=== PATIENT | male | born 1970 | race African-American/Black ===

== ENCOUNTER 2017-04-06 17:50 | Inpatient (IN) | payer OTHER ==
[~2017-04-06] VITALS: Ht 185.4 cm; Wt 106.5 kg
[2017-04-06 18:00] VITALS: PULSE 119; O2SAT 95
[2017-04-06] MEDS ORDERED: METHYLPREDNISOLONE 125 MG VIAL IV STA (18:17)
[2017-04-06] MEDS ORDERED: ALBUT/IPRATROP 3MG/0.5MG NEB 3 ML VIAL INH ONE (18:30)
[2017-04-06 18:40] VITALS: PULSE 113; O2SAT 97
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
[2017-04-06 19:09] LABS: BASO % 0.1 %; BASO ABS # 0.01 K/uL (0-0.2); COMPLETE YES; EOS % 0.8 %; IG% 0.6 %; LYMPH % 12.8 %; LYMPH ABS # 1.46 K/uL (1.2-3.4); MEAN CELL VOLUME 88.1 fL (80-100); MEAN CORPUSCULAR HEMOGLOBIN 29.1 pg (25-34); MEAN PLATELET VOLUME 10.8 fL (7.4-10.4); MONO % 7.3 %; NEUT % 78.4 %; PLATELET COUNT 216 K/uL (130-400); RED BLOOD COUNT 4.54 M/uL (4.7-6.1); WHITE BLOOD COUNT 11.44 K/uL (4.8-10.8)
[2017-04-06 19:23] LABS: PARTIAL THROMBOPLASTIN RATIO 0.9; PROTHROMBIN TIME (PATIENT) 10.9 SECONDS (9.0-12.0)
[2017-04-06] MEDS ORDERED: FUROSEMIDE 40 MG/4 ML VIAL IV STA (19:32)
[2017-04-06] MEDS ORDERED: ASPI81TA28 PO (19:33)
[2017-04-06] MEDS ORDERED: INSHRI SQ (19:33)
[2017-04-06] MEDS ORDERED: SERT-234 PO (19:33)
[2017-04-06] MEDS ORDERED: DIVA500T59 PO (19:33)
[2017-04-06] MEDS ORDERED: [UNRECOGNIZED DRUG - OTHER] TOP (19:33)
[2017-04-06] MEDS ORDERED: INSDGI SQ (19:33)
[2017-04-06] MEDS ORDERED: METF-384 PO (19:33)
[2017-04-06] MEDS ORDERED: OLAN10TA11 PO (19:33)
[2017-04-06] MEDS ORDERED: ATOR10TA82 PO (19:33)
[2017-04-06] MEDS ORDERED: DIPH25CA5 PO ×2 (19:33)
[2017-04-06] MEDS ORDERED: LISI10TA PO (19:33)
[2017-04-06 19:35] LABS: BUN/CREATININE RATIO 12.2 (10-20); CALCIUM 8.2 mg/dl (8.5-10.1); CREATININE 0.97 mg/dl (0.60-1.40); POTASSIUM 4.5 mmol/L (3.5-5.1)
[2017-04-06 19:44] LABS: ALB/GLOB RATIO 0.9 (0.9-2); CKMB/CK RATIO 0.9 (0-3.0)
[2017-04-06] MEDS ORDERED: DiphenhydrAMINE HCL 50 MG/ML VIAL IV STA (19:56)
[2017-04-06] MEDS ORDERED: OPTIRAY 320 IV PRN (20:00)
--- NOTE | 2017-04-06 21:03 | DIAGNOSTIC IMAGING REPORT ---
CT ANGIOGRAM OF THE CHEST CLINICAL HISTORY: Dyspnea. COMPARISON STUDY: Chest x-ray dated 04/06/2017. TECHNIQUE: Following the IV administration of 94 cc of Optiray 320, CT angiogram of the chest was performed from the upper abdomen to the thoracic inlet utilizing the pulmonary embolus protocol. Images are reviewed in the axial, sagittal, and coronal planes. 3-D MIPS images are created and assessed. IV contrast was administered without complication. A dose lowering technique was utilized adhering to the principles of ALARA. The examination is degraded by motion artifact. CT DOSE: 583.46 mGy.cm FINDINGS: Thyroid: Imaged portions of the thyroid gland are normal in size and attenuation. Thoracic aorta: The thoracic aorta is normal in caliber and demonstrates standard 3-vessel arch anatomy. No dissection is seen. Pulmonary vasculature: The pulmonary trunk is normal in caliber. There are no filling defects identified in main, lobar, or proximal segmental pulmonary branches to suggest pulmonary embolus. Evaluation of the peripheral branches is degraded by motion artifact. Heart: The heart is enlarged and without pericardial effusion. There are scattered coronary artery calcifications. Lungs and pleural spaces: Evaluation of the lung parenchyma is degraded by motion artifact. The trachea and central airways are clear. Trace pleural effusions are identified. Patchy airspace consolidation is identified in the lower lobes bilaterally. Linear atelectasis is noted in the lingula. Diffuse peribronchial thickening is observed. Plaque-like pleural thickening is noted along the right minor fissure on image #189. Intralobular septal thickening is seen in the lower lobes. Mediastinum: There are mildly enlarged mediastinal lymph nodes. A right paratracheal node on image #253 measures 1.2 cm in short axis. A subcarinal node measures 1.8 cm in short axis. Amira: Enlarged hilar lymph nodes measure up to 1.8 cm in short axis. Axillae: There is no axillary lymphadenopathy. Upper abdomen: A 2.3 cm right adrenal nodule meets CT criteria for a fat-containing adenoma. A tiny hiatal hernia is identified. Skeletal structures: No lytic or blastic bony lesions are seen. IMPRESSION: 1. There is no evidence of pulmonary embolus in the main, lobar, or proximal segmental pulmonary arteries. 2. Cardiomegaly. 3. Patchy airspace consolidation is seen within the lower lobes bilaterally. There is also intralobular septal thickening. The appearance is most typical for pneumonia. Correlate clinically for evidence of superimposed pulmonary edema. Radiographic follow-up To resolution is recommended. 4. Mediastinal and hilar lymphadenopathy is noted and likely on a reactive basis. 5. There are trace pleural effusions. 6. Pleural thickening is noted along the right minor fissure. 7. Additional findings as above. Electronically signed by: Carlos Davidson M.D. 04/06/2017 9:02 PM Dictated Date/Time: 04/06/2017 8:54 PM
[2017-04-06] MEDS ORDERED: ASPIRIN 324 MG CHEW PO STA (21:13)
[2017-04-06] MEDS ORDERED: CEFEPIME IV 2,000 MG in DEXTROSE 5% 100ML 100 ML IV ONE (21:15)
[2017-04-06] MEDS ORDERED: AZITHROMYCIN IV 500 MG in DEXTROSE 5% 250ML 250 ML IV ONE (21:15)
[2017-04-06] MEDS ORDERED: CEFEPIME IV 2,000 MG in SYRINGE 7.5 ML IV ONE (21:30)
[2017-04-06] MEDS ORDERED: CEFEPIME IV 1,000 MG in DEXTROSE 5% 100ML 100 ML IV STA (21:55)
[2017-04-06] MEDS ORDERED: ACETAMINOPHEN 325 MG TAB PO PRN (22:00)
[2017-04-06] MEDS ORDERED: ONDANSETRON INJ 2 MG/ML 2 ML VIAL IV PRN (22:00)
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
[2017-04-06] MEDS ORDERED: GLUCAGON FOR INJ 1 MG VIAL SQ PRN (22:15)
[2017-04-06] MEDS ORDERED: GLUCOSE 10 TABS/TUBE PO PRN (22:15)
[2017-04-06] MEDS ORDERED: GLUCOSE 40% GEL 15 GM TUBE PO PRN (22:15)
[2017-04-06] MEDS ORDERED: DEXTROSE 50% 50 ML SYR IV PRN (22:15)
[2017-04-06 22:51] VITALS: BP 117/96; PULSE 118; TEMP 37.2; BMI 31.0
[2017-04-06] MEDS ORDERED: ALBUT/IPRATROP 3MG/0.5MG NEB 3 ML VIAL INH SCH (23:00)
--- NOTE | 2017-04-06 23:23 | History and Physical ---
History & Physical Date & Time of Service: Apr 06, 2017 at 22:39 Chief Complaint: Resp Distress Primary Care Physician: Delfina CAREY History of Present Illness Source: patient, hospital records Pt is 46 y/o M with PMH HTN, dyslipidemia, insulin dependent DM II, SATISH, bipolar , emphysema presented to ER from [facility] with c/o SOB. Pt reports hx SOB, worse with exertion x couple of weeks. Worsening SOB past couple of days and worse today. Pt also c/o cough clear/white sputum x 1-2 weeks and intermittent sore throat. Reports some mid chest sharp pain intermittently lasts a couple of seconds and then resolves. C/O diaphoresis past week and night sweats past week. Pt thinks gained weight over the past month. Yesterday noticed some edema bilateral ankles. Reported when EMS arrived pt O2 sats in 80's% on RA. Pt reports hx emphysema. Used inhalers in past. States hasn't used for approx 7 years. Continues to smoke. Hx SATISH, does not use CPAP as pt states doesn't like the mask and he is not given distilled water in half-way. Denies known fever, N/V/ D/C, KINNEY, dizziness, syncope, vision changes, neck pain, orthopnea, palpitations , hemoptysis, choking, otalgia, rhinorrhea, abdominal pain, paresthesias, weakness, extremity weakness, new rashes, urinary symptoms. Denies ill contacts. Reports did have influenza vaccine this season. In ER pt placed on bipap sats in 90's. Afebrile. WBC: 11.4. D-dimer: 4020, BNP: 1107, Troponin 0.109. EKG: sinus tachy, PAC's. CXR: Mild interstitial thickening and mild bilateral airspace opacities. CT chest: consolidation bilateral lower lobes, intralobular septal thickening. Pt given ASA, solumedrol 125mgIV, lasix 40mg, duoneb, cefepime, zithromax. Pt reports feeling like his breathing better and much less SOB. He was tried on NC at 4L and pt sats 94%. Past Medical/Surgical History Medical Problems: (1) Bipolar disorder Status: Chronic (2) COPD (chronic obstructive pulmonary disease) Status: Chronic (3) Diabetes Status: Chronic (4) HTN (hypertension) Status: Chronic (5) Hyperlipidemia Status: Chronic (6) Sleep apnea Status: Chronic Surgical Problems: (1) Hx of tonsillectomy Status: Resolved Family History FH: cancer MOTHER (stomach CA) Hypertension GRANDMOTHER Social History Smoking Status: Current Every Day Smoker (15-20 cigarettes daily x 30 years) Smokeless Tobacco Use: No Alcohol Use: none Drug Use: none Marital Status: other (unknown) Housing status: other ([employer] [employer]) 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) Allergies Coded Allergies: Iodine (Verified Allergy, Unknown, UNKNOWN, 04/06/17) Shellfish (Verified Allergy, Unknown, UNKNOWN, 04/06/17) Home Medications Scheduled Aspirin (Aspirin Ec), 81 MG PO DAILY Atorvastatin (Lipitor), 10 MG PO DAILY Diphenhydramine Hcl (Benadryl), 2 CAP PO HS Diphenhydramine Hcl (Benadryl), 50 MG PO DAILY Divalproex Sodium (Depakote), 2 TAB PO HS Insulin Glargine (Lantus), 60 UNITS SQ HS Lisinopril (Prinivil), 10 MG PO DAILY Metformin Hcl (Glucophage), 1,000 MG PO BID Olanzapine (Zyprexa), 10 MG PO BID Sertraline (Zoloft), 2 TABS PO DAILY [Humulin R], UNITS SQ BIDM [Podophyllin 20%], 1 APPLN TOP UD Review of Systems Constitutional: + problem reported (see HPI) Eyes: No worsening of vision, No eye pain, No redness, No discharge, No diplopia ENT: + sore throat, + problem reported (see HPI), No unusual epistaxis, No nasal symptoms, No trouble swallowing Respiratory: + problem reported (see HPI) Cardiovascular: + problem reported (see HPI) Abdomen: No pain, No nausea, No vomiting, No diarrhea, No constipation, No GI bleeding Musculoskeletal: No joint pain, No muscle pain, No calf pain Genitourinary - Male: No hematuria, No dysuria, No urinary frequency, No urinary urgency, No urinary hesitancy, No urinary retention Neurologic: No memory loss, No weakness, No numbness/tingling, No vertigo, No balance problems Endocrine: No excessive thirst Integumentary: No color change Physical Exam Vital Signs Date Time Temp Pulse Resp B/P (MAP) Pulse Ox O2 Delivery O2 Flow Rate FiO2 11/22/17 22:35 10 22 126/94 94 04/06/17 22:02 117 04/06/17 21:30 125 20 97/75 92 Nasal Cannula 4.0 04/06/17 19:30 108 20 106/70 99 BiPAP 04/06/17 18:40 113 18 97 BiPAP/CPAP 60 04/06/17 18:01 117 04/06/17 18:00 119 95 60 04/06/17 17:58 37.1 92 20 132/96 93 BiPAP 60 04/06/17 17:58 95 BiPAP 60 General Appearance: WD/WN, no apparent distress (at this time. pt has on bipap , resting comfortably in bed, speaking in sentences ) Head: normocephalic, atraumatic Eyes: normal inspection, PERRL, EOMI, sclerae normal ENT: hearing grossly normal, pharynx normal, + pertinent finding (mucous membranes moist) Neck: supple, no adenopathy, no JVD, trachea midline Respiratory/Chest: chest non-tender, no accessory muscle use, + pertinent finding (+rhonchi throughout, rales bases bilaterally, scattered wheezing throughout) Cardiovascular: no murmur, normal peripheral pulses, + tachycardia Abdomen/GI: normal bowel sounds, non tender, soft Extremities/Musculoskelatal: no calf tenderness, normal capillary refill, non- tender, + pertinent finding (no pitting edema) Neurologic/Psych: alert, normal mood/affect, oriented x 3 Skin: normal color, warm/dry Diagnostics Laboratory Results Last 24 Hours Test 04/06/17 18:57 04/06/17 22:05 04/06/17 22:10 04/06/17 22:13 White Blood Count 11.44 K/uL Red Blood Count 4.54 M/uL Hemoglobin 13.2 g/dL Hematocrit 40.0 % Mean Corpuscular Volume 88.1 fL Mean Corpuscular Hemoglobin 29.1 pg Mean Corpuscular Hemoglobin Concent 33.0 g/dl Platelet Count 216 K/uL Mean Platelet Volume 10.8 fL Neutrophils (%) (Auto) 78.4 % Lymphocytes (%) (Auto) 12.8 % Monocytes (%) (Auto) 7.3 % Eosinophils (%) (Auto) 0.8 % Basophils (%) (Auto) 0.1 % Neutrophils # (Auto) 8.98 K/uL Lymphocytes # (Auto) 1.46 K/uL Monocytes # (Auto) 0.83 K/uL Eosinophils # (Auto) 0.09 K/uL Basophils # (Auto) 0.01 K/uL RDW Standard Deviation 43.2 fL RDW Coefficient of Variation 13.6 % Immature Granulocyte % (Auto) 0.6 % Immature Granulocyte # (Auto) 0.07 K/uL Prothrombin Time 10.9 SECONDS Prothromb Time International Ratio 1.0 Activated Partial Thromboplast Time 24.0 SECONDS Partial Thromboplastin Ratio 0.9 D-Dimer 4020 ug/L FEU Sodium Level 140 mmol/L Potassium Level 4.5 mmol/L Chloride Level 108 mmol/L Carbon Dioxide Level 24 mmol/L Anion Gap 8.0 mmol/L Blood Urea Nitrogen 12 mg/dl Creatinine 0.97 mg/dl Est Creatinine Clear Calc Drug Dose 124.2 ml/min Estimated GFR () 108.1 Estimated GFR (Non- 93.2 BUN/Creatinine Ratio 12.2 Random Glucose 174 mg/dl Calcium Level 8.2 mg/dl Total Bilirubin 0.1 mg/dl Aspartate Amino Transf (AST/SGOT) 24 U/L Alanine Aminotransferase (ALT/SGPT) 32 U/L Alkaline Phosphatase 59 U/L Total Creatine Kinase 264 U/L Creatine Kinase MB 2.3 ng/ml Creatine Kinase MB Ratio 0.9 Troponin I 0.109 ng/ml Pro-B-Type Natriuretic Peptide 1107 pg/ml Total Protein 6.7 gm/dl Albumin 3.1 gm/dl Globulin 3.6 gm/dl Albumin/Globulin Ratio 0.9 Diagnostic Radiology CXR: IMPRESSION: 1. Mild interstitial thickening and mild bilateral airspace opacities. The findings may reflect an infectious etiology or pulmonary edema. Radiographic follow-up to ensure resolution is recommended. 2. Mild enlargement of the cardiac silhouette. CT CHEST: IMPRESSION: 1. There is no evidence of pulmonary embolus in the main, lobar, or proximal segmental pulmonary arteries. 2. Cardiomegaly. 3. Patchy airspace consolidation is seen within the lower lobes bilaterally. There is also intralobular septal thickening. The appearance is most typical for pneumonia. Correlate clinically for evidence of superimposed pulmonary edema. Radiographic follow-up To resolution is recommended. 4. Mediastinal and hilar lymphadenopathy is noted and likely on a reactive basis. 5. There are trace pleural effusions. 6. Pleural thickening is noted along the right minor fissure. 7. Additional findings as above. EKG EKG: sinus tachy, rate 118, PAC, no ST elevation noted Impression Assessment and Plan HYPOXIA Pt reports hx emphysema not treated for 7 years. Pt initially with O2 sats in 80 's, increased to high 90's on bipap in ER. Pt 94% on 4L NC. sinus Tachy 116. afebrile. Received neb tx, solumedrol 125mg, lasix 40, zithromax, cefepime, asa in ER. Pt reports less SOB. WBC: 11.4. pending lactic acid. d-dimer: 4020. BNP: 1107. CT negative for PE, consolidation bilateral lower lobes, intralobar septal thickening Pneumonia, may also be secondary to COPD exacerbation vs fluid overload. At this time higher suspicion pneumonia -continue to monitor -pt maintaining sats in low 90's on O2 NC -pending blood cultures -pending flu swab -pending lactic acid -MRSA swab -duonebs -echo -solumedrol 40mg Q 8h -continue cefepime, Zithromax -hold on further Lasix at this time until echo -cbc, prp in am -CXR in am ELEVATED TROPONIN Troponin 0.109. may be secondary to infection. no current CP -will trend serial cardiac enzymes -repeat EKG -continue ASA INSULIN DEPENDENT DM II -HgbA1c pending -NovoLog sliding scale -Lantus -hold metformin HTN: -continue lisinopril HYPERLIPIDEMIA -lipid panel -continue Lipitor TOBACCO ABUSE -smoking cessation counseling -nicotine patch BIPOLAR: -pending Depakote level -continue Depakote -continue Zyprexa -continue Zoloft SATISH -pt doesn't use his cpap. Will continue O2 NC at this time DVT PROPHYLAXIS -Lovenox SQ DISPOSITION -admit tele -Full Code -[facility] physician for routine care Pt was seen with Dr Babcock. See addendum ADDENDUM: This is a 46 year old male with a PMH of DM2, HTN, HLD, tobacco use disorder, bipolar disorder presents with a two week history of shortness of breath. States that he could not get a deep breath in for the two weeks but hoped that this would pass. Unfortunately, breathing became more difficult and he had to be brought in to the ED. Upon presentation, noted to be hypoxic. CT showed possible pneumonia. Patient was given Lasix, IV steroids, antibiotics and placed on bipap. He was then weaned off of Bipap and back on nasal cannula. During my exam, he was feeling better. GEN: no acute distress CVS: +tachycardia, irregular rhythm LUNGS: decreased air movement, +end expiratory wheezing diffusely EXT: no edema Acute Hypoxic Respiratory Failure secondary to Pneumonia and Acute COPD Exacerbation continue Cefepime and Azithro for now; check MRSA swab IV solu-medrol 40mg q8 duonebs recheck CXR in AM Sinus Tachycardia and multiple PACs EKG shows a sinus tachycardia and PACs monitor in tele continue bipolar medications, monitor heart rate with steroid use Elevated Troponin monitor in tele check an echo trend enzymes Level of Care Telemetry Resuscitation Status FULL RESUSCITATION VTE Prophylaxis VTE Risk Assessment Done? Y/N: Yes Risk Level: Moderate Given or contraindicated: Enoxaparin (Lovenox)SQ
[2017-04-07] VITALS (9 sets, daily range): BP systolic 111–136; BP diastolic 76–104; PULSE 100–120; TEMP 36.7–37.6; O2SAT 91–97
[2017-04-07] MEDS: INSULIN GLARGINE SOLOSTAR 100 UNITS/ML 3 ML PEN SC SCH ×2 (00:45→07:56)
[2017-04-07 00:51] LABS: INFLUENZA A PCR Neg for Influ A (NEG); INFLUENZA B PCR Neg for Influ B (NEG)
[2017-04-07 01:25] LABS: CKMB/CK RATIO 1.1 (0-3.0)
[2017-04-07] MEDS: METHYLPREDNISOLONE IV 40 MG in SYRINGE 0 ML IV SCH ×3 (05:57→20:58)
[2017-04-07] MEDS: CEFEPIME IV 2,000 MG in SYRINGE 7.5 ML IV SCH ×3 (05:57→21:01)
[2017-04-07 06:15] LABS: COMPLETE YES; HEMATOCRIT 39.2 % (42-52); IG% 0.3 %; LYMPH % 9.1 %; LYMPH ABS # 1.21 K/uL (1.2-3.4); MEAN CELL VOLUME 87.9 fL (80-100); MEAN CORPUSCULAR HEMOGLOBIN 28.9 pg (25-34); MEAN CORPUSCULAR HGB CONC 32.9 g/dl (32-36); MEAN PLATELET VOLUME 10.8 fL (7.4-10.4); MONO % 1.7 %; NEUT % 88.9 %; PLATELET COUNT 219 K/uL (130-400); RED BLOOD COUNT 4.46 M/uL (4.7-6.1); WHITE BLOOD COUNT 13.33 K/uL (4.8-10.8)
[2017-04-07 06:35] LABS: BUN/CREATININE RATIO 15.1 (10-20); CALCIUM 8.2 mg/dl (8.5-10.1); CREATININE 1.08 mg/dl (0.60-1.40); POTASSIUM 4.4 mmol/L (3.5-5.1)
[2017-04-07 06:42] LABS: ESTIMATED AVERAGE GLUCOSE 200 mg/dl; HA1C FLAG Normal (Normal)
[2017-04-07 06:48] LABS: CHOLESTEROL/HDL RATIO 3.1; CKMB/CK RATIO 1.1 (0-3.0)
[2017-04-07] MEDS: ASPIRIN 81 MG ECTAB PO SCH (07:54)
[2017-04-07] MEDS: ATORVASTATIN 10 MG TAB PO SCH (07:54)
[2017-04-07] MEDS: INSULIN ASPART 100 UNITS/ML 3 ML PEN SC SCH ×4 (07:56→21:03)
[2017-04-07] MEDS: OLANZAPINE 10 MG TAB PO SCH ×2 (07:56→20:54)
[2017-04-07] MEDS: NICOTINE 21 MG/24 HR TDSY TD SCH (07:57)
[2017-04-07] MEDS: LISINOPRIL 10 MG TAB PO SCH (07:57)
[2017-04-07] MEDS: ENOXAPARIN 40 MG/0.4 ML SYR SC SCH (07:57)
[2017-04-07] MEDS: SERTRALINE HCL 100 MG TAB PO SCH (07:58)
--- NOTE | 2017-04-07 09:07 | DIAGNOSTIC IMAGING REPORT ---
CHEST 2 VIEWS ROUTINE CLINICAL HISTORY: SOB, hypoxia COMPARISON STUDY: 04/06/2017 FINDINGS: The heart is the upper limits of normal in size. There is slight improvement in the mixed bilateral interstitial and alveolar opacities. There are no significant pleural effusions.[ IMPRESSION: Improving mixed bilateral interstitial and alveolar opacities. Electronically signed by: Stuart Nicolas M.D. 04/07/2017 9:05 AM Dictated Date/Time: 04/07/2017 9:04 AM
[2017-04-07] MEDS ORDERED: LEVALBUTEROL/IPRATROPIUM NEB INH PRN (09:30)
[2017-04-07] MEDS ORDERED: LEVALBUTEROL 1.25MG/0.5ML NEB INH PRN ×2 (10:00)
[2017-04-07] MEDS ORDERED: IPRATROPIUM BROMIDE NEB SOLN 0.02% 2.5 ML VIAL INH PRN (10:00)
[2017-04-07] MEDS ORDERED: LANTUS PER UNIT CHARGE SC STA (12:45)
--- NOTE | 2017-04-07 14:08 | DIAGNOSTIC IMAGING REPORT ---
CT LUMBAR SPINE WITHOUT CT DOSE: 999.81 mGy.cm CLINICAL HISTORY: Back pain. Evaluate for fracture. TECHNIQUE: Helical images were acquired in transverse plane. Reformatted sagittal and coronal images were reviewed. A dose lowering technique was utilized adhering to the principles of ALARA. CONTRAST: No contrast was administered COMPARISON STUDY: None. FINDINGS: L1-2 level: There is no evidence of significant disc bulge or focal herniation. There is no evidence of spinal or foraminal stenosis. L2-3 level: There is no evidence of significant disc bulge or focal herniation. There is no evidence of spinal or foraminal stenosis. L3-4 level: There is no evidence of significant disc bulge or focal herniation. There is no evidence of spinal or foraminal stenosis. L4-5 level: There is no evidence of significant disc bulge or focal herniation. There is no evidence of spinal or foraminal stenosis. L5-S1 level: There is no evidence of significant disc bulge or focal herniation. There is no evidence of spinal or foraminal stenosis. No fractures or subluxations are visualized. IMPRESSION: 1. No fractures or subluxations identified 2. No lytic or blastic lesions identified 3. No CT evidence of focal disc herniation, or spinal stenosis. Electronically signed by: Stuart Nicolas M.D. 04/07/2017 2:07 PM Dictated Date/Time: 04/07/2017 2:04 PM
[2017-04-07] MEDS: IPRATROPIUM BROMIDE NEB SOLN 0.02% 2.5 ML VIAL INH SCH ×2 (14:21→19:15)
[2017-04-07] MEDS: LEVALBUTEROL 0.63MG/3 ML NEB INH SCH ×2 (14:21→19:15)
[2017-04-07] MEDS ORDERED: LEVALBUTEROL/IPRATROPIUM NEB INH SCH (15:00)
--- NOTE | 2017-04-07 16:57 | Progress Note ---
Internal Med Progress Note Date of Service: Apr 07, 2017. Provider Documentation: SUBJECTIVE: having sob and cough for about few weeks smokes 20 cigarettes daily afebrile complains of some back pain and numbness in left thigh region feeling better today sob improving OBJECTIVE: Vital Signs-as noted below Exam: General-alert and oriented. Not in distress ENT-Normal hearing Neck-no neck masses Lungs-CTA b/l mild exp wheezing present no crackles Heart-S1 and S2 heard. Regular rate and rhythm, no murmurs Abdomen-Soft Bowel sounds present no tenderness present no distension Extremities-mild pedal edema no erythema Neuro-alert and awake moves extremities Lab data as noted below. ASSESSMENT & PLAN: HYPOXIA copd ex Pneumonia CTA chest - bibasilar infiltrates on iv steroids and iv abx cefepime and azithromycin and nebs improving continue same for now ELEVATED TROPONIN mostly from above NSTEMI from demand ischemia? will f/u echo INSULIN DEPENDENT DM II Lantus and iss metformin on hold close monitor while on steroids HTN: on lisinopril HYPERLIPIDEMIA lipid profile at goal continue Lipitor TOBACCO ABUSE smoking cessation counseling nicotine patch BIPOLAR: to continue Zyprexa to continue Zoloft SATISH pt doesn't use his cpap. Will continue O2 NC at this time DVT PROPHYLAXIS Lovenox SQ Full code DISPOSITION monitor in tele Follows with [facility] physician for routine care Vital Signs: Date Time Temp Pulse Resp B/P (MAP) Pulse Ox O2 Delivery O2 Flow Rate FiO2 04/07/17 15:57 36.7 120 18 132/85 (101) 93 Room Air 04/07/17 14:22 105 18 94 Nasal Cannula 2.0 04/07/17 12:06 36.9 107 18 136/91 (106) 91 Room Air 04/07/17 11:47 Nasal Cannula 04/07/17 08:10 36.9 109 15 118/91 (100) 96 Nasal Cannula 4.0 04/07/17 08:00 Nasal Cannula 04/07/17 07:13 100 18 97 Nasal Cannula 2.0 04/07/17 04:23 37.6 108 22 132/85 (101) 93 04/07/17 04:00 Nasal Cannula 4.0 04/07/17 00:00 Nasal Cannula 4.0 04/06/17 22:51 37.2 118 117/96 Nasal Cannula 4.0 04/06/17 22:35 10 22 126/94 94 04/06/17 22:02 117 04/06/17 21:30 125 20 97/75 92 Nasal Cannula 4.0 04/06/17 19:30 108 20 106/70 99 BiPAP 04/06/17 18:40 113 18 97 BiPAP/CPAP 60 04/06/17 18:01 117 04/06/17 18:00 119 95 60 04/06/17 17:58 37.1 92 20 132/96 93 BiPAP 60 04/06/17 17:58 95 BiPAP 60 Lab Results: Results Past 24 Hours Test 04/06/17 18:57 04/06/17 23:20 04/06/17 23:22 04/07/17 00:53 Range/Units White Blood Count 11.44 4.8-10.8 K/uL Red Blood Count 4.54 4.7-6.1 M/uL Hemoglobin 13.2 14.0-18.0 g/dL Hematocrit 40.0 42-52 % Mean Corpuscular Volume 88.1 80-100 fL Mean Corpuscular Hemoglobin 29.1 25-34 pg Mean Corpuscular Hemoglobin Concent 33.0 32-36 g/dl Platelet Count 216 130-400 K/uL Mean Platelet Volume 10.8 7.4-10.4 fL Neutrophils (%) (Auto) 78.4 % Lymphocytes (%) (Auto) 12.8 % Monocytes (%) (Auto) 7.3 % Eosinophils (%) (Auto) 0.8 % Basophils (%) (Auto) 0.1 % Neutrophils # (Auto) 8.98 1.4-6.5 K/uL Lymphocytes # (Auto) 1.46 1.2-3.4 K/uL Monocytes # (Auto) 0.83 0.11-0.59 K/uL Eosinophils # (Auto) 0.09 0-0.5 K/uL Basophils # (Auto) 0.01 0-0.2 K/uL RDW Standard Deviation 43.2 36.4-46.3 fL RDW Coefficient of Variation 13.6 11.5-14.5 % Immature Granulocyte % (Auto) 0.6 % Immature Granulocyte # (Auto) 0.07 0.00-0.02 K/uL Prothrombin Time 10.9 9.0-12.0 SECONDS Prothromb Time International Ratio 1.0 0.9-1.1 Activated Partial Thromboplast Time 24.0 21.0-31.0 SECONDS Partial Thromboplastin Ratio 0.9 D-Dimer 4020 0-500 ug/L FEU Sodium Level 140 136-145 mmol/L Potassium Level 4.5 3.5-5.1 mmol/L Chloride Level 108 98-107 mmol/L Carbon Dioxide Level 24 21-32 mmol/L Anion Gap 8.0 3-11 mmol/L Blood Urea Nitrogen 12 7-18 mg/dl Creatinine 0.97 0.60-1.40 mg/dl Est Creatinine Clear Calc Drug Dose 124.2 ml/min Estimated GFR () 108.1 Estimated GFR (Non- 93.2 BUN/Creatinine Ratio 12.2 10-20 Random Glucose 174 70-99 mg/dl Estimated Average Glucose 200 mg/dl Hemoglobin A1c 8.6 4.5-5.6 % Calcium Level 8.2 8.5-10.1 mg/dl Total Bilirubin 0.1 0.2-1 mg/dl Aspartate Amino Transf (AST/SGOT) 24 15-37 U/L Alanine Aminotransferase (ALT/SGPT) 32 12-78 U/L Alkaline Phosphatase 59 45-117 U/L Total Creatine Kinase 264 251 39-308 U/L Creatine Kinase MB 2.3 2.7 0.5-3.6 ng/ml Creatine Kinase MB Ratio 0.9 1.1 0-3.0 Troponin I 0.109 0.157 0-0.045 ng/ml Pro-B-Type Natriuretic Peptide 1107 0-450 pg/ml Total Protein 6.7 6.4-8.2 gm/dl Albumin 3.1 3.4-5.0 gm/dl Globulin 3.6 2.5-4.0 gm/dl Albumin/Globulin Ratio 0.9 0.9-2 Influenza Type A (RT-PCR) Neg for Influ A NEG Influenza Type A Antigen Neg for Influ A NEG Influenza Type B Antigen Neg for Influ B NEG Influenza Type B (RT-PCR) Neg for Influ B NEG Lactic Acid Level 4.0 4.5 0.4-2.0 mmol/L Valproic Acid (Depakene) Level 24 50-100 mcg/ml Test 04/07/17 06:01 04/07/17 06:06 04/07/17 06:13 04/07/17 11:29 Range/Units Procalcitonin < 0.05 0-0.5 ng/ml White Blood Count 13.33 4.8-10.8 K/uL Red Blood Count 4.46 4.7-6.1 M/uL Hemoglobin 12.9 14.0-18.0 g/dL Hematocrit 39.2 42-52 % Mean Corpuscular Volume 87.9 80-100 fL Mean Corpuscular Hemoglobin 28.9 25-34 pg Mean Corpuscular Hemoglobin Concent 32.9 32-36 g/dl Platelet Count 219 130-400 K/uL Mean Platelet Volume 10.8 7.4-10.4 fL Neutrophils (%) (Auto) 88.9 % Lymphocytes (%) (Auto) 9.1 % Monocytes (%) (Auto) 1.7 % Eosinophils (%) (Auto) 0.0 % Basophils (%) (Auto) 0.0 % Neutrophils # (Auto) 11.86 1.4-6.5 K/uL Lymphocytes # (Auto) 1.21 1.2-3.4 K/uL Monocytes # (Auto) 0.22 0.11-0.59 K/uL Eosinophils # (Auto) 0.00 0-0.5 K/uL Basophils # (Auto) 0.00 0-0.2 K/uL RDW Standard Deviation 43.9 36.4-46.3 fL RDW Coefficient of Variation 13.7 11.5-14.5 % Immature Granulocyte % (Auto) 0.3 % Immature Granulocyte # (Auto) 0.04 0.00-0.02 K/uL Sodium Level 138 136-145 mmol/L Potassium Level 4.4 3.5-5.1 mmol/L Chloride Level 104 98-107 mmol/L Carbon Dioxide Level 26 21-32 mmol/L Anion Gap 8.0 3-11 mmol/L Blood Urea Nitrogen 16 7-18 mg/dl Creatinine 1.08 0.60-1.40 mg/dl Est Creatinine Clear Calc Drug Dose 109.4 ml/min Estimated GFR () 94.9 Estimated GFR (Non- 81.9 BUN/Creatinine Ratio 15.1 10-20 Random Glucose 269 70-99 mg/dl Lactic Acid Level 2.5 0.4-2.0 mmol/L Calcium Level 8.2 8.5-10.1 mg/dl Total Creatine Kinase 262 39-308 U/L Creatine Kinase MB 2.8 0.5-3.6 ng/ml Creatine Kinase MB Ratio 1.1 0-3.0 Troponin I 0.202 0-0.045 ng/ml Triglycerides Level 54 0-150 mg/dl Cholesterol Level 123 0-200 mg/dl HDL Cholesterol 40 mg/dl LDL Cholesterol, Calculated 72 mg/dl VLDL Cholesterol, Calculated 11 mg/dl Cholesterol/HDL Ratio 3.1 Bedside Glucose 259 322 70-99 mg/dl Test 04/07/17 16:24 04/07/17 16:26 Range/Units Bedside Glucose 275 70-99 mg/dl Microbiology Results 04/06/17 Blood Culture, Received Pending 04/06/17 Blood Culture, Received Pending 04/06/17 MRSA DNA Surveillance Screen - Final, Complete Specimen Negative for MRSA by DNA Probe
[2017-04-07] MEDS: DIVALPROEX SODIUM 500 MG DELAY RELEASE TAB PO SCH (20:53)
[2017-04-07] MEDS ORDERED: INSULIN GLARGINE SOLOSTAR 100 UNITS/ML 3 ML PEN SC SCH (21:00)
[2017-04-07] MEDS: AZITHROMYCIN IV 500 MG in DEXTROSE 5% 250ML 250 ML IV SCH (21:01)
[2017-04-07] MEDS ORDERED: INSULIN HUMAN REGULAR SC ONE (23:45)
[2017-04-07] MEDS ORDERED: PHARMACY GLYCEMIC MGMT CONSULT PRN (23:45)
[2017-04-08] VITALS (10 sets, daily range): BP systolic 138–164; BP diastolic 81–113; PULSE 100–113; TEMP 36.4–37.1; O2SAT 91–96
[2017-04-08] MEDS ORDERED: INSULIN ASPART 100 UNITS/ML 3 ML PEN SC ONE
[2017-04-08] MEDS: LEVALBUTEROL 0.63MG/3 ML NEB INH SCH ×4 (01:45→19:10)
[2017-04-08] MEDS: IPRATROPIUM BROMIDE NEB SOLN 0.02% 2.5 ML VIAL INH SCH ×4 (01:45→19:10)
[2017-04-08] MEDS ORDERED: INSULIN ASPART 100 UNITS/ML 3 ML PEN SC SCH (04:00)
[2017-04-08] MEDS ORDERED: INSULIN HUMAN REGULAR PER UNIT 10 UNITS in SYRINGE 9.9 ML IV SCH ×2 (04:45)
[2017-04-08] MEDS: CEFEPIME IV 2,000 MG in SYRINGE 7.5 ML IV SCH ×3 (05:00→21:46)
[2017-04-08] MEDS: METHYLPREDNISOLONE IV 40 MG in SYRINGE 0 ML IV SCH (05:01)
[2017-04-08] MEDS: INSULIN ASPART 100 UNITS/ML 3 ML PEN SC SCH ×4 (08:34→21:57)
[2017-04-08] MEDS: INSULIN GLARGINE SOLOSTAR 100 UNITS/ML 3 ML PEN SC SCH ×2 (08:35→21:57)
[2017-04-08] MEDS: ASPIRIN 81 MG ECTAB PO SCH (08:37)
[2017-04-08] MEDS: ENOXAPARIN 40 MG/0.4 ML SYR SC SCH (08:37)
[2017-04-08] MEDS: ATORVASTATIN 10 MG TAB PO SCH (08:37)
[2017-04-08] MEDS: SERTRALINE HCL 100 MG TAB PO SCH (08:37)
[2017-04-08] MEDS: OLANZAPINE 10 MG TAB PO SCH ×2 (08:37→21:44)
[2017-04-08] MEDS: LISINOPRIL 10 MG TAB PO SCH (08:37)
[2017-04-08] MEDS: NICOTINE 21 MG/24 HR TDSY TD SCH (08:38)
--- NOTE | 2017-04-08 11:31 | ECHOCARDIOGRAM REPORT ---
*NOTICE TO RECEIVING [employer] This information is strictly Confidential and protected under [place] law. [place] law prohibits you from making any further disclosure of this information unless further disclosure is expressly permitted by the written consent of the person to whom it pertains or is authorized by law. A general authorization for the release of medical or other information is not sufficient for this purpose. Hospital accepts no responsibility if the information is made available to any other person, INCLUDING THE PATIENT. Interpretation Summary * Name: DIANA FORD [id number] Study Date: 04/07/2017 02:47 PM BP: 132/85 mmHg * Patient Location: C.2E\S\E202\S\1 HR: 108 * : 1970 (M/d/yyyy) Gender: Male Height: 73 in * Age: 46 yrs Ethnicity: AA Weight: 244 lb * Ordering Physician: Erica Torres * Referring Physician: Self, Referred * Performed By: Julissa Rascon RDCS * * Reason For Study: Chest pain * BSA: 2.3 m2 * -- Conclusions -- * The left ventricle is normal in size. * The left ventricular wall motion is normal. * Ejection Fraction = 50-55%. * The right ventricular systolic function is normal. * The left atrial size is normal. * Right atrial size is normal. * There is mild to moderate mitral regurgitation. Procedure Details * A complete two-dimensional transthoracic echocardiogram was performed (2D, M-mode, Doppler and color flow Doppler). Left Ventricle * The left ventricle is normal in size. * There is normal left ventricular wall thickness. * Ejection Fraction = 50-55%. * Left ventricular systolic function is normal. * The left ventricular wall motion is normal. Right Ventricle * The right ventricle is normal size. * The right ventricular systolic function is normal. Atria * The left atrial size is normal. * Right atrial size is normal. * The interatrial septum is intact with no evidence for an atrial septal defect. Mitral Valve * The mitral valve anatomy is normal. * There is mild to moderate mitral regurgitation. Tricuspid Valve * The tricuspid valve is normal in structure and function. * Significant tricuspid regurgitation is absent. Aortic Valve * The aortic valve is normal in structure and function. Pulmonic Valve * The pulmonic valve is not well visualized. * There is no significant pulmonary regurgitation. Great Vessels * The aortic root and proximal ascending aorta are normal sized. Pericardium/Pleural * There is no pericardial effusion. MMode 2D Measurements and Calculations IVSd 1.0 cm LVIDd 5.6 cm LVIDs 4.1 cm LVPWd 1.2 cm IVS/LVPW 0.88 FS 26.7 % EDV(Teich) 151.5 ml ESV(Teich) 73.4 ml EF(Teich) 51.5 % EDV(cubed) 172.4 ml ESV(cubed) 68.0 ml EF(cubed) 60.6 % LV mass(C)d 244.3 grams LV mass(C)dI 104.3 grams/m\S\2 SV(Teich) 78.1 ml SI(Teich) 33.3 ml/m\S\2 SV(cubed) 104.4 ml SI(cubed) 44.6 ml/m\S\2 Ao root diam 2.9 cm Ao root area 6.7 cm\S\2 ACS 1.9 cm LA dimension 3.5 cm asc Aorta Diam 3.2 cm LA/Ao 1.2 LVOT diam 2.0 cm LVOT area 3.2 cm\S\2 LVAd ap4 33.5 cm\S\2 LVLd ap4 7.9 cm EDV(MOD-sp4) 115.2 ml EDV(sp4-el) 119.9 ml LVAs ap4 21.7 cm\S\2 LVLs ap4 6.9 cm ESV(MOD-sp4) 57.5 ml ESV(sp4-el) 57.7 ml EF(MOD-sp4) 50.1 % EF(sp4-el) 51.9 % LVAd ap2 39.7 cm\S\2 LVLd ap2 8.5 cm EDV(MOD-sp2) 154.7 ml EDV(sp2-el) 158.0 ml LVAs ap2 26.3 cm\S\2 LVLs ap2 7.5 cm ESV(MOD-sp2) 76.1 ml ESV(sp2-el) 78.4 ml EF(MOD-sp2) 50.8 % EF(sp2-el) 50.4 % LVLd %diff 6.4 % EDV(MOD-bp) 136.0 ml LVLs %diff 7.8 % ESV(MOD-bp) 68.0 ml EF(MOD-bp) 50.0 % SV(MOD-sp4) 57.7 ml SI(MOD-sp4) 24.6 ml/m\S\2 SV(MOD-sp2) 78.6 ml SI(MOD-sp2) 33.6 ml/m\S\2 SV(MOD-bp) 68.0 ml SI(MOD-bp) 29.1 ml/m\S\2 SV(sp4-el) 62.3 ml SI(sp4-el) 26.6 ml/m\S\2 SV(sp2-el) 79.6 ml SI(sp2-el) 34.0 ml/m\S\2 Doppler Measurements and Calculations MV E max celestine 156.1 cm/sec MV dec time 0.20 sec Ao V2 max 169.6 cm/sec Ao max PG 11.5 mmHg Ao max PG (full) 5.5 mmHg CAYLA(V,A) 2.3 cm\S\2 CAYLA(V,D) 2.3 cm\S\2 LV V1 max PG 6.0 mmHg LV V1 max 122.4 cm/sec MR max celestine 461.2 cm/sec MR max PG 85.2 mmHg MR mean celestine 351.9 cm/sec MR mean PG 56.4 mmHg MR VTI 106.8 cm PA V2 max 116.7 cm/sec PA max PG 5.5 mmHg PA acc slope 515.7 cm/sec\S\2 PA acc time 0.14 sec PA pr(Accel) 17.2 mmHg
[2017-04-08] MEDS ORDERED: INSULIN REGULAR 250 UNITS in SODIUM CHLORIDE 0.9% 250ML 250 ML IV SCH (13:00)
--- NOTE | 2017-04-08 13:50 | Pharmacy Progress Note ---
Pharmacy Glycemic Short Note 2 Date of Service Apr 08, 2017. OUTPATIENT ANTIDIABETIC REGIMEN: * Lantus 60 units SQ qHS * Humulin-R BID with meals, SSI * Metformin 1000mg PO BID * HbA1c: 8.6% (04/06/17) ASSESSMENT: * Mr Carter is a 46yo diabetic male admitted on 04/06/17 with hypoxia/PNA. * Patient received several doses of high-dose IV steroids. Steroids will decrease to once-daily prednisone starting tomorrow. * Last night, pharmacy was consulted for glycemic control. BSGs >300mg/dL. Despite aggressive insulin doses, patient's BSGs have not resolved (BSG pre- lunch still 352mg/dL). * Patient initiated on insulin gtt in order to stabilize BSGs and resolve significant hyperglycemia. PLAN FOR INPATIENT GLYCEMIC CONTROL: * Hold outpatient oral diabetes medications * Consider resuming prior to discharge * Basal insulin * Lantus 40 units SQ BID * continue while insulin infusion is in use in an attempt to shorten the duration that gtt is required * Bolus insulin * NovoLog per scale ACHS or Q6hrs while NPO * Goal Range: Low 110 mg/dL - High 140 mg/dL * Correction Factor: 15 mg/dL/unit * Nutritional / Prandial insulin per carb ratio of 1 unit per 7 grams CHO consumed * CORRECTIONAL INSULIN/PRANDIAL COVERAGE PER INSULIN INFUSION ADJUSTMENT CALCULATOR, WHILE GTT INFUSING PLAN FOR DISCHARGE: * Current A1c indicates sub-optimal glycemic control. * Consider adjusting regimen on discharge to provide additional insulin. Close f/u.
--- NOTE | 2017-04-08 16:01 | Progress Note ---
Internal Med Progress Note Date of Service: Apr 08, 2017. Provider Documentation: SUBJECTIVE: sob is improving has cough with whitish sputum afebrile no pain resting comfortably OBJECTIVE: Vital Signs-as noted below Exam: General-alert and oriented. Not in distress ENT-Normal hearing Neck-no neck masses Lungs-CTA b/l no wheezing present no crackles Heart-S1 and S2 heard. Regular rate and rhythm, no murmurs Abdomen-Soft Bowel sounds present no tenderness present no distension Extremities-mild pedal edema no erythema Neuro-alert and awake moves extremities Lab data as noted below. ASSESSMENT & PLAN: HYPOXIA copd ex Pneumonia CTA chest - bibasilar infiltrates on iv steroids and iv abx cefepime and azithromycin and nebs improving will taper steroids ELEVATED TROPONIN mostly from above NSTEMI from demand ischemia? echo unremarkable except moderate MR INSULIN DEPENDENT DM II Lantus and iss metformin on hold running high. on steroids pharmacy stating on insulin gtt will monitor HTN: on lisinopril HYPERLIPIDEMIA lipid profile at goal continue Lipitor TOBACCO ABUSE smoking cessation counseling nicotine patch BIPOLAR: to continue Zyprexa to continue Zoloft SATISH pt doesn't use his cpap. Will continue O2 NC at this time DVT PROPHYLAXIS Lovenox SQ Full code DISPOSITION monitor in tele Follows with [facility] How[facility] physician for routine care possible d/c in am Vital Signs: Date Time Temp Pulse Resp B/P (MAP) Pulse Ox O2 Delivery O2 Flow Rate FiO2 04/08/17 15:29 36.9 103 20 154/108 (123) 93 Room Air 04/08/17 14:34 100 18 94 Room Air 04/08/17 12:00 Room Air 04/08/17 11:52 36.6 108 16 149/99 (116) 93 Room Air 04/08/17 08:18 36.7 113 19 164/108 (126) 93 Room Air 04/08/17 08:00 Room Air 04/08/17 07:05 103 18 91 Room Air 04/08/17 04:08 Room Air 04/08/17 03:28 36.4 102 18 138/81 (100) 94 Room Air 04/08/17 01:45 109 18 93 Room Air 04/08/17 00:01 Room Air 04/07/17 23:18 36.8 113 20 134/104 (114) 93 Room Air 04/07/17 20:00 Nasal Cannula 4.0 04/07/17 19:52 37.2 113 18 111/76 (88) 95 Room Air 04/07/17 19:15 111 18 94 Room Air 04/07/17 16:00 Nasal Cannula 4.0 04/07/17 16:00 Nasal Cannula Lab Results: Results Past 24 Hours Test 04/07/17 16:24 04/07/17 16:26 04/07/17 20:26 04/07/17 23:19 Range/Units Lactic Acid Level 2.6 0.4-2.0 mmol/L Troponin I 0.152 0-0.045 ng/ml Bedside Glucose 275 309 303 70-99 mg/dl Test 04/08/17 04:02 04/08/17 07:14 04/08/17 11:28 04/08/17 14:02 Range/Units Bedside Glucose 358 235 352 330 70-99 mg/dl
[2017-04-08] MEDS: DIVALPROEX SODIUM 500 MG DELAY RELEASE TAB PO SCH (21:44)
[2017-04-08] MEDS: AZITHROMYCIN IV 500 MG in DEXTROSE 5% 250ML 250 ML IV SCH (21:46)
[2017-04-09] VITALS (11 sets, daily range): BP systolic 132–169; BP diastolic 80–136; PULSE 74–113; TEMP 36.5–37.2; O2SAT 88–98; Ht 185.4 cm; Wt 106.5 kg
[2017-04-09] MEDS: LEVALBUTEROL 0.63MG/3 ML NEB INH SCH ×4 (01:59→19:09)
[2017-04-09] MEDS: IPRATROPIUM BROMIDE NEB SOLN 0.02% 2.5 ML VIAL INH SCH ×4 (01:59→18:50)
[2017-04-09 05:53] LABS: BASO % 0.1 %; BASO ABS # 0.01 K/uL (0-0.2); COMPLETE YES; EOS % 0.2 %; HEMATOCRIT 38.8 % (42-52); IG% 0.7 %; LYMPH % 18.5 %; LYMPH ABS # 3.07 K/uL (1.2-3.4); MEAN CELL VOLUME 89.2 fL (80-100); MEAN CORPUSCULAR HGB CONC 32.5 g/dl (32-36); MONO % 10.3 %; NEUT % 70.2 %; PLATELET COUNT 195 K/uL (130-400); RED BLOOD COUNT 4.35 M/uL (4.7-6.1)
[2017-04-09] MEDS: CEFEPIME IV 2,000 MG in SYRINGE 7.5 ML IV SCH ×3 (06:18→20:43)
[2017-04-09 06:28] LABS: BUN/CREATININE RATIO 25.6 (10-20); CALCIUM 7.7 mg/dl (8.5-10.1); CREATININE 0.99 mg/dl (0.60-1.40); MAGNESIUM 2.2 mg/dl (1.8-2.4); POTASSIUM 3.8 mmol/L (3.5-5.1)
[2017-04-09] MEDS: ATORVASTATIN 10 MG TAB PO SCH (08:19)
[2017-04-09] MEDS: SERTRALINE HCL 100 MG TAB PO SCH (08:19)
[2017-04-09] MEDS: ASPIRIN 81 MG ECTAB PO SCH (08:19)
[2017-04-09] MEDS: OLANZAPINE 10 MG TAB PO SCH ×2 (08:20→20:43)
[2017-04-09] MEDS: ENOXAPARIN 40 MG/0.4 ML SYR SC SCH (08:20)
[2017-04-09] MEDS: LISINOPRIL 10 MG TAB PO SCH (08:20)
[2017-04-09] MEDS: NICOTINE 21 MG/24 HR TDSY TD SCH (08:21)
[2017-04-09] MEDS: INSULIN ASPART 100 UNITS/ML 3 ML PEN SC SCH ×4 (08:36→20:40)
[2017-04-09] MEDS ORDERED: INSULIN GLARGINE SOLOSTAR 100 UNITS/ML 3 ML PEN SC SCH ×2 (09:00→21:00)
[2017-04-09] MEDS ORDERED: PRED10TA PO (09:54)
[2017-04-09] MEDS ORDERED: IPRA1AER2 INH (09:54)
[2017-04-09] MEDS ORDERED: DOXY100C41 PO (09:54)
[2017-04-09] MEDS ORDERED: INSDGI SC (09:54)
[2017-04-09] MEDS ORDERED: CEFU1TAB36 PO (09:54)
[2017-04-09] MEDS ORDERED: LCTX PO (09:54)
[2017-04-09] MEDS ORDERED: VNTHFA/IN INH (09:54)
--- NOTE | 2017-04-09 09:57 | Discharge Instructions ---
Discharge Instructions Date of Service Apr 11, 2017. Admission Reason for Admission: Hypoxia,Pneumonia Discharge Discharge Diagnosis / Problem: HYPOXIA, PNEUMONIA, COPD EX Discharge Goals Goal(s): Decrease discomfort, Improve function Activity Recommendations Activity Limitations: resume your previous activity . Instructions / Follow-Up Instructions / Follow-Up FOLLOWUP WITH FAMILY DOCTOR IN 3- 4 DAYS TO CHECK BLOOD SUGARS FOUR TIMES DAILY AC AND HS AND ADJUST INSULIN REGIMEN. ( HBA1C 8.6). ALSO GETTING DISCHARGED ON PREDNISONE TAPER. Current Hospital Diet Patient's current hospital diet: Diabetes Type 2 Diet, AHA Diet (Heart Healthy) Discharge Diet Recommended Diet: AHA Diet (Heart Healthy), Diabetes Type 2 Diet Pending Studies Studies pending at discharge: no Laboratory Results Hemoglobin A1c Test 04/06/17 18:57 Range/Units Estimated Average Glucose 200 mg/dl Hemoglobin A1c 8.6 H 4.5-5.6 % Lipid Panel Test 04/07/17 06:06 Range/Units Triglycerides Level 54 0-150 mg/dl Cholesterol Level 123 0-200 mg/dl HDL Cholesterol 40 mg/dl Cholesterol/HDL Ratio 3.1 LDL Cholesterol, Calculated 72 mg/dl Medical Emergencies . Who to Call and When: Medical Emergencies: If at any time you feel your situation is an emergency, please call 911 immediately. . Non-Emergent Contact Non-Emergency issues call your: Primary Care Provider . . "Provider Documentation" section prepared by Christiano Nixon. . VTE Core Measure Inpt VTE Proph given/why not?: Enoxaparin (Lovenox)SQ
--- NOTE | 2017-04-09 10:02 | Progress Note ---
Internal Med Progress Note Date of Service: Apr 09, 2017. Provider Documentation: SUBJECTIVE: sob is improving has cough with sputum afebrile Has chronic back pain ok for discharge OBJECTIVE: Vital Signs-as noted below Exam: General-alert and oriented. Not in distress ENT-Normal hearing Neck-no neck masses Lungs-CTA b/l no wheezing present no crackles Heart-S1 and S2 heard. Regular rate and rhythm, no murmurs Abdomen-Soft Bowel sounds present no tenderness present no distension Extremities-trace pedal edema no erythema Neuro-alert and awake moves extremities Lab data as noted below. ASSESSMENT & PLAN: HYPOXIA copd ex Pneumonia CTA chest - bibasilar infiltrates on iv steroids and iv abx cefepime and azithromycin and nebs improving discharging on po abx cefuroxime and doxycycline and prednisone taper and Combivent atc and albuterol prn needs close followup. ELEVATED TROPONIN mostly from above NSTEMI from demand ischemia? echo unremarkable except moderate MR Mild lower extremity edema mostly from mild to moderate mitral regurgitation f/u with pcp/cardiology INSULIN DEPENDENT DM II Lantus and iss metformin on hold running high. on steroids pharmacy consulted received insulin gtt improved hba1c 8.6 discharging on Lantus 80units bid home Humulin R and metformin needs close f/u for further adjustment of insulin regimen will monitor HTN: on lisinopril HYPERLIPIDEMIA lipid profile at goal continue Lipitor TOBACCO ABUSE smoking cessation counseling nicotine patch BIPOLAR: to continue Zyprexa to continue Zoloft SATISH pt doesn't use his cpap. Will continue O2 NC at this time DVT PROPHYLAXIS Lovenox SQ Full code DISPOSITION Discharge back to correction facility today Follows with [facility] How[facility] physician for routine care Vital Signs: Date Time Temp Pulse Resp B/P (MAP) Pulse Ox O2 Delivery O2 Flow Rate FiO2 04/09/17 08:09 36.6 98 16 147/100 (116) 95 Room Air 04/09/17 08:00 Room Air 04/09/17 04:48 36.5 96 20 142/97 (112) 94 Room Air 04/09/17 04:00 94 Room Air 04/09/17 01:59 106 18 95 Room Air 04/09/17 00:00 94 Room Air 4.0 60 04/08/17 23:19 37.1 105 20 146/102 (117) 93 Room Air 146/113 (124) 04/08/17 20:00 Room Air 04/08/17 20:00 94 Room Air 4.0 60 04/08/17 20:00 37.1 108 16 155/96 (115) 94 Room Air 04/08/17 19:10 109 18 96 Room Air 04/08/17 16:04 Room Air 04/08/17 15:29 36.9 103 20 154/108 (123) 93 Room Air 04/08/17 14:34 100 18 94 Room Air 04/08/17 12:00 Room Air 04/08/17 11:52 36.6 108 16 149/99 (116) 93 Room Air Lab Results: Results Past 24 Hours Test 04/08/17 11:28 04/08/17 14:02 04/08/17 15:03 04/08/17 15:58 Range/Units Bedside Glucose 352 330 326 312 70-99 mg/dl Test 04/08/17 16:59 04/08/17 18:04 04/08/17 19:07 04/08/17 19:58 Range/Units Bedside Glucose 242 236 207 190 70-99 mg/dl Test 04/08/17 21:00 04/08/17 22:06 04/08/17 23:18 04/09/17 00:28 Range/Units Bedside Glucose 199 187 152 249 70-99 mg/dl Test 04/09/17 01:17 04/09/17 02:34 04/09/17 03:39 04/09/17 05:01 Range/Units Bedside Glucose 286 317 304 194 70-99 mg/dl Test 04/09/17 05:22 04/09/17 06:14 04/09/17 07:09 04/09/17 07:38 Range/Units White Blood Count 16.60 4.8-10.8 K/uL Red Blood Count 4.35 4.7-6.1 M/uL Hemoglobin 12.6 14.0-18.0 g/dL Hematocrit 38.8 42-52 % Mean Corpuscular Volume 89.2 80-100 fL Mean Corpuscular Hemoglobin 29.0 25-34 pg Mean Corpuscular Hemoglobin Concent 32.5 32-36 g/dl Platelet Count 195 130-400 K/uL Mean Platelet Volume 11.0 7.4-10.4 fL Neutrophils (%) (Auto) 70.2 % Lymphocytes (%) (Auto) 18.5 % Monocytes (%) (Auto) 10.3 % Eosinophils (%) (Auto) 0.2 % Basophils (%) (Auto) 0.1 % Neutrophils # (Auto) 11.67 1.4-6.5 K/uL Lymphocytes # (Auto) 3.07 1.2-3.4 K/uL Monocytes # (Auto) 1.71 0.11-0.59 K/uL Eosinophils # (Auto) 0.03 0-0.5 K/uL Basophils # (Auto) 0.01 0-0.2 K/uL RDW Standard Deviation 45.7 36.4-46.3 fL RDW Coefficient of Variation 14.0 11.5-14.5 % Immature Granulocyte % (Auto) 0.7 % Immature Granulocyte # (Auto) 0.11 0.00-0.02 K/uL Sodium Level 139 136-145 mmol/L Potassium Level 3.8 3.5-5.1 mmol/L Chloride Level 106 98-107 mmol/L Carbon Dioxide Level 26 21-32 mmol/L Anion Gap 7.0 3-11 mmol/L Creatinine 0.99 0.60-1.40 mg/dl Est Creatinine Clear Calc Drug Dose 120.7 ml/min Estimated GFR () 105.4 Estimated GFR (Non- 91.0 BUN/Creatinine Ratio 25.6 10-20 Random Glucose 179 70-99 mg/dl Calcium Level 7.7 8.5-10.1 mg/dl Magnesium Level 2.2 1.8-2.4 mg/dl Bedside Glucose 162 94 86 70-99 mg/dl
--- NOTE | 2017-04-09 10:05 | Discharge Summary ---
Discharge Summary Date of Service Apr 09, 2017. Discharge Summary Admission Date: Apr 06, 2017 at 22:04 Discharge Date: Apr 11, 2017 Discharge Disposition: Home (correctional facility) Principal Diagnosis: HYPOXIA PNEUMONIA COPD EX Secondary Diagnoses/Problems: 1) Bipolar disorder Status: Chronic (2) COPD (chronic obstructive pulmonary disease) Status: Chronic (3) Diabetes Status: Chronic (4) HTN (hypertension) Status: Chronic (5) Hyperlipidemia Status: Chronic (6) Sleep apnea Procedures: CTA CHEST: 1. There is no evidence of pulmonary embolus in the main, lobar, or proximal segmental pulmonary arteries. 2. Cardiomegaly. 3. Patchy airspace consolidation is seen within the lower lobes bilaterally. There is also intralobular septal thickening. The appearance is most typical for pneumonia. Correlate clinically for evidence of superimposed pulmonary edema. Radiographic follow-up To resolution is recommended. 4. Mediastinal and hilar lymphadenopathy is noted and likely on a reactive basis. 5. There are trace pleural effusions. 6. Pleural thickening is noted along the right minor fissure. LUMBAR SPINE CT: 1. No fractures or subluxations identified 2. No lytic or blastic lesions identified 3. No CT evidence of focal disc herniation, or spinal stenosis. ECHO: The left ventricle is normal in size. * The left ventricular wall motion is normal. * Ejection Fraction = 50-55%. * The right ventricular systolic function is normal. * The left atrial size is normal. * Right atrial size is normal. * There is mild to moderate mitral regurgitation. Medication Reconciliation New Medications: Albuterol Hfa (Ventolin Hfa) 200 Puffs/49395 Mcg Aers 2 PUFFS INH Q6H PRN for SOB/Wheezing, #1 INHALER 3 Refills Cefuroxime Axetil (Cefuroxime Axetil) 500 Mg Tab 1 TAB PO BID for 5 Days, #10 TAB Doxycycline (Monohydrate) (Monodox) 100 Mg Cap 100 MG PO BID for 5 Days, #10 CAP Insulin Glargine (Lantus) 100 Unit/Ml Inj 40 UNITS SC BID, #1 VIAL 2 Refills Ipratropium-Albuterol (Combivent Respimat) 1 Aer Aer 1 PUFFS INH QID, #1 INH 2 Refills Lactobacillus Acidophilus (Lactinex) Tab 2 TAB PO BID for 10 Days, TAB Prednisone Tab (Prednisone) 10 Mg Tab 30 MG PO UD, #12 TAB PREDNISONE 30MG DAILY X 2 DAYS THEN PREDNISONE 20MG DAILY X 2 DAYS THEN PREDNISONE 10MG DAILY X 2 DAYS THEN STOP. Continued Medications: Aspirin (Aspirin Ec) 81 Mg Tab 81 MG PO DAILY Atorvastatin (Lipitor) 10 Mg Tab 10 MG PO DAILY, TAB Diphenhydramine Hcl (Benadryl) 25 Mg Cap 2 CAP PO HS, CAP Diphenhydramine Hcl (Benadryl) 25 Mg Cap 50 MG PO DAILY, CAP Divalproex Sodium (Depakote) 500 Mg Tab 2 TAB PO HS for 30 Days, TAB 2 Refills Lisinopril (Prinivil) 10 Mg Tab 10 MG PO DAILY, TAB Metformin Hcl (Glucophage) 1,000 Mg Tab 1000 MG PO BID, TAB Olanzapine (Zyprexa) 10 Mg Tab 10 MG PO BID, TAB Sertraline (Zoloft) 100 Mg Tab 2 TABS PO DAILY, TAB [Humulin R] () UNITS SQ BIDM PER SLIDING SCALE; 0-200=0, 201-250=5, 251-300=10, 301-350=15, 350-400=20, >400=25 [Podophyllin 20%] () 1 APPLN TOP UD WITH BENZOIN, TO BE APPLIED BY PROVIDER Discontinued Medications: Insulin Glargine (Lantus) 100 Unit/Ml Inj 60 UNITS SQ HS, VIAL Admission Information HPI (per Admitting provider): Pt is 46 y/o M with PMH HTN, dyslipidemia, insulin dependent DM II, SATISH, bipolar , emphysema presented to ER from [facility] with c/o SOB. Pt reports hx SOB, worse with exertion x couple of weeks. Worsening SOB past couple of days and worse today. Pt also c/o cough clear/white sputum x 1-2 weeks and intermittent sore throat. Reports some mid chest sharp pain intermittently lasts a couple of seconds and then resolves. C/O diaphoresis past week and night sweats past week. Pt thinks gained weight over the past month. Yesterday noticed some edema bilateral ankles. Reported when EMS arrived pt O2 sats in 80's% on RA. Pt reports hx emphysema. Used inhalers in past. States hasn't used for approx 7 years. Continues to smoke. Hx SATISH, does not use CPAP as pt states doesn't like the mask and he is not given distilled water in retirement. Denies known fever, N/V/ D/C, KINNEY, dizziness, syncope, vision changes, neck pain, orthopnea, palpitations , hemoptysis, choking, otalgia, rhinorrhea, abdominal pain, paresthesias, weakness, extremity weakness, new rashes, urinary symptoms. Denies ill contacts. Reports did have influenza vaccine this season. In ER pt placed on bipap sats in 90's. Afebrile. WBC: 11.4. D-dimer: 4020, BNP: 1107, Troponin 0.109. EKG: sinus tachy, PAC's. CXR: Mild interstitial thickening and mild bilateral airspace opacities. CT chest: consolidation bilateral lower lobes, intralobular septal thickening. Pt given ASA, solumedrol 125mgIV, lasix 40mg, duoneb, cefepime, zithromax. Pt reports feeling like his breathing better and much less SOB. He was tried on NC at 4L and pt sats 94%. Physical Exam (per Admitting): General Appearance: WD/WN, no apparent distress (at this time. pt has on bipap, resting comfortably in bed, speaking in sentences ) Head: normocephalic, atraumatic Eyes: normal inspection, PERRL, EOMI, sclerae normal ENT: hearing grossly normal, pharynx normal, + pertinent finding (mucous membranes moist) Neck: supple, no adenopathy, no JVD, trachea midline Respiratory/Chest: chest non-tender, no accessory muscle use, + pertinent finding (+rhonchi throughout, rales bases bilaterally, scattered wheezing throughout) Cardiovascular: no murmur, normal peripheral pulses, + tachycardia Abdomen/GI: normal bowel sounds, non tender, soft Extremities/Musculoskelatal: no calf tenderness, normal capillary refill, non-tender, + pertinent finding (no pitting edema) Neurologic/Psych: alert, normal mood/affect, oriented x 3 Skin: normal color, warm/dry Hospital Course HYPOXIA copd ex Pneumonia CTA chest - bibasilar infiltrates on iv steroids and iv abx cefepime and azithromycin and nebs improving passed two step home oxygen test discharging on po abx cefuroxime and doxycycline and prednisone taper and Combivent atc and albuterol prn needs close followup. ELEVATED TROPONIN mostly from above NSTEMI from demand ischemia? echo unremarkable except moderate MR Mild lower extremity edema mostly from mild to moderate mitral regurgitation f/u with pcp/cardiology INSULIN DEPENDENT DM II Lantus and iss metformin on hold running high. on steroids pharmacy consulted received insulin gtt improved hba1c 8.6 discharging on Lantus 40units bid home Humulin R and metformin needs close f/u for further adjustment of insulin regimen will monitor HTN: on lisinopril HYPERLIPIDEMIA lipid profile at goal continue Lipitor TOBACCO ABUSE smoking cessation counseling nicotine patch BIPOLAR: to continue Zyprexa to continue Zoloft SATISH pt doesn't use his cpap. Will continue O2 NC at this time DVT PROPHYLAXIS Lovenox SQ Full code DISPOSITION Discharge back to correction facility today Follows with [facility] physician for routine care Total time spent on discharge = 40MINUTES This includes examination of the patient, discharge planning, medication reconciliation, and communication with other providers. Discharge Instructions Discharge Instructions Date of Service Apr 09, 2017. Admission Reason for Admission: Hypoxia,Pneumonia Discharge Discharge Diagnosis / Problem: HYPOXIA, PNEUMONIA, COPD EX Discharge Goals Goal(s): Decrease discomfort, Improve function Activity Recommendations Activity Limitations: resume your previous activity . Instructions / Follow-Up Instructions / Follow-Up FOLLOWUP WITH FAMILY DOCTOR IN 3- 4 DAYS TO CHECK BLOOD SUGARS FOUR TIMES DAILY AC AND HS AND ADJUST INSULIN REGIMEN. ( HBA1C 8.6). ALSO GETTING DISCHARGED ON PREDNISONE TAPER. Current Hospital Diet Patient's current hospital diet: Diabetes Type 2 Diet, AHA Diet (Heart Healthy) Discharge Diet Recommended Diet: AHA Diet (Heart Healthy), Diabetes Type 2 Diet Pending Studies Studies pending at discharge: no Laboratory Results Hemoglobin A1c Test 04/06/17 18:57 Range/Units Estimated Average Glucose 200 mg/dl Hemoglobin A1c 8.6 H 4.5-5.6 % Lipid Panel Test 04/07/17 06:06 Range/Units Triglycerides Level 54 0-150 mg/dl Cholesterol Level 123 0-200 mg/dl HDL Cholesterol 40 mg/dl Cholesterol/HDL Ratio 3.1 LDL Cholesterol, Calculated 72 mg/dl Medical Emergencies . Who to Call and When: Medical Emergencies: If at any time you feel your situation is an emergency, please call 911 immediately. . Non-Emergent Contact Non-Emergency issues call your: Primary Care Provider . . "Provider Documentation" section prepared by Christiano Nixon. . VTE Core Measure Inpt VTE Proph given/why not?: Enoxaparin (Lovenox)SQ
[2017-04-09] MEDS ORDERED: INSULIN HUMAN NPH SC ONE (12:00)
--- NOTE | 2017-04-09 12:26 | Pharmacy Progress Note ---
Glycemic Control Progress Note Date of Service Apr 09, 2017. Scope Glycemic Pharmacist consulted for glycemic control to write orders per [facility] inpatient glycemic control protocol. Objective Accuchecks BSG (last 24hrs): Test 04/08/17 14:02 04/08/17 15:03 04/08/17 15:58 04/08/17 16:59 Bedside Glucose 330 mg/dl (70-99) 326 mg/dl (70-99) 312 mg/dl (70-99) 242 mg/dl (70-99) Test 04/08/17 18:04 04/08/17 19:07 04/08/17 19:58 04/08/17 21:00 Bedside Glucose 236 mg/dl (70-99) 207 mg/dl (70-99) 190 mg/dl (70-99) 199 mg/dl (70-99) Test 04/08/17 22:06 04/08/17 23:18 04/09/17 00:28 04/09/17 01:17 Bedside Glucose 187 mg/dl (70-99) 152 mg/dl (70-99) 249 mg/dl (70-99) 286 mg/dl (70-99) Test 04/09/17 02:34 04/09/17 03:39 04/09/17 05:01 04/09/17 05:22 Bedside Glucose 317 mg/dl (70-99) 304 mg/dl (70-99) 194 mg/dl (70-99) Random Glucose 179 mg/dl (70-99) Test 04/09/17 06:14 04/09/17 07:09 04/09/17 07:38 04/09/17 11:11 Bedside Glucose 162 mg/dl (70-99) 94 mg/dl (70-99) 86 mg/dl (70-99) 271 mg/dl (70-99) HbA1c: Test 04/06/17 18:57 Hemoglobin A1c 8.6 % (4.5-5.6) H Recent Pertinent Medications The patient is currently receiving: * Basal insulin: Lantus 40 units every 12 hours * Correctional Insulin: Novolog Correction per scale ACHS Goal Range: Low 110 mg/dL - High 190 mg/dL Correction Factor: Per infusion mg/dL/unit * Prandial insulin: Per carb ratio of 1 unit per 5 grams CHO consumed Outpatient Anti-Diabetic Meds Lantus 60 units SQ HS Humulin R SSI metformin 1 gm PO BID Assessment & Plan ASSESSMENT: * See progress note from 04/08/17 for more background info, in short: * Pt receiving SQ basal bolus insulin regimen for hyperglycemia secondary to baseline DM (outpatient regimen on hold),stress/infection (PNA on cefepime and zithromax), and now on prednisone 40 mg PO daily (Previous on Solu-Medrol 40 mg IV q8) * Patient is currently receiving an average of ? units of insulin per day * 80 units of basal insulin * 60 units of prandial/correctional insulin * BSGs ranging 94 - 271 mg/dl over the past 24hrs * Changes needed to insulin regimen: * AM Fasting BSG = 87 mg/dl. This is in slightly below goal range for patient based on inpatient targets and co-morbidities. This lower blood sugar this morning may represent a culmination of aggressive insulin dosing 04/07/17 and and also the insulin infusion (maximum rate of 14.2 units/hr overnight at [id number] then turned off at 0800).... A lower Lantus dose was given this morning due to the rapidly decrease blood sugars. At lunch this was seen to be ineffective... as the patient is now on once daily prednisone, a dose of NPH was given to account for the higher blood sugars. Lantus 40 units will be given this evening and then the full home dose tomorrow morning. A full dose of 0.4 units/kg of NPH will be given tomorrow morning to account for hyperglycemia with prednisone. * Post-prandial BSGs are elevated. Continue slightly tighter than weight-baed stress of 3. * Total daily dose = currently unknown units. Made adjustments as deemed appropriate. PLAN FOR INPATIENT GLYCEMIC CONTROL: * Changing Lantus to 30 units SQ x 1 then 40 units SQ tonight; Start Lantus 60 units SQ tomorrow evening * Starting NPH 20 units SQ x 1 today then 40 units SQ starting tomorrow morning * STARTING correction factor of 10 mg/dl/unit * Starting carb ratio of 1 unit per 4 grams CHO consumed * Continuing goal range to Low 110 mg/dL - High 140 mg/dL RECOMMENDATIONS FOR DISCHARGE: * see note from 04/08/17 * Please note that the plan above was derived based on current level of insulin resistance and hospital stress. These recommendations are appropriate for inpatient admission only. Plan of care upon discharge will need to be reassessed to avoid potential outpatient hypo/hyperglycemia. Thank you.
[2017-04-09] MEDS ORDERED: CLONIDINE HCL 0.1 MG TAB PO PRN (15:00)
[2017-04-09 15:45] LABS: ALLEN TEST POS (POS); ARTERIAL BLD GAS O2 SATURATION 90.5 % (90-95); ARTERIAL BLOOD GAS BASE EXCESS 2.9 mEq/L (-9-1.8); ARTERIAL BLOOD GAS HCO3 28 mmol/L (19-24); ARTERIAL BLOOD GAS PO2 63 mm/Hg (80-95); ARTERIAL BLOOD GAS pH 7.42 (7.35-7.45); O2 ADMINISTRATION ROOM AIR
--- NOTE | 2017-04-09 17:04 | DIAGNOSTIC IMAGING REPORT ---
CHEST ONE VIEW PORTABLE CLINICAL HISTORY: Hypoxia. COMPARISON STUDY: Chest CT April 06, 2017 and chest radiograph April 07, 2017. FINDINGS: There is no pneumothorax or pleural effusion. No lobar consolidation is present. Mixed interstitial and alveolar opacities persist. Cardiomediastinal silhouette is stable. Metallic densities adjacent to the right scapula are again noted. IMPRESSION: Persistent mixed interstitial and alveolar opacities which could reflect pulmonary edema or an infectious process. Electronically signed by: Cheikh López M.D. 04/09/2017 5:03 PM Dictated Date/Time: 04/09/2017 5:01 PM
[2017-04-09] MEDS ORDERED: FUROSEMIDE INJ 20 MG in SYRINGE 0 ML IV ONE (17:30)
[2017-04-09] MEDS ORDERED: INSULIN HUMAN REGULAR PER UNIT 10 UNITS in SYRINGE 9.9 ML IV SCH (17:30)
[2017-04-09] MEDS: AZITHROMYCIN IV 500 MG in DEXTROSE 5% 250ML 250 ML IV SCH (20:43)
[2017-04-09] MEDS: DIVALPROEX SODIUM 500 MG DELAY RELEASE TAB PO SCH (20:43)
[2017-04-10] VITALS (8 sets, daily range): BP systolic 122–148; BP diastolic 79–111; PULSE 77–103; TEMP 36.6–37.2; O2SAT 92–97
[2017-04-10] MEDS: IPRATROPIUM BROMIDE NEB SOLN 0.02% 2.5 ML VIAL INH SCH ×2 (02:06→07:11)
[2017-04-10] MEDS: LEVALBUTEROL 0.63MG/3 ML NEB INH SCH ×2 (02:06→07:11)
[2017-04-10] MEDS: CEFEPIME IV 2,000 MG in SYRINGE 7.5 ML IV SCH ×2 (05:41→13:46)
[2017-04-10 05:47] LABS: BASO % 0.1 %; BASO ABS # 0.02 K/uL (0-0.2); COMPLETE YES; HEMATOCRIT 37.7 % (42-52); IG% 0.4 %; LYMPH ABS # 3.38 K/uL (1.2-3.4); MEAN CELL VOLUME 87.9 fL (80-100); MEAN CORPUSCULAR HEMOGLOBIN 30.5 pg (25-34); MEAN CORPUSCULAR HGB CONC 34.7 g/dl (32-36); MEAN PLATELET VOLUME 11.1 fL (7.4-10.4); MONO % 9.6 %; NEUT % 63.9 %; PLATELET COUNT 199 K/uL (130-400); RED BLOOD COUNT 4.29 M/uL (4.7-6.1)
[2017-04-10 06:16] LABS: BUN/CREATININE RATIO 23.8 (10-20); CALCIUM 7.7 mg/dl (8.5-10.1); CREATININE 0.77 mg/dl (0.60-1.40); MAGNESIUM 2.3 mg/dl (1.8-2.4); POTASSIUM 3.6 mmol/L (3.5-5.1)
[2017-04-10] MEDS: ASPIRIN 81 MG ECTAB PO SCH (08:17)
[2017-04-10] MEDS: LISINOPRIL 10 MG TAB PO SCH (08:17)
[2017-04-10] MEDS: SERTRALINE HCL 100 MG TAB PO SCH (08:17)
[2017-04-10] MEDS: ATORVASTATIN 10 MG TAB PO SCH (08:17)
[2017-04-10] MEDS: OLANZAPINE 10 MG TAB PO SCH ×2 (08:18→21:32)
[2017-04-10] MEDS: ENOXAPARIN 40 MG/0.4 ML SYR SC SCH (08:18)
[2017-04-10] MEDS: INSULIN ASPART 100 UNITS/ML 3 ML PEN SC SCH ×4 (08:23→21:31)
[2017-04-10] MEDS: NICOTINE 21 MG/24 HR TDSY TD SCH (08:25)
[2017-04-10] MEDS ORDERED: INSULIN HUMAN NPH SC ONE (09:00)
--- NOTE | 2017-04-10 11:21 | Pharmacy Progress Note ---
Glycemic Control Progress Note Date of Service Apr 10, 2017. Scope Glycemic Pharmacist consulted for glycemic control to write orders per [facility] inpatient glycemic control protocol. Objective Accuchecks BSG (last 24hrs): Test 04/09/17 16:29 04/09/17 20:15 04/10/17 05:11 04/10/17 06:49 Bedside Glucose 342 mg/dl (70-99) 112 mg/dl (70-99) 74 mg/dl (70-99) Random Glucose 77 mg/dl (70-99) HbA1c: Test 04/06/17 18:57 Hemoglobin A1c 8.6 % (4.5-5.6) H Recent Pertinent Medications The patient is currently receiving: * Basal insulin: Lantus 40 units every 12 hours * Correctional Insulin: Novolog Correction per scale ACHS Goal Range: Low 110 mg/dL - High 190 mg/dL Correction Factor: Per infusion mg/dL/unit * Prandial insulin: Per carb ratio of 1 unit per 5 grams CHO consumed Outpatient Anti-Diabetic Meds [Oral Agents] [Basal Insulin] [Bolus Insulin] or [GLP-1 RA] Assessment & Plan ASSESSMENT: * See progress note from 04/08/17 for more background info, in short: * Pt receiving SQ basal bolus insulin regimen for hyperglycemia secondary to baseline DM (outpatient regimen on hold),stress/infection (PNA on cefepime and zithromax), and now on prednisone 40 mg PO daily (Previous on Solu-Medrol 40 mg IV q8) * Patient is currently receiving an average of 170 units of insulin per day + 10 units of IV insulin * 70 units of basal insulin + NPH 20 units * 80 units of prandial/correctional insulin * BSGs ranging 112 - 342 mg/dl over the past 24hrs * Changes needed to insulin regimen: * AM Fasting BSG = 74 mg/dl. This is in slightly below goal range for patient based on inpatient targets and co-morbidities. This reflects the patient's ability to correct blood sugar overnight. Will still reduce Lantus to 50 units tonight (home dose of 60 units originally scheduled) as he did received 70 units of Lantus yesterday. A full dose of 0.4 units/kg of NPH given to account for hyperglycemia with prednisone. * Post-prandial BSGs are elevated. Continue slightly tighter than weight-baed stress of 3. * Total daily dose = ~150 units. Made adjustments as deemed appropriate. PLAN FOR INPATIENT GLYCEMIC CONTROL: * Lantus 50 units SQ in the evening evening * NPH 40 units SQ in the morning * Continuing correction factor of 10 mg/dl/unit * Continuing carb ratio of 1 unit per 4 grams CHO consumed * Continuing goal range to Low 110 mg/dL - High 140 mg/dL RECOMMENDATIONS FOR DISCHARGE: * see note from 04/08/17 Thank you.
[2017-04-10] MEDS ORDERED: IPRATROPIUM BROMIDE/ALBUTEROL respimat INH INH SCH (13:00)
--- NOTE | 2017-04-10 17:29 | Progress Note ---
Internal Med Progress Note Date of Service: Apr 10, 2017. Provider Documentation: SUBJECTIVE: sob is improving still has cough and bringing out lot of whitis and yellow sputum afebrile Has chronic back pain no chest pain otherwise resting comfortably OBJECTIVE: Vital Signs-as noted below Exam: General-alert and oriented. Not in distress ENT-Normal hearing Neck-no neck masses Lungs-CTA b/l no wheezing present no crackles Heart-S1 and S2 heard. Regular rate and rhythm, no murmurs Abdomen-Soft Bowel sounds present no tenderness present no distension Extremities-trace pedal edema no erythema Neuro-alert and awake moves extremities Lab data as noted below. ASSESSMENT & PLAN: HYPOXIA copd ex Pneumonia CTA chest - bibasilar infiltrates on iv steroids and iv abx cefepime and azithromycin and nebs improving changed stroids to po if stable plan for d/c in am two step prior to discharge ELEVATED TROPONIN mostly from above NSTEMI from demand ischemia? echo unremarkable except moderate MR Mild lower extremity edema mostly from mild to moderate mitral regurgitation received a dose of Lasix f/u with pcp/cardiology INSULIN DEPENDENT DM II Lantus and iss metformin on hold running high. on steroids pharmacy consulted received insulin gtt improved hba1c 8.6 close monitor. HTN: on lisinopril HYPERLIPIDEMIA lipid profile at goal continue Lipitor TOBACCO ABUSE smoking cessation counseling nicotine patch BIPOLAR: to continue Zyprexa to continue Zoloft SATISH pt doesn't use his cpap. Will continue O2 NC at this time DVT PROPHYLAXIS Lovenox SQ Full code DISPOSITION [facility]charge back to [facility] possible in am [facility]s with [facility] for routine care Vital Signs: Date Time Temp Pulse Resp B/P (MAP) Pulse Ox O2 Delivery O2 Flow Rate FiO2 04/10/17 16:00 Room Air 04/10/17 15:59 37.0 101 18 127/98 (108) 96 Room Air 04/10/17 12:00 Room Air 04/10/17 11:51 36.6 102 16 126/79 (95) 94 Room Air 04/10/17 08:00 Room Air 04/10/17 07:43 36.9 96 16 122/91 (101) 96 Room Air 04/10/17 07:11 99 16 96 Room Air 04/10/17 04:00 36.7 94 16 131/89 (103) 92 Room Air 4.0 Nasal Cannula 04/10/17 04:00 Room Air 04/10/17 02:08 77 16 96 Room Air 04/10/17 00:00 Room Air 04/09/17 23:12 36.8 95 17 132/80 (97) 93 Room Air 04/09/17 20:06 37.2 100 18 138/89 (105) 95 Room Air 04/09/17 20:00 Room Air 04/09/17 19:09 74 18 95 Room Air Lab Results: Results Past 24 Hours Test 04/09/17 20:15 04/10/17 05:11 04/10/17 06:49 04/10/17 11:26 Range/Units Bedside Glucose 112 74 189 70-99 mg/dl White Blood Count 13.50 4.8-10.8 K/uL Red Blood Count 4.29 4.7-6.1 M/uL Hemoglobin 13.1 14.0-18.0 g/dL Hematocrit 37.7 42-52 % Mean Corpuscular Volume 87.9 80-100 fL Mean Corpuscular Hemoglobin 30.5 25-34 pg Mean Corpuscular Hemoglobin Concent 34.7 32-36 g/dl Platelet Count 199 130-400 K/uL Mean Platelet Volume 11.1 7.4-10.4 fL Neutrophils (%) (Auto) 63.9 % Lymphocytes (%) (Auto) 25.0 % Monocytes (%) (Auto) 9.6 % Eosinophils (%) (Auto) 1.0 % Basophils (%) (Auto) 0.1 % Neutrophils # (Auto) 8.61 1.4-6.5 K/uL Lymphocytes # (Auto) 3.38 1.2-3.4 K/uL Monocytes # (Auto) 1.29 0.11-0.59 K/uL Eosinophils # (Auto) 0.14 0-0.5 K/uL Basophils # (Auto) 0.02 0-0.2 K/uL RDW Standard Deviation 43.1 36.4-46.3 fL RDW Coefficient of Variation 13.5 11.5-14.5 % Immature Granulocyte % (Auto) 0.4 % Immature Granulocyte # (Auto) 0.06 0.00-0.02 K/uL Sodium Level 140 136-145 mmol/L Potassium Level 3.6 3.5-5.1 mmol/L Chloride Level 104 98-107 mmol/L Carbon Dioxide Level 30 21-32 mmol/L Anion Gap 6.0 3-11 mmol/L Blood Urea Nitrogen 18 7-18 mg/dl Creatinine 0.77 0.60-1.40 mg/dl Est Creatinine Clear Calc Drug Dose 155.2 ml/min Estimated GFR () 126.1 Estimated GFR (Non- 108.8 BUN/Creatinine Ratio 23.8 10-20 Random Glucose 77 70-99 mg/dl Calcium Level 7.7 8.5-10.1 mg/dl Magnesium Level 2.3 1.8-2.4 mg/dl Test 04/10/17 16:11 Range/Units Bedside Glucose 157 70-99 mg/dl Microbiology Results 04/10/17 Gram Stain, Received Pending 04/10/17 Sputum Culture, Received Pending
[2017-04-10] MEDS ORDERED: INSULIN GLARGINE SOLOSTAR 100 UNITS/ML 3 ML PEN SC SCH ×2 (21:00)
[2017-04-10] MEDS: DIVALPROEX SODIUM 500 MG DELAY RELEASE TAB PO SCH (21:32)
[2017-04-11] MEDS: CEFEPIME IV 2,000 MG in SYRINGE 7.5 ML IV SCH ×2 (02:46→05:58)
[2017-04-11] MEDS: AZITHROMYCIN IV 500 MG in DEXTROSE 5% 250ML 250 ML IV SCH (02:47)
[2017-04-11 02:56] VITALS: BP 133/80; PULSE 103; TEMP 36.6; O2SAT 95
[2017-04-11 06:19] LABS: BASO % 0.1 %; BASO ABS # 0.01 K/uL (0-0.2); COMPLETE YES; EOS % 1.8 %; IG% 1.2 %; LYMPH % 25.9 %; LYMPH ABS # 3.54 K/uL (1.2-3.4); MEAN CELL VOLUME 87.5 fL (80-100); MEAN CORPUSCULAR HEMOGLOBIN 29.1 pg (25-34); MEAN CORPUSCULAR HGB CONC 33.3 g/dl (32-36); MEAN PLATELET VOLUME 11.1 fL (7.4-10.4); MONO % 9.4 %; NEUT % 61.6 %; PLATELET COUNT 213 K/uL (130-400); RED BLOOD COUNT 4.57 M/uL (4.7-6.1); WHITE BLOOD COUNT 13.69 K/uL (4.8-10.8)
[2017-04-11 07:03] LABS: BUN/CREATININE RATIO 26.6 (10-20); CALCIUM 8.1 mg/dl (8.5-10.1); CREATININE 0.74 mg/dl (0.60-1.40); MAGNESIUM 2.3 mg/dl (1.8-2.4); POTASSIUM 3.7 mmol/L (3.5-5.1)
[2017-04-11 07:54] VITALS: BP 122/91; PULSE 99; TEMP 36.9; O2SAT 92
[2017-04-11] MEDS: ASPIRIN 81 MG ECTAB PO SCH (08:08)
[2017-04-11] MEDS: ATORVASTATIN 10 MG TAB PO SCH (08:08)
[2017-04-11] MEDS: LISINOPRIL 10 MG TAB PO SCH (08:08)
[2017-04-11] MEDS: SERTRALINE HCL 100 MG TAB PO SCH (08:08)
[2017-04-11] MEDS: ENOXAPARIN 40 MG/0.4 ML SYR SC SCH (08:09)
[2017-04-11] MEDS: OLANZAPINE 10 MG TAB PO SCH (08:09)
[2017-04-11] MEDS: NICOTINE 21 MG/24 HR TDSY TD SCH (08:10)
[2017-04-11] MEDS: INSULIN ASPART 100 UNITS/ML 3 ML PEN SC SCH ×2 (08:12→11:47)
[2017-04-11] MEDS ORDERED: INSULIN HUMAN NPH SC SCH (09:00)
[2017-04-11] MEDS ORDERED: LCTX PO (10:28)
[2017-04-11] MEDS ORDERED: DOXY100C41 PO (10:28)
[2017-04-11] MEDS ORDERED: VNTHFA/IN INH (10:28)
[2017-04-11] MEDS ORDERED: PRED10TA PO ×2 (10:28→10:31)
[2017-04-11] MEDS ORDERED: INSDGI SC (10:28)
[2017-04-11] MEDS ORDERED: CEFU1TAB36 PO (10:28)
[2017-04-11] MEDS ORDERED: IPRA1AER2 INH (10:28)
[2017-04-11 10:38] VITALS: BP 122/91; PULSE 99; TEMP 36.9; O2SAT 92
--- NOTE | 2017-04-11 16:39 | Progress Note ---
Internal Med Progress Note Date of Service: Apr 11, 2017. Provider Documentation: SUBJECTIVE: sob resolved still has cough and bringing out lot of whitish and yellow sputum afebrile no chest pain ok for discharge OBJECTIVE: Vital Signs-as noted below Exam: General-alert and oriented. Not in distress ENT-Normal hearing Neck-no neck masses Lungs-CTA b/l no wheezing present no crackles Heart-S1 and S2 heard. Regular rate and rhythm, no murmurs Abdomen-Soft Bowel sounds present no tenderness present no distension Extremities-trace pedal edema no erythema Neuro-alert and awake moves extremities Lab data as noted below. ASSESSMENT & PLAN: HYPOXIA copd ex Pneumonia CTA chest - bibasilar infiltrates on iv steroids and iv abx cefepime and azithromycin and nebs improving changed stroids to po passed two step prior to discharge d/c on po steroid taper, doxy and cefuroxime ELEVATED TROPONIN mostly from above NSTEMI from demand ischemia? echo unremarkable except moderate MR Mild lower extremity edema mostly from mild to moderate mitral regurgitation received a dose of Lasix f/u with pcp/cardiology INSULIN DEPENDENT DM II Lantus and iss metformin on hold running high. on steroids pharmacy consulted received insulin gtt improved hba1c 8.6 discharged on Lantus 40unts bid and home Humulin r and metformin needs close f/u HTN: on lisinopril HYPERLIPIDEMIA lipid profile at goal continue Lipitor TOBACCO ABUSE smoking cessation counseling nicotine patch BIPOLAR: to continue Zyprexa to continue Zoloft SATISH pt doesn't use his cpap. Will continue O2 NC at this time [facility] back to [facility] Vital Signs: Date Time Temp Pulse Resp B/P (MAP) Pulse Ox O2 Delivery O2 Flow Rate FiO2 04/11/17 10:38 36.9 99 20 92 Room Air 04/11/17 08:00 Room Air 04/11/17 07:54 36.9 99 20 122/91 (101) 92 04/11/17 04:00 Room Air 04/11/17 02:56 36.6 103 19 133/80 (97) 95 Room Air 04/11/17 00:00 Room Air 04/10/17 23:02 36.9 95 19 142/111 (121) 97 Room Air 04/10/17 20:00 Room Air 04/10/17 18:59 37.2 103 18 148/97 (114) 96 Room Air Lab Results: Results Past 24 Hours Test 04/10/17 20:05 04/11/17 02:53 04/11/17 05:24 04/11/17 06:32 Range/Units Bedside Glucose 98 130 95 70-99 mg/dl White Blood Count 13.69 4.8-10.8 K/uL Red Blood Count 4.57 4.7-6.1 M/uL Hemoglobin 13.3 14.0-18.0 g/dL Hematocrit 40.0 42-52 % Mean Corpuscular Volume 87.5 80-100 fL Mean Corpuscular Hemoglobin 29.1 25-34 pg Mean Corpuscular Hemoglobin Concent 33.3 32-36 g/dl Platelet Count 213 130-400 K/uL Mean Platelet Volume 11.1 7.4-10.4 fL Neutrophils (%) (Auto) 61.6 % Lymphocytes (%) (Auto) 25.9 % Monocytes (%) (Auto) 9.4 % Eosinophils (%) (Auto) 1.8 % Basophils (%) (Auto) 0.1 % Neutrophils # (Auto) 8.44 1.4-6.5 K/uL Lymphocytes # (Auto) 3.54 1.2-3.4 K/uL Monocytes # (Auto) 1.29 0.11-0.59 K/uL Eosinophils # (Auto) 0.25 0-0.5 K/uL Basophils # (Auto) 0.01 0-0.2 K/uL RDW Standard Deviation 43.2 36.4-46.3 fL RDW Coefficient of Variation 13.6 11.5-14.5 % Immature Granulocyte % (Auto) 1.2 % Immature Granulocyte # (Auto) 0.16 0.00-0.02 K/uL Sodium Level 141 136-145 mmol/L Potassium Level 3.7 3.5-5.1 mmol/L Chloride Level 104 98-107 mmol/L Carbon Dioxide Level 30 21-32 mmol/L Anion Gap 7.0 3-11 mmol/L Blood Urea Nitrogen 20 7-18 mg/dl Creatinine 0.74 0.60-1.40 mg/dl Est Creatinine Clear Calc Drug Dose 159.7 ml/min Estimated GFR () 128.2 Estimated GFR (Non- 110.6 BUN/Creatinine Ratio 26.6 10-20 Random Glucose 93 70-99 mg/dl Calcium Level 8.1 8.5-10.1 mg/dl Magnesium Level 2.3 1.8-2.4 mg/dl Test 04/11/17 11:00 Range/Units Bedside Glucose 127 70-99 mg/dl
== END 2017-04-11 12:10 | disposition home or self-care (01) | DRG 193 ==
LOC: EDBD 17:50 → C.EDB 17:52 → C.2E 22:04 → ENRESERV 22:12
PROVIDERS: ADMIT Family Medicine; ATTEND Internal Medicine
DX: J18.9 Pneumonia, unspecified organism (principal); J96.01 Acute respiratory failure with hypoxia; J44.1 Chronic obstructive pulmonary disease with (acute) exacerbation; G47.33 Obstructive sleep apnea (adult) (pediatric); E11.9 Type 2 diabetes mellitus without complications; I10 Essential (primary) hypertension; E78.5 Hyperlipidemia, unspecified; F31.9 Bipolar disorder, unspecified; R79.89 Other specified abnormal findings of blood chemistry; Z79.4 Long term (current) use of insulin; Z79.82 Long term (current) use of aspirin; Z79.84 Long term (current) use of oral hypoglycemic drugs; Z79.899 Other long term (current) drug therapy; F17.210 Nicotine dependence, cigarettes, uncomplicated

== ENCOUNTER 2017-05-09 17:16 | Inpatient (IN) | payer OTHER ==
[~2017-05-09] VITALS: Ht 182.9 cm; Wt 116.2 kg
[~2017-05-09 17:16] MED LIST: ASPI81TA28 PO; ATOR10TA82 PO; CEFU1TAB36 PO; DIPH25CA5 PO; DIVA500T59 PO; DOXY100C41 PO; INSDGI SC; INSHRI SQ; IPRA1AER2 INH; LCTX PO; LISI10TA PO; METF-384 PO; OLAN10TA11 PO; PRED10TA PO; SERT-234 PO; VNTHFA/IN INH; [UNRECOGNIZED DRUG - OTHER] TOP
[2017-05-09] MEDS ORDERED: FURO80TA63 PO (17:45)
[2017-05-09] MEDS ORDERED: COMPOUND (17:45)
[2017-05-09] MEDS ORDERED: INSHRIE SQ (17:45)
[2017-05-09] MEDS ORDERED: DIPH25CA5 PO ×2 (17:45)
[2017-05-09] MEDS ORDERED: INSDGI SC (17:45)
[2017-05-09] MEDS ORDERED: IBUP600T44 PO (17:45)
[2017-05-09] MEDS ORDERED: VNTHFA/IN INH (17:45)
[2017-05-09] MEDS ORDERED: ALBUT/IPRATROP 3MG/0.5MG NEB 3 ML VIAL INH STA (18:02)
[2017-05-09 18:12] LABS: BASO % 0.1 %; BASO ABS # 0.01 K/uL (0-0.2); EOS % 4.2 %; EOS ABS # 0.29 K/uL (0-0.5); HEMATOCRIT 39.6 % (42-52); HEMOGLOBIN 13.3 g/dL (14.0-18.0); IG# 0.04 K/uL (0.00-0.02); LYMPH % 28.1 %; LYMPH ABS # 1.93 K/uL (1.2-3.4); MEAN CELL VOLUME 87.2 fL (80-100); MEAN CORPUSCULAR HEMOGLOBIN 29.3 pg (25-34); MEAN CORPUSCULAR HGB CONC 33.6 g/dl (32-36); MEAN PLATELET VOLUME 10.7 fL (7.4-10.4); MONO % 14.4 %; MONO ABS # 0.99 K/uL (0.11-0.59); NEUT % 52.6 %; PLATELET COUNT 200 K/uL (130-400); RED CELL DISTRIBUTION WIDTH CV 13.9 % (11.5-14.5); RED CELL DISTRIBUTION WIDTH SD 43.9 fL (36.4-46.3); WHITE BLOOD COUNT 6.86 K/uL (4.8-10.8)
[2017-05-09 18:20] LABS: ALBUMIN 3.1 gm/dl (3.4-5.0); CALCIUM 8.1 mg/dl (8.5-10.1); CREATININE 0.87 mg/dl (0.60-1.40); POTASSIUM 3.7 mmol/L (3.5-5.1)
[2017-05-09 18:22] LABS: PTT PATIENT 24.6 SECONDS (21.0-31.0)
--- NOTE | 2017-05-09 18:28 | DIAGNOSTIC IMAGING REPORT ---
CHEST ONE VIEW PORTABLE CLINICAL HISTORY: 46 years-old Male presenting with EVALUATE RESPIRATORY DISTRESS.DYSPNEA. TECHNIQUE: Portable upright AP view of the chest was obtained. COMPARISON: 04/09/2017. FINDINGS: Cardiac silhouette remains prominent. Prominence of the bilateral mike unchanged. Patchy central predominant hazy opacities stable to slightly increased from prior. No large effusion or pneumothorax. Osseous structures normal. Upper abdomen normal. IMPRESSION: 1. Stable to slight interval increase in central predominant opacities in the setting of mild cardiac megaly. This could represent pulmonary edema, multifocal pneumonia, or diffuse alveolar damage. Electronically signed by: Negrito Ferrara M.D. 05/09/2017 6:26 PM Dictated Date/Time: 05/09/2017 6:25 PM
[2017-05-09 18:43] LABS: CKMB 2.2 ng/ml (0.5-3.6); TOTAL PROTEIN 6.8 gm/dl (6.4-8.2)
[2017-05-09] MEDS ORDERED: FUROSEMIDE 40 MG/4 ML VIAL IV STA (18:51)
[2017-05-09] MEDS ORDERED: ASPIRIN 81 MG CHEW PO STA (18:51)
[2017-05-09] MEDS ORDERED: NITROGLYCERIN OINT 2% 1GM PACKET EXT ONE (19:00)
--- NOTE | 2017-05-09 19:26 | History and Physical ---
History & Physical Date & Time of Service: May 09, 2017 at 19:26 . Chief Complaint: cough, shortness of breath, swelling of legs and feet . Primary Care Physician: [facility] . History of Present Illness Source: patient, hospital records 46-year-old male incarcerated at [facility]. History of hypertension, dyslipidemia, COPD, sleep apnea, diabetes, and other problems noted below. Hospitalized at [facility] 04/06/17 with pneumonia. Troponin during hospital stay as high as 0.202. EKG suggested possible age-indeterminate septal infarct. Echo showed normal LV wall motion and function, LVEF 50-55%, normal RV size and systolic function, no pulmonary hypertension, mild to moderate mitral regurgitation. Treated with antibiotics and steroids with improvement. Discharged to [facility] 04/11 on oral antibiotics and prednisone taper. Over the past 2 weeks he has noted increasing shortness of breath and dependent edema. Experiencing both dyspnea on exertion as well as orthopnea. At times he awakens from sleep, short of breath and diaphoretic. No chest pain. No fever. Nonproductive cough. History of sleep apnea; not using CPAP (patient indicates that it is too uncomfortable without humidified air). Started on furosemide a few days ago without improvement of dyspnea or edema. Tried albuterol inhaler without any significant benefit. . Past Medical/Surgical History Chronic and Resolved Medical Problems: (1) Bipolar disorder Status: Chronic (2) COPD (chronic obstructive pulmonary disease) Status: Chronic (3) Diabetes Status: Chronic (4) Diabetes mellitus, type 2 Status: Chronic (5) Hyperlipidemia Status: Chronic (6) Hypertension Status: Chronic (7) Sleep apnea Status: Chronic Surgical Problems: (1) Status post tonsillectomy Status: Chronic . Family History MOTHER FH: cancer Hypertension GRANDMOTHER Hypertension Tuberculosis Social History Smoking Status: Former Smoker Alcohol Use: none Drug Use: none Marital Status: other Housing status: other Occupational Status: other Allergies Coded Allergies: Iodine (Verified Allergy, Unknown, UNKNOWN, 05/09/17) Shellfish (Verified Allergy, Unknown, UNKNOWN, 05/09/17) Home Medications Scheduled Aspirin (Aspirin Ec), 81 MG PO DAILY Atorvastatin (Lipitor), 10 MG PO DAILY Diphenhydramine Hcl (Benadryl), 50 MG PO QAM Diphenhydramine Hcl (Benadryl), 100 MG PO HS Divalproex Sodium (Depakote), 2 TAB PO HS Furosemide (Lasix), 80 MG PO BID Ibuprofen (Motrin), 600 MG PO TID Insulin Glargine (Lantus), 60 UNITS SC HS Insulin Human Regular (Humulin R), SQ BID Lisinopril (Prinivil), 10 MG PO DAILY Metformin Hcl (Glucophage), 1,000 MG PO BID Olanzapine (Zyprexa), 10 MG PO BID Sertraline (Zoloft), 200 MG PO DAILY [Podophyllin 20%], 1 APPLN TOP UD Scheduled PRN Albuterol Hfa (Ventolin Hfa), 2 PUFFS INH QID PRN for SOB/Wheezing Review of Systems Constitutional: + sweats, No fever, No weight loss Eyes: No worsening of vision, No diplopia ENT: + sore throat (intermittent), No nasal symptoms Respiratory: + problem reported (as noted in HPI) Cardiovascular: + problem reported (as noted in HPI) Abdomen: No nausea, No diarrhea, No GI bleeding Musculoskeletal: + joint pain (hands), No muscle pain Genitourinary - Male: No hematuria, No dysuria Neurologic: + problem reported (no diabetic neuropathy; no headhaces) Hematologic / Lymphatic: No abnormal bleeding/bruising Integumentary: No rash Physical Exam Vital Signs Date Time Temp Pulse Resp B/P (MAP) Pulse Ox O2 Delivery O2 Flow Rate FiO2 05/09/17 19:10 105 16 161/114 91 Nasal Cannula 4.0 05/09/17 18:36 94 Nasal Cannula 4.0 05/09/17 18:36 108 16 150/103 94 Nasal Cannula 4.0 05/09/17 18:16 101 14 137/104 99 Nebulizer 05/09/17 17:31 103 05/09/17 17:16 90 Room Air 05/09/17 17:16 92 Nasal Cannula 2.0 05/09/17 17:16 37.0 114 22 153/99 90 Room Air 05/09/17 17:16 90 Room Air General Appearance: WD/WN, no apparent distress Head: normocephalic, atraumatic Eyes: normal inspection, PERRL, EOMI, sclerae normal ENT: normal ENT inspection, hearing grossly normal, pharynx normal Neck: supple, no adenopathy, thyroid normal, trachea midline Respiratory/Chest: no respiratory distress, no accessory muscle use, + pertinent finding (bibasilar rales) Cardiovascular: regular rate, rhythm, + pertinent finding (I/ systolic murmur at apex; S4, no S3 appreciated; + JVD; 2-3+ pretibial and pedal edema) Abdomen/GI: normal bowel sounds, non tender, soft, no organomegaly Extremities/Musculoskelatal: normal inspection, no calf tenderness Neurologic/Psych: insurance advisor II-XII nml as tested (PERRL, EOMI, no facial palsy, no dysarthria), no motor/sensory deficits (grossly intact), alert, normal mood/ affect, oriented x 3 Skin: normal color, warm/dry, no rash Lymphatic: no adenopathy (cervical) Diagnostics Laboratory Results Results Past 24 Hours Test 05/09/17 17:35 Range/Units White Blood Count 6.86 4.8-10.8 K/uL Red Blood Count 4.54 4.7-6.1 M/uL Hemoglobin 13.3 14.0-18.0 g/dL Hematocrit 39.6 42-52 % Mean Corpuscular Volume 87.2 80-100 fL Mean Corpuscular Hemoglobin 29.3 25-34 pg Mean Corpuscular Hemoglobin Concent 33.6 32-36 g/dl Platelet Count 200 130-400 K/uL Mean Platelet Volume 10.7 7.4-10.4 fL Neutrophils (%) (Auto) 52.6 % Lymphocytes (%) (Auto) 28.1 % Monocytes (%) (Auto) 14.4 % Eosinophils (%) (Auto) 4.2 % Basophils (%) (Auto) 0.1 % Neutrophils # (Auto) 3.60 1.4-6.5 K/uL Lymphocytes # (Auto) 1.93 1.2-3.4 K/uL Monocytes # (Auto) 0.99 0.11-0.59 K/uL Eosinophils # (Auto) 0.29 0-0.5 K/uL Basophils # (Auto) 0.01 0-0.2 K/uL RDW Standard Deviation 43.9 36.4-46.3 fL RDW Coefficient of Variation 13.9 11.5-14.5 % Immature Granulocyte % (Auto) 0.6 % Immature Granulocyte # (Auto) 0.04 0.00-0.02 K/uL Prothrombin Time 10.6 9.0-12.0 SECONDS Prothromb Time International Ratio 1.0 0.9-1.1 Activated Partial Thromboplast Time 24.6 21.0-31.0 SECONDS Partial Thromboplastin Ratio 0.9 Sodium Level 142 136-145 mmol/L Potassium Level 3.7 3.5-5.1 mmol/L Chloride Level 107 98-107 mmol/L Carbon Dioxide Level 28 21-32 mmol/L Anion Gap 7.0 3-11 mmol/L Blood Urea Nitrogen 9 7-18 mg/dl Creatinine 0.87 0.60-1.40 mg/dl Est Creatinine Clear Calc Drug Dose 141.8 ml/min Estimated GFR () 120.0 Estimated GFR (Non- 103.5 BUN/Creatinine Ratio 9.9 10-20 Random Glucose 117 70-99 mg/dl Calcium Level 8.1 8.5-10.1 mg/dl Total Bilirubin 0.3 0.2-1 mg/dl Aspartate Amino Transf (AST/SGOT) 15 15-37 U/L Alanine Aminotransferase (ALT/SGPT) 38 12-78 U/L Alkaline Phosphatase 57 45-117 U/L Total Creatine Kinase 175 39-308 U/L Creatine Kinase MB 2.2 0.5-3.6 ng/ml Creatine Kinase MB Ratio 1.3 0-3.0 Troponin I 0.089 0-0.045 ng/ml Pro-B-Type Natriuretic Peptide 1880 0-450 pg/ml Total Protein 6.8 6.4-8.2 gm/dl Albumin 3.1 3.4-5.0 gm/dl Globulin 3.7 2.5-4.0 gm/dl Albumin/Globulin Ratio 0.8 0.9-2 Microbiology Results 05/09/17 Blood Culture, Received Pending 05/09/17 Blood Culture, Received Pending Diagnostic Radiology PORTABLE CHEST X-RAY (reviewed by undersigned and formally interpreted by Radiology): FINDINGS: Cardiac silhouette remains prominent. Prominence of the bilateral mike unchanged. Patchy central predominant hazy opacities stable to slightly increased from prior. No large effusion or pneumothorax. Osseous structures normal. Upper abdomen normal. IMPRESSION: 1. Stable to slight interval increase in central predominant opacities in the setting of mild cardiac megaly. This could represent pulmonary edema, multifocal pneumonia, or diffuse alveolar damage. Electronically signed by: Negrito Ferrara M.D. 05/09/2017 6:26 PM Dictated Date/Time: 05/09/2017 6:25 PM EKG EKG performed at 17:[address] with PAC's at 104 / minute, baseline artifact, no acute ST changes. . Impression Assessment and Plan CHF History, exam, chest x-ray, elevated BNP consistent with acute congestive heart failure. Pathophysiology to be determined. Echo 04/08/17 showed normal LV wall motion and function, LVEF 50-55%, normal RV size and systolic function, no pulmonary hypertension, mild to moderate mitral regurgitation. Initial management will consist of IV furosemide. Check repeat echocardiogram. Consult Cardiology. ELEVATED TROPONIN Serum troponin I = 0.089. No anginal symptoms. No acute EKG changes. Recent echocardiogram did not show any wall motion abnormalities, but will repeat in light of new onset CHF. Check serial cardiac markers and EKGs. Treat for possible ischemic heart disease with aspirin, metoprolol, nitrates, statin. Further evaluation per Cardiology. HYPERTENSION Continue lisinopril. Add metoprolol and nitrates as noted above. COPD Continue albuterol when necessary. SLEEP APNEA Try CPAP with humidified air. DM TYPE 2 Fairly well controlled on metformin and insulin. Hold metformin during hospital stay. Check hemoglobin A1c. Lantus/NovoLog per protocol. DYSLIPIDEMIA Check lipid profile. Continue atorvastatin. BIPOLAR DISORDER Continue usual medications. VTE PROPHYLAXIS Low-moderate risk. SQ enoxaparin. DISPOSITION Admit to Tele[facility]. [facility] . VTE Prophylaxis Given or contraindicated: Unfractionated heparin SQ
[2017-05-09] MEDS ORDERED: ONDANSETRON INJ 2 MG/ML 2 ML VIAL IV PRN (19:30)
[2017-05-09] MEDS ORDERED: NITROGLYCERIN 0.4 MG SL PER TAB CHARGE SL PRN (19:30)
[2017-05-09] MEDS ORDERED: ALBUTEROL HFA 8 GM INHALER INH PRN (20:15)
[2017-05-09 20:50] VITALS: BP 140/75; PULSE 102; TEMP 36.7; O2SAT 95; Ht 182.9 cm; Wt 116.2 kg
--- NOTE | 2017-05-09 20:50 | NUR ---
PATIENT ARRIVES TO ROOM 5219 AT THIS TIME ON MONITOR WITH 4L NASAL CANNULA ACCOMPANIED BY CAR GREASER AND TWO GUARDS. AMBULATES TO BED WITH SOME SOB. MONITOR APPLIED AND ADMISSION INFORMATION OBTAINED, SEE EMR FOR ADMISSION DETAILS. PATIENT DENIES ANY PAIN AT THIS TIME, DENIES ANY ACUTE ISSUES AT THIS TIME WITH EXCEPTION OF ULCERATIONS TO THE TONGUE. PRIMARY RN LORI PRESENT IN ROOM FOR ENTIRE ADT. READS SR WITH PACS AND PVCS ON TELEMETRY.
[2017-05-09] MEDS ORDERED: POTASSIUM CHLORIDE 20 MEQ TABCR PO ONE (21:00)
[2017-05-09] MEDS: INSULIN ASPART 100 UNITS/ML 3 ML PEN SC SCH (21:00)
[2017-05-09] MEDS ORDERED: MAGIC MOUTHWASH PO SCH (21:00)
[2017-05-09] MEDS ORDERED: GLUCOSE 10 TABS/TUBE PO PRN (21:15)
[2017-05-09] MEDS ORDERED: GLUCAGON FOR INJ 1 MG VIAL SQ PRN (21:15)
[2017-05-09] MEDS ORDERED: DEXTROSE 50% 50 ML SYR IV PRN (21:15)
[2017-05-09] MEDS ORDERED: GLUCOSE 40% GEL 15 GM TUBE PO PRN (21:15)
[2017-05-09] MEDS: METOPROLOL TARTRATE 25 MG TAB PO SCH (22:04)
[2017-05-09] MEDS: OLANZAPINE 10 MG TAB PO SCH (22:05)
[2017-05-09] MEDS: DIVALPROEX SODIUM 500 MG DELAY RELEASE TAB PO SCH (22:06)
[2017-05-09] MEDS: ENOXAPARIN 40 MG/0.4 ML SYR SC SCH (22:08)
[2017-05-09] MEDS: INSULIN GLARGINE SOLOSTAR 100 UNITS/ML 3 ML PEN SC SCH (22:10)
[2017-05-09] MEDS: NITROGLYCERIN OINT 2% 1GM PACKET EXT SCH (23:51)
--- NOTE | 2017-05-09 23:58 | EMERGENCY ROOM VISIT NOTE ---
History Report prepared by Annita: Rachana Zayas Under the Supervision of: Dr. César Gann M.D. First contact with patient: 17:27 Stated Complaint: SOB, EDEMA, COUGH History of Present Illness The patient is a 46 year old male who presents to the Emergency Room with complaints of worsening shortness of breath starting two weeks ago. The patient states that he was here a few weeks ago for pneumonia. He states that he was fine for a few weeks and then is started again. He reports that [facility]. He notes that it happens even when he is just walking to the cafeteria and up the stairs. The patient notes that the inhaler he was given has not been helping. The patient states that after walking a few feet he becomes tired. The patient complains of his ankles starting to swell two weeks ago and worsening. He reports that he feels like his whole legs are swollen. The patient complains of a cough, nausea, and lightheadedness. The patient notes that he quit smoking a month ago. Pt denies LOC, headache, fevers, chills, production of a substance with his cough, diaphoresis, visual changes, neck pain, chest pain, vomiting, abdominal pain, back pain, melena, hematochezia, urinary symptoms, numbness, weakness, lymphadenopathy, rash, or other complaints. Source of History: patient Onset: two weeks ago Position: other (global) Quality: other (global) Timing: worsening Associated Symptoms: + cough, + nausea Note: The patient complains of his ankles swelling and lightheadedness. Review of Systems See HPI for pertinent positives and negatives. A total of ten systems were reviewed and were otherwise negative. Past Medical & Surgical Medical Problems: (1) Bipolar disorder (2) CHF (congestive heart failure) (3) COPD (chronic obstructive pulmonary disease) (4) Diabetes (5) Diabetes mellitus, type 2 (6) Elevated troponin (7) Hyperlipidemia (8) Hypertension (9) Hypoxia (10) Sleep apnea Surgical Problems: (1) Status post tonsillectomy Family History FH: cancer MOTHER (stomach CA) Hypertension GRANDMOTHER Social History Smoking Status: Current Every Day Smoker Drug Use: none Marital Status: other Housing Status: other Occupation Status: other Current/Historical Medications Scheduled Aspirin (Aspirin Ec), 81 MG PO DAILY Atorvastatin (Lipitor), 10 MG PO DAILY Diphenhydramine Hcl (Benadryl), 50 MG PO QAM Diphenhydramine Hcl (Benadryl), 100 MG PO HS Divalproex Sodium (Depakote), 2 TAB PO HS Furosemide (Lasix), 80 MG PO BID Ibuprofen (Motrin), 600 MG PO TID Insulin Glargine (Lantus), 60 UNITS SC HS Insulin Human Regular (Humulin R), SQ BID Lisinopril (Prinivil), 10 MG PO DAILY Metformin Hcl (Glucophage), 1,000 MG PO BID Olanzapine (Zyprexa), 10 MG PO BID Sertraline (Zoloft), 200 MG PO DAILY [Podophyllin 20%], 1 APPLN TOP UD Scheduled PRN Albuterol Hfa (Ventolin Hfa), 2 PUFFS INH QID PRN for SOB/Wheezing Allergies Coded Allergies: Iodine (Verified Allergy, Unknown, UNKNOWN, 05/09/17) Shellfish (Verified Allergy, Unknown, UNKNOWN, 05/09/17) Physical Exam Vital Signs Date Time Temp Pulse Resp B/P (MAP) Pulse Ox O2 Delivery O2 Flow Rate FiO2 05/09/17 19:10 105 16 161/114 91 Nasal Cannula 4.0 05/09/17 18:36 94 Nasal Cannula 4.0 05/09/17 18:36 108 16 150/103 94 Nasal Cannula 4.0 05/09/17 18:16 101 14 137/104 99 Nebulizer 05/09/17 17:31 103 05/09/17 17:16 90 Room Air 05/09/17 17:16 92 Nasal Cannula 2.0 05/09/17 17:16 37.0 114 22 153/99 90 Room Air 05/09/17 17:16 90 Room Air Physical Exam GENERAL: Awake, alert, well-appearing, in no distress HENT: Normocephalic, atraumatic. Oropharynx unremarkable. EYES: Normal conjunctiva. Sclera non-icteric. NECK: Supple. No nuchal rigidity. FROM. No JVD. RESPIRATORY: Mildly dyspneic. Coarse breath sounds bilaterally. Few scattered rales. CARDIAC: Tachycardic rate, normal rhythm. Extremities warm and well perfused. Pulses equal. ABDOMEN: Soft, non-distended. No tenderness to palpation. No rebound or guarding. No masses. RECTAL: Deferred. MUSCULOSKELETAL: Chest examination reveals no tenderness. The back is symmetrical on inspection without obvious abnormality. There is no CVA tenderness to palpation. No joint edema. LOWER EXTREMITIES: Calves are equal size bilaterally and non-tender. 2-3+ lower extremity edema extending to above the knee. No discoloration. NEURO: Normal sensorium. No sensory or motor deficits noted. SKIN: No rash or jaundice noted. Medical Decision & Procedures ER Provider Diagnostic Interpretation: Radiology results as stated below per my review and radiologist interpretation: CHEST ONE VIEW PORTABLE CLINICAL HISTORY: 46 years-old Male presenting with EVALUATE RESPIRATORY DISTRESS.DYSPNEA. TECHNIQUE: Portable upright AP view of the chest was obtained. COMPARISON: 04/09/2017. FINDINGS: Cardiac silhouette remains prominent. Prominence of the bilateral mike unchanged. Patchy central predominant hazy opacities stable to slightly increased from prior. No large effusion or pneumothorax. Osseous structures normal. Upper abdomen normal. IMPRESSION: 1. Stable to slight interval increase in central predominant opacities in the setting of mild cardiac megaly. This could represent pulmonary edema, multifocal pneumonia, or diffuse alveolar damage. Electronically signed by: Negrito Ferrara M.D. 05/09/2017 6:26 PM Dictated Date/Time: 05/09/2017 6:25 PM Laboratory Results 05/09/17 17:35 Red Blood Count 4.54, Mean Corpuscular Volume 87.2, Mean Corpuscular Hemoglobin 29.3, Mean Corpuscular Hemoglobin Concent 33.6, Mean Platelet Volume 10.7, Neutrophils (%) (Auto) 52.6, Lymphocytes (%) (Auto) 28.1, Monocytes (%) (Auto) 14.4, Eosinophils (%) (Auto) 4.2, Basophils (%) (Auto) 0.1, Neutrophils # (Auto ) 3.60, Lymphocytes # (Auto) 1.93, Monocytes # (Auto) 0.99, Eosinophils # (Auto ) 0.29, Basophils # (Auto) 0.01 05/09/17 17:35 Test 05/09/17 17:35 White Blood Count 6.86 K/uL (4.8-10.8) Red Blood Count 4.54 M/uL (4.7-6.1) Hemoglobin 13.3 g/dL (14.0-18.0) Hematocrit 39.6 % (42-52) Mean Corpuscular Volume 87.2 fL (80-100) Mean Corpuscular Hemoglobin 29.3 pg (25-34) Mean Corpuscular Hemoglobin Concent 33.6 g/dl (32-36) Platelet Count 200 K/uL (130-400) Mean Platelet Volume 10.7 fL (7.4-10.4) Neutrophils (%) (Auto) 52.6 % Lymphocytes (%) (Auto) 28.1 % Monocytes (%) (Auto) 14.4 % Eosinophils (%) (Auto) 4.2 % Basophils (%) (Auto) 0.1 % Neutrophils # (Auto) 3.60 K/uL (1.4-6.5) Lymphocytes # (Auto) 1.93 K/uL (1.2-3.4) Monocytes # (Auto) 0.99 K/uL (0.11-0.59) Eosinophils # (Auto) 0.29 K/uL (0-0.5) Basophils # (Auto) 0.01 K/uL (0-0.2) RDW Standard Deviation 43.9 fL (36.4-46.3) RDW Coefficient of Variation 13.9 % (11.5-14.5) Immature Granulocyte % (Auto) 0.6 % Immature Granulocyte # (Auto) 0.04 K/uL (0.00-0.02) Prothrombin Time 10.6 SECONDS (9.0-12.0) Prothromb Time International Ratio 1.0 (0.9-1.1) Activated Partial Thromboplast Time 24.6 SECONDS (21.0-31.0) Partial Thromboplastin Ratio 0.9 Anion Gap 7.0 mmol/L (3-11) Est Creatinine Clear Calc Drug Dose 141.8 ml/min Estimated GFR () 120.0 Estimated GFR (Non- 103.5 BUN/Creatinine Ratio 9.9 (10-20) Calcium Level 8.1 mg/dl (8.5-10.1) Total Bilirubin 0.3 mg/dl (0.2-1) Aspartate Amino Transf (AST/SGOT) 15 U/L (15-37) Alanine Aminotransferase (ALT/SGPT) 38 U/L (12-78) Alkaline Phosphatase 57 U/L (45-117) Total Creatine Kinase 175 U/L (39-308) Creatine Kinase MB 2.2 ng/ml (0.5-3.6) Creatine Kinase MB Ratio 1.3 (0-3.0) Troponin I 0.089 ng/ml (0-0.045) Pro-B-Type Natriuretic Peptide 1880 pg/ml (0-450) Total Protein 6.8 gm/dl (6.4-8.2) Albumin 3.1 gm/dl (3.4-5.0) Globulin 3.7 gm/dl (2.5-4.0) Albumin/Globulin Ratio 0.8 (0.9-2) Laboratory results reviewed by me Medications Administered Medications (Trade) Dose Ordered Sig/Yaquelin Route Start Time Stop Time Status Last Admin Dose Admin Albuterol/ Ipratropium (Duoneb) 3 ml NOW STAT INH 05/09/17 18:02 05/09/17 18:03 DC 05/09/17 18:14 3 ML Furosemide (Lasix Inj) 40 mg NOW STAT IV 05/09/17 18:51 05/09/17 18:53 DC 05/09/17 19:07 40 MG Nitroglycerin (Nitroglycerin 2% Oint) 0.5 inch NOW ONCE EXT 05/09/17 19:00 05/09/17 19:02 DC 05/09/17 19:06 0.5 INCH Aspirin (Aspirin Chew) 324 mg NOW STAT PO 05/09/17 18:51 05/09/17 18:53 DC 05/09/17 19:07 324 MG ECG Indication: SOB/dyspnea Rate (beats per minute): 104 Rhythm: sinus tachycardia Findings: PAC, left axis deviation, other (Left atrial enlargement) ED Course 1737: The patient was evaluated in room B10. A complete history and physical exam was performed. Per past medical records, the patient was discharged April 11 after being diagnosed with Pneumonia. 1801: Ordered Duoneb 3 ml INH. 1850: Ordered Aspirin 324 mg PO, Lasix Inj 40 mg IV. 1854: I reevaluated the patient and he is doing okay. 1899: Ordered Nitroglycerin 0.5 inch EXT. 1912: Discussed the patient's case with Dr. Danuta Walter Hops[facility]ist. The patient will be evaluated for further treatment and disposition. Medical Decision Triage Nursing notes reviewed. The patient's presentation and history were concerning for SOB. Etiologies such as pneumonia, COPD, reactive airway disease, CHF, cardiac ischemia, pulmonary embolism, pneumothorax, musculoskeletal, infections, gastrointestinal, as well as others were entertained. The patient was evaluated. Physical examination raised concerns for CHF. He also had shortness of breath and recently was diagnosed with pneumonia. He states he's been using an inhaler. He was given a DuoNeb. Chest x-ray revealed findings consistent with pulmonary edema. His BNP was elevated. The patient had a mildly elevated troponin as well. He had no leukocytosis or fever. He was moderately hypertensive. He was given aspirin, Nitropaste, and IV Lasix. Given the findings and situation he will need further evaluation and management in the hospital. Consultation was made with internal medicine. The patient was evaluated for further treatment. Medication Reconcilliation Current Medication List: was personally reviewed by me Blood Pressure Screening Patient's blood pressure: Elevated blood pressure Will be further monitored by the hospitalist. Consults Time Called: 1856 Consulting Physician: Dr. Danuta Preston Returned Call: 1912 Discussed the [facility] The patient will be evaluated for further treatment and disposition. Impression Primary Impression: SOB (shortness of breath) Additional Impressions: Elevated troponin CHF (congestive heart failure) Scribe Attestation The scribe's documentation has been prepared under my direction and personally reviewed by me in its entirety. I confirm that the note above accurately reflects all work, treatment, procedures, and medical decision making performed by me. Departure Information Dispostion Being Evaluated By Hospitalist Referrals Howie CAREY (PCP) Problem Qualifiers
[2017-05-10] VITALS (8 sets, daily range): BP systolic 112–150; BP diastolic 75–97; PULSE 76–93; TEMP 36.5–37.3; O2SAT 90–96
--- NOTE | 2017-05-10 00:08 | NUR ---
assessment completed refer to emr. vss. sr on tele rate 90's. denies needs. 2 guards at bedside. call ponce in reach
[2017-05-10 01:03] LABS: CKMB 1.6 ng/ml (0.5-3.6)
--- NOTE | 2017-05-10 04:05 | NUR ---
assessment unchanged denies needs. 2 guards at bedside. sr 80's.
[2017-05-10] MEDS: ACETAMINOPHEN 325 MG TAB PO PRN ×2 (04:10→14:59)
[2017-05-10] MEDS: NITROGLYCERIN OINT 2% 1GM PACKET EXT SCH (05:11)
[2017-05-10 07:07] LABS: CREATININE 0.97 mg/dl (0.60-1.40); POTASSIUM 4.2 mmol/L (3.5-5.1)
[2017-05-10 07:15] LABS: HEMOGLOBIN A1C 8.6 % (4.5-5.6)
--- NOTE | 2017-05-10 08:00 | NUR ---
A/ID: [id number]. Denies SOB or pain at this time. SR on the monitor. +2 lower extremity edema. Lungs diminished on room air. Abdomen soft, non-tender. Voiding in the urinal. Skin intact. IV site intact, saline locked. Call ponce within reach, encouraged to ring for assistance. Two guards at bedside. Will continue to monitor.
[2017-05-10] MEDS: INSULIN ASPART 100 UNITS/ML 3 ML PEN SC SCH ×4 (08:33→21:00)
[2017-05-10] MEDS: FUROSEMIDE INJ 80 MG in SYRINGE 0 ML IV SCH ×2 (08:34→16:27)
[2017-05-10] MEDS: OLANZAPINE 10 MG TAB PO SCH ×2 (08:34→21:55)
[2017-05-10] MEDS: DEXAMETHASONE CONC SOLN 3.75 MG, NYSTATIN SUSP 30 ML, DiphenhydrAMINE HCL SYRUP 300 MG,... PO SCH ×20 (08:34→22:23)
[2017-05-10] MEDS: LISINOPRIL 10 MG TAB PO SCH (08:35)
[2017-05-10] MEDS: METOPROLOL TARTRATE 25 MG TAB PO SCH ×2 (08:35→21:52)
[2017-05-10] MEDS: SERTRALINE HCL 100 MG TAB PO SCH (08:35)
[2017-05-10] MEDS: ATORVASTATIN 10 MG TAB PO SCH (08:35)
[2017-05-10] MEDS: ASPIRIN 81 MG ECTAB PO SCH (08:35)
--- NOTE | 2017-05-10 09:31 | DIAGNOSTIC IMAGING REPORT ---
CHEST ONE VIEW PORTABLE CLINICAL HISTORY: CHF dyspnea COMPARISON STUDY: 05/09/2017 FINDINGS: Mild increase in cardiac size. Slight decrease in prominence of pulmonary vasculature. Slight thickening right minor fissure. IMPRESSION: Somewhat mixed findings. Persisting components of congestive failure. Slight increase in cardiac size with a slight decrease in prominence of pulmonary vasculature. The above report was generated using voice recognition software. It may contain grammatical, syntax or spelling errors. Electronically signed by: Miki Solano M.D. 05/10/2017 9:29 AM Dictated Date/Time: 05/10/2017 9:28 AM
--- NOTE | 2017-05-10 10:38 | Cardiology Consultation ---
Cardiology Consultation Date of Consultation: May 10, 2017 Requesting Physician: Danuta Attending Glass Melt Operator: Dannielle (Miki Enamorado PA-C) History of Present Illness Mr. Isidro Carter is a 46-year-old male who is incarcerated at [facility]. He is being seen at the request of Dr. Tipton. Reasons for consultation include CHF, elevated troponin. Mr. Carter was hospitalized here at [facility] April 06, 2017 to April 11, 2017 with a principal diagnosis of pneumonia. He was treated with IV steroids, IV cefepime and azithromycin, and nebulizers prior to being discharged to complete a course of oral cefuroxime, doxycycline, and a prednisone taper. Troponin was elevated to 0.202 ng/ml with EKG's revealing a possible septal infarct as well as lateral T wave changes suggestive of ischemia. Resting echocardiography on 04/08/2017 revealed a normal size left ventricle with normal wall motion and systolic function, EF 50-55%. RV systolic function was noted to be normal. Mild to moderate mitral regurgitation observed. Cardiology was not involved in his March 2017 hospital course. The patient was noted to have mild lower extremity edema which was felt, per documentation, to be secondary to the mild to moderate mitral regurgitation. Mr. Carter notes that his fluid retention did improve during his hospital course however upon returning to [facility] the peripheral edema returned. He also notes a mild nonproductive cough, increased exertional dyspnea and orthopnea without PND. No abdominal bloating. No scrotal edema. No chest pain or discomfort. No tachypalpitations. No lightheadedness, dizziness, or syncope. ROS positive for sores on the sides of his tongue, intermittent sore throat, and intermittent soaking night sweats. No fevers. No rigors. (Miki Enamorado PA-C) Past Medical/Surgical History Problem List: Medical Problems: (1) Bipolar disorder (2) CHF (congestive heart failure) (3) COPD (chronic obstructive pulmonary disease) (4) Diabetes (5) Diabetes mellitus, type 2 (6) Elevated troponin (7) Hyperlipidemia (8) Hypertension (9) Hypoxia (10) Sleep apnea Surgical Problems: (1) Status post tonsillectomy (Miki Enamorado PA-C) Family History FH: cancer MOTHER Hypertension MOTHER GRANDMOTHER Tuberculosis GRANDMOTHER He never knew his father. He does not believe his mother had cardiac issues. He states that he is an only child. (Miki Enamorado PA-C) FH: cancer MOTHER Hypertension MOTHER GRANDMOTHER Tuberculosis GRANDMOTHER (Guillaume Spicer, ) Social History Smoker, quit ~1 month ago. No recent alcohol. Prior (~4 years ago) drug use including marijuana and cocaine. Inmate, [employer]. (Miki Enamorado PA-C) Review Of Systems General: + Night sweats. No current fevers or chills. No unexplained/unplanned weight loss. HEENT: + Headaches. Sores on the sides of his tongue. Intermittent sore throat. Cardiovascular: +PRITCHETT. + Orthopnea. No chest pain. No palpitations. No PND. No near syncope or syncope. Pulmonary: + Cough. + Untreated SATISH. No hemoptysis. Gastrointestinal: No nausea, vomiting, or diarrhea. No melena or hematochezia. Skin: + diaphoresis at night. No rash. Musculoskeletal: No myalgias or arthralgias. Neurological: Denies history of TIA, CVA, or seizures Complete review of systems is as stated above, negative, or noncontributory. (Miki Enamorado PA-C) Allergies Coded Allergies: Iodine (Verified Allergy, Unknown, UNKNOWN, 05/09/17) Shellfish (Verified Allergy, Unknown, UNKNOWN, 05/09/17) Medications Reported Home Medications Medications Dose Route/Sig Max Daily Dose Days Date Category Dose Instructions Ventolin Hfa (Albuterol) 200 Puffs/61924 Mcg Aers 2 Puffs INH QID PRN 05/09/17 Reported Lantus (Insulin Glargine) 100 Unit/Ml Inj 60 Units SC HS 05/09/17 Reported Humulin R (Insulin Human Regular) 100 Units/Ml Susp SQ BID 05/09/17 Reported sliding scale; 0-200= 0 u nits 201-250= 5 units 251-300= 10 units 301-350= 15 units 350-400= 20 units > 400= 25 units Motrin (Ibuprofen) 600 Mg Tab 600 Mg PO TID 05/09/17 Reported PRN Lasix (Furosemide) 80 Mg Tab 80 Mg PO BID 05/09/17 Reported Benadryl (Diphenhydramine Hcl) 25 Mg Cap 100 Mg PO HS 05/09/17 Reported Benadryl (Diphenhydramine Hcl) 25 Mg Cap 50 Mg PO QAM 05/09/17 Reported Zoloft (Sertraline HCl) 100 Mg Tab 200 Mg PO DAILY 04/06/17 Reported [Podophyllin 20%] 1 Appln TOP UD 04/06/17 Reported WITH BENZOIN, TO BE APPLIED BY PROVIDER Zyprexa (Olanzapine) 10 Mg Tab 10 Mg PO BID 04/06/17 Reported Glucophage (Metformin Hcl) 1,000 Mg Tab 1,000 Mg PO BID 04/06/17 Reported Prinivil (Lisinopril) 10 Mg Tab 10 Mg PO DAILY 04/06/17 Reported Depakote (Divalproex Sodium) 500 Mg Tab 2 Tab PO HS 30 04/06/17 Reported Lipitor (Atorvastatin Calcium) 10 Mg Tab 10 Mg PO DAILY 04/06/17 Reported Aspirin Ec (Aspirin) 81 Mg Tab 81 Mg PO DAILY 04/06/17 Reported (Miki Enamorado PA-C) Physical Exam Vital Signs (Last 8hrs): Last 8 Hrs Date Time Temp Pulse Resp B/P (MAP) Pulse Ox O2 Delivery O2 Flow Rate FiO2 05/10/17 08:00 Room Air 05/10/17 07:50 36.7 86 20 128/81 (97) 93 Room Air 05/10/17 04:00 94 Nasal Cannula 4.0 05/10/17 03:45 36.5 83 17 117/80 (92) 95 Nasal Cannula 4.0 General: A&Ox3. NAD. HEENT: Normocephalic Atraumatic. PERRL. EOMI. Conjunctiva and sclera clear Neck: Supple. No carotid bruits. Normal JVD. Respiratory: Bibasilar rales. Faint left lower expiratory wheeze. No rhonchi. No dullness to percussion. Cardiovascular: Regular with an occasional ectopic beat. Grade II/ apical systolic murmur. PMI appears mildly displaced. No rub. Abdomen: +BS. No abdominal bruits. Somewhat firm. No organomegaly. Extremities: 1+ edema. No clubbing. No cyanosis. Distal pulses 2/4 bilaterally. Neuro: No focal deficits. Psychiatric: Normal affect. (Miki Enaomrado PA-C) Data Last 24 Hours Test 05/09/17 17:35 05/09/17 19:33 05/09/17 22:01 05/10/17 00:02 White Blood Count 6.86 K/uL Red Blood Count 4.54 M/uL Hemoglobin 13.3 g/dL Hematocrit 39.6 % Mean Corpuscular Volume 87.2 fL Mean Corpuscular Hemoglobin 29.3 pg Mean Corpuscular Hemoglobin Concent 33.6 g/dl Platelet Count 200 K/uL Mean Platelet Volume 10.7 fL Neutrophils (%) (Auto) 52.6 % Lymphocytes (%) (Auto) 28.1 % Monocytes (%) (Auto) 14.4 % Eosinophils (%) (Auto) 4.2 % Basophils (%) (Auto) 0.1 % Neutrophils # (Auto) 3.60 K/uL Lymphocytes # (Auto) 1.93 K/uL Monocytes # (Auto) 0.99 K/uL Eosinophils # (Auto) 0.29 K/uL Basophils # (Auto) 0.01 K/uL RDW Standard Deviation 43.9 fL RDW Coefficient of Variation 13.9 % Immature Granulocyte % (Auto) 0.6 % Immature Granulocyte # (Auto) 0.04 K/uL Prothrombin Time 10.6 SECONDS Prothromb Time International Ratio 1.0 Activated Partial Thromboplast Time 24.6 SECONDS Partial Thromboplastin Ratio 0.9 Sodium Level 142 mmol/L Potassium Level 3.7 mmol/L Chloride Level 107 mmol/L Carbon Dioxide Level 28 mmol/L Anion Gap 7.0 mmol/L Blood Urea Nitrogen 9 mg/dl Creatinine 0.87 mg/dl Est Creatinine Clear Calc Drug Dose 141.8 ml/min Estimated GFR () 120.0 Estimated GFR (Non- 103.5 BUN/Creatinine Ratio 9.9 Random Glucose 117 mg/dl Calcium Level 8.1 mg/dl Total Bilirubin 0.3 mg/dl Aspartate Amino Transf (AST/SGOT) 15 U/L Alanine Aminotransferase (ALT/SGPT) 38 U/L Alkaline Phosphatase 57 U/L Total Creatine Kinase 175 U/L 148 U/L Creatine Kinase MB 2.2 ng/ml 1.6 ng/ml Creatine Kinase MB Ratio 1.3 1.1 Troponin I 0.089 ng/ml 0.085 ng/ml Pro-B-Type Natriuretic Peptide 1880 pg/ml Total Protein 6.8 gm/dl Albumin 3.1 gm/dl Globulin 3.7 gm/dl Albumin/Globulin Ratio 0.8 Urine Color YELLOW Urine Appearance CLEAR Urine pH 7.0 Urine Specific [place] 1.012 Urine Protein NEG Urine Glucose (UA) NEG Urine Ketones NEG Urine Occult Blood NEG Urine Nitrite NEG Urine Bilirubin NEG Urine Urobilinogen NEG Urine Leukocyte Esterase NEG Bedside Glucose 153 mg/dl Test 05/10/17 06:27 05/10/17 06:49 Sodium Level 143 mmol/L Potassium Level 4.2 mmol/L Chloride Level 109 mmol/L Carbon Dioxide Level 30 mmol/L Anion Gap 4.0 mmol/L Blood Urea Nitrogen 13 mg/dl Creatinine 0.97 mg/dl Est Creatinine Clear Calc Drug Dose 123.6 ml/min Estimated GFR () 108.1 Estimated GFR (Non- 93.2 BUN/Creatinine Ratio 13.4 Random Glucose 110 mg/dl Estimated Average Glucose 200 mg/dl Hemoglobin A1c 8.6 % Calcium Level 8.0 mg/dl Total Creatine Kinase 165 U/L Creatine Kinase MB 2.0 ng/ml Creatine Kinase MB Ratio 1.2 Troponin I 0.076 ng/ml Triglycerides Level 83 mg/dl Cholesterol Level 124 mg/dl HDL Cholesterol 32 mg/dl LDL Cholesterol, Calculated 75 mg/dl VLDL Cholesterol, Calculated 17 mg/dl Cholesterol/HDL Ratio 3.9 Bedside Glucose 102 mg/dl EKG dated and timed 09-MAY-2017 @ 17:30:06: Poor data quality, interpretation may be adversely affected. Sinus tachycardia at 104 bpm with premature atrial complexes, possible left atrial enlargement, left axis deviation EKG dated and timed 10-MAY-2017 @ 09:10:11: Normal sinus rhythm at 88 bpm with possible Left atrial enlargement, left axis deviation. There are T wave changes suggestive of ischemia. QTc is prolonged at 525 ms. Telemetry: Sinus at 90 bpm. Atrial and ventricular ectopy. No significant bradycardia or pauses. TTE: Pending (Miki Enamorado PA-C) Assessment & Plan 46 year old male presenting to [facility] with signs and symptoms suggestive of acute decompensated congestive heart failure. Congestive heart failure ? New onset systolic dysfunction. Suspect diastolic heart failure (untreated sleep apnea, hypertension, moderate mitral regurgitation, and multiple medications known to result in fluid retention) Await TTE interpretation. Continue IV furosemide. Increase metoprolol for additional heart rate and blood pressure control. Elevated Troponin. Abnormal EKG. Await resting echocardiography and evaluation by Dr. Spicer. ? DSE (submaximal JESSICA in April 2016) versus diagnostic cardiac catheterization (Iodine, Shellfish allergy) Prolonged QT Attempt to avoid QT prolonging agents if possible. (Miki Enamorado PA-C) CARDIOLOGY ATTENDING ADDENDUM: The patient was seen and personally examined. Agree with Miki Enamorado PA-C's findings and plans as documented above. I reviewed the patient's echo. He has a cardiomyopathy with an estimated LVEF of around 40%. Clinically he is in heart failure. He will need additional treatment for CHF. He will also need prior to D/C a right and left heart cath. (Guillaume Spicer, DO)
--- NOTE | 2017-05-10 11:10 | ECHOCARDIOGRAM REPORT ---
*NOTICE TO RECEIVING LIBERTARIAN AGENCY This information is strictly Confidential and protected under [place] law. [place] law prohibits you from making any further disclosure of this information unless further disclosure is expressly permitted by the written consent of the person to whom it pertains or is authorized by law. A general authorization for the release of medical or other information is not sufficient for this purpose. Hospital accepts no responsibility if the information is made available to any other person, INCLUDING THE PATIENT. Interpretation Summary * Name: DIANA FORD [id number] Study Date: 05/10/2017 06:58 AM BP: 117/80 mmHg * Patient Location: C.2T\S\E219\S\1 HR: 83 * : 1970 (M/d/yyyy) Gender: Male Height: 73 in * Age: 46 yrs Ethnicity: AA Weight: 256 lb * Ordering Physician: César Tipton * Referring Physician: Howie CAREY * Performed By: Micah Dorado RCS * * Reason For Study: CHF * BSA: 2.4 m2 * -- Conclusions -- * The left ventricle is mildly dilated. * There is global thinning of the left ventricular joshi. * Left ventricular systolic function is mild to moderately reduced. * Ejection Fraction = 40-45%. * There is mild to moderate global hypokinesis of the left ventricle. * The left atrium is moderately dilated. * Right atrial size is normal. * There is moderate to severe mitral regurgitation. * There is mild tricuspid regurgitation. Procedure Details * A complete two-dimensional transthoracic echocardiogram was performed (2D, M-mode, Doppler and color flow Doppler). Left Ventricle * The left ventricle is mildly dilated. * There is global thinning of the left ventricular joshi. * Ejection Fraction = 40-45%. * Left ventricular systolic function is mild to moderately reduced. * There is mild to moderate global hypokinesis of the left ventricle. Right Ventricle * The right ventricle is grossly normal size. * The right ventricular systolic function is normal. Atria * The left atrium is moderately dilated. * Right atrial size is normal. * The interatrial septum is intact with no evidence for an atrial septal defect. Mitral Valve * The mitral valve is grossly normal. * There is moderate to severe mitral regurgitation. Tricuspid Valve * The tricuspid valve anatomy is normal. * There is mild tricuspid regurgitation. Aortic Valve * The aortic valve is normal in structure and function. * No hemodynamically significant valvular aortic stenosis. * There is no significant aortic regurgitation. Pulmonic Valve * The pulmonic valve is not well seen, but is grossly normal. * Mild pulmonic valvular regurgitation. Great Vessels * The aortic root and proximal ascending aorta are normal sized. Pericardium/Pleural * There is no pericardial effusion. MMode 2D Measurements and Calculations IVSd 1.2 cm IVSs 1.5 cm LVIDd 5.6 cm LVIDs 4.3 cm LVPWd 1.3 cm LVPWs 1.6 cm IVS/LVPW 0.92 FS 23.2 % EDV(Teich) 153.9 ml ESV(Teich) 83.2 ml EF(Teich) 45.9 % EDV(cubed) 176.0 ml ESV(cubed) 79.7 ml EF(cubed) 54.7 % % IVS thick 28.0 % % LVPW thick 24.1 % LV mass(C)d 288.6 grams LV mass(C)dI 120.8 grams/m\S\2 LV mass(C)s 269.8 grams LV mass(C)sI 112.9 grams/m\S\2 SV(Teich) 70.7 ml SI(Teich) 29.6 ml/m\S\2 SV(cubed) 96.3 ml SI(cubed) 40.3 ml/m\S\2 Ao root diam 3.7 cm Ao root area 10.7 cm\S\2 ACS 2.0 cm LA dimension 5.0 cm asc Aorta Diam 3.2 cm LA/Ao 1.4 EDV(MOD-sp4) 120.0 ml ESV(MOD-sp4) 70.0 ml EF(MOD-sp4) 41.7 % EDV(MOD-sp2) 157.0 ml ESV(MOD-sp2) 103.0 ml EF(MOD-sp2) 34.4 % SV(MOD-sp4) 50.0 ml SI(MOD-sp4) 20.9 ml/m\S\2 SV(MOD-sp2) 54.0 ml SI(MOD-sp2) 22.6 ml/m\S\2 Doppler Measurements and Calculations MV E max celestine 119.8 cm/sec MV A max celestine 44.7 cm/sec MV E/A 2.7 MV P1/2t max celestine 137.8 cm/sec MV P1/2t 94.9 msec MVA(P1/2t) 2.3 cm\S\2 MV dec slope 425.4 cm/sec\S\2 MV dec time 0.30 sec Ao V2 max 98.4 cm/sec Ao max PG 3.9 mmHg Ao max PG (full) 1.7 mmHg LV V1 max PG 2.1 mmHg LV V1 max 73.2 cm/sec PA V2 max 62.0 cm/sec PA max PG 1.6 mmHg PI max celestine 226.6 cm/sec PI max PG 20.5 mmHg PI dec slope 219.6 cm/sec\S\2 PI P1/2t 302.2 msec TR max celestine 204.5 cm/sec
[2017-05-10] MEDS: NITROGLYCERIN 2% OINTMENT 30GM TUBE EXT SCH ×2 (11:37→17:23)
--- NOTE | 2017-05-10 12:00 | NUR ---
Patient reassessed, see EMR for full details. VSS. Denies any needs at this time. Call ponce within reach. Will continue to monitor.
--- NOTE | 2017-05-10 13:19 | NUR ---
DIABETES: Pt seen for elevated A1c 8.6%. See DM teaching record. Addendum: 05/10/17 at 1320 by Diana Cooper RN Amended: Links added.
--- NOTE | 2017-05-10 13:40 | DIAGNOSTIC IMAGING REPORT ---
ULTRASOUND RIGHT UPPER QUADRANT ABDOMEN; ULTRASOUND ASCITES CHECK CLINICAL HISTORY: Ascites. COMPARISON STUDY: No priors. TECHNIQUE: Real-time, grayscale, and color flow sonography of the right upper quadrant of the abdomen was performed. Images are reviewed in the transverse and longitudinal planes. Ultrasound of all 4 quadrants was performed to assess for abdominal ascites. FINDINGS: Liver: The liver is mildly enlarged and heterogeneous in echotexture. There is no intrahepatic biliary ductal dilatation. The main portal vein is patent. Gallbladder: The gallbladder is normal in appearance. No gallstones are identified. There is no gallbladder wall thickening or pericholecystic fluid. A sonographic James's sign is reportedly absent. The common bile duct measures up to 0.3 cm in diameter. Pancreas: Not well visualized due to overlying bowel gas. Right kidney: Survey images of the right kidney demonstrate normal size and echotexture. There is no hydronephrosis. Ascites: None. IMPRESSION: 1. Mild hepatomegaly. 2. No acute sonographic abnormality is identified in the right upper quadrant and no ascites is seen. Electronically signed by: Carlos Davidson M.D. 05/10/2017 1:38 PM Dictated Date/Time: 05/10/2017 1:37 PM
--- NOTE | 2017-05-10 16:00 | NUR ---
Patient reassessed, see EMR for full details. Patient complaining of ear pain, previously medicated with Tylenol. Dr. Turcios made aware. Will continue to monitor.
--- NOTE | 2017-05-10 16:29 | NUR ---
Case Management: On screening d/t < 30 day re-admission. Pt lives at [facility] and has been in the care of the [facility]. Plan for pt to return to [facility] on discharge. [employer] to arrange transportation on discharge. Case Management to follow.
--- NOTE | 2017-05-10 18:00 | NUR ---
Patient up to bathroom at 1744, heart rate in 140's. Heart rate sustained until back into bed around 1800. EKG obtained, ST with PACs on the monitor. Will continue to monitor.
--- NOTE | 2017-05-10 18:58 | Progress Note ---
Internal Med Progress Note Date of Service: May 10, 2017. Provider Documentation: SUBJECTIVE: offers no complain , no complain of SOB , PRITCHETT or orthopnea feels fine OBJECTIVE: Vital Signs-as noted below Exam: General-young male , no sign of distress Eyes-sclera non icteric , PERRLA/EOM ENT-NAD Neck-+ JVD Lungs-diminished, no rales or wheeze noted Heart-regular S1/S2 Abdomen-soft, non tender Extremities-+ 3 bilateral lower ext edema Neuro-AAO x3 ,no focal neurological deficit Lab data as noted below. ASSESSMENT & PLAN: ACUTE CHF WITH SYSTOLIC DYSFUNCTION : presented with SOB , PRITCHETT , lower ext edema elevated BNP consistent with acute congestive heart failure. new onset of Systolic heart failure Echo 04/08/17 showed normal LV wall motion and function, LVEF 50-55%, normal RV size and systolic function, no pulmonary hypertension, mild to moderate mitral regurgitation. pt admitted to [facility] continued with IV Diuresis with Lasix 40 mg BID cont on ACEI repeat ECHO 05/10/17 : The left ventricle is mildly dilated. There is global thinning of the left ventricular joshi. Left ventricular systolic function is mild to moderately reduced. Ejection Fraction = 40-45%. There is mild to moderate global hypokinesis of the left ventricle. The left atrium is moderately dilated. pt denies of having any episode of PR in past no family hx of premature CAD appreciate input form Cardiology pt will be continued with Diuresis will need Cardiac cath prior to discharge to assess for possible ischemic cardiomyopathy ELEVATED TROPONIN Serum troponin I = 0.089./0.08 /0.07 No anginal symptoms. No acute EKG changes. ECHO as above no evidence of ischemia , pt does not complain of chest heaviness possible demand ischemia cardiology following plan of cardiac cath during this admission HYPERTENSION Continue lisinopril. Add metoprolol and nitrates COPD stable no wheeze Continue albuterol PRN SLEEP APNEA CPAP at night with humidified air. DM TYPE 2 Hold metformin during hospital stay. Check hemoglobin A1c. Lantus/NovoLog per protocol. DYSLIPIDEMIA lipid profile-shows well controlled -LDL 75 , T cholesterol 200 Continue atorvastatin. BIPOLAR DISORDER Continue usual medications. VTE PROPHYLAXIS Low-moderate risk. SQ enoxaparin. DISPOSITION Expected return to [facility] under care of the medical team there. Vital Signs: Date Time Temp Pulse Resp B/P (MAP) Pulse Ox O2 Delivery O2 Flow Rate FiO2 05/11/17 16:00 Nasal Cannula 4.0 05/11/17 15:25 36.8 77 20 109/70 (83) 93 Nasal Cannula 4.0 05/11/17 12:00 Nasal Cannula 05/11/17 11:31 36.9 72 18 104/72 (83) 95 Nasal Cannula 4.0 05/11/17 08:00 Room Air 05/11/17 07:49 36.4 81 22 116/82 (93) 95 Nasal Cannula 4.0 05/11/17 04:00 Room Air 05/11/17 03:25 37.0 82 18 114/80 (91) 92 Nasal Cannula 3.0 05/11/17 00:13 37.2 94 18 129/88 (102) 90 Room Air 05/11/17 00:00 Room Air 05/10/17 20:00 Room Air 05/10/17 19:27 37.3 93 22 122/93 (103) 90 Room Air Lab Results: Results Past 24 Hours Test 05/10/17 20:18 05/11/17 05:16 05/11/17 07:02 05/11/17 11:02 Range/Units Bedside Glucose 104 84 161 70-99 mg/dl Sodium Level 140 136-145 mmol/L Potassium Level 3.7 3.5-5.1 mmol/L Chloride Level 106 98-107 mmol/L Carbon Dioxide Level 30 21-32 mmol/L Anion Gap 4.0 3-11 mmol/L Blood Urea Nitrogen 21 7-18 mg/dl Creatinine 1.14 0.60-1.40 mg/dl Est Creatinine Clear Calc Drug Dose 105.2 ml/min Estimated GFR () 88.9 Estimated GFR (Non- 76.7 BUN/Creatinine Ratio 18.8 10-20 Random Glucose 95 70-99 mg/dl Calcium Level 8.2 8.5-10.1 mg/dl Magnesium Level 2.4 1.8-2.4 mg/dl Test 05/11/17 15:57 Range/Units Bedside Glucose 156 70-99 mg/dl
--- NOTE | 2017-05-10 20:00 | NUR ---
A/ID: Patient alert and oriented x4. VSS. Denies SOB or chest pain at this time. Saline lock intact. Lungs are diminished, room air. Sinus rhythm on monitor. +2 pitting bilateral lower extremity edema. Please see EMR for further assessment documentation. 2 guards at bedside. Call ponce within reach. All needs met before leaving room.
[2017-05-10] MEDS: ENOXAPARIN 40 MG/0.4 ML SYR SC SCH (21:52)
[2017-05-10] MEDS: DIVALPROEX SODIUM 500 MG DELAY RELEASE TAB PO SCH (21:54)
[2017-05-10] MEDS: INSULIN GLARGINE SOLOSTAR 100 UNITS/ML 3 ML PEN SC SCH (21:57)
--- NOTE | 2017-05-11 | NUR ---
A: Assessment remains unchanged. Please see EMR for further assessment documentation. All needs met, call ponce within reach. 2 guards at bedside.
[2017-05-11 00:13] VITALS: BP 129/88; PULSE 94; TEMP 37.2; O2SAT 90
[2017-05-11] MEDS: NITROGLYCERIN 2% OINTMENT 30GM TUBE EXT SCH ×5 (00:19→23:57)
[2017-05-11 03:25] VITALS: BP 114/80; PULSE 82; TEMP 37; O2SAT 92
[2017-05-11] MEDS: ACETAMINOPHEN 325 MG TAB PO PRN (03:43)
--- NOTE | 2017-05-11 04:00 | NUR ---
A: Tylenol given for headache per patient request. Otherwise, assessment remains unchanged. Please see EMR for further assessment documentation. All needs met, call ponce within reach, 2 guards at bedside.
[2017-05-11 06:17] LABS: CALCIUM 8.2 mg/dl (8.5-10.1); CREATININE 1.14 mg/dl (0.60-1.40); POTASSIUM 3.7 mmol/L (3.5-5.1)
[2017-05-11] MEDS: DEXAMETHASONE CONC SOLN 3.75 MG, NYSTATIN SUSP 30 ML, DiphenhydrAMINE HCL SYRUP 300 MG,... PO SCH ×20 (07:38→21:50)
[2017-05-11] MEDS: FUROSEMIDE INJ 80 MG in SYRINGE 0 ML IV SCH ×2 (07:39→16:15)
[2017-05-11] MEDS: SERTRALINE HCL 100 MG TAB PO SCH (07:39)
[2017-05-11] MEDS: METOPROLOL TARTRATE 25 MG TAB PO SCH (07:39)
[2017-05-11] MEDS: ASPIRIN 81 MG ECTAB PO SCH (07:39)
[2017-05-11] MEDS: LISINOPRIL 10 MG TAB PO SCH (07:40)
[2017-05-11] MEDS: OLANZAPINE 10 MG TAB PO SCH ×2 (07:40→20:59)
[2017-05-11] MEDS: ATORVASTATIN 10 MG TAB PO SCH (07:40)
[2017-05-11] MEDS: INSULIN ASPART 100 UNITS/ML 3 ML PEN SC SCH ×4 (07:42→21:03)
[2017-05-11 07:49] VITALS: BP 116/82; PULSE 81; TEMP 36.4; O2SAT 95
--- NOTE | 2017-05-11 08:00 | NUR ---
A/ID: AxOx4. Drowsy. SR on the monitor. +2 lower extremity edema. Lungs diminished on 2LNC. Abdomen soft, non-tender. Has not voided yet to assess. Skin intact. IV site intact, saline locked. Call ponce within reach, encouraged to ring for assistance. Will continue to monitor.
--- NOTE | 2017-05-11 11:19 | Cardiology Follow-Up ---
Subjective General Date of Service: May 11, 2017. Chief Complaint: HF Pt evaluation today including: conversation w/ patient, physical exam, chart review, lab review, review of studies, review of inpatient medication list History of Present Illness Patient seen and examined. Guards at bedside. Intermittent shortness of breath. Improved but ongoing peripheral edema No chest pain. No palpitations. EKG today demonstrates normal sinus rhythm at 77 bpm with possible left atrial enlargement, left axis deviation, T wave changes laterally suggestive of ischemia. QTc: 482 Telemetry: Sinus at 86 bpm. Intermittent sinus tachycardia with complex atrial ectopy. No overt atrial fibrillation. No significant bradycardia or pauses. May 10, 2017 TTE Interpretation Summary ([facility], Dr. Spicer): The left ventricle is mildly dilated. There is global thinning of the left ventricular joshi. Left ventricular systolic function is mild to moderately reduced. Ejection Fraction = 40-45%. There is mild to moderate global hypokinesis of the left ventricle. The left atrium is moderately dilated. Right atrial size is normal. There is moderate to severe mitral regurgitation. There is mild tricuspid regurgitation. Allergies Coded Allergies: Iodine (Verified Allergy, Unknown, UNKNOWN, 05/09/17) Shellfish (Verified Allergy, Unknown, UNKNOWN, 05/09/17) Social History Hx Tobacco Use In Past Year?: Yes Hx Alcohol Use - Type And Amou: No Hx Substance Use - Type And Am: No Problem List Medical Problems: (1) Elevated troponin Status: Acute (2) NSTEMI (non-ST elevated myocardial infarction) Status: Acute (3) SOB (shortness of breath) Status: Acute Physical Exam Vital Signs Last Vital Signs Documentation Date Time Temp Pulse Resp B/P (MAP) Pulse Ox O2 Delivery O2 Flow Rate FiO2 05/11/17 08:00 Room Air 05/11/17 07:49 36.4 81 22 116/82 93 95 4.0 Physical Exam Constitutional: Level of Distress: NAD Psychiatric: Mental Status: active & alert Orientation: to time, to place, to person Memory: recent memory normal, remote memory normal Head: normocephalic, atraumatic Neck: pertinent finding (Elevated JVP) Lungs: Respiratory effort: no dyspnea Auscultation: no wheezing, no rhonchi, deminished air movement, decreased breath sounds, rales/crackles on the right Cardiovascular: Heart Auscultation: RRR, no murmurs, no rubs, no gallops Peripheral Pulses: Radial Pulse: normal on the left, normal on the right Dorsalis Pedis Pulse: decreased on the left, decreased on the right Abdomen: Bowel Sounds: normal Inspection & Palpation: soft, non-distended, no masses Extremities: no cyanosis, no clubbing, edema (1+ edema to the mid monique) Neurologic: Cranial Nerves: grossly intact Assessment and Plan Assessment and Plan New onset moderate systolic dysfunction (EF 40%) Moderate to severe mitral regurgitation RECOMMENDATIONS/PLAN: Continue IV furosemide today, holding in the AM Supplement potassium orally today. Increase metoprolol to 50 mg twice a day for additional heart rate control. Continue lisinopril. NPO after midnight except for medications Right and left heart catheterization in AM CARDIOLOGY ATTENDING ADDENDUM: The patient was seen and personally examined. Agree with Miki Enamorado PA-C's findings and plans as documented above. Pt. will have RT and LT heart cath tomorrow. Explained risk benefit and intent of cath. He is willing to proceed. Laboratory Results Last 24 Hours Test 05/10/17 11:30 05/10/17 16:14 05/10/17 20:18 05/11/17 05:16 Bedside Glucose 90 mg/dl 145 mg/dl 104 mg/dl Sodium Level 140 mmol/L Potassium Level 3.7 mmol/L Chloride Level 106 mmol/L Carbon Dioxide Level 30 mmol/L Anion Gap 4.0 mmol/L Blood Urea Nitrogen 21 mg/dl Creatinine 1.14 mg/dl Est Creatinine Clear Calc Drug Dose 105.2 ml/min Estimated GFR () 88.9 Estimated GFR (Non- 76.7 BUN/Creatinine Ratio 18.8 Random Glucose 95 mg/dl Calcium Level 8.2 mg/dl Magnesium Level 2.4 mg/dl Test 05/11/17 07:02 Bedside Glucose 84 mg/dl
[2017-05-11] MEDS ORDERED: POTASSIUM CHLORIDE 20 MEQ TABCR PO ONE (11:30)
[2017-05-11 11:31] VITALS: BP 104/72; PULSE 72; TEMP 36.9; O2SAT 95
--- NOTE | 2017-05-11 12:00 | NUR ---
Patient reassessed, see EMR for full details. VSS. Call ponce within reach. Will continue to monitor.
[2017-05-11] MEDS ORDERED: DC ALL PREVIOUSLY ORDERED DIABETES MEDS ONE (12:45)
[2017-05-11] MEDS ORDERED: DC ALL ANTICOAGULANTS ONE (12:45)
[2017-05-11 15:25] VITALS: BP 109/70; PULSE 77; TEMP 36.8; O2SAT 93
--- NOTE | 2017-05-11 16:00 | NUR ---
Patient reassessed, see EMR for full details. VSS. Call ponce within reach. Will continue to monitor.
--- NOTE | 2017-05-11 18:46 | Progress Note ---
Internal Med Progress Note Date of Service: May 11, 2017. Provider Documentation: SUBJECTIVE: persisted lower extremity edema requiring supplemental 02 pt denies of any discomfort scheduled for cardiac cath tomorrow OBJECTIVE: Vital Signs-as noted below Exam: General-young male , no sign of distress Eyes-sclera non icteric , PERRLA/EOM ENT-NAD Neck-+ JVD Lungs-diminished, no rales or wheeze noted Heart-regular S1/S2 Abdomen-soft, non tender Extremities-+ 3 bilateral lower ext edema Neuro-AAO x3 ,no focal neurological deficit Lab data as noted below. ASSESSMENT & PLAN: ACUTE CHF WITH SYSTOLIC DYSFUNCTION : presented with SOB , PRITCHETT , lower ext edema New onset moderate systolic dysfunction (EF 40%) Moderate to severe mitral regurgitation continued with IV Diuresis with Lasix 40 mg BID cont on ACEI repeat ECHO 05/10/17 : The left ventricle is mildly dilated. There is global thinning of the left ventricular joshi. Left ventricular systolic function is mild to moderately reduced. Ejection Fraction = 40-45%. There is mild to moderate global hypokinesis of the left ventricle. The left atrium is moderately dilated. pt denies of having any episode of CA in past no family hx of premature CAD appreciate input form Cardiology pt will be continued with Diuresis scheduled for Cardiac cath tomorrow to assess for possible ischemic cardiomyopathy pt is ordered empiric Prednisone prep for contrast allergy for tomorrow's procedure ELEVATED TROPONIN Serum troponin I = 0.089./0.08 /0.07 No anginal symptoms. No acute EKG changes. ECHO as above no evidence of ischemia , pt does not complain of chest heaviness possible demand ischemia cardiology following plan of cardiac cath tomorrow HYPERTENSION Continue lisinopril. metoprolol dose adjusted 50 mg BID COPD stable no wheeze Continue albuterol PRN SLEEP APNEA CPAP at night with humidified air. DM TYPE 2 Hold metformin during hospital stay -will need to hold 48-72hr post contrast exposure in Cardiac cath tomorrow hemoglobin A1c-8.6 Lantus/NovoLog per protocol. DYSLIPIDEMIA lipid profile-shows well controlled -LDL 75 , T cholesterol 200 Continue atorvastatin. BIPOLAR DISORDER Continue usual medications. VTE PROPHYLAXIS Low-moderate risk. SQ enoxaparin. DISPOSITION Expected return to [facility] under care of the medical team there. Vital Signs: Date Time Temp Pulse Resp B/P (MAP) Pulse Ox O2 Delivery O2 Flow Rate FiO2 12/27/17 16:00 Nasal Cannula 4.0 05/11/17 15:25 36.8 77 20 109/70 (83) 93 Nasal Cannula 4.0 05/11/17 12:00 Nasal Cannula 05/11/17 11:31 36.9 72 18 104/72 (83) 95 Nasal Cannula 4.0 05/11/17 08:00 Room Air 05/11/17 07:49 36.4 81 22 116/82 (93) 95 Nasal Cannula 4.0 05/11/17 04:00 Room Air 05/11/17 03:25 37.0 82 18 114/80 (91) 92 Nasal Cannula 3.0 05/11/17 00:13 37.2 94 18 129/88 (102) 90 Room Air 05/11/17 00:00 Room Air 05/10/17 20:00 Room Air 05/10/17 19:27 37.3 93 22 122/93 (103) 90 Room Air Lab Results: Results Past 24 Hours Test 05/10/17 20:18 05/11/17 05:16 05/11/17 07:02 05/11/17 11:02 Range/Units Bedside Glucose 104 84 161 70-99 mg/dl Sodium Level 140 136-145 mmol/L Potassium Level 3.7 3.5-5.1 mmol/L Chloride Level 106 98-107 mmol/L Carbon Dioxide Level 30 21-32 mmol/L Anion Gap 4.0 3-11 mmol/L Blood Urea Nitrogen 21 7-18 mg/dl Creatinine 1.14 0.60-1.40 mg/dl Est Creatinine Clear Calc Drug Dose 105.2 ml/min Estimated GFR () 88.9 Estimated GFR (Non- 76.7 BUN/Creatinine Ratio 18.8 10-20 Random Glucose 95 70-99 mg/dl Calcium Level 8.2 8.5-10.1 mg/dl Magnesium Level 2.4 1.8-2.4 mg/dl Test 05/11/17 15:57 Range/Units Bedside Glucose 156 70-99 mg/dl
[2017-05-11 19:28] VITALS: BP 132/93; PULSE 88; TEMP 36.8; O2SAT 94
--- NOTE | 2017-05-11 20:00 | NUR ---
Assessment completed; see emr. SR per telemetry. HR 80's at rest. Lungs decreased; remains on 2/l O2 via NC. Resp even and unlabored at rest. +1 pitting edema to BLE. Two guards present; one at bedside; one outside the door. Teaching given r/t to 1500cc fluid restriction and cardiac cath in the am; pt asking appropriate questions regarding teaching; returns verbal understanding. Call ponce within touch. Continue to monitor pt.
[2017-05-11] MEDS: DIVALPROEX SODIUM 500 MG DELAY RELEASE TAB PO SCH (20:57)
[2017-05-11] MEDS: METOPROLOL TARTRATE 50 MG TAB PO SCH (20:58)
--- NOTE | 2017-05-11 21:10 | NUR ---
Dr Tariq called regarding Lovenox and Lantus scheduled this evening; pt will be NPO at midnight for cardiac cath in the am. New orders received.
[2017-05-11] MEDS ORDERED: INSULIN GLARGINE SOLOSTAR 100 UNITS/ML 3 ML PEN SC SCH (21:30)
[2017-05-12] VITALS (16 sets, daily range): BP systolic 107–163; BP diastolic 73–96; PULSE 74–85; TEMP 36.4–37; O2SAT 87–96
--- NOTE | 2017-05-12 | NUR ---
Pt awake. Assessment completed; see emr. SR per telemetry; HR 80s. Pt denies chest pain or sob at rest. Remains on 4/l O2 via NC. Lungs remain decreased. Resp even and unlabored at rest; no distress present. +1 pitting edema present to BLE. Pt NPO for cardiac cath in the am, pt verbalizes understanding. One guard remains at bedside; one guard at doorway. Pt denies needs at this time. Call ponce within touch. Continue to monitor.
--- NOTE | 2017-05-12 04:00 | NUR ---
Awake; assessment completed, see emr. Pt NPO for cardiac cath today. Pt denies chest pain, sob at rest. O2 on 4/l. Guards remain with pt. Call ponce within touch. Continue to monitor.
[2017-05-12] MEDS: NITROGLYCERIN 2% OINTMENT 30GM TUBE EXT SCH ×3 (06:07→17:17)
[2017-05-12 07:00] LABS: CALCIUM 8.3 mg/dl (8.5-10.1); CREATININE 1.13 mg/dl (0.60-1.40); POTASSIUM 4.1 mmol/L (3.5-5.1)
--- NOTE | 2017-05-12 08:00 | NUR ---
Pt in bed, alert and oriented. No complaints at this time. Guards at bedside. Assessment complete, for details see EMR. NSR on cardiac strip. Call ponce within reach, encouraged to ring for assistance. Will continue to monitor.
[2017-05-12] MEDS: LISINOPRIL 10 MG TAB PO SCH (08:08)
[2017-05-12] MEDS: ASPIRIN 81 MG ECTAB PO SCH (08:09)
[2017-05-12] MEDS: METOPROLOL TARTRATE 50 MG TAB PO SCH ×2 (08:09→20:27)
[2017-05-12] MEDS: ATORVASTATIN 10 MG TAB PO SCH (08:09)
[2017-05-12] MEDS: SERTRALINE HCL 100 MG TAB PO SCH (08:09)
[2017-05-12] MEDS: OLANZAPINE 10 MG TAB PO SCH ×2 (08:09→20:27)
[2017-05-12] MEDS: DEXAMETHASONE CONC SOLN 3.75 MG, NYSTATIN SUSP 30 ML, DiphenhydrAMINE HCL SYRUP 300 MG,... PO SCH ×20 (08:12→20:26)
--- NOTE | 2017-05-12 09:55 | Cardiology Follow-Up ---
Subjective General Date of Service: May 12, 2017. Chief Complaint: HF Pt evaluation today including: conversation w/ patient, physical exam, chart review, lab review, review of studies, review of inpatient medication list History of Present Illness Patient seen and examined. Guards at bedside. Dry, hacky cough. Stable shortness of breath. Improved peripheral edema No chest pain. No tachypalpitations. Telemetry: Sinus at 82 bpm. Less atrial ectopy. No overt atrial fibrillation. No significant bradycardia or pauses. May 10, 2017 TTE Interpretation Summary ([facility], Dr. Spicer): The left ventricle is mildly dilated. There is global thinning of the left ventricular joshi. Left ventricular systolic function is mild to moderately reduced. Ejection Fraction = 40-45%. There is mild to moderate global hypokinesis of the left ventricle. The left atrium is moderately dilated. Right atrial size is normal. There is moderate to severe mitral regurgitation. There is mild tricuspid regurgitation. Allergies Coded Allergies: Iodine (Verified Allergy, Unknown, UNKNOWN, 05/09/17) Shellfish (Verified Allergy, Unknown, UNKNOWN, 05/09/17) Lisinopril (Verified Adverse Reaction, Mild, COUGH, 05/12/17) Social History Hx Tobacco Use In Past Year?: Yes Hx Alcohol Use - Type And Amou: No Hx Substance Use - Type And Am: No Problem List Medical Problems: (1) Elevated troponin Status: Acute (2) NSTEMI (non-ST elevated myocardial infarction) Status: Acute (3) SOB (shortness of breath) Status: Acute Physical Exam Vital Signs Last Vital Signs Documentation Date Time Temp Pulse Resp B/P (MAP) Pulse Ox O2 Delivery O2 Flow Rate FiO2 05/12/17 08:00 Nasal Cannula 4.0 05/12/17 08:00 36.8 77 20 163/78 (106 95 Physical Exam Constitutional: Level of Distress: NAD Psychiatric: Mental Status: active & alert Orientation: to time, to place, to person Memory: recent memory normal, remote memory normal Head: normocephalic, atraumatic Neck: pertinent finding (Normal JVP) Lungs: Respiratory effort: no dyspnea Auscultation: no wheezing, no rales/crackles, no rhonchi, deminished air movement, decreased breath sounds Cardiovascular: Heart Auscultation: RRR, no murmurs, no rubs, no gallops Peripheral Pulses: Radial Pulse: normal on the left, normal on the right Dorsalis Pedis Pulse: decreased on the left, decreased on the right Abdomen: Bowel Sounds: normal Inspection & Palpation: soft, non-distended, no masses Extremities: no cyanosis, no clubbing, edema (minimal distal edema) Neurologic: Cranial Nerves: grossly intact Assessment and Plan Assessment and Plan Admission with acute decompensated systolic congestive heart failure signs and symptoms. New onset moderate systolic dysfunction (EF 40%) Moderate to severe mitral regurgitation RECOMMENDATIONS/PLAN: Diagnostic right and left heart catheterization today. Change Lisinopril to Losartan, RE Cough. Continue beta-mini, ASA, and statin Likely start oral furosemide in AM of 05/13 or 05/14. Further recommendations post catheterization. CARDIOLOGY ATTENDING ADDENDUM: The patient was seen and personally examined. Agree with Miki Enamorado PA-C's findings and plans as documented above. Completed heart cath on patient with some difficulty. Pt. was anxious and moving on the table. No significant CAD that would require intervention. PT. does have a severe cardiomyopathy which should be medically managed. Laboratory Results Last 24 Hours Test 05/11/17 11:02 05/11/17 15:57 05/11/17 19:50 05/12/17 06:02 Bedside Glucose 161 mg/dl 156 mg/dl 246 mg/dl Sodium Level 140 mmol/L Potassium Level 4.1 mmol/L Chloride Level 108 mmol/L Carbon Dioxide Level 25 mmol/L Anion Gap 7.0 mmol/L Blood Urea Nitrogen 27 mg/dl Creatinine 1.13 mg/dl Est Creatinine Clear Calc Drug Dose 105.7 ml/min Estimated GFR () 89.8 Estimated GFR (Non- 77.5 BUN/Creatinine Ratio 23.9 Random Glucose 326 mg/dl Calcium Level 8.3 mg/dl Magnesium Level 2.4 mg/dl Beta-Hydroxybutyric Acid 0.93 mg/dL Test 05/12/17 07:03 Bedside Glucose 262 mg/dl
[2017-05-12] MEDS: SODIUM CHLORIDE 0.9% 1000ML 1,000 ML IV SCH ×3 (10:06→19:58)
--- NOTE | 2017-05-12 10:57 | NUR ---
Pt wanted it noted, that the magic mouthwash is not working.
--- NOTE | 2017-05-12 12:00 | NUR ---
Pt in bed, guards at bedside. Call ponce within reach, encouraged to ring. Will continue to monitor.
[2017-05-12] MEDS ORDERED: MIDAZOLAM HCL 1 MG/ML 2ML VIAL ONE (12:11)
[2017-05-12] MEDS ORDERED: NiCARDipine HCL INJ 2.5 MG/ML 10 ML AMP ONE (12:11)
[2017-05-12] MEDS ORDERED: HEPARIN SOD (PORCINE) 1000 UNIT/ML 10 ML VIAL ONE (12:11)
[2017-05-12] MEDS ORDERED: NITROGLYCERIN/D5W 100MCG/ML 20ML SYR ONE (12:12)
[2017-05-12] MEDS ORDERED: RANITIDINE HCL 25 MG/ML INJ ONE (12:45)
--- NOTE | 2017-05-12 12:52 | NUR ---
Case management note. Pt remains in pcu. Continuous cardiac monitoring. Plan to return to detention. Case management to follow with pt.
--- NOTE | 2017-05-12 13:37 | Pre Sedation Assessment ---
Pre Sedation Assessment General Date of Sedation: May 12, 2017. 11:13 AM Vital Signs Past 12 Hours Date Time Temp Pulse Resp B/P (MAP) Pulse Ox O2 Delivery O2 Flow Rate FiO2 05/12/17 13:30 74 16 116/78 (91) 95 Room Air 05/12/17 12:00 Nasal Cannula 4.0 05/12/17 11:50 36.7 82 16 126/87 (100) 93 Nasal Cannula 4.0 05/12/17 08:00 Nasal Cannula 4.0 05/12/17 08:00 36.8 77 20 163/78 (106) 95 Nasal Cannula 4.0 05/12/17 04:00 Nasal Cannula 4.0 05/12/17 03:53 37.0 79 18 118/73 (88) 95 Nasal Cannula 4.0 Review Cardiovascular: regular rate, rhythm Lungs: lungs clear Pre-Sedation Airway Assessment Smoking Status: Former Smoker Hx of Sleep Apnea: Yes Hx of difficult intubation: No Short Thick Neck: No Thyro-mental Distance: > 3 Finger Breadths Oral Cavity: WNL Mallampati Classification: Class I (Sft palate,uvula,fauces,pillar) ASA Classification: Class II NPO Status Date of Last Intake of Fluids: May 12, 2017 Time of Last Intake of Fluids: 0600 Date of Last Intake of Solids: May 11, 2017 Time of Last Intake of Solids: 2100 Procedure Planning Contraindications for Sedation: None Current Medications Reviewed: Yes Notes The planned sedation has been discussed with the patient. Informed Consent was obtained. I have identified the patient, determined the appropriateness of sedation and have assessed the patient immediately prior to the procedure. All medicine(s) and interventions are by my order.
--- NOTE | 2017-05-12 13:38 | Post Sedation Assessment ---
Post Sedation Assessment General Date of Sedation May 12, 2017. 13:30PM Vital Signs: Vital Signs Past 12 Hours Date Time Temp Pulse Resp B/P (MAP) Pulse Ox O2 Delivery O2 Flow Rate FiO2 05/12/17 13:30 74 16 116/78 (91) 95 Room Air 05/12/17 12:00 Nasal Cannula 4.0 05/12/17 11:50 36.7 82 16 126/87 (100) 93 Nasal Cannula 4.0 05/12/17 08:00 Nasal Cannula 4.0 05/12/17 08:00 36.8 77 20 163/78 (106) 95 Nasal Cannula 4.0 05/12/17 04:00 Nasal Cannula 4.0 05/12/17 03:53 37.0 79 18 118/73 (88) 95 Nasal Cannula 4.0 Post Procedure Recovery Score Activity: (2) Moves 4 extremities * Respiration: (2) Deep breath/cough Circulation: (2) +/-20% PreAnes Value Consciousness: (2) Fully Awake Oxygen Saturation: (2) > 92% On Room Air Post Anesthesia Score: 10 Discharge Sedation Level of Care: Fast Track Phase II Post Sedation Plan On clinical assessment, the patient appears to have tolerated the sedation without complications. Patient is recovering as anticipated. Patient will continue to be monitored by nursing and may be discharged when sedation discharge criteria are met per below protocol. Upon Completions of procedure and additional 15 minutes continue every 5 minute vital signs and the P.A.R. score; then discharge to a Phase I or Fast Track to Phase II per the following guidelines: * Discharge Patient to appropriate Phase II area if PAR is 8 or greater or return to pre- procedure baseline. The post - procedure orders will be as directed. * If PAR score is less than 8 or not return to pre-procedure baseline then patient will follow Phase I monitoring till PAR is reached for Phase II. The Phase I may be done in procedure room or may call to secure a Phase I area. * If naloxone or flumazenil are used for reversal, hold in Phase I for an additional 60 -120 minutes before discharge to Phase II. Please call the Sedation Physician to re-evaluate and complete post-note for discharge to Phase II area. Do NOT discharge from procedure sedation or Phase 1 until post- sedation evaluation note is complete by procedure /sedation MD Sedation Discharge Instructions to be given to the patient at discharge to home.
[2017-05-12] MEDS ORDERED: SODIUM CHLORIDE 0.9% 1000ML 1,000 ML IV SCH (13:39)
[2017-05-12] MEDS ORDERED: SODIUM CHLORIDE 0.9% 1000ML 250 ML IV PRN (13:39)
[2017-05-12] MEDS ORDERED: ONDANSETRON INJ 2 MG/ML 2 ML VIAL IV PRN (13:45)
[2017-05-12] MEDS ORDERED: ACETAMINOPHEN 325 MG TAB PO PRN (13:45)
[2017-05-12] MEDS ORDERED: ATROPINE SULFATE 0.1 MG/ML 5ML SYR IV PRN (13:45)
--- NOTE | 2017-05-12 14:06 | Cardiac Catheterization ---
Procedure Note Procedure Date May 12, 2017. Pre-Procedure Diagnosis Cardiomyopathy AUC Score 9 Post-Procedure Diagnosis Moderate CAD Procedure(s) Performed Coronary Angiography, Left Heart Cath, Right Heart Cath, LV Angiography Sweeper Brush Maker Machine Dr. Spicer Hoop Flaring Machine Operator(s) None Estimated Blood Loss None Medication(s) Versed, Lidocaine 1% Summary of Findings See dictated report Hemodynamics Rest Ao: 116/75 Final Ao: 101/81 LV: 105/52 Recommendations Medical therapy and/or Counseling Specimens None Radiation Exposure (mGy) 2498 Contrast (mls) 126 Procedural Complication(s) None Disposition PCU ACC Data Cardiac Status Clinical evaluation leading to the procedure CAD Presntation: Stable angina Anginal Classification: CCS II Heart Failure: NYHA Class: CCS III Cardiogenic Shock w/in 24Hrs: No Cardiac Arrest w/in 24Hrs: No Imaging studies past 6 months: Yes Stress studies past 6 months: No Coronary Anatomy Dominant: Left Left Main (% Stenosis): Normal LAD (% Stenosis): Normal Circumflex (% Stenosis): Normal RCA (% Stenosis): Mid (50) Left Ventricular Angiography EF (%): 20-30 Mitral Regurgitation: 4+ Diagnostic Status: Urgent Closure Device Percutaneous Entry Location: Femoral Closure Device: Mynx Recommendations: Medical therapy and/or Counseling
--- NOTE | 2017-05-12 14:35 | CARDIAC CATH REPORT ---
PROCEDURES: 1. Right heart catheterization. 2. Left heart catheterization. 3. Coronary angiography. 4. Left ventriculography. HISTORY: The patient is a 46-year-old male, who is currently a resident of [facility]. He has a history of bipolar disorder, diabetes, sleep apnea and COPD. He presented with increasing shortness of breath and was found to have a significant cardiomyopathy. PROCEDURE SUMMARY: After informed consent was obtained, the patient was brought to the cardiac catheterization lab, where access was obtained using retrograde Seldinger technique from the right femoral artery and vein. Preformed 5-[place] diagnostic catheters were utilized for the coronary angiograms. A 5-[place] pigtail catheter was utilized for the left ventriculogram. A 7-[place] Jenkinjones-Windy catheter was utilized for right heart pressures. It should be noted that during the procedure, the patient had difficulty holding still on the table. He became anxious and there was a lot of movement. We decided to forego thermal dilution cardiac outputs. We did obtain a PA sat and left ventricular is an oxygen saturation for Tanisha equation. We then completed the left heart catheterization and coronary angiography. A Mynx device was utilized to close the arterial site. The patient then was returned to his room in stable condition. HEMODYNAMIC DATA: Right atrial pressure is a mean of 24. Right ventricular pressure is 62/15. Mean pulmonary artery pressure is 33 mmHg. Left ventricular pressure is 100/32 mmHg. Central aortic pressure is 100/81 mmHg. The oxygen saturation in the left ventricle was 95%. In the pulmonary artery, it was 43%. LEFT VENTRICULOGRAM: The left ventricle is dilated with severe global hypokinesis. The estimated left ventricular ejection fraction is between 20% and 30%. There is also severe mitral regurgitation. CORONARY ANGIOGRAPHY: Selective injections of the left coronary artery revealed it to be hyperdominant. The left circumflex system has minor luminal irregularities, but is widely patent with multiple marginal branches including the marginal branch supplies the posterior septum. The LAD is also patent; however, distally it has the appearance of pruning that may indicate a previous infarct. Selective injections of the right coronary artery revealed it to be nondominant. In the mid portion of the right coronary artery, there is a 50%-70% stenosis. SUMMARY: The patient has a severe dilated cardiomyopathy. His coronary anatomy is hyper left dominant. The left circumflex artery is widely patent. The LAD is patent; however, distally it appears to have pruning that may be consistent with a previous infarct. The right coronary artery is nondominant and has a nonobstructive lesion in its mid segment. The patient does have elevated right heart pressures, which are most likely a combination of underlying lung disease as well as his cardiomyopathy. RECOMMENDATIONS: Medical management is recommended for this patient.
--- NOTE | 2017-05-12 16:00 | NUR ---
A: A&Ox4. Irritable but cooperative. Denies pain/discomfort at this time. NSR on the monitor. +1 BLE edema. Right groin dressing is dry/intact with scant shadowing noted that is unchanged from previous shift. Neurovascular checks are WNL. Lung sounds are diminished throughout on 5L NC. PRITCHETT. Continuous pulse ox. +BS. Voiding without difficulty. Remains on bedrest at this time s/p cardiac cath. 2 guards are bedside. See EMR for complete assessment details. Call ponce is within reach. Will continue to monitor.
--- NOTE | 2017-05-12 19:23 | Progress Note ---
Internal Med Progress Note Date of Service: May 12, 2017. Provider Documentation: SUBJECTIVE: improved lower ext swelling no complain of SOB s/p cardiac cath today OBJECTIVE: Vital Signs-as noted below Exam: General-young male , no sign of distress Eyes-sclera non icteric , PERRLA/EOM ENT-NAD Neck-+ JVD Lungs-diminished, no rales or wheeze noted Heart-regular S1/S2 Abdomen-soft, non tender Extremities-+ 3 bilateral lower ext edema Neuro-AAO x3 ,no focal neurological deficit Lab data as noted below. ASSESSMENT & PLAN: ACUTE CHF WITH SYSTOLIC DYSFUNCTION : presented with SOB , PRITCHETT , lower ext edema New onset moderate systolic dysfunction (EF 40%) Moderate to severe mitral regurgitation continued with IV Diuresis with Lasix 40 mg BID cont on ACEI ECHO 05/10/17 : The left ventricle is mildly dilated. There is global thinning of the left ventricular joshi. Left ventricular systolic function is mild to moderately reduced. Ejection Fraction = 40-45%. There is mild to moderate global hypokinesis of the left ventricle. The left atrium is moderately dilated. pt denies of having any episode of OR in past no family hx of premature CAD appreciate input form Cardiology pt will be continued with Diuresis s/p Cardiac cath today -shows non occlusive CAD pt is continued with medical management Aspirin , Beta mini , changed to ARB for ongoing dry cough , statin Lasix dose will be adjusted by Cardiology once vol status is stable ELEVATED TROPONIN Serum troponin I = 0.089./0.08 /0.07 No anginal symptoms. No acute EKG changes. ECHO as above no evidence of ischemia , pt does not complain of chest heaviness possible demand ischemia pt is continued with Aspirin , beta mini , Statin cardiology following s/p cardiac cath today : Cardiac cath summary : RA pressure is a mean of 24 , Right ventricular pressure is 62/15 , Mean pulmonary arterial pressure :33 mmHg LV pressure 100/32 mm Hg .Central aortic pressure 100/81 mm hg .The oxygen saturation in the LV was 95 % in the pulmonary artery 43 % EF 20-30% severe mitral regurgitation Minor luminal irregularities of LCX pruning of the distal LAD observed possibly indicating a previous infarct non dominant RCA with 50-70% mid vessel Stenosis HYPERTENSION changed Lisinopril to Losartan Re: cough metoprolol dose adjusted 50 mg BID COPD stable no wheeze Continue albuterol PRN SLEEP APNEA CPAP at night with humidified air. DM TYPE 2 Hold metformin during hospital stay -will need to hold 48-72hr post contrast exposure for Cardiac cath hemoglobin A1c-8.6 Lantus/NovoLog per protocol. DYSLIPIDEMIA lipid profile-shows well controlled -LDL 75 , T cholesterol 200 Continue atorvastatin. BIPOLAR DISORDER Continue usual medications. VTE PROPHYLAXIS Low-moderate risk. SQ enoxaparin. DISPOSITION Expected return to [facility] under care of the medical team there. Vital Signs: Date Time Temp Pulse Resp B/P (MAP) Pulse Ox O2 Delivery O2 Flow Rate FiO2 05/13/17 12:04 36.5 71 22 105/74 (84) 93 Nasal Cannula 5.0 Humidified Oxygen 05/13/17 12:00 Nasal Cannula 5.0 05/13/17 08:00 Nasal Cannula 5.0 05/13/17 07:23 36.5 65 20 106/73 (84) 93 Nasal Cannula 5.0 Humidified Oxygen 05/13/17 04:01 36.6 65 17 118/84 (95) 93 Nasal Cannula 4.0 05/13/17 03:45 Nasal Cannula 5.0 05/13/17 00:00 Nasal Cannula 5.0 05/12/17 23:55 36.7 74 18 128/84 (99) 95 Nasal Cannula 4.0 05/12/17 20:00 Nasal Cannula 5.0 05/12/17 19:07 36.7 81 19 123/92 (102) 94 Nasal Cannula 5.0 05/12/17 18:20 36.4 82 19 114/88 (97) 93 Nasal Cannula 5.0 05/12/17 17:58 84 132/87 (102) 05/12/17 16:58 76 115/84 (94) 05/12/17 16:58 80 20 115/84 (94) 92 5.0 05/12/17 16:28 76 20 119/76 (90) 91 5.0 05/12/17 16:28 80 119/76 (90) 05/12/17 16:00 Nasal Cannula 5.0 05/12/17 16:00 81 18 121/88 (99) 92 Nasal Cannula 5.0 Lab Results: Results Past 24 Hours Test 05/12/17 16:05 05/12/17 19:52 05/13/17 06:54 05/13/17 06:56 Range/Units Bedside Glucose 210 265 154 70-99 mg/dl Sodium Level 142 136-145 mmol/L Potassium Level 3.8 3.5-5.1 mmol/L Chloride Level 107 98-107 mmol/L Carbon Dioxide Level 27 21-32 mmol/L Anion Gap 8.0 3-11 mmol/L Blood Urea Nitrogen 37 7-18 mg/dl Creatinine 1.03 0.60-1.40 mg/dl Est Creatinine Clear Calc Drug Dose 116.4 ml/min Estimated GFR () 100.5 Estimated GFR (Non- 86.7 BUN/Creatinine Ratio 35.6 10-20 Random Glucose 149 70-99 mg/dl Calcium Level 8.2 8.5-10.1 mg/dl Magnesium Level 2.7 1.8-2.4 mg/dl Test 05/13/17 10:21 05/13/17 11:36 Range/Units White Blood Count 11.68 4.8-10.8 K/uL Red Blood Count 4.23 4.7-6.1 M/uL Hemoglobin 12.3 14.0-18.0 g/dL Hematocrit 37.8 42-52 % Mean Corpuscular Volume 89.4 80-100 fL Mean Corpuscular Hemoglobin 29.1 25-34 pg Mean Corpuscular Hemoglobin Concent 32.5 32-36 g/dl RDW Standard Deviation 46.6 36.4-46.3 fL RDW Coefficient of Variation 14.2 11.5-14.5 % Platelet Count 217 130-400 K/uL Mean Platelet Volume 11.0 7.4-10.4 fL Bedside Glucose 214 70-99 mg/dl
--- NOTE | 2017-05-12 20:00 | NUR ---
A: Resting comfortably. Denies pain. Right groin dressing remains dry & intact. Neurovascular checks are WNL. No acute changes to report from previous assessment. See EMR for details. Call ponce is within reach. Guards are at the bedside. Will continue to monitor.
[2017-05-12] MEDS: DIVALPROEX SODIUM 500 MG DELAY RELEASE TAB PO SCH (20:26)
[2017-05-12] MEDS: INSULIN GLARGINE SOLOSTAR 100 UNITS/ML 3 ML PEN SC SCH (20:28)
--- NOTE | 2017-05-13 | NUR ---
Pt sleeping. Snoring. Awakened for assessment; see emr. SR per telemetry; VSS. Right groin site intact with 4x4 and opsite;old shadowing present. Site soft, no hematoma present. + bilat pedals present. Pt reports voiding in toilet. Remains on O2 5/l via NC. Pt denies chest pain or sob. Falls back to sleep quickly. Guards remains at bedside. Call ponce within touch. Continue to monitor.
[2017-05-13] MEDS: NITROGLYCERIN 2% OINTMENT 30GM TUBE EXT SCH ×3 (01:11→12:16)
--- NOTE | 2017-05-13 03:45 | NUR ---
Pt HR 120-130, Aflutter 2:1 conduction. In to assess pt. O2 off. O2 on will monitor pt closely.
[2017-05-13 04:01] VITALS: BP 118/84; PULSE 65; TEMP 36.6; O2SAT 93
--- NOTE | 2017-05-13 04:24 | NUR ---
Telemetry demonstrates SR/ST 90-100s. O2 on. Pt sleeping.
[2017-05-13 07:23] VITALS: BP 106/73; PULSE 65; TEMP 36.5; O2SAT 93
[2017-05-13 07:52] LABS: CALCIUM 8.2 mg/dl (8.5-10.1); CREATININE 1.03 mg/dl (0.60-1.40); POTASSIUM 3.8 mmol/L (3.5-5.1)
--- NOTE | 2017-05-13 08:00 | NUR ---
Pt in bed, guards present at bedside. No complaints at this time. Assessment complete, for details see EMR. NSR on clinical research monitor. Call ponce within reach, encouraged to ring for assistance. Will continue to monitor.
[2017-05-13] MEDS: ATORVASTATIN 10 MG TAB PO SCH (08:22)
[2017-05-13] MEDS: ASPIRIN 81 MG ECTAB PO SCH (08:22)
[2017-05-13] MEDS: SERTRALINE HCL 100 MG TAB PO SCH (08:22)
[2017-05-13] MEDS: DEXAMETHASONE CONC SOLN 3.75 MG, NYSTATIN SUSP 30 ML, DiphenhydrAMINE HCL SYRUP 300 MG,... PO SCH ×20 (08:22→21:45)
[2017-05-13] MEDS: LOSARTAN POTASSIUM 50 MG TAB PO SCH (08:23)
[2017-05-13] MEDS: METOPROLOL TARTRATE 50 MG TAB PO SCH ×2 (08:23→21:33)
[2017-05-13] MEDS: OLANZAPINE 10 MG TAB PO SCH ×2 (08:24→21:31)
--- NOTE | 2017-05-13 10:14 | Cardiology Follow-Up ---
Subjective General Date of Service: May 13, 2017. Chief Complaint: HF Pt evaluation today including: conversation w/ patient, physical exam, chart review, lab review, review of studies, review of inpatient medication list History of Present Illness Patient seen and examined. Guards at bedside. Patient sleeping; snoring and apneic episodes observed upon entering the room. Stable shortness of breath. No chest pain. No palpitations. No orthopnea, PND, or edema. Telemetry: Currently since in the . Frequent atrial ectopy. Paroxysmal atrial flutter and possible atrial fibrillation with RVR observed. No significant bradycardia or pauses. May 10, 2017 TTE Interpretation Summary ([facility], Dr. Spicer): The left ventricle is mildly dilated. There is global thinning of the left ventricular joshi. Left ventricular systolic function is mild to moderately reduced. Ejection Fraction = 40-45%. There is mild to moderate global hypokinesis of the left ventricle. The left atrium is moderately dilated. Right atrial size is normal. There is moderate to severe mitral regurgitation. There is mild tricuspid regurgitation. May 12, 2017 Cardiac Catheterization Summary: RA pressure is a mean of 24. Right ventricular pressure is 62/15. Mean pulmonary artery pressure: 33 mmHg. LV pressure: 100/32 mmHg. Central aortic pressure is 100/81 mm Hg. The oxygen saturation in the LV was 95%. In the pulmonary artery, it was 43%. EF 20-30%. Severe mitral regurgitation. Minor luminal irregularities of the LCX. Pruning of the distal LAD observed possibly indicating a a previous infarct. Nondominant RCA with a 50-70% mid vessel stenosis. Allergies Coded Allergies: Iodine (Verified Allergy, Unknown, UNKNOWN, 05/09/17) Shellfish (Verified Allergy, Unknown, UNKNOWN, 05/09/17) Lisinopril (Verified Adverse Reaction, Mild, COUGH, 05/12/17) Social History Smoking Status: Former Smoker Hx Tobacco Use In Past Year?: Yes Hx Alcohol Use - Type And Amou: No Hx Substance Use - Type And Am: No Problem List Medical Problems: (1) Elevated troponin Status: Acute (2) NSTEMI (non-ST elevated myocardial infarction) Status: Acute (3) SOB (shortness of breath) Status: Acute Physical Exam Vital Signs Last Vital Signs Documentation Date Time Temp Pulse Resp B/P (MAP) Pulse Ox O2 Delivery O2 Flow Rate FiO2 05/13/17 07:23 36.5 65 20 106/73 (84) 93 Nasal Cannula 5.0 Humidified Oxygen Physical Exam Constitutional: Level of Distress: NAD Psychiatric: Mental Status: active & alert Orientation: to time, to place, to person Memory: recent memory normal, remote memory normal Head: normocephalic, atraumatic Neck: pertinent finding (Normal JVP) Lungs: Respiratory effort: no dyspnea Auscultation: no wheezing, no rales/crackles, no rhonchi, deminished air movement, decreased breath sounds Cardiovascular: Heart Auscultation: RRR, no murmurs, no rubs, no gallops Peripheral Pulses: Radial Pulse: normal on the left, normal on the right Dorsalis Pedis Pulse: decreased on the left, decreased on the right Abdomen: Bowel Sounds: normal Inspection & Palpation: soft, non-distended, no masses Extremities: no cyanosis, no edema, no clubbing Neurologic: Cranial Nerves: grossly intact Assessment and Plan Assessment and Plan Admission with acute decompensated systolic congestive heart failure signs and symptoms, new onset severe LV systolic dysfunction with severe mitral regurgitation. NYHA Functional Class III. EF 40-45% via TTE, 20-30% on LV gram. New onset paroxysmal atrial fibrillation/flutter CHADS2 Score 3/6 Untreated sleep apnea Hypertension Dyslipidemia COPD Type II diabetes mellitus Bipolar disorder RECOMMENDATIONS/PLAN: Recommend initiation of Coumadin anticoagulation Discontinue nitro paste Start Imdur 60 mg every morning Continue metoprolol (new medication this admission) Note: Lisinopril changed to Losartan (secondary to a cough) this admission Restart oral furosemide in AM of 05/14/2017 Continue ASA and statin Recommend treatment of the sleep apnea CARDIOLOGY ATTENDING ADDENDUM: The patient was seen and personally examined. Agree with Miki Enamorado PA-C's findings and plans as documented above. Probably ischemic cardiomyopathy. Medical management indicated. Laboratory Results Last 24 Hours Test 05/12/17 11:31 05/12/17 13:15 05/12/17 13:20 05/12/17 16:05 Bedside Glucose 208 mg/dl 210 mg/dl Bedside Blood Gas pH (LAB) 7.35 7.47 Bedside Blood Gas pCO2 (LAB) 50 mmHg 33 mmHg Bedside Blood Gas pO2 (LAB) < 32 mmHg 70 mmHg Bedside Blood Gas HCO3 (LAB) 28 meq/L 24 meq/L Bedside Blood Gas Total CO2 29 mEq/l 25 mEq/l Bedside Blood Gas Base Excess (LAB) 2.0 meq/L 0.0 meq/L Bedside Blood Gas O2 Saturation 43.0 % 95.0 % Test 05/12/17 19:52 05/13/17 06:54 05/13/17 06:56 Bedside Glucose 265 mg/dl 154 mg/dl Sodium Level 142 mmol/L Potassium Level 3.8 mmol/L Chloride Level 107 mmol/L Carbon Dioxide Level 27 mmol/L Anion Gap 8.0 mmol/L Blood Urea Nitrogen 37 mg/dl Creatinine 1.03 mg/dl Est Creatinine Clear Calc Drug Dose 116.4 ml/min Estimated GFR () 100.5 Estimated GFR (Non- 86.7 BUN/Creatinine Ratio 35.6 Random Glucose 149 mg/dl Calcium Level 8.2 mg/dl Magnesium Level 2.7 mg/dl
[2017-05-13] MEDS ORDERED: ISOSORBIDE MONONITRATE 60 MG TABCR PO ONE (10:45)
[2017-05-13 10:54] LABS: HEMATOCRIT 37.8 % (42-52); HEMOGLOBIN 12.3 g/dL (14.0-18.0); MEAN CELL VOLUME 89.4 fL (80-100); MEAN CORPUSCULAR HEMOGLOBIN 29.1 pg (25-34); MEAN CORPUSCULAR HGB CONC 32.5 g/dl (32-36); PLATELET COUNT 217 K/uL (130-400); RED CELL DISTRIBUTION WIDTH CV 14.2 % (11.5-14.5); RED CELL DISTRIBUTION WIDTH SD 46.6 fL (36.4-46.3); WHITE BLOOD COUNT 11.68 K/uL (4.8-10.8)
--- NOTE | 2017-05-13 11:41 | NUR ---
Case management note. Pt remains in [facility]. Continuous cardiac monitoring. Plan to [facility] to [facility]. Case management to follow with pt.
--- NOTE | 2017-05-13 12:00 | NUR ---
Pt in bed, guards at bedside. Responds to verbal stimuli. No complaints, call ponce in hand. Will continue to monitor.
[2017-05-13 12:04] VITALS: BP 105/74; PULSE 71; TEMP 36.5; O2SAT 93
[2017-05-13 15:12] VITALS: BP 111/71; PULSE 68; TEMP 36.4; O2SAT 83
[2017-05-13 15:14] VITALS: PULSE 70; O2SAT 92
[2017-05-13] MEDS: WARFARIN SOD 5 MG TAB PO SCH (15:18)
--- NOTE | 2017-05-13 15:44 | Progress Note ---
Internal Med Progress Note Date of Service: May 13, 2017. Provider Documentation: SUBJECTIVE: no complain of Orthopnea improved lower ext edema no chest pain , no palpitation or dizzy spell tele noted Brief episode of Paroxysmal A flutter and possible atrial fibrillation with RVR at present in normal sinus with rate controlled in 70's Cardiology following OBJECTIVE: Vital Signs-as noted below Exam: General-young male , no sign of distress Eyes-sclera non icteric , PERRLA/EOM ENT-NAD Neck-+ JVD Lungs-diminished, no rales or wheeze noted Heart-regular S1/S2 Abdomen-soft, non tender Extremities-improved bilateral lower ext edema Neuro-AAO x3 ,no focal neurological deficit Lab data as noted below. ASSESSMENT & PLAN: ACUTE CHF WITH SYSTOLIC DYSFUNCTION : presented with SOB , PRITCHETT , lower ext edema New onset moderate systolic dysfunction (EF 40%) Moderate to severe mitral regurgitation cardiology consulted, appreciate input treated with IV Diuresis with Lasix 40 mg BID ECHO 05/10/17 : The left ventricle is mildly dilated. There is global thinning of the left ventricular joshi. Left ventricular systolic function is mild to moderately reduced. Ejection Fraction = 40-45%. There is mild to moderate global hypokinesis of the left ventricle. The left atrium is moderately dilated. pt denies of having any episode of [place] in past no family hx of premature CAD appreciate input form Cardiology s/p Cardiac cath 05/12/17 -shows non occlusive CAD pt is continued with medical management Aspirin , Beta mini , changed to ARB for ongoing dry cough , statin started on Imdur 60 mg daily Cont Metoprolol ( new medication this Admission ) Lisinopril change to Losartan Re : cough -new medication this admission Lasix will be changed to PO on 05/14/17 cont CPAP at night of SATISH PAROXYSMAL AFIB /AFLUTTER -NEW DX : Converted to sinus with rate controlled CHAD2 score 3/6 high risk for stroke started on Coumadin goal INR 2-3 no bridge therapy needed will need [facility]R [facility] ELEVATED TROPONIN Serum troponin I = 0.089./0.08 /0.07 No anginal symptoms. No acute EKG changes. ECHO as above no evidence of ischemia , pt does not complain of chest heaviness possible demand ischemia pt is continued with Aspirin , beta mini , Statin cardiology following s/p cardiac cath Cardiac cath summary : RA pressure is a mean of 24 , Right ventricular pressure is 62/15 , Mean pulmonary arterial pressure :33 mmHg LV pressure 100/32 mm Hg .Central aortic pressure 100/81 mm hg .The oxygen saturation in the LV was 95 % in the pulmonary artery 43 % EF 20-30% severe mitral regurgitation Minor luminal irregularities of LCX pruning of the distal LAD observed possibly indicating a previous infarct non dominant RCA with 50-70% mid vessel Stenosis HYPERTENSION changed Lisinopril to Losartan Re: cough metoprolol dose adjusted 50 mg BID COPD stable no wheeze Continue albuterol PRN SLEEP APNEA CPAP at night with humidified air. DM TYPE 2 Hold metformin during hospital stay -will need to hold 48-72hr post contrast exposure for Cardiac cath hemoglobin A1c-8.6 Lantus/NovoLog per protocol. DYSLIPIDEMIA lipid profile-shows well controlled -LDL 75 , T cholesterol 200 Continue atorvastatin. BIPOLAR DISORDER Continue usual medications. VTE PROPHYLAXIS Low-moderate risk. Coumadin DISPOSITION Expected return to [facility] in next 1-2 days Vital Signs: Date Time Temp Pulse Resp B/P (MAP) Pulse Ox O2 Delivery O2 Flow Rate FiO2 05/13/17 15:51 Nasal Cannula 5.0 05/13/17 15:14 70 92 Nasal Cannula 5.0 05/13/17 15:12 36.4 68 22 111/71 (84) 83 Room Air 05/13/17 12:04 36.5 71 22 105/74 (84) 93 Nasal Cannula 5.0 Humidified Oxygen 05/13/17 12:00 Nasal Cannula 5.0 05/13/17 08:00 Nasal Cannula 5.0 05/13/17 07:23 36.5 65 20 106/73 (84) 93 Nasal Cannula 5.0 Humidified Oxygen 05/13/17 04:01 36.6 65 17 118/84 (95) 93 Nasal Cannula 4.0 05/13/17 03:45 Nasal Cannula 5.0 05/13/17 00:00 Nasal Cannula 5.0 05/12/17 23:55 36.7 74 18 128/84 (99) 95 Nasal Cannula 4.0 05/12/17 20:00 Nasal Cannula 5.0 05/12/17 19:07 36.7 81 19 123/92 (102) 94 Nasal Cannula 5.0 05/12/17 18:20 36.4 82 19 114/88 (97) 93 Nasal Cannula 5.0 05/12/17 17:58 84 132/87 (102) 05/12/17 16:58 76 115/84 (94) 05/12/17 16:58 80 20 115/84 (94) 92 5.0 05/12/17 16:28 76 20 119/76 (90) 91 5.0 05/12/17 16:28 80 119/76 (90) 05/12/17 16:00 Nasal Cannula 5.0 05/12/17 16:00 81 18 121/88 (99) 92 Nasal Cannula 5.0 Lab Results: Results Past 24 Hours Test 05/12/17 16:05 05/12/17 19:52 05/13/17 06:54 05/13/17 06:56 Range/Units Bedside Glucose 210 265 154 70-99 mg/dl Sodium Level 142 136-145 mmol/L Potassium Level 3.8 3.5-5.1 mmol/L Chloride Level 107 98-107 mmol/L Carbon Dioxide Level 27 21-32 mmol/L Anion Gap 8.0 3-11 mmol/L Blood Urea Nitrogen 37 7-18 mg/dl Creatinine 1.03 0.60-1.40 mg/dl Est Creatinine Clear Calc Drug Dose 116.4 ml/min Estimated GFR () 100.5 Estimated GFR (Non- 86.7 BUN/Creatinine Ratio 35.6 10-20 Random Glucose 149 70-99 mg/dl Calcium Level 8.2 8.5-10.1 mg/dl Magnesium Level 2.7 1.8-2.4 mg/dl Test 05/13/17 10:21 05/13/17 11:36 Range/Units White Blood Count 11.68 4.8-10.8 K/uL Red Blood Count 4.23 4.7-6.1 M/uL Hemoglobin 12.3 14.0-18.0 g/dL Hematocrit 37.8 42-52 % Mean Corpuscular Volume 89.4 80-100 fL Mean Corpuscular Hemoglobin 29.1 25-34 pg Mean Corpuscular Hemoglobin Concent 32.5 32-36 g/dl RDW Standard Deviation 46.6 36.4-46.3 fL RDW Coefficient of Variation 14.2 11.5-14.5 % Platelet Count 217 130-400 K/uL Mean Platelet Volume 11.0 7.4-10.4 fL Bedside Glucose 214 70-99 mg/dl
[2017-05-13] MEDS ORDERED: CMD5 PO (15:46)
[2017-05-13] MEDS ORDERED: NTRSLP4 SL (15:46)
[2017-05-13] MEDS ORDERED: CZR50 PO (15:46)
[2017-05-13] MEDS ORDERED: METO50TA16 PO (15:46)
[2017-05-13] MEDS ORDERED: IMDSR60 PO (15:46)
--- NOTE | 2017-05-13 15:57 | NUR ---
a- PATIENT OOB INTO CHAIR......BREATHSOUNDS COARSE....02 2L.....02 SAT 100%......LOOSE NON-PRODUCTIVE COUGH.. Addendum: 05/13/17 at 1614 by Vale Chan RN WRONG PATIENT....NEW NOTE....PATIENT REFUSING 02......02 SAT 83%
[2017-05-13 19:20] VITALS: BP 126/77; PULSE 75; TEMP 36.8; O2SAT 95
--- NOTE | 2017-05-13 20:00 | NUR ---
Assessment completed; see emr. SR per telemetry. No ectopy present at this time. Pt has humidified O2 on at 4/l. Lungs clear and decreased. Trace edema to BLE. Pt denies chest pain or sob. [employer] guards remain one in room and one outside of room. Cooperative with all care. Call ponce within touch. Continue to monitor. Addendum: 05/14/17 at 0035 by Juanis Arriola RN Above note: should be 5/l O2 via 2/l.
[2017-05-13] MEDS: DIVALPROEX SODIUM 500 MG DELAY RELEASE TAB PO SCH (21:32)
[2017-05-13] MEDS: INSULIN GLARGINE SOLOSTAR 100 UNITS/ML 3 ML PEN SC SCH (21:38)
[2017-05-13] MEDS: INSULIN ASPART 100 UNITS/ML 3 ML PEN SC SCH (21:40)
[2017-05-14] VITALS (8 sets, daily range): BP systolic 104–127; BP diastolic 69–87; PULSE 67–74; TEMP 36.6–37; O2SAT 93–96
--- NOTE | 2017-05-14 | NUR ---
Pt awake. Assessment complete; see emr. SR per telemetry; HR 70s with PVC's, no further runs of V-tach. Resp even and unlabored at rest. O2 on 5/l. No distress present. Denies chest pain or sob. Call ponce within reach. [employer] guards, one at bedside and one at door. Continue to monitor.
--- NOTE | 2017-05-14 04:00 | NUR ---
Assessment completed; see emr. SR per telemetry. HR 60s; BP 104/69. No ectopy present. Pt denies chest pain or sob at rest. Humidified O2 on 5/l. Cooperative with all care. Guards remain with pt. Call ponce within. Continue to monitor.
[2017-05-14 07:08] LABS: CALCIUM 8.3 mg/dl (8.5-10.1); CREATININE 1.02 mg/dl (0.60-1.40); POTASSIUM 4.1 mmol/L (3.5-5.1)
--- NOTE | 2017-05-14 08:00 | NUR ---
A/ID: a/ox4. SR on monitor in 70's. No ecopy noted. Lungs diminished . pulse ox 94% on 5L. Denies cough, chest pain, palpitations and SOB. c/o sore throat. +2 edema bilateral lower ext. 1500cc fluid instructions needs reinforced over and over. Had double tray. Guards at bedside. Saline lock flushed without difficulty.
[2017-05-14] MEDS: DEXAMETHASONE CONC SOLN 3.75 MG, NYSTATIN SUSP 30 ML, DiphenhydrAMINE HCL SYRUP 300 MG,... PO SCH ×10 (08:03→13:18)
[2017-05-14] MEDS: ATORVASTATIN 10 MG TAB PO SCH (08:04)
[2017-05-14] MEDS: ASPIRIN 81 MG ECTAB PO SCH (08:05)
[2017-05-14] MEDS: SERTRALINE HCL 100 MG TAB PO SCH (08:05)
[2017-05-14] MEDS: LOSARTAN POTASSIUM 50 MG TAB PO SCH (08:05)
[2017-05-14] MEDS: METOPROLOL TARTRATE 50 MG TAB PO SCH (08:06)
[2017-05-14] MEDS: OLANZAPINE 10 MG TAB PO SCH (08:06)
[2017-05-14] MEDS: INSULIN ASPART 100 UNITS/ML 3 ML PEN SC SCH ×2 (08:10→13:18)
[2017-05-14] MEDS ORDERED: ISOSORBIDE MONONITRATE 60 MG TABCR PO SCH (09:00)
[2017-05-14] MEDS ORDERED: FUROSEMIDE 80 MG TAB PO SCH (09:00)
--- NOTE | 2017-05-14 13:37 | NUR ---
patient ambulated in hallway for two step. O2 sat dropped to 85% on room air with exertion. Lungs diminished throughout. SR on tele monitor. Guards at bedside. Call ponce within reach.
[2017-05-14] MEDS: WARFARIN SOD 5 MG TAB PO SCH (16:00)
[2017-05-14] MEDS ORDERED: CMD5 PO (16:06)
[2017-05-14] MEDS ORDERED: IMDSR60 PO (16:06)
[2017-05-14] MEDS ORDERED: CZR50 PO (16:06)
[2017-05-14] MEDS ORDERED: METO50TA16 PO (16:06)
[2017-05-14] MEDS ORDERED: NTRSLP4 SL (16:06)
--- NOTE | 2017-05-14 16:08 | Discharge Instructions ---
Discharge Instructions Date of Service May 14, 2017. Admission Reason for Admission: Chf,Elevated Troponin Discharge Discharge Diagnosis / Problem: CHF, NON OBSTRUCTIVE CAD Discharge Goals Goal(s): Decrease discomfort, Improve function Activity Recommendations Activity Limitations: resume your previous activity . Instructions / Follow-Up Instructions / Follow-Up FOLLOWUP WITH FAMILY DOCTOR IN 4-5 DAYS. TO USE OXYGEN 2LTS VIA NASAL CANULA CONTINUOS WHILE AMBULATING. NEEDS TO USE CPAP WHILE SLEEPING REGULARLY. FOLLOWUP WITH CARDIOLOGY IN 2-3 WEEKS LAB: PT/INR IN 2-3 DAYS AND ADJUST COUMADIN DOSING. Call your Primary Care doctor if any of the following symptoms or problems start or get worse: * Shortness of breath or difficulty breathing * Wake up at night short of breath * Chest pain * Cough * Swelling of your hands, feet, or legs * More fatigued or tired with your normal activity * Palpitations - sudden fast heart beats WEIGHT * Weigh yourself every morning after using the bathroom. * Use the same scale. * Wear the same amount of clothing. * Write your weight down on a chart. * Call your Primary Care doctor if you gain more than 2-3 pounds in 1-2 days. MEDICATIONS * Use this discharge instruction sheet for medication instructions. * Take your medications at the time your doctor ordered. * Do not skip a dose of your medicines. * If you miss a dose of medicine, take it as soon as possible, but DO NOT DOUBLE A DOSE. * Read your medicine information when you get home. * Know all of the side effects of your medicine. If in doubt, ask your pharmacist * Call your Primary Care doctor's office if you have any side effects. * Be sure all of your doctors know what medicine and herbs you take (including cold, flu, and herbal medicine). Take the following with you to your follow-up doctor appointments: * Weight Chart * Medication List * List of questions Do not drink excessive alcohol, beer or wine. Current Hospital Diet Patient's current hospital diet: AHA Diet (Heart Healthy), Low Sodium Diet (2gm Na), Diabetes Type 2 Diet Discharge Diet Recommended Diet: AHA Diet (Heart Healthy), Diabetes Type 2 Diet Pending Studies Studies pending at discharge: no Laboratory Results Hemoglobin A1c Test 05/10/17 06:27 Range/Units Estimated Average Glucose 200 mg/dl Hemoglobin A1c 8.6 H 4.5-5.6 % Lipid Panel Test 05/10/17 06:27 Range/Units Triglycerides Level 83 0-150 mg/dl Cholesterol Level 124 0-200 mg/dl HDL Cholesterol 32 mg/dl Cholesterol/HDL Ratio 3.9 LDL Cholesterol, Calculated 75 mg/dl Medical Emergencies . Who to Call and When: Call 911 or go to the Emergency Room if: * If at any time you feel your situation is an emergency * You have tightness or pain in your chest that does not go away with rest or Nitroglycerin * You are very short of breath even with rest . Non-Emergent Contact Non-Emergency issues call your: Primary Care Provider . . "Provider Documentation" section prepared by Christiano Nixon. . VTE Core Measure Inpt VTE Proph given/why not?: Unfractionated heparin SQ
--- NOTE | 2017-05-14 16:29 | NUR ---
Patient is being discharged back to [facility]. Discharge instructions given. saline lock dc'd. cath tip intact. pressure dressing applied. [facility]
--- NOTE | 2017-05-14 18:55 | Progress Note ---
Internal Med Progress Note Date of Service: May 14, 2017. Provider Documentation: SUBJECTIVE: denies sob or chest pain afebrile no nausea requiring 2lts while ambulating on two step wants to be discharged OBJECTIVE: Vital Signs-as noted below Exam: General-alert and oriented. Not in distress ENT-Normal hearing Neck-no neck masses supple Lungs-cta b/l no wheezing no crackles Heart-S1 and S2 heard regular rate and rthym, no murmurs Abdomen-Soft bowel sounds present non tender no distension Extremities-lower ext edema present no erythema Neuro-alert and awake moves extremities Lab data as noted below. ASSESSMENT & PLAN: ACUTE CHF WITH SYSTOLIC DYSFUNCTION : presented with SOB , PRITCHETT , lower ext edema New onset systolic CHF (EF 40%) Moderate to severe mitral regurgitation cardiology consulted, appreciate input treated with IV Diuresis with Lasix 40 mg BID : EKG changes mild elevation of trponin s/p Cardiac cath 05/12/17 -shows non occlusive CAD medical management with Aspirin , Beta mini , changed to ARB for ongoing dry cough , statin started on Imdur 60 mg daily Cont Metoprolol ( new medication this Admission ) Lisinopril change to Losartan Re : cough -new medication this admission Lasix will be changed to PO home dose on 05/14/17 cont CPAP at night of SATISH PAROXYSMAL AFIB /AFLUTTER -NEW DX : Converted to sinus with rate controlled CHAD2 score 3/6 high risk for stroke started on Coumadin goal INR 2-3 no bridge therapy needed discharged on Coumadin 5mg daily needs close monitoring and adjusting Coumadin dosing HYPERTENSION changed Lisinopril to Losartan Re: cough metoprolol dose adjusted 50 mg BID started on Imdur f/u with pcp and cardiology COPD stable no wheeze Continue albuterol PRN SLEEP APNEA Regular use CPAP at night with humidified air. DM TYPE 2 Hold metformin during hospital stay -will need to hold 48-72hr post contrast exposure for Cardiac cath hemoglobin A1c-8.6 Lantus/NovoLog per protocol. d/c on home meds DYSLIPIDEMIA lipid profile-shows well controlled -LDL 75 , T cholesterol 200 Continue atorvastatin. BIPOLAR DISORDER Continue usual medications. discharged Vital Signs: Date Time Temp Pulse Resp B/P (MAP) Pulse Ox O2 Delivery O2 Flow Rate FiO2 05/14/17 16:25 36.9 73 18 95 Room Air 05/14/17 16:04 36.9 73 18 117/81 (93) 95 Room Air 05/14/17 16:00 Room Air 05/14/17 12:00 94 Room Air 05/14/17 11:37 36.7 72 19 109/72 (84) 94 Nasal Cannula 5.0 05/14/17 08:00 94 Nasal Cannula 5.0 05/14/17 07:48 36.7 70 18 125/87 (100) 94 Nasal Cannula 5.0 05/14/17 04:00 Nasal Cannula 4.0 05/14/17 03:26 36.6 67 18 104/69 (81) 93 Nasal Cannula 5.0 05/14/17 00:12 37.0 74 18 127/85 (99) 96 Nasal Cannula 5.0 05/14/17 00:00 Nasal Cannula 5.0 05/13/17 20:00 Nasal Cannula 5.0 05/13/17 19:20 36.8 75 20 126/77 (93) 95 Nasal Cannula 5.0 Lab Results: Results Past 24 Hours Test 05/13/17 20:06 05/14/17 06:18 05/14/17 06:41 05/14/17 11:06 Range/Units Bedside Glucose 207 114 208 70-99 mg/dl Prothrombin Time 10.9 9.0-12.0 SECONDS Prothromb Time International Ratio 1.0 0.9-1.1 Sodium Level 141 136-145 mmol/L Potassium Level 4.1 3.5-5.1 mmol/L Chloride Level 108 98-107 mmol/L Carbon Dioxide Level 28 21-32 mmol/L Anion Gap 5.0 3-11 mmol/L Blood Urea Nitrogen 29 7-18 mg/dl Creatinine 1.02 0.60-1.40 mg/dl Est Creatinine Clear Calc Drug Dose 119.1 ml/min Estimated GFR () 101.7 Estimated GFR (Non- 87.7 BUN/Creatinine Ratio 28.1 10-20 Random Glucose 134 70-99 mg/dl Calcium Level 8.3 8.5-10.1 mg/dl Magnesium Level 2.4 1.8-2.4 mg/dl Test 05/14/17 15:54 Range/Units Bedside Glucose 138 70-99 mg/dl
--- NOTE | 2017-05-14 19:33 | Discharge Summary ---
Discharge Summary Date of Service May 14, 2017. Discharge Summary Admission Date: May 09, 2017 at 19:30 Discharge Date: May 14, 2017 Discharge Disposition: Home Principal Diagnosis: ACUTE SYSTOLIC CHF A FIB NON OBSTRUCTIVE CAD Secondary Diagnoses/Problems: (1) Bipolar disorder Status: Chronic (2) COPD (chronic obstructive pulmonary disease) Status: Chronic (3) Diabetes Status: Chronic (4) Diabetes mellitus, type 2 Status: Chronic (5) Hyperlipidemia Status: Chronic (6) Hypertension Status: Chronic (7) Sleep apnea Status: Chronic Procedures: CXR: 1. Stable to slight interval increase in central predominant opacities in the setting of mild cardiac megaly. This could represent pulmonary edema, multifocal pneumonia, or diffuse alveolar damage. LIVER US: 1. Mild hepatomegaly. 2. No acute sonographic abnormality is identified in the right upper quadrant and no ascites is seen. ECHO: * The left ventricle is mildly dilated. * There is global thinning of the left ventricular joshi. * Left ventricular systolic function is mild to moderately reduced. * Ejection Fraction = 40-45%. * There is mild to moderate global hypokinesis of the left ventricle. * The left atrium is moderately dilated. * Right atrial size is normal. * There is moderate to severe mitral regurgitation. * There is mild tricuspid regurgitation. * * S/P CARDIAC CATH: * SUMMARY: The patient has a severe dilated cardiomyopathy. His coronary anatomy is hyper left dominant. The left circumflex artery is widely patent. The LAD is patent; however, distally it appears to have pruning that may be consistent with a previous infarct. The right coronary artery is nondominant and has a nonobstructive lesion in its mid segment. The patient does have elevated right heart pressures, which are most likely a combination of underlying lung disease as well as his cardiomyopathy. RECOMMENDATIONS: Medical management is recommended for this patient. Consultations: CARDIOLOGY Medication Reconciliation New Medications: Isosorbide Mononitrate (Isosorbide Mononitrate ER) 60 Mg Tab 60 MG PO QAM for 30 Days, #30 TAB 1 Refill Losartan Potassium (Losartan Potassium) 50 Mg Tab 50 MG PO QAM for 30 Days, #30 TAB 1 Refill Metoprolol Tartrate (Lopressor) (Lopressor) 50 Mg Tab 50 MG PO BID for 30 Days, #60 TAB 1 Refill Nitroglycerin (Nitrostat) 0.4 Mg/1 Tab Subl 0.4 MG SL UD PRN for Chest Pain, #30 TAB 1 Refill Warfarin Sod (Coumadin) 5 Mg Tab 5 MG PO DAILY for 30 Days, #30 TAB 1 Refill Continued Medications: Albuterol Hfa (Ventolin Hfa) 200 Puffs/19957 Mcg Aers 2 PUFFS INH QID PRN for SOB/Wheezing, #1 INHALER Aspirin (Aspirin Ec) 81 Mg Tab 81 MG PO DAILY Atorvastatin (Lipitor) 10 Mg Tab 10 MG PO DAILY, TAB Diphenhydramine Hcl (Benadryl) 25 Mg Cap 50 MG PO QAM, CAP Diphenhydramine Hcl (Benadryl) 25 Mg Cap 100 MG PO HS, CAP Divalproex Sodium (Depakote) 500 Mg Tab 2 TAB PO HS for 30 Days, TAB 2 Refills Furosemide (Lasix) 80 Mg Tab 80 MG PO BID, TAB Insulin Glargine (Lantus) 100 Unit/Ml Inj 60 UNITS SC HS, VIAL Insulin Human Regular (Humulin R) 100 Units/Ml Susp SQ BID sliding scale; 0-200= 0 u nits 201-250= 5 units 251-300= 10 units 301-350= 15 units 350-400= 20 units > 400= 25 units Metformin Hcl (Glucophage) 1,000 Mg Tab 1000 MG PO BID, TAB Olanzapine (Zyprexa) 10 Mg Tab 10 MG PO BID, TAB Sertraline (Zoloft) 100 Mg Tab 200 MG PO DAILY, TAB [Podophyllin 20%] () 1 APPLN TOP UD WITH BENZOIN, TO BE APPLIED BY PROVIDER Discontinued Medications: Ibuprofen (Motrin) 600 Mg Tab 600 MG PO TID, #15 TAB PRN Lisinopril (Prinivil) 10 Mg Tab 10 MG PO DAILY, TAB Admission Information HPI (per Admitting provider): 46-year-old male incarcerated at [facility]. History of hypertension, dyslipidemia, COPD, sleep apnea, diabetes, and other problems noted below. Hospitalized at [facility] 04/06/17 with pneumonia. Troponin during hospital stay as high as 0.202. EKG suggested possible age-indeterminate septal infarct. Echo showed normal LV wall motion and function, LVEF 50-55%, normal RV size and systolic function, no pulmonary hypertension, mild to moderate mitral regurgitation. Treated with antibiotics and steroids with improvement. Discharged to [facility] 04/11 on oral antibiotics and prednisone taper. Over the past 2 weeks he has noted increasing shortness of breath and dependent edema. Experiencing both dyspnea on exertion as well as orthopnea. At times he awakens from sleep, short of breath and diaphoretic. No chest pain. No fever. Nonproductive cough. History of sleep apnea; not using CPAP (patient indicates that it is too uncomfortable without humidified air). Started on furosemide a few days ago without improvement of dyspnea or edema. Tried albuterol inhaler without any significant benefit. . Physical Exam (per Admitting): General Appearance: WD/WN, no apparent distress Head: normocephalic, atraumatic Eyes: normal inspection, PERRL, EOMI, sclerae normal ENT: normal ENT inspection, hearing grossly normal, pharynx normal Neck: supple, no adenopathy, thyroid normal, trachea midline Respiratory/Chest: no respiratory distress, no accessory muscle use, + pertinent finding (bibasilar rales) Cardiovascular: regular rate, rhythm, + pertinent finding (I/ systolic murmur at apex; S4, no S3 appreciated; + JVD; 2-3+ pretibial and pedal edema) Abdomen/GI: normal bowel sounds, non tender, soft, no organomegaly Extremities/Musculoskelatal: normal inspection, no calf tenderness 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 (PERRL, EOMI, no facial palsy, no dysarthria), no motor/sensory deficits (grossly intact), alert, normal mood/ affect, oriented x 3 Skin: normal color, warm/dry, no rash Lymphatic: no adenopathy (cervical) Hospital Course ACUTE CHF WITH SYSTOLIC DYSFUNCTION : presented with SOB , PRITCHETT , lower ext edema New onset systolic CHF (EF 40%) Moderate to severe mitral regurgitation cardiology consulted, appreciate input treated with IV Diuresis with Lasix 40 mg BID : EKG changes mild elevation of trponin s/p Cardiac cath 05/12/17 -shows non occlusive CAD medical management with Aspirin , Beta mini , changed to ARB for ongoing dry cough , statin started on Imdur 60 mg daily Cont Metoprolol ( new medication this Admission ) Lisinopril change to Losartan Re : cough -new medication this admission Lasix will be changed to PO home dose on 05/14/17 cont CPAP at night of SATISH PAROXYSMAL AFIB /AFLUTTER -NEW DX : Converted to sinus with rate controlled CHAD2 score 3/6 high risk for stroke started on Coumadin goal INR 2-3 no bridge therapy needed discharged on Coumadin 5mg daily needs close monitoring and adjusting Coumadin dosing HYPERTENSION changed Lisinopril to Losartan Re: cough metoprolol dose adjusted 50 mg BID started on Imdur f/u with pcp and cardiology COPD stable no wheeze Continue albuterol PRN SLEEP APNEA Regular use CPAP at night with humidified air. DM TYPE 2 Hold metformin during hospital stay -will need to hold 48-72hr post contrast exposure for Cardiac cath hemoglobin A1c-8.6 Lantus/NovoLog per protocol. d/c on home meds DYSLIPIDEMIA lipid profile-shows well controlled -LDL 75 , T cholesterol 200 Continue atorvastatin. BIPOLAR DISORDER Continue usual medications. discharged Total time spent on discharge = 40MINUTES This includes examination of the patient, discharge planning, medication reconciliation, and communication with other providers. Discharge Instructions Discharge Instructions Date of Service May 14, 2017. Admission Reason for Admission: Chf,Elevated Troponin Discharge Discharge Diagnosis / Problem: CHF, NON OBSTRUCTIVE CAD Discharge Goals Goal(s): Decrease discomfort, Improve function Activity Recommendations Activity Limitations: resume your previous activity . Instructions / Follow-Up Instructions / Follow-Up FOLLOWUP WITH FAMILY DOCTOR IN 4-5 DAYS. TO USE OXYGEN 2LTS VIA NASAL CANULA CONTINUOS WHILE AMBULATING. NEEDS TO USE CPAP WHILE SLEEPING REGULARLY. FOLLOWUP WITH CARDIOLOGY IN 2-3 WEEKS LAB: PT/INR IN 2-3 DAYS AND ADJUST COUMADIN DOSING. Call your Primary Care doctor if any of the following symptoms or problems start or get worse: * Shortness of breath or difficulty breathing * Wake up at night short of breath * Chest pain * Cough * Swelling of your hands, feet, or legs * More fatigued or tired with your normal activity * Palpitations - sudden fast heart beats WEIGHT * Weigh yourself every morning after using the bathroom. * Use the same scale. * Wear the same amount of clothing. * Write your weight down on a chart. * Call your Primary Care doctor if you gain more than 2-3 pounds in 1-2 days. MEDICATIONS * Use this discharge instruction sheet for medication instructions. * Take your medications at the time your doctor ordered. * Do not skip a dose of your medicines. * If you miss a dose of medicine, take it as soon as possible, but DO NOT DOUBLE A DOSE. * Read your medicine information when you get home. * Know all of the side effects of your medicine. If in doubt, ask your pharmacist * Call your Primary Care doctor's office if you have any side effects. * Be sure all of your doctors know what medicine and herbs you take (including cold, flu, and herbal medicine). Take the following with you to your follow-up doctor appointments: * Weight Chart * Medication List * List of questions Do not drink excessive alcohol, beer or wine. Current Hospital Diet Patient's current hospital diet: AHA Diet (Heart Healthy), Low Sodium Diet (2gm Na), Diabetes Type 2 Diet Discharge Diet Recommended Diet: AHA Diet (Heart Healthy), Diabetes Type 2 Diet Pending Studies Studies pending at discharge: no Laboratory Results Hemoglobin A1c Test 05/10/17 06:27 Range/Units Estimated Average Glucose 200 mg/dl Hemoglobin A1c 8.6 H 4.5-5.6 % Lipid Panel Test 05/10/17 06:27 Range/Units Triglycerides Level 83 0-150 mg/dl Cholesterol Level 124 0-200 mg/dl HDL Cholesterol 32 mg/dl Cholesterol/HDL Ratio 3.9 LDL Cholesterol, Calculated 75 mg/dl Medical Emergencies . Who to Call and When: Call 911 or go to the Emergency Room if: * If at any time you feel your situation is an emergency * You have tightness or pain in your chest that does not go away with rest or Nitroglycerin * You are very short of breath even with rest . Non-Emergent Contact Non-Emergency issues call your: Primary Care Provider . . "Provider Documentation" section prepared by Christiano Nixon. . VTE Core Measure Inpt VTE Proph given/why not?: Unfractionated heparin SQ
== END 2017-05-14 17:21 | disposition home or self-care (01) | DRG 287 ==
LOC: EDBD 17:16 → C.EDB 17:17 → C.2T 19:30 → ENRESERV 19:46
PROVIDERS: ADMIT Hospitalist; ATTEND Internal Medicine
PROC: 4A023N8 Measurement of Cardiac Sampling and Pressure, Bilateral, Percutaneous Approach (ICD-10-PCS; principal; 2017-05-12 12:25)
PROC: B210YZZ Fluoroscopy of Single Coronary Artery using Other Contrast (ICD-10-PCS; principal; 2017-05-12 12:25)
PROC: B215YZZ Fluoroscopy of Left Heart using Other Contrast (ICD-10-PCS; principal; 2017-05-12 12:25)
DX: I50.21 Acute systolic (congestive) heart failure (principal); I48.92 Unspecified atrial flutter; I11.0 Hypertensive heart disease with heart failure; E78.5 Hyperlipidemia, unspecified; J44.9 Chronic obstructive pulmonary disease, unspecified; G47.30 Sleep apnea, unspecified; E11.9 Type 2 diabetes mellitus without complications; Z82.49 Family history of ischemic heart disease and other diseases of the circulatory system; Z87.891 Personal history of nicotine dependence; Z79.82 Long term (current) use of aspirin; Z79.4 Long term (current) use of insulin; F31.9 Bipolar disorder, unspecified; R79.89 Other specified abnormal findings of blood chemistry; I45.81 Long QT syndrome; I48.0 Paroxysmal atrial fibrillation; I25.10 Atherosclerotic heart disease of native coronary artery without angina pectoris

== ENCOUNTER 2020-10-02 01:41 | Inpatient (IN) ==
[2020-10-02 02:16] LABS: Basophils # (auto) 0.01 K/uL (0-0.2); Basophils % (auto) 0.1 %; Eosinophils # (auto) 0.11 K/uL (0-0.5); Eosinophils % (auto) 1.6 %; Hematocrit (blood only) 41.8 % (42-52); Hemoglobin 13.6 g/dL (14.0-18.0); Immature Granulocytes # (auto) 0.08 K/uL (0.00-0.02); Immature Granulocytes % (auto) 1.1 %; Lymphocytes # (auto) 1.61 K/uL (1.2-3.4); Lymphocytes % (auto) 23.1 %; Mean Corpuscular Hemoglobin 29.7 pg (25-34); Mean Corpuscular Hgb Conc 32.5 g/dL (32-36); Mean Corpuscular Volume 91.3 fL (80-100); Mean Platelet Volume 10.6 fL (7.4-10.4); Monocytes # (auto) 0.64 K/uL (0.11-0.59); Monocytes % (auto) 9.2 %; Neutrophils # (auto) 4.51 K/uL (1.4-6.5); Neutrophils % (auto) 64.9 %; Platelet Count 172 K/uL (130-400); RDW Coefficient of Variation 14.2 % (11.5-14.5); RDW Standard Deviation 47.4 fL (36.4-46.3); Red Blood Count 4.58 M/uL (4.7-6.1); White Blood Count 6.96 K/uL (4.8-10.8)
[2020-10-02 02:27] LABS: BUN Creatinine Ratio 9.8 (10-20); Calcium 7.9 mg/dl (8.5-10.1); Creatinine Clr Calc Pharmacy 104.1 ml/min; Est GFR (African American) 88.3 ml/min; Est GFR (Non-African American) 76.2 ml/min; Potassium 3.9 mmol/L (3.5-5.1)
[2020-10-02 02:32] LABS: Albumin Globulin Ratio 0.9 (0.9-2); Bilirubin,Total 0.3 mg/dl (0.2-1); Globulin 3.5 gm/dl (2.5-4.0); Total Protein 6.5 gm/dl (6.4-8.2); Troponin I 0.032 ng/ml (0-0.045)
[2020-10-02 02:32] LABS: Base Excess VBG -0.9 mEq/L; Oxygen Saturation VBG 94.7 %; pH VBG 7.38 (7.36-7.41)
[2020-10-02] MEDS ORDERED: FUROSEMIDE 40 MG/4 ML VIAL IV STA (02:32)
--- NOTE | 2020-10-02 02:38 | Emergency Department Note ---
History of Present Illness General Chief complaint: Shortness of Breath/Dyspnea Stated complaint: SHORT OF BREATH Time Seen by Provider: 10/02/20 01:59 Source: patient Mode of arrival: EMS Limitations: no limitations History of Present Illness This patient is a 50-year-old male who presents via EMS from [facility] for evaluation of shortness of breath. Patient reports he has had intermittent shortness of breath for the past 1 to 2 weeks which acutely worsened tonight. He states that he was in his cell when he became very short of breath. He was seen at the medical unit at the present and given an albuterol treatment without any improvement. Oxygen saturations at the present were 50-55 percent. When EMS arrived, patient was 80% on room air. He was placed on BiPAP and saturations have improved on arrival to the ED. Patient feeling better at this time. He denies any recent fevers, cough or flulike symptoms. No COVID-19 ex posures and patient is fully vaccinated. He denies any chest pain. Patient placed on BiPAP and given 1 dose of nitro en route. He reports he has been taking his Lasix as prescribed, but has been dealing with worsening leg swelling over the past month. Home Medications Medication Instructions Recorded Confirmed Type apixaban [Eliquis] 5 mg PO Q12H #60 tab 09/21/20 10/02/20 Rx aspirin [Aspir-81] 81 mg PO DAILY 09/21/20 10/02/20 History atorvastatin 40 mg PO HS 09/21/20 10/02/20 History benztropine 1 mg PO DAILY 09/21/20 10/02/20 History diphenhydramine HCl 100 mg PO HS PRN 09/21/20 10/02/20 History divalproex 1,000 mg PO BID 09/21/20 10/02/20 History duloxetine 60 mg PO HS 09/21/20 10/02/20 History insulin glargine [Lantus U-100 60 unit SUBCUT PM 09/21/20 10/02/20 History Insulin] insulin regular human [Novolin R 1 sliding scale dose SUBCUT 09/21/20 10/02/20 History Regular U-100 Insuln] USEASDIRECTD isosorbide mononitrate 60 mg PO DAILY 09/21/20 10/02/20 History losartan 50 mg PO DAILY 09/21/20 10/02/20 History metoprolol tartrate 50 mg PO BID 09/21/20 10/02/20 History acetaminophen 1,000 mg PO TID PRN 10/02/20 10/02/20 History furosemide 40 mg PO DAILY 10/02/20 10/02/20 History loxapine succinate 10 mg PO BID 10/02/20 10/02/20 History mineral oil-hydrophil petrolat 1 applic TOPICAL UD 10/02/20 10/02/20 History [DermaPhor] nitroglycerin [Nitrostat] 0.4 mg SUBLINGUAL UD PRN MDD 3 tabs 10/02/20 10/02/20 History Allergies Allergy/AdvReac Type Severity Reaction Status Date / Time iodine Allergy Unknown UNKNOWN Verified 10/02/20 02:18 shellfish derived Allergy Unknown UNKNOWN Verified 10/02/20 02:18 lisinopril AdvReac Mild COUGH Verified 09/21/20 12:07 Past Med/Surg History Medical History (Updated 10/03/20 @ 05:36 by Lia Duran PA-C) Atrial fibrillation Bipolar disorder CHF (congestive heart failure) COPD (chronic obstructive pulmonary disease) Diabetes mellitus, type 2 Hyperlipidemia Hypertension Sleep apnea Surgical History Status post tonsillectomy Family History Other Cancer Hypertension Social History Smoking Status: Former smoker Hx Alcohol Use: No Hx Substance Use: No Preferred Language: Greek Communication Ability: Effective Shoe Dyer Required: No Beliefs That Will Affect Care: None Current Living Situation: Other Feels Safe at Home: Yes Assistive Devices: Oxygen - Continuous Review of Systems A total of 10 systems reviewed and were otherwise negative Physical Exam Vital Signs Vital Signs - 24 hr 10/02/20 01:49 10/02/20 02:09 10/02/20 02:22 Temperature 37.6 C H Temperature Source Oral Pulse Rate 120 H 117 H 118 H Pulse Rate [Apical] Pulse Rhythm Irregular Irregular Pulse Rhythm [Apical] Pulse Strength Normal Pulse Strength [Apical] Respiratory Rate 26 H 22 20 Respiratory Effort / Characteristics Spontaneous Labored Short of Breath Respiratory Depth Deep Normal Respiratory Pattern Regular Regular Blood Pressure 105/85 Blood Pressure [Right Arm] Blood Pressure Mean 91 Blood Pressure Mean [Right Arm] Blood Pressure Position Sitting Blood Pressure Position [Right Arm] Pulse Oximetry 96 82 L 95 Oxygen Delivery Method Room Air CPAP Fraction of Inspired Oxygen 60 Sepsis Recent Fever Within 48 Hours No Sepsis New/Unexplained Change in Mental Status No Sepsis Action Taken by Nursing Physician Notified 10/02/20 02:24 10/02/20 02:50 Temperature Temperature Source Pulse Rate Pulse Rate [Apical] 118 H 116 H Pulse Rhythm Pulse Rhythm [Apical] Irregular Irregular Pulse Strength Pulse Strength [Apical] Normal Normal Respiratory Rate 20 18 Respiratory Effort / Characteristics Short of Breath Non-Labored Respiratory Depth Normal Normal Respiratory Pattern Regular Blood Pressure Blood Pressure [Right Arm] 123/82 112/87 Blood Pressure Mean Blood Pressure Mean [Right Arm] 95 95 Blood Pressure Position Blood Pressure Position [Right Arm] Sitting Pulse Oximetry 95 94 Oxygen Delivery Method CPAP CPAP Fraction of Inspired Oxygen Sepsis Recent Fever Within 48 Hours Sepsis New/Unexplained Change in Mental Status Sepsis Action Taken by Nursing VITALS: Vitals are noted on the nurse's note and reviewed by myself. GENERAL: This is a 50-year-old male, chronically unwell appearing, on BiPAP. SKIN: The skin was without rashes. EARS: External auditory canals clear, tympanic membranes pearly duncan without erythema or effusion bilaterally. EYES: Pupils equal round and reactive to light and accommodation. MOUTH: Mucous membranes moist. NECK: Supple without nuchal rigidity. No lymphadenopathy. HEART: Tachycardic, irregular rhythm without murmurs gallops or rubs. LUNGS: Coarse crackles bilateral bases. EXTREMITIES: 2+ pitting edema bilateral lower extremities. NEURO: Patient was alert and oriented to person place and time. Course Consultations Consultation #1: Dr. Ruggiero - [facility] [place] Administered Medications Acetaminophen (Acetaminophen 500 Mg Tab) 1,000 mg PO Q8H PRN PRN Reason: pain Stop: 11/01/20 08:59 Last Admin: 10/02/20 20:11 Dose: 1,000 mg Documented by: [id number] Apixaban (Apixaban 5 Mg Tablet) 5 mg PO BID OSCAR Stop: 11/01/20 08:59 Last Admin: 10/02/20 20:13 Dose: 5 mg Documented by: [id number] Admin: 10/02/20 08:41 Dose: 5 mg Documented by: [id number] Aspirin (Aspirin 81 Mg Ectab) 81 mg PO DAILY OSCAR Stop: 11/01/20 08:59 Last Admin: 10/02/20 08:41 Dose: 81 mg Documented by: [id number] Atorvastatin Calcium (Atorvastatin 40 Mg Tab) 40 mg PO HS OSCAR Stop: 11/01/20 20:59 Last Admin: 10/02/20 20:12 Dose: 40 mg Documented by: [id number] Benztropine Mesylate (Benztropine Mesylate 1 Mg Tab) 1 mg PO DAILY OSCAR Stop: 11/01/20 08:59 Last Admin: 10/02/20 08:42 Dose: 1 mg Documented by: [id number] Divalproex Sodium (Divalproex Delay Release 500 Mg Tab) 1,000 mg PO BID OSCRA Stop: 11/01/20 08:59 Last Admin: 10/02/20 20:12 Dose: 1,000 mg Documented by: [id number] Admin: 10/02/20 08:42 Dose: 1,000 mg Documented by: [id number] Duloxetine HCl (Duloxetine Hcl 60 Mg Cap) 60 mg PO HS OSCAR Stop: 11/01/20 20:59 Last Admin: 10/02/20 20:12 Dose: 60 mg Documented by: [id number] Furosemide 40 mg/ Syringe 4 mls @ 4 mls/min IV [id number] [facility] Stop: 11/01/20 08:59 Last Admin: 10/02/20 16:58 Dose: 4 mls/min Documented by: [id number] Admin: 10/02/20 08:43 Dose: 4 mls/min Documented by: [id number] Insulin Aspart (Insulin Aspart 100 Units/Ml 3 Ml Pen) 0 units SC ACHS OSCAR Stop: 11/01/20 07:29 Last Admin: 10/02/20 20:16 Dose: 4 units Documented by: [id number] Cosigned by: [id number] Admin: 10/02/20 16:57 Dose: 4 units Documented by: [id number] Cosigned by: [id number] Admin: 10/02/20 12:01 Dose: 7 units Documented by: [id number] Cosigned by: [id number] Admin: 10/02/20 08:48 Dose: 6 units Documented by: [id number] Cosigned by: [id number] Insulin Glargine (Insulin Glargine Solostar 100 Units/Ml 3 Ml Pen) 30 units SC BID OSCAR Stop: 11/01/20 08:59 Last Admin: 10/02/20 20:16 Dose: 30 units Documented by: [id number] Cosigned by: [id number] Admin: 10/02/20 08:43 Dose: 30 units Documented by: [id number] Cosigned by: [id number] Isosorbide Mononitrate (Isosorbide [place] Extended Rel 60 Mg Tabcr) 60 mg PO DAILY OSCAR Stop: 11/01/20 08:59 Last Admin: 10/02/20 08:43 Dose: 60 mg Documented by: [id number] Losartan Potassium (Losartan Potassium 50 Mg Tab) 50 mg PO DAILY OSCAR Stop: 11/01/20 08:59 Last Admin: 10/02/20 08:44 Dose: 50 mg Documented by: [id number] Metoprolol Tartrate (Metoprolol Tartrate 50 Mg Tab) 50 mg PO BID OSCAR Stop: 11/01/20 08:59 Last Admin: 10/02/20 20:14 Dose: 50 mg Documented by: [id number] Admin: 10/02/20 08:44 Dose: 50 mg Documented by: [id number] Miscellaneous (Loxapine~Order Awaiting Action) 1 ea N/A QS OSCAR Stop: 11/01/20 07:59 Last Admin: 10/03/20 01:21 Dose: Not Given Documented by: [id number] Admin: 10/02/20 16:57 Dose: Not Given Documented by: [id number] Admin: 10/02/20 08:41 Dose: Not Given Documented by: [id number] Discontinued Medications Furosemide (Furosemide 40 Mg/4 Ml Vial) 40 mg IV NOW [facility] Stop: 10/02/20 02:33 Last Admin: 10/02/20 02:37 Dose: 40 mg Documented by: [id number] Medical Decision Making Differential Diagnosis Reactive airway disease, pneumonia, pneumothorax, COPD, CHF, infections, cardiac ischemia, pulmonary embolism, musculoskeletal, gastrointestinal, as well as other pathologies. Home Medications Current Medication List: was personally reviewed by me Laboratory Data Attestation: I reviewed the patient's lab results. Result diagrams: 10/03/20 04:20 10/03/20 04:20 Lab Results 10/02/20 10/02/20 10/02/20 Range/Units 02:02 02:02 02:02 WBC 6.96 (4.8-10.8) K/uL RBC 4.58 L (4.7-6.1) M/uL Hgb 13.6 L (14.0-18.0) g/dL Hct 41.8 L (42-52) % MCV 91.3 (80-100) fL MCH 29.7 (25-34) pg MCHC 32.5 (32-36) g/dL RDW Std Deviation 47.4 H (36.4-46.3) fL RDW Coeff of Richard 14.2 (11.5-14.5) % Plt Count 172 (130-400) K/uL MPV 10.6 H (7.4-10.4) fL Immature Gran % (Auto) 1.1 % Neut % (Auto) 64.9 % Lymph % (Auto) 23.1 % [place] % (Auto) 9.2 % Eos % (Auto) 1.6 % Baso % (Auto) 0.1 % Neut # (Auto) 4.51 (1.4-6.5) K/uL Lymph # (Auto) 1.61 (1.2-3.4) K/uL [place] # (Auto) 0.64 H (0.11-0.59) K/uL Eos # (Auto) 0.11 (0-0.5) K/uL Baso # (Auto) 0.01 (0-0.2) K/uL Immature Gran # (Auto) 0.08 H (0.00-0.02) K/uL PT (9.0-12.0) Seconds INR (0.9-1.1) APTT (21.0-31.0) Seconds PTT Ratio VBG pH (7.36-7.41) VBG pCO2 (38-50) mmHg VBG pO2 mmHg VBG HCO3 mmol/L VBG O2 Saturation % VBG Base Excess mEq/L Barometric Pressure mm/Hg Sodium 141 (136-145) mmol/L Potassium 3.9 (3.5-5.1) mmol/L Chloride 109 H (98-107) mmol/L Carbon Dioxide 25 (21-32) mmol/L Anion Gap 7.0 (3-11) BUN 11 (7-18) mg/dl Creatinine 1.12 (0.6-1.4) mg/dl Est Cr Clr Drug Dosing 104.1 ml/min Est GFR ( Amer) 88.3 ml/min Est GFR (Non-Af Amer) 76.2 ml/min BUN/Creatinine Ratio 9.8 L (10-20) Glucose 156 H (70-99) mg/dl Calcium 7.9 L (8.5-10.1) mg/dl Phosphorus 5.3 H (2.5-4.9) mg/dl Magnesium 2.4 (1.8-2.4) mg/dl Total Bilirubin 0.3 (0.2-1) mg/dl AST 10 L (15-37) U/L ALT 18 (12-78) U/L Alkaline Phosphatase 38 L (45-117) U/L Troponin I 0.032 (0-0.045) ng/ml NT-Pro-B Natriuret Pep 2129 H (0-900) pg/ml Total Protein 6.5 (6.4-8.2) gm/dl Albumin 3.0 L (3.4-5.0) gm/dl Globulin 3.5 (2.5-4.0) gm/dl Albumin/Globulin Ratio 0.9 (0.9-2) COVID-19 Eval Order SARS-CoV-2 (PCR) (Negative) 10/02/20 10/02/20 10/02/20 Range/Units 02:24 02:24 02:28 WBC (4.8-10.8) K/uL RBC (4.7-6.1) M/uL Hgb (14.0-18.0) g/dL Hct (42-52) % MCV (80-100) fL MCH (25-34) pg MCHC (32-36) g/dL RDW Std Deviation (36.4-46.3) fL RDW Coeff of Ricahrd (11.5-14.5) % Plt Count (130-400) K/uL MPV (7.4-10.4) fL Immature Gran % (Auto) % Neut % (Auto) % Lymph % (Auto) % [place] % (Auto) % Eos % (Auto) % Baso % (Auto) % Neut # (Auto) (1.4-6.5) K/uL Lymph # (Auto) (1.2-3.4) K/uL [place] # (Auto) (0.11-0.59) K/uL Eos # (Auto) (0-0.5) K/uL Baso # (Auto) (0-0.2) K/uL Immature Gran # (Auto) (0.00-0.02) K/uL PT 11.9 (9.0-12.0) Seconds INR 1.2 H (0.9-1.1) APTT 24.5 (21.0-31.0) Seconds PTT Ratio 0.9 VBG pH 7.38 (7.36-7.41) VBG pCO2 42 (38-50) mmHg VBG pO2 71 mmHg VBG HCO3 24 mmol/L VBG O2 Saturation 94.7 % VBG Base Excess -0.9 mEq/L Barometric Pressure 741.4 mm/Hg Sodium (136-145) mmol/L Potassium (3.5-5.1) mmol/L Chloride (98-107) mmol/L Carbon Dioxide (21-32) mmol/L Anion Gap (3-11) BUN (7-18) mg/dl Creatinine (0.6-1.4) mg/dl Est Cr Clr Drug Dosing ml/min Est GFR ( Amer) ml/min Est GFR (Non-Af Amer) ml/min BUN/Creatinine Ratio (10-20) Glucose (70-99) mg/dl Calcium (8.5-10.1) mg/dl Phosphorus (2.5-4.9) mg/dl Magnesium (1.8-2.4) mg/dl Total Bilirubin (0.2-1) mg/dl AST (15-37) U/L ALT (12-78) U/L Alkaline Phosphatase (45-117) U/L Troponin I (0-0.045) ng/ml NT-Pro-B Natriuret Pep (0-900) pg/ml Total Protein (6.4-8.2) gm/dl Albumin (3.4-5.0) gm/dl Globulin (2.5-4.0) gm/dl Albumin/Globulin Ratio (0.9-2) COVID-19 Eval Order Covid19 at [facility] SARS-CoV-2 (PCR) (Negative) 10/02/20 Range/Units 02:28 WBC (4.8-10.8) K/uL RBC (4.7-6.1) M/uL Hgb (14.0-18.0) g/dL Hct (42-52) % MCV (80-100) fL MCH (25-34) pg MCHC (32-36) g/dL RDW Std Deviation (36.4-46.3) fL RDW Coeff of Richard (11.5-14.5) % Plt Count (130-400) K/uL MPV (7.4-10.4) fL Immature Gran % (Auto) % Neut % (Auto) % Lymph % (Auto) % [place] % (Auto) % Eos % (Auto) % Baso % (Auto) % Neut # (Auto) (1.4-6.5) K/uL Lymph # (Auto) (1.2-3.4) K/uL [place] # (Auto) (0.11-0.59) K/uL Eos # (Auto) (0-0.5) K/uL Baso # (Auto) (0-0.2) K/uL Immature Gran # (Auto) (0.00-0.02) K/uL PT (9.0-12.0) Seconds INR (0.9-1.1) APTT (21.0-31.0) Seconds PTT Ratio VBG pH (7.36-7.41) VBG pCO2 (38-50) mmHg VBG pO2 mmHg VBG HCO3 mmol/L VBG O2 Saturation % VBG Base Excess mEq/L Barometric Pressure mm/Hg Sodium (136-145) mmol/L Potassium (3.5-5.1) mmol/L Chloride (98-107) mmol/L Carbon Dioxide (21-32) mmol/L Anion Gap (3-11) BUN (7-18) mg/dl Creatinine (0.6-1.4) mg/dl Est Cr Clr Drug Dosing ml/min Est GFR ( Amer) ml/min Est GFR (Non-Af Amer) ml/min BUN/Creatinine Ratio (10-20) Glucose (70-99) mg/dl Calcium (8.5-10.1) mg/dl Phosphorus (2.5-4.9) mg/dl Magnesium (1.8-2.4) mg/dl Total Bilirubin (0.2-1) mg/dl AST (15-37) U/L ALT (12-78) U/L Alkaline Phosphatase (45-117) U/L Troponin I (0-0.045) ng/ml NT-Pro-B Natriuret Pep (0-900) pg/ml Total Protein (6.4-8.2) gm/dl Albumin (3.4-5.0) gm/dl Globulin (2.5-4.0) gm/dl Albumin/Globulin Ratio (0.9-2) COVID-19 Eval Order SARS-CoV-2 (PCR) NEGATIVE (Negative) Imaging Data Attestation: I personally reviewed and interpreted this imaging study as follows: My Impression: CHEST 1 VIEW: Worsening pulmonary edema. ECG Data Attestation: I personally reviewed and interpreted this ECG as follows: Indication: + SOB/dyspnea Rate (beats per minute): 103 Rhythm: + atrial fibrillation (rapid ventricular response) Change: no significant change MDM Narrative Continuous registered nurse cardiac: Order was placed for continuous registered nurse cardiac. Patient was placed on the registered nurse cardiac. Patient was noted to be in atrial fibrillation at an initial rate of 115 bpm. The patient is a 50-year-old male who presents today for evaluation of shortness of breath and hypoxia. Patient's O2 saturations at the [facility] were reportedly 50 to 55% on room air. He has been having intermittent shortness of breath for the past few weeks. On initial assessment, he is doing much better on BiPAP and maintaining O2 sats in the high 90s. His chest x-ray and exam are suggestive of worsening heart failure. Patient given IV Lasix. Case was discussed with the [facility] hospitalist service, who agreed to evaluate the patient for further care. Impression & Plan CHF (congestive heart failure), Hypoxia Discharge Plan Visit Data Chief Complaint: Shortness of Breath/Dyspnea Stated Complaint: SHORT OF BREATH ED Provider: Daysi Sharma ED Midlevel Provider: Lia Duran Discharge Problem: CHF (congestive heart failure), Hypoxia Patient Disposition: Admitted As Inpatient Discharge Instructions Interventions: ED Discharge Assessment Last Done: 10/02/20 06:15
[2020-10-02 02:41] LABS: INR 1.2 (0.9-1.1); Partial Thromboplastin Ratio 0.9; Partial Thromboplastin Time 24.5 Seconds (21.0-31.0); Prothrombin Time 11.9 Seconds (9.0-12.0)
--- NOTE | 2020-10-02 04:42 | History & Physical Report ---
Date of Service October 02, 2020 Assessment & Plan (1) Acute respiratory failure with hypoxia: 50yo AA male with history of CHF presenting with acute hypoxic respiratory failure. SpO2 reported to be 55% at [facility], in the 80's by EMS and 82% upon arrival to [facility]. Patient was administered Lasix and placed on CPAP. Presently improved. Ddx to include acute exacerbation of CHF, COPD exacerbation. Doubt infectious source as patient is afebrile, no leukocytosis. Doubt PE as patient is anticoagulated on Eliquis. -Admit to PCU -Continue CPAP as needed, goal saturation 92% in patient with underlying COPD -Lasix 40mg IV BID -Monitor BUN, Cr, electrolytes, I/Os and daily standing weights Present on Admission?: Yes (2) CHF (congestive heart failure): Patient with systolic CHF - last echo on record is from 2016 which revealed mildly dilated LV with global thinning of the LV joshi, EF of 40-45% and mild to moderate global hypokinesis of the LV as well as moderately dilated LA, moderate to severe MR and mild TR. Patient had a right and left heart catheterization performed in 2017 which revealed a severe dilated cardiomyopathy with EF of 20-30% by LV gram, severe MR. He had pruning of distal LAD possibly consistent with previous infarct. 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 Elevated right heart pressures -Lasix 40mg IV BID -Monitor BID chemistry while diuresing- electrolytes and renal function -Monitor I/Os, daily weights -Continue Isosorbide mononitrate, Losartan, Metoprolol. Patient is and may benefit from addition of Hydralazine as well as aldosterone antagonist -Check 2D echo -Consider Cardiology vs CHF consultation pending results above Present on Admission?: Yes (3) Hyperlipidemia: Chronic -Continue Atorvastatin 40mg po qHS Present on Admission?: Yes (4) Hypertension: Blood pressure well controlled -Continue Metoprolol, Losartan, Isosorbide -Continue to monitor -Consider addition of Hydralazine as above for management of CHF Present on Admission?: Yes (5) Diabetes mellitus, type 2: Blood sugar mildly elevated -Lantus 30 u BID -ISS -Goal blood sugar 110 - 140 -Check Hgb AIC -CC diet as tolerated Present on Admission?: Yes (6) COPD (chronic obstructive pulmonary disease): Patient with diminished breath sounds, no appreciable wheezing on my exam. Do not strongly suspect COPD exacerbation at this time -Albuterol PRN Present on Admission?: Yes (7) Bipolar disorder: Patient states that his moods are stable. He recently had some medication adjustments, is uncertain of details. States he is doing well on current regimen. -Continue Loxapine 10mg po BID -Continue Duloxetine 60mg po qHS -Continue Divalproex 1000 mg po BID -Continue Benztropine 1mg po daily -Benadryl qHS PRN insomnia Present on Admission?: Yes (8) Atrial fibrillation: Patient in atrial fibrillation, rate of 113 at present -Continue Apixaban 5mg po BID -Continue Metoprolol 50mg po BID -Metoprolol 5mg IV q 4h as needed for HR > 120bpm Present on Admission?: Yes (9) Sleep apnea: CPAP HS and PRN F/E/N - Diuresis with Lasix 40mg IV BID, monitor electrolytes, CC/AHA diet as tolerated Ppx - On Apixaban for AF, continue Code - Full per discussion with patient Dispo - Admit to PCU Present on Admission?: Yes History of Present Illness Chief Complaint: acute hypoxic respiratory failure Primary Care Provider: [facility] Isid[facility] Carter is a 50yo male presenting from [facility] with acute hypoxic respiratory failure. Patient reports 2+ weeks of progressive bilateral LE edema as well as SOB and orthopnea. Patient's breathing acutely worsened this evening. By report his saturations were 55% at the custodial - EMS reported saturations in the 80%. When he arrived to [facility] he was afebrile, in atrial fibrillation at 117bpm, saturating 82% on room air. He was placed on CPAP and administered Lasix with improvement in clincal status. He denies chest pain, palpitations, abdominal pain, nausea, diarrhea. He had an episode of vomiting prior to arrival. Also reports a moist cough. Patient has received both Covid-19 vaccinations. Patient was seen in the ER on 09/21/20 with similar complaints - bilateral LE edema. At that time there was concern that patient had not been receiving his Coumadin for AFib. BNP was 1300, bilateral duplex of lower extremities was negative for DVT. He was given Lasix and started on Eliquis and discharged home to [facility]. ER Course: Lasix 40mg IV Allergies Allergy/AdvReac Type Severity Reaction Status Date / Time iodine Allergy Unknown UNKNOWN Verified 10/02/20 02:18 shellfish derived Allergy Unknown UNKNOWN Verified 10/02/20 02:18 lisinopril AdvReac Mild COUGH Verified 09/21/20 12:07 Home Medications Medication Instructions Recorded Confirmed Type apixaban [Eliquis] 5 mg PO Q12H #60 tab 09/21/20 10/02/20 Rx aspirin [Aspir-81] 81 mg PO DAILY 09/21/20 10/02/20 History atorvastatin 40 mg PO HS 09/21/20 10/02/20 History benztropine 1 mg PO DAILY 09/21/20 10/02/20 History diphenhydramine HCl 100 mg PO HS PRN 09/21/20 10/02/20 History divalproex 1,000 mg PO BID 09/21/20 10/02/20 History duloxetine 60 mg PO HS 09/21/20 10/02/20 History insulin glargine [Lantus U-100 60 unit SUBCUT PM 09/21/20 10/02/20 History Insulin] insulin regular human [Novolin R 1 sliding scale dose SUBCUT 09/21/20 10/02/20 History Regular U-100 Insuln] USEASDIRECTD isosorbide mononitrate 60 mg PO DAILY 09/21/20 10/02/20 History losartan 50 mg PO DAILY 09/21/20 10/02/20 History metoprolol tartrate 50 mg PO BID 09/21/20 10/02/20 History acetaminophen 1,000 mg PO TID PRN 10/02/20 10/02/20 History furosemide 40 mg PO DAILY 10/02/20 10/02/20 History loxapine succinate 10 mg PO BID 10/02/20 10/02/20 History mineral oil-hydrophil petrolat 1 applic TOPICAL UD 10/02/20 10/02/20 History [DermaPhor] nitroglycerin [Nitrostat] 0.4 mg SUBLINGUAL UD PRN MDD 3 tabs 10/02/20 10/02/20 History Past Med/Surg History Medical History (Updated 10/02/20 @ 05:00 by Amanda Ruggiero DO) Atrial fibrillation Bipolar disorder CHF (congestive heart failure) COPD (chronic obstructive pulmonary disease) Diabetes mellitus, type 2 Hyperlipidemia Hypertension Sleep apnea Surgical History Status post tonsillectomy Family History Other Cancer Hypertension Social History Smoking Status: Former smoker Feels Safe at Home: Yes Review of Systems Review of Systems: All systems reviewed & are unremarkable except as noted in HPI & below Physical Exam Physical Exam: General: patient resting comfortably, CPAP in place, speaking in complete sentences with no respiratory distress, NAD, non-toxic in appearance, AA&O x 4 Skin: warm, dry, intact, several small lesions in various stages of healing on lower extremities HEENT: NC/AT, PERRL, EOMI, anicteric sclera, conjunctiva without injection, external ear normal to inspection and nontender, nares patent, moist mucus membranes, dentition intact, no oropharyngeal lesions, neck supple, trachea midline, no LAD, no thyromegaly, no JVD Heart: +S1/S2, irregularly irregular, tachycardic, no m/r/g Lungs: diminished breath sounds, equal air entry bilaterally, +crackles in bilateral bases to mid lung oliveira, no rhonchi/wheezes Abd: +BS, soft, NT/ND, no masses/organomegaly/ascites Ext: warm, 2+ pulses in UE/LE bilaterally, no clubbing/cyanosis, 2+ pitting edema to knees bilaterally Neuro: nonfocal, patient AA&O x 4, speech intact, no facial droop, moving all extremities on command with equal strength 5/5 Results & Data Results & Data ([facility]) Vital Signs (Past 12 Hours) Vital Signs Temp Pulse Pulse Resp BP BP Pulse Ox 10/02/20 04:02 128 H 20 128/89 94 10/02/20 03:45 111 H 18 115/86 95 10/02/20 03:40 110 H 19 95 10/02/20 03:10 113 H 20 117/89 94 10/02/20 02:50 116 H 18 112/87 94 10/02/20 02:24 118 H 20 123/82 95 10/02/20 02:22 118 H 20 95 10/02/20 02:09 37.6 C H 117 H 22 105/85 82 L 10/02/20 01:49 120 H 26 H 96 Laboratory Results Laboratory Results WBC 6.96 K/uL (4.8-10.8) 10/02/20 02:02 RBC 4.58 M/uL (4.7-6.1) L 10/02/20 02:02 Hgb 13.6 g/dL (14.0-18.0) L 10/02/20 02:02 Hct 41.8 % (42-52) L 10/02/20 02:02 MCV 91.3 fL (80-100) 10/02/20 02:02 MCH 29.7 pg (25-34) 10/02/20 02:02 MCHC 32.5 g/dL (32-36) 10/02/20 02:02 RDW Std Deviation 47.4 fL (36.4-46.3) H 10/02/20 02:02 RDW Coeff of Richard 14.2 % (11.5-14.5) 10/02/20 02:02 Plt Count 172 K/uL (130-400) 10/02/20 02:02 MPV 10.6 fL (7.4-10.4) H 10/02/20 02:02 Immature Gran % (Auto) 1.1 % 10/02/20 02:02 Neut % (Auto) 64.9 % 10/02/20 02:02 Lymph % (Auto) 23.1 % 10/02/20 02:02 [place] % (Auto) 9.2 % 10/02/20 02:02 Eos % (Auto) 1.6 % 10/02/20 02:02 Baso % (Auto) 0.1 % 10/02/20 02:02 Neut # (Auto) 4.51 K/uL (1.4-6.5) 10/02/20 02:02 Lymph # (Auto) 1.61 K/uL (1.2-3.4) 10/02/20 02:02 [place] # (Auto) 0.64 K/uL (0.11-0.59) H 10/02/20 02:02 Eos # (Auto) 0.11 K/uL (0-0.5) 10/02/20 02:02 Baso # (Auto) 0.01 K/uL (0-0.2) 10/02/20 02:02 Immature Gran # (Auto) 0.08 K/uL (0.00-0.02) H 10/02/20 02:02 PT 11.9 Seconds (9.0-12.0) 10/02/20 02:24 INR 1.2 (0.9-1.1) H 10/02/20 02:24 APTT 24.5 Seconds (21.0-31.0) 10/02/20 02:24 PTT Ratio 0.9 10/02/20 02:24 VBG pH 7.38 (7.36-7.41) 10/02/20 02:24 VBG pCO2 42 mmHg (38-50) 10/02/20 02:24 VBG pO2 71 mmHg 10/02/20 02:24 VBG HCO3 24 mmol/L 10/02/20 02:24 VBG O2 Saturation 94.7 % 10/02/20 02:24 VBG Base Excess -0.9 mEq/L 10/02/20 02:24 Barometric Pressure 741.4 mm/Hg 10/02/20 02:24 Sodium 141 mmol/L (136-145) 10/02/20 02:02 Potassium 3.9 mmol/L (3.5-5.1) 10/02/20 02:02 Chloride 109 mmol/L (98-107) H 10/02/20 02:02 Carbon Dioxide 25 mmol/L (21-32) 10/02/20 02:02 Anion Gap 7.0 (3-11) 10/02/20 02:02 BUN 11 mg/dl (7-18) 10/02/20 02:02 Creatinine 1.12 mg/dl (0.6-1.4) 10/02/20 02:02 Est Cr Clr Drug Dosing 104.1 ml/min 10/02/20 02:02 Est GFR ( Amer) 88.3 ml/min 10/02/20 02:02 Est GFR (Non-Af Amer) 76.2 ml/min 10/02/20 02:02 BUN/Creatinine Ratio 9.8 (10-20) L 10/02/20 02:02 Glucose 156 mg/dl (70-99) H 10/02/20 02:02 Calcium 7.9 mg/dl (8.5-10.1) L 10/02/20 02:02 Total Bilirubin 0.3 mg/dl (0.2-1) 10/02/20 02:02 AST 10 U/L (15-37) L 10/02/20 02:02 ALT 18 U/L (12-78) 10/02/20 02:02 Alkaline Phosphatase 38 U/L (45-117) L 10/02/20 02:02 Troponin I 0.032 ng/ml (0-0.045) 10/02/20 02:02 NT-Pro-B Natriuret Pep 2129 pg/ml (0-900) H 10/02/20 02:02 Total Protein 6.5 gm/dl (6.4-8.2) 10/02/20 02:02 Albumin 3.0 gm/dl (3.4-5.0) L 10/02/20 02:02 Globulin 3.5 gm/dl (2.5-4.0) 10/02/20 02:02 Albumin/Globulin Ratio 0.9 (0.9-2) 10/02/20 02:02 COVID-19 Eval Order Covid19 at [facility] 10/02/20 02:28 SARS-CoV-2 (PCR) NEGATIVE (Negative) 10/02/20 02:28 Diagnostic Findings CXR - by my interpretation - image demonstrates cardiomegaly, bilateral airspace opacities, similar to prior study from 09/21/20 ECG Additional Comments: EKG shows AF at 103bpm, left axis deviation, QRS=96, AQl=132, TWI present in V4-V6 similar to prior study from 09/21/20 Code Status & VTE Plan VTE Prophylaxis Plan VTE Prophylaxis will be ordered: Yes PG Care Time/CCT Total # of Minutes Spent Total Time Spent with Patient: Total time spent is greater than 50% in coordination of care (as documented) at patient's floor/unit and/or counseling patient: Coding Level of Care Code 60371 Initial Inpt Care Lvl 3 Diagnoses Acute respiratory failure with hypoxia J96.01 CHF (congestive heart failure) I50.23 Heart failure chronicity: acute on chronic Heart failure type: systolic Hyperlipidemia E78.5 Hyperlipidemia type: unspecified Hypertension I10 Hypertension type: essential hypertension Diabetes mellitus, type 2 E11.9; Z79.4 Diabetes mellitus nursing home insulin use: with moth exterminator use Diabetes mellitus complication status: without complication COPD (chronic obstructive pulmonary disease) J44.9 COPD type: unspecified COPD Bipolar disorder F31.9 Active/Remission status: remission status unspecified Atrial fibrillation I48.0 Atrial fibrillation type: paroxysmal Sleep apnea G47.30 Sleep apnea type: unspecified type (1) Sleep apnea Sleep apnea type: unspecified type Qualified Code(s): G47.30 - Sleep apnea, unspecified (2) Diabetes mellitus, type 2 Diabetes mellitus moth exterminator insulin use: with nursing home use Diabetes mellitus complication status: without complication Qualified Code(s): E11.9 - Type 2 diabetes mellitus without complications; Z79.4 - detention (current) use of insulin (3) CHF (congestive heart failure) Heart failure chronicity: acute on chronic Heart failure type: systolic Qualified Code(s): I50.23 - Acute on chronic systolic (congestive) heart failure (4) Bipolar disorder Active/Remission status: remission status unspecified Qualified Code(s): F31.9 - Bipolar disorder, unspecified (5) Hyperlipidemia Hyperlipidemia type: unspecified Qualified Code(s): E78.5 - Hyperlipidemia, unspecified (6) COPD (chronic obstructive pulmonary disease) COPD type: unspecified COPD Qualified Code(s): J44.9 - Chronic obstructive pulmonary disease, unspecified (7) Hypertension Hypertension type: essential hypertension Qualified Code(s): I10 - Essential (primary) hypertension (8) Atrial fibrillation Atrial fibrillation type: paroxysmal Qualified Code(s): I48.0 - Paroxysmal atrial fibrillation
[2020-10-02] MEDS ORDERED: GLUCOSE 40% GEL 15 GM TUBE PO PRN (06:16)
[2020-10-02] MEDS ORDERED: DEXTROSE 50% 50 ML SYRINGE IV PRN (06:16)
[2020-10-02] MEDS ORDERED: ONDANSETRON INJ 2 MG/ML 2 ML VIAL IV PRN (06:16)
[2020-10-02] MEDS ORDERED: GLUCAGON FOR INJ 1 MG VIAL SQ PRN (06:16)
[2020-10-02] MEDS ORDERED: CARBOHYDRATES FOR HYPOGLYCEMIA PO PRN (06:16)
[2020-10-02] MEDS ORDERED: GLUCOSE 10 TABS/TUBE PO PRN (06:16)
[2020-10-02] MEDS ORDERED: METOPROLOL TARTRATE 1 MG/ML VIAL IV PRN (06:16)
[2020-10-02] MEDS ORDERED: ALBUTEROL 0.083% NEBU SOLN 3 ML VIAL INH PRN (06:28)
[2020-10-02] MEDS ORDERED: diphenhydrAMINE Capsule 25 MG CAP PO PRN (06:29)
[2020-10-02 07:21] LABS: Magnesium 2.4 mg/dl (1.8-2.4); Phosphorus 5.3 mg/dl (2.5-4.9)
--- NOTE | 2020-10-02 08:24 | XRay Report ---
XR chest 1V portable HISTORY: Dyspnea COMPARISON: Chest 09/21/2020. FINDINGS: No pneumothorax. No pleural effusions. The heart remains enlarged. Progressive perihilar in terstitial/vascular thickening with hazy airspace opacities within the lower lung zones. The heart re say enlarged. No pleural effusions. No pneumothorax. IMPRESSION: Progressive interstitial/vascular thickening and airspace opacities within the lower lung zones. This could represent a viral pneumonia or pulmonary edema. ACT 112: Negative or not required by law. Electronically signed by: Preet Marcelo M.D. 10/02/2020 8:23 AM
[2020-10-02] MEDS: APIXABAN 5 MG TABLET PO SCH ×2 (08:41→20:13)
[2020-10-02] MEDS: LOXAPINE~ORDER AWAITING ACTION SCH ×2 (08:41→16:57)
[2020-10-02] MEDS: ASPIRIN 81 MG ECTAB PO SCH (08:41)
[2020-10-02] MEDS: BENZTROPINE MESYLATE 1 MG TAB PO SCH (08:42)
[2020-10-02] MEDS: DIVALPROEX DELAY RELEASE 500 MG TAB PO SCH ×2 (08:42→20:12)
[2020-10-02] MEDS: INSULIN GLARGINE SOLOSTAR 100 UNITS/ML 3 ML PEN SC SCH ×2 (08:43→20:16)
[2020-10-02] MEDS: FUROSEMIDE 40 MG in SYRINGE 0 ML IV SCH ×2 (08:43→16:58)
[2020-10-02] MEDS: ISOSORBIDE MONO EXTENDED REL 60 MG TABCR PO SCH (08:43)
[2020-10-02] MEDS: METOPROLOL TARTRATE 50 MG TAB PO SCH ×2 (08:44→20:14)
[2020-10-02] MEDS: LOSARTAN POTASSIUM 50 MG TAB PO SCH (08:44)
[2020-10-02] MEDS: INSULIN ASPART 100 UNITS/ML 3 ML PEN SC SCH ×4 (08:48→20:16)
[2020-10-02] MEDS ORDERED: ACETAMINOPHEN 500 MG TAB PO PRN (09:00)
--- NOTE | 2020-10-02 12:38 | XCELERA ---
[id number]
[2020-10-02 16:38] LABS: BUN Creatinine Ratio 12.9 (10-20); Calcium 8.1 mg/dl (8.5-10.1); Creatinine Clr Calc Pharmacy 101.5 ml/min; Est GFR (African American) 88.3 ml/min; Est GFR (Non-African American) 76.2 ml/min; Potassium 3.7 mmol/L (3.5-5.1)
--- NOTE | 2020-10-02 18:36 | Electrocardiogram Report ---
Test Reason : Blood Pressure : / mmHG Vent. Rate : 103 BPM Atrial Rate : 087 BPM P-R Int : 000 ms QRS Dur : 096 ms QT Int : 348 ms P-R-T Axes : 000 -47 111 degrees QTc Int : 455 ms Poor data quality, interpretation may be adversely affected Atrial fibrillation with rapid ventricular response Left axis deviation Abnormal ECG When compared with ECG of 21-SEP-2020 11:05, Nonspecific T wave abnormality no longer evident in Inferior leads Confirmed by Bebeto Toure ([id number]) on 10/02/2020 6:36:24 PM Referred By: Howie CAREY Confirmed By:Derek Toure
[2020-10-02] MEDS: ATORVASTATIN 40 MG TAB PO SCH (20:12)
[2020-10-02] MEDS: DULoxetine HCL 60 MG CAP PO SCH (20:12)
[2020-10-03] MEDS: LOXAPINE~ORDER AWAITING ACTION SCH ×2 (01:21→13:30)
[2020-10-03 04:41] LABS: Basophils # (auto) 0.01 K/uL (0-0.2); Basophils % (auto) 0.2 %; Eosinophils # (auto) 0.14 K/uL (0-0.5); Eosinophils % (auto) 2.3 %; Hematocrit (blood only) 39.1 % (42-52); Hemoglobin 12.8 g/dL (14.0-18.0); Immature Granulocytes # (auto) 0.01 K/uL (0.00-0.02); Immature Granulocytes % (auto) 0.2 %; Lymphocytes # (auto) 2.46 K/uL (1.2-3.4); Lymphocytes % (auto) 39.9 %; Mean Corpuscular Hemoglobin 29.2 pg (25-34); Mean Corpuscular Hgb Conc 32.7 g/dL (32-36); Mean Corpuscular Volume 89.3 fL (80-100); Mean Platelet Volume 10.6 fL (7.4-10.4); Monocytes # (auto) 0.63 K/uL (0.11-0.59); Monocytes % (auto) 10.2 %; Neutrophils # (auto) 2.91 K/uL (1.4-6.5); Neutrophils % (auto) 47.2 %; Platelet Count 128 K/uL (130-400); RDW Coefficient of Variation 14.1 % (11.5-14.5); Red Blood Count 4.38 M/uL (4.7-6.1); White Blood Count 6.16 K/uL (4.8-10.8)
[2020-10-03 04:59] LABS: Calcium 7.6 mg/dl (8.5-10.1); Creatinine Clr Calc Pharmacy 117.2 ml/min; Est GFR (African American) 105.1 ml/min; Est GFR (Non-African American) 90.7 ml/min; Potassium 3.6 mmol/L (3.5-5.1)
[2020-10-03 06:31] LABS: Estimated Average Glucose 160 mg/dl; Hemoglobin A1C 7.2 % (4.5-5.6)
[2020-10-03] MEDS: ASPIRIN 81 MG ECTAB PO SCH (08:51)
[2020-10-03] MEDS: APIXABAN 5 MG TABLET PO SCH ×2 (08:51→20:46)
[2020-10-03] MEDS: DIVALPROEX DELAY RELEASE 500 MG TAB PO SCH ×2 (08:52→20:45)
[2020-10-03] MEDS: FUROSEMIDE 40 MG in SYRINGE 0 ML IV SCH ×2 (08:52→17:47)
[2020-10-03] MEDS: ISOSORBIDE MONO EXTENDED REL 60 MG TABCR PO SCH (08:52)
[2020-10-03] MEDS: BENZTROPINE MESYLATE 1 MG TAB PO SCH (08:52)
[2020-10-03] MEDS: LOSARTAN POTASSIUM 50 MG TAB PO SCH (08:53)
[2020-10-03] MEDS: METOPROLOL TARTRATE 50 MG TAB PO SCH ×2 (08:53→20:48)
[2020-10-03] MEDS: INSULIN GLARGINE SOLOSTAR 100 UNITS/ML 3 ML PEN SC SCH ×2 (09:00→20:52)
[2020-10-03] MEDS: INSULIN ASPART 100 UNITS/ML 3 ML PEN SC SCH ×4 (09:01→20:52)
--- NOTE | 2020-10-03 14:47 | Heart Failure Consultation ---
Date of Consultation October 03, 2020 Assessment & Plan (1) Acute systolic (congestive) heart failure: (2) Hypertension: (3) Sleep apnea: (4) Cardiomyopathy: (5) Atrial fibrillation: Acute systolic CHF: Currently NYHA Class III. Exacerbation possibly tachycardia induced? Also with moderate to severe valvular disease. Patient appears hypervolemic on exam. He continues to have edema and shortness of breath. Agree with aggressive diuresis. Continue Lasix 40 mg IV BID until euvolemic or creatinine rises. Goal of negative 1-2 L per day. Continue to carefully monitor kidney function and electrolytes. Recommend daily standing scale weights. Strict I&Os. Low sodium diet. Cardiomyopathy: Long standing. Likely nonischemic. He did not present with ACS. Denies angina. Cardiac cath in 2017. Unclear if secondary workup has been done in the past. Doubtful since he states he's had no outpatient cardiology follow up since previous hospitalization. Would recommend further optimization of his heart failure regimen. Recommend converting metoprolol tartrate to metoprolol succinate per HF guidelines. Continue to titrate this admission to improve rate control. Consider transitioning Losartan to Entresto prior to discharge. No wash out period needed from ARB to ANRI. Will need BMP within 7-10 days. Could also consider the addition of Spironolactone for additional diuresis and HF benefits. Consider Isosorbide dinitrate + Hydralazine for persistent symptoms despite triple therapy. Continue to titrate medications as an outpatient as BP and HR allow. Plan to repeat echocardiogram 3 months from reaching target therapy. Refer to EP for ICD consideration if EF not > 35% after optimization. Hypertension: BP adequate, continue current regimen. Atrial fibrillation: Continue to optimize rate control. Continue Eliquis for stroke risk reduction. Sleep apnea: Continue CPAP Disposition: Anticipate ongoing outpatient follow up with the heart failure program. Will likely be able to provide support remotely with teleheath in collaboration with the [facility]. Would also recommend re-establishing with primary coal briquette machine operator. Recommendations communicated with Dr. Araujo. History of Present Illness Attending Physician: Dio Araujo Mr. Carter is a 50 year old male with a history of chronic systolic congestive heart failure, cardiomyopathy, COPD, DM, Bipolar disorder, HTN, sleep apnea, and mitral regurgitation. He is currently incarcerated at [facility]. He does not currently follow with a coal briquette machine operator. His only admission for heart failure was in 2017. Patient was evaluated by [facility] cardiology. He had a newly diagnosed cardiomyopathy. He has not had a formal cardiac evaluation since 2017. Recent cardiac studies: 1. 10/02/20 Echo: LVEF severely reduced, EF 25-30%. LV mildly dilated. Left atrium moderately dilated. RVSP normal. Moderate-severe MR. 2. 05/12/2017 Cath: Minor luminal irreg. of the LCX. Pruning of the distal LAD suggestive of previous infarct. Nondominant RCA with 50-70 mid vessel stenosis. Elevated right heart pressures. 3. 05/10/2017 Echo: LV mildly dilated. EF 40-45%. Moderate global hypokinesis. Moderate to severe MR. He presented with shortness of breath and edema that was progressive over the last 1-2 weeks. He was hypoxic on presentation and was initiated on BiPAP. He was evaluated in the ED on 09/21/20 with similar complaints but discharged back to the residential. He was treated with IV Lasix and initiated on Eliquis at that time. ProBNP increased from 1383 to 2129. Troponin normal. CXR consistent with pulmonary edema vs pneumonia. He's been borderline tachycardic since admission. Echo with severely reduced EF. He was initiated on IV Lasix 40 mg BID. He's responding well with a net negative 2.5 L loss. Weight is trending down from 246 to 237 lb. He reports his breathing is somewhat improved. He is currently wearing his CPAP. He slept with his head elevated last evening. Lower extremity edema is improving. He denies chest pain, palpitations, or lightheadedness. SocHx: Patient is incarcerated at [facility]. He denies alcohol or tobacco use. FamHx: Denies premature CAD. Allergies Allergy/AdvReac Type Severity Reaction Status Date / Time iodine Allergy Unknown UNKNOWN Verified 10/02/20 02:18 shellfish derived Allergy Unknown UNKNOWN Verified 10/02/20 02:18 lisinopril AdvReac Mild COUGH Verified 09/21/20 12:07 Home Medications Medication Instructions Recorded Confirmed Type apixaban [Eliquis] 5 mg PO Q12H #60 tab 09/21/20 10/02/20 Rx aspirin [Aspir-81] 81 mg PO DAILY 09/21/20 10/02/20 History atorvastatin 40 mg PO HS 09/21/20 10/02/20 History benztropine 1 mg PO DAILY 09/21/20 10/02/20 History diphenhydramine HCl 100 mg PO HS PRN 09/21/20 10/02/20 History divalproex 1,000 mg PO BID 09/21/20 10/02/20 History duloxetine 60 mg PO HS 09/21/20 10/02/20 History insulin glargine [Lantus U-100 60 unit SUBCUT PM 09/21/20 10/02/20 History Insulin] insulin regular human [Novolin R 1 sliding scale dose SUBCUT 09/21/20 10/02/20 History Regular U-100 Insuln] USEASDIRECTD isosorbide mononitrate 60 mg PO DAILY 09/21/20 10/02/20 History losartan 50 mg PO DAILY 09/21/20 10/02/20 History metoprolol tartrate 50 mg PO BID 09/21/20 10/02/20 History acetaminophen 1,000 mg PO TID PRN 10/02/20 10/02/20 History furosemide 40 mg PO DAILY 10/02/20 10/02/20 History loxapine succinate 10 mg PO BID 10/02/20 10/02/20 History mineral oil-hydrophil petrolat 1 applic TOPICAL UD 10/02/20 10/02/20 History [DermaPhor] nitroglycerin [Nitrostat] 0.4 mg SUBLINGUAL UD PRN MDD 3 tabs 10/02/20 10/02/20 History Patient History Medical History (Updated 10/03/20 @ 14:45 by Kenya Cochran PA-C) Atrial fibrillation Bipolar disorder COPD (chronic obstructive pulmonary disease) Diabetes mellitus, type 2 Hyperlipidemia Hypertension Sleep apnea Surgical History Status post tonsillectomy Family History Other Cancer Hypertension Social History Smoking Status: Former smoker Hx Alcohol Use: No Hx Substance Use: No Preferred Language: French Communication Ability: Effective Construction Supervisor Required: No Beliefs That Will Affect Care: None Current Living Situation: Other Feels Safe at Home: Yes Assistive Devices: Oxygen - Continuous Physical Exam Physical Exam: Constitutional: Africian [place]. Alert, oriented, in no acute distress. Using CPAP but able to communicate. HEENT: Head is atraumatic and normocephalic. EOMs intact. Sclera anicteric. Face is symmetric. No perioral cyanosis. Mucous membranes moist. Neck: Supple, no JVD Pulmonary: Normal respiratory effort, scattered crackles bilaterally.No wheezes, rhonchi. Cardiac: Irregular rate and rhythm.Tachycardic. Normal S1 and S2, no gallops, no rubs, no murmurs Extremities: 2+ radial pulses bilaterally. 2+ posterior tibialis pulses bilaterally. 1-2+ pitting edema to the knees. No cyanosis or clubbing. Abdomen: Normal bowel sounds, soft, non-tender, no abdominal mass palpated Skin: Normal skin color, turgor, and pigmentation, no rash, no skin lesions Neurological: Patient is awake, alert, and oriented. Pleasant and cooperative. Answers questions appropriately. Speech is clear. Normal movement in all 4 extremities. Results & Data ([facility]) Vital Signs (Past 12 Hours) Vital Signs Temp Pulse Pulse Pulse Resp BP Pulse Ox 10/03/20 12:03 98.1 F 104 H 16 136/97 93 10/03/20 08:19 98.1 F 102 H 102 H 18 144/79 H 92 10/03/20 07:00 112 H 10/03/20 04:32 98.2 F 112 H 18 140/96 93 Heart Failure Data/Metrics Heart Failure Type: Systolic Ejection Fraction: 25-30% NYHA classification: II: Sx w/ usual activity Risk Stratification: B Pacemaker: No Implanted Cardiac Defibrillator (ICD): No Bi-V Pacemaker: No Bi-V Defibrillator: No Advanced Directives Discussed/Complete: No Diabetes Mellitus: Yes Evidenced Based Beta Brian Therapy Beta Brian Therapy: Yes Beta Brian Name: Metoprolol Succinate Beta Brian Target Therapy: Not at Target Therapy ELIZABETH/ARB/ARNI Therapy ELIZABETH/ARB/ARNI Therapy: Yes ELIZABETH/ARB/ARNI Name: Losartan ELIZABETH/ARB/ARNI Target Therapy: Not at Target Therapy Coding Level of Care Code 89987 Inpt Consult Level 4 Diagnoses Acute systolic (congestive) heart failure I50.21 Hypertension I10 Hypertension type: essential hypertension Sleep apnea G47.30 Sleep apnea type: unspecified type Cardiomyopathy I42.9 Atrial fibrillation I48.0 Atrial fibrillation type: paroxysmal (1) Hypertension Hypertension type: essential hypertension Qualified Code(s): I10 - Essential (primary) hypertension (2) Sleep apnea Sleep apnea type: unspecified type Qualified Code(s): G47.30 - Sleep apnea, unspecified (3) Atrial fibrillation Atrial fibrillation type: paroxysmal Qualified Code(s): I48.0 - Paroxysmal atrial fibrillation
[2020-10-03 17:01] LABS: BUN Creatinine Ratio 18.4 (10-20); Calcium 7.5 mg/dl (8.5-10.1); Creatinine Clr Calc Pharmacy 130.7 ml/min; Est GFR (African American) 116.6 ml/min; Est GFR (Non-African American) 100.6 ml/min; Potassium 3.7 mmol/L (3.5-5.1)
[2020-10-03] MEDS ORDERED: FUROSEMIDE 40 MG/4 ML VIAL IV ONE (17:35)
[2020-10-03] MEDS: DULoxetine HCL 60 MG CAP PO SCH (20:46)
[2020-10-03] MEDS: ATORVASTATIN 40 MG TAB PO SCH (20:47)
[2020-10-03] MEDS: LOXAPINE SUCCINATE 5 MG PO SCH (20:48)
--- NOTE | 2020-10-03 23:44 | Hospitalist Progress Note ---
Date of Service October 03, 2020 Assessment & Plan (1) Acute respiratory failure with hypoxia: 50yo AA male with history of CHF presenting with acute hypoxic respiratory failure. SpO2 reported to be 55% at [facility], in the 80's by EMS and 82% upon arrival to [facility]. Patient was administered Lasix and placed on CPAP. Presently improved. Ddx to include acute exacerbation of CHF, COPD exacerbation. Doubt infectious source as patient is afebrile, no leukocytosis. Doubt PE as patient is anticoagulated on Eliquis. -Admit to PCU -Continue CPAP as needed, goal saturation 92% in patient with underlying COPD -Lasix 40mg IV BID -Monitor BUN, Cr, electrolytes, I/Os and daily standing weights On 10/03 tolerating diuretics, will continue 40 mg BID (2) CHF (congestive heart failure): Patient with systolic CHF - last echo on record is from 2016 which revealed mildly dilated LV with global thinning of the LV joshi, EF of 40-45% and mild to moderate global hypokinesis of the LV as well as moderately dilated LA, moderate to severe MR and mild TR. Patient had a right and left heart catheterization performed in 2017 which revealed a severe dilated cardiomyopathy with EF of 20-30% by LV gram, severe MR. He had pruning of distal LAD possibly consistent with previous infarct. 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 Elevated right heart pressures -Lasix 40mg IV BID -Monitor BID chemistry while diuresing- electrolytes and renal function -Monitor I/Os, daily weights -Continue Isosorbide mononitrate, Losartan, Metoprolol. Patient is and may benefit from addition of Hydralazine as well as aldosterone antagonist -Check 2D echo -CHF consult (3) Hyperlipidemia: Chronic -Continue Atorvastatin 40mg po qHS (4) Hypertension: Blood pressure well controlled -Continue Metoprolol, Losartan, Isosorbide -Continue to monitor -Consider addition of Hydralazine as above for management of CHF (5) Diabetes mellitus, type 2: Blood sugar mildly elevated -Lantus 30 u BID -ISS -Goal blood sugar 110 - 140 -Check Hgb AIC -CC diet as tolerated (6) COPD (chronic obstructive pulmonary disease): Patient with diminished breath sounds, no appreciable wheezing on my exam. Do not strongly suspect COPD exacerbation at this time -Albuterol PRN (7) Bipolar disorder: Patient states that his moods are stable. He recently had some medication adjustments, is uncertain of details. States he is doing well on current regimen. -Continue Loxapine 10mg po BID -Continue Duloxetine 60mg po qHS -Continue Divalproex 1000 mg po BID -Continue Benztropine 1mg po daily -Benadryl qHS PRN insomnia (8) Atrial fibrillation: Patient in atrial fibrillation, rate of 113 at present -Continue Apixaban 5mg po BID -Continue Metoprolol 50mg po BID -Metoprolol 5mg IV q 4h as needed for HR > 120bpm (9) Sleep apnea: CPAP HS and PRN F/E/N - Diuresis with Lasix 40mg IV BID, monitor electrolytes, CC/AHA diet as t olerated Ppx - On Apixaban for AF, continue Code - Full per discussion with patient Dispo - Admit to PCU Admission and Anticipated Discharge Date Admission Date: October 02, 2020 Subjective 50 yo male reports breathing better. Review of Systems Review of Systems: All systems reviewed & are unremarkable except as noted in HPI & below Physical Exam Physical Exam: General: patient resting comfortably, CPAP in place, speaking in complete sentences with no respiratory distress, NAD, non-toxic in appearance, AA&O x 4 Skin: warm, dry, intact, several small lesions in various stages of healing on lower extremities HEENT: NC/AT, PERRL, EOMI, anicteric sclera, conjunctiva without injection, external ear normal to inspection and nontender, nares patent, moist mucus membranes, dentition intact, no oropharyngeal lesions, neck supple, trachea midline, no LAD, no thyromegaly, no JVD Heart: +S1/S2, irregularly irregular, tachycardic, no m/r/g Lungs: diminished breath sounds, equal air entry bilaterally, +crackles in bilateral bases, no rhonchi/wheezes Abd: +BS, soft, NT/ND, no masses/organomegaly/ascites Ext: warm, 2+ pulses in UE/LE bilaterally, no clubbing/cyanosis, 2+ pitting edema to knees bilaterally Neuro: nonfocal, patient AA&O x 4, speech intact, no facial droop, moving all extremities on command with equal strength 5/5 Results & Data Results & Data ([facility]) Vital Signs (Past 12 Hours) Vital Signs Temp Pulse Pulse Resp BP Pulse Ox 10/03/20 23:35 119 H 10/03/20 19:10 36.9 C 119 H 20 124/76 95 10/03/20 15:27 36.7 C 97 H 20 122/80 99 10/03/20 12:45 123 H 24 99 10/03/20 12:03 36.7 C 104 H 16 136/97 93 PG Care Time/CCT Total # of Minutes Spent Total Time Spent with Patient: Total time spent is greater than 50% in coordination of care (as documented) at patient's floor/unit and/or counseling patient: Coding Level of Care Code 48423 Subseq Hosp Care Lvl 2 Diagnoses Acute respiratory failure with hypoxia J96.01 CHF (congestive heart failure) I50.9 Hyperlipidemia E78.5 Hyperlipidemia type: unspecified Hypertension I10 Hypertension type: essential hypertension Diabetes mellitus, type 2 E11.9; Z79.4 Diabetes mellitus complication status: without complication Diabetes mellitus long term care administrator insulin use: with long term care administrator use COPD (chronic obstructive pulmonary disease) J44.9 COPD type: unspecified COPD Bipolar disorder F31.9 Active/Remission status: remission status unspecified Atrial fibrillation I48.0 Atrial fibrillation type: paroxysmal Sleep apnea G47.30 Sleep apnea type: unspecified type (1) Sleep apnea Sleep apnea type: unspecified type Qualified Code(s): G47.30 - Sleep apnea, unspecified (2) Diabetes mellitus, type 2 Diabetes mellitus complication status: without complication Diabetes mellitus mcc insulin use: with long term care administrator use Qualified Code(s): E11.9 - Type 2 diabetes mellitus without complications; 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 of 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 (3) Bipolar disorder Active/Remission status: remission status unspecified Qualified Code(s): F31 .9 - Bipolar disorder, unspecified (4) Atrial fibrillation Atrial fibrillation type: paroxysmal Qualified Code(s): I48.0 - Paroxysmal atrial fibrillation (5) Hyperlipidemia Hyperlipidemia type: unspecified Qualified Code(s): E78.5 - Hyperlipidemia, unspecified (6) COPD (chronic obstructive pulmonary disease) COPD type: unspecified COPD Qualified Code(s): J44.9 - Chronic obstructive pulmonary disease, unspecified (7) Hypertension Hypertension type: essential hypertension Qualified Code(s): I10 - Essential (primary) hypertension
[2020-10-04 07:52] LABS: Hematocrit (blood only) 39.6 % (42-52); Hemoglobin 12.8 g/dL (14.0-18.0); Mean Corpuscular Hemoglobin 29.5 pg (25-34); Mean Corpuscular Hgb Conc 32.3 g/dL (32-36); Mean Corpuscular Volume 91.2 fL (80-100); Mean Platelet Volume 11.1 fL (7.4-10.4); Platelet Count 138 K/uL (130-400); RDW Coefficient of Variation 14.3 % (11.5-14.5); RDW Standard Deviation 48.6 fL (36.4-46.3); Red Blood Count 4.34 M/uL (4.7-6.1); White Blood Count 5.86 K/uL (4.8-10.8)
[2020-10-04 08:12] LABS: BUN Creatinine Ratio 18.2 (10-20); Calcium 7.8 mg/dl (8.5-10.1); Creatinine Clr Calc Pharmacy 145.2 ml/min; Est GFR (Non-African American) 105.3 ml/min; Potassium 3.3 mmol/L (3.5-5.1)
[2020-10-04] MEDS: DIVALPROEX DELAY RELEASE 500 MG TAB PO SCH ×2 (09:07→21:01)
[2020-10-04] MEDS: FUROSEMIDE 40 MG in SYRINGE 0 ML IV SCH ×2 (09:07→17:34)
[2020-10-04] MEDS: APIXABAN 5 MG TABLET PO SCH ×2 (09:07→21:02)
[2020-10-04] MEDS: ASPIRIN 81 MG ECTAB PO SCH (09:07)
[2020-10-04] MEDS: BENZTROPINE MESYLATE 1 MG TAB PO SCH (09:07)
[2020-10-04] MEDS: INSULIN GLARGINE SOLOSTAR 100 UNITS/ML 3 ML PEN SC SCH (09:08)
[2020-10-04] MEDS: LOSARTAN POTASSIUM 50 MG TAB PO SCH (09:08)
[2020-10-04] MEDS: ISOSORBIDE MONO EXTENDED REL 60 MG TABCR PO SCH (09:08)
[2020-10-04] MEDS: METOPROLOL SUCC 50MG EXT REL TAB PO SCH (09:09)
[2020-10-04] MEDS: LOXAPINE SUCCINATE 5 MG PO SCH ×2 (09:09→21:02)
[2020-10-04] MEDS: INSULIN ASPART 100 UNITS/ML 3 ML PEN SC SCH ×4 (09:10→21:09)
[2020-10-04] MEDS: POTASSIUM CHLORIDE CRTAB 20 MEQ TABCR PO SCH ×2 (10:29→21:01)
--- NOTE | 2020-10-04 16:06 | Hospitalist Progress Note ---
Date of Service October 04, 2020 Assessment & Plan (1) CHF (congestive heart failure): Patient with acute systolic CHF. Ischemic cardiomyopathy. Patient had a right and left heart catheterization performed in 2017 which revealed a severe dilated cardiomyopathy with EF of 20-30% by LV gram, severe MR. He had pruning of distal LAD possibly consistent with previous infarct. Mid-portion of RCA - 50-70% stenosis. Elevated right heart pressures. - Echo on 10/02/2020 showed LVEF 25 - 30%, moderate/severe MR. Severe hypokinesis of the left ventricle with akinesis of the apex. - Continue isosorbide mononitrate, losartan, metoprolol. - Presently still hypervolemic on exam -> continue Lasix 40 mg IV BID (2) Atrial fibrillation: Patient in atrial fibrillation, rate of 90 - 100 at present. - Continue apixaban - Continue metoprolol XL 100 mg PO daily - Metoprolol 5 mg IV q 4h as needed for HR > 120bpm (3) Hypertension: Blood pressure well controlled today at 115/80. - Continue above meds (4) Diabetes mellitus, type 2: Blood sugar mildly elevated on admission. However, he reports he sometimes runs ~150 - 200 in the [facility], even on his AM check. A1c is 7.2% this admission. - Lantus 30 units down to QAM (from BID at the [facility]) due to the patient "feeling low" when he is in the 80s. - Sliding scale insulin - As above, has been dropping into the 80 - 90 range and feels low. Mildly loosened his sliding scale as well. (5) Hyperlipidemia: - Continue atorvastatin (6) COPD (chronic obstructive pulmonary disease): No shortness of breath today. Do not strongly suspect COPD exacerbation at this time. - Albuterol PRN (7) Bipolar disorder: Patient states that his moods are stable. He recently had some medication adjustments, is uncertain of details. States he is doing well on current regimen. - Continue loxapine 10 mg PO BID - Continue duloxetine 60 mg PO qHS - Continue Divalproex 1000 mg PO BID - Continue benztropine 1mg PO daily - Benadryl QHS PRN insomnia (8) Sleep apnea: CPAP HS and PRN F/E/N - Diuresis with Lasix 40mg IV BID, monitor electrolytes, CC/AHA diet as tolerated Ppx - On Apixaban for AF, continue Code - Full per discussion with patient Dispo - Admit to PCU Admission and Anticipated Discharge Date Admission Date: October 02, 2020 Subjective Feels well overall. Less swelling. No shortness of breath. Reports no fevers/chills, chest pain, abdominal pain, nausea, or vomiting. Physical Exam Constitutional: WD/WN, vitals as above Eyes: EOM intact bilaterally; no conjunctival abnormality ENMT: external ear and nose normal, oropharynx normal Neck: trachea midline, no thyromegaly normal visual inspection Respiratory: normal respiratory effort, lungs clear to auscultation no respiratory distress Cardiovascular: Rate/Rhythm: + tachycardic and + irregularly irregular Heart Sounds: normal S1 and normal S2 Extremities: + edema (Trace) Gastrointestinal (Abdomen): Inspection/Auscultation: abdomen normal to inspection; abdomen not distended Musculoskeletal: no cyanosis or clubbing, extremities motor strength 5/5 Skin: no rashes, warm and dry Neurologic: moves all extremities and awake Psychiatric: Orientation: alert, oriented to person and cooperative Results & Data Results & Data ([facility]) Vital Signs (Past 12 Hours) Vital Signs Temp Pulse Pulse Resp BP BP Pulse Ox 10/04/20 15:30 36.5 C 108 H 17 113/80 90 10/04/20 14:00 104 H 10/04/20 11:45 36.9 C 79 18 126/91 95 10/04/20 08:00 36.8 C 108 H 17 150/93 H 94 10/04/20 07:00 115 H 10/04/20 04:36 36.5 C 115 H 20 131/85 99 PG Care Time/CCT Total # of Minutes Spent Total Time Spent with Patient: Total time spent is greater than 50% in coordination of care (as documented) at patient's floor/unit and/or counseling patient: Coding Level of Care Code 19042 Subseq Hosp Care Lvl 3 Diagnoses CHF (congestive heart failure) I50.9 Atrial fibrillation I48.0 Atrial fibrillation type: paroxysmal Hypertension I10 Hypertension type: essential hypertension Diabetes mellitus, type 2 E11.9; Z79.4 Diabetes mellitus cutter finisher insulin use: with cutter finisher use Diabetes mellitus complication status: without complication Hyperlipidemia E78.5 Hyperlipidemia type: unspecified COPD (chronic obstructive pulmonary disease) J44.9 COPD type: unspecified COPD Bipolar disorder F31.9 Active/Remission status: remission status unspecified Sleep apnea G47.30 Sleep apnea type: unspecified type (1) Hyperlipidemia Hyperlipidemia type: unspecified Qualified Code(s): E78.5 - Hyperlipidemia, unspecified (2) Hypertension Hypertension type: essential hypertension Qualified Code(s): I10 - Essential (primary) hypertension (3) Diabetes mellitus, type 2 Diabetes mellitus longterm insulin use: with longterm use Diabetes mellitus complication status: without complication Qualified Code(s): E11.9 - Type 2 diabetes mellitus without complications; 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
[2020-10-04] MEDS: DULoxetine HCL 60 MG CAP PO SCH (21:01)
[2020-10-04] MEDS: ATORVASTATIN 40 MG TAB PO SCH (21:02)
[2020-10-05] MEDS: INSULIN ASPART 100 UNITS/ML 3 ML PEN SC SCH ×4 (08:00→20:31)
[2020-10-05] MEDS: INSULIN GLARGINE SOLOSTAR 100 UNITS/ML 3 ML PEN SC SCH (08:01)
[2020-10-05] MEDS: DIVALPROEX DELAY RELEASE 500 MG TAB PO SCH ×2 (08:02→20:30)
[2020-10-05] MEDS: METOPROLOL SUCC 50MG EXT REL TAB PO SCH (08:02)
[2020-10-05] MEDS: ISOSORBIDE MONO EXTENDED REL 60 MG TABCR PO SCH (08:02)
[2020-10-05] MEDS: APIXABAN 5 MG TABLET PO SCH ×2 (08:02→20:31)
[2020-10-05] MEDS: ASPIRIN 81 MG ECTAB PO SCH (08:02)
[2020-10-05 08:03] LABS: Hematocrit (blood only) 41.5 % (42-52); Hemoglobin 13.5 g/dL (14.0-18.0); Mean Corpuscular Hgb Conc 32.5 g/dL (32-36); Mean Corpuscular Volume 89.2 fL (80-100); Mean Platelet Volume 11.2 fL (7.4-10.4); Platelet Count 143 K/uL (130-400); RDW Coefficient of Variation 14.4 % (11.5-14.5); RDW Standard Deviation 46.7 fL (36.4-46.3); Red Blood Count 4.65 M/uL (4.7-6.1); White Blood Count 6.51 K/uL (4.8-10.8)
[2020-10-05] MEDS: FUROSEMIDE 40 MG in SYRINGE 0 ML IV SCH ×2 (08:03→17:31)
[2020-10-05] MEDS: LOSARTAN POTASSIUM 50 MG TAB PO SCH (08:03)
[2020-10-05] MEDS: BENZTROPINE MESYLATE 1 MG TAB PO SCH (08:03)
[2020-10-05] MEDS: LOXAPINE SUCCINATE 5 MG PO SCH ×2 (08:04→20:30)
[2020-10-05 08:37] LABS: BUN Creatinine Ratio 21.5 (10-20); Calcium 8.4 mg/dl (8.5-10.1); Creatinine Clr Calc Pharmacy 157.3 ml/min; Est GFR (African American) 126.1 ml/min; Est GFR (Non-African American) 108.8 ml/min; Magnesium 2.3 mg/dl (1.8-2.4); Potassium 3.8 mmol/L (3.5-5.1)
--- NOTE | 2020-10-05 13:24 | Cardiology Progress Note ---
Date of Service October 05, 2020 Assessment & Plan (1) Acute on chronic systolic (congestive) heart failure: (2) Cardiomyopathy: (3) CAD (coronary artery disease): (4) Atrial fibrillation, permanent: (5) Hypertension: (6) Hyperlipidemia: (7) Mitral regurgitation: ASSESSMENT/PLAN: 1. Acute on chronic CHF: Likely still mildly hypervolemic. Can continue current diuretic regimen. Initiate spironolactone 25 mg daily. Continue to titrate beta-mini. Consider Entresto in place of losartan if available at his correctional facility. He did not tolerate ELIZABETH-inhibitor in the past due to cough. Low-sodium diet, less than 2000 mg daily. Continue daily weights and strict I's and nose while hospitalized. 2. Cardiomyopathy: Appears to be nonischemic in origin. Could be related to AFib with RVR as well. Optimize medical therapy and repeat echocardiogram once on optimal therapy for 3 months. If LV systolic function remains severely reduced, would consider ICD for primary prevention at that time. 3. CAD: Nonobstructive CAD reported in non dominant RCA with possible distal LAD disease. This would not account for the degree of his LV systolic dysfunction and his EF at the time of cardiac catheterization was reported as 20-30%. No angina. Continue high-intensity statin therapy and beta-mini. 4. Permanent atrial fibrillation: Heart rate is not adequately controlled based on telemetry. Increase metoprolol succinate 200 mg daily tomorrow. Will given additional 50 mg today for a total of 150 mg including his morning dose. Continue anticoagulation for stroke risk reduction. 5. Hypertension: Blood pressure currently reasonably controlled. Titrating medications as above. 6. Dyslipidemia: Continue high-intensity statin therapy. 7. Mitral regurgitation: Echo during this hospital stay notable for non severe mitral regurgitation, appearing moderate on personal review. Can monitor over time. May appear less significant following diuresis. 8. Disposition: Cardiology will continue to follow while hospitalized. Kenya Cochran of the Heart failure program will likely see him tomorrow, and also as an outpatient. Follow with Cardiology as well in the outpatient setting. Patient care communicated with Dr. Schulte of the primary hospitalist service. Admission and Anticipated Discharge Date Admission Date: October 02, 2020 Subjective Mr. Carter states that his breathing is 90% improved. He still has some orthopnea. He denies chest pain, palpitations, syncope, near-syncope. Edema has improved. He admits that he consumes large amounts of sodium typically. He states that he was reading through the heart failure information packet to better educate himself. He states that he is tired. He was up most of the night per his report. Two skilled nursing guards were present at the bedside. Review of systems: As above. Physical Exam Physical Exam: Gen.: No acute distress. Somnolent but easily arousable to verbal stimuli and then was able to carry on a conversation. HEENT: Anicteric sclera. Neck: No JVD. No appreciable hepatic jugular reflux. Cardiac: Irregularly irregular and mildly tachycardic. Normal S1-S2. No murmurs, rubs, or gallops. Pulmonary: Clear to auscultation bilaterally without wheezes, rales, or rhonchi. Abdomen: Soft, nontender, nondistended, with normoactive bowel sounds. No bruits noted. Extremities: 2+ radial pulses bilaterally. 2+ posterior tibialis pulses bilaterally. 1+ bilateral lower extremity edema. No cyanosis. Psychiatric: Affect appears appropriate. Results & Data ([facility]) Vital Signs (Past 12 Hours) Vital Signs Temp Pulse Pulse Resp BP Pulse Ox 10/05/20 11:52 36.6 C 85 18 126/86 92 10/05/20 08:00 112 H 10/05/20 07:19 36.6 C 92 H 17 137/93 92 10/05/20 04:05 36.3 C L 90 20 122/88 99 10/05/20 03:24 68 14 94 Intake & Output 10/03/20 10/04/20 10/05/20 10/06/20 06:59 06:59 06:59 06:59 Intake Total 1220 / 1220 480 / 480 Output Total 2800 / 2800 3550 / 3550 4505 / 4505 Balance -1580 / -1580 -3550 / -3550 -4025 / -4025 Weight 237 lb 3.478 oz 235 lb 0.204 oz 225 lb 4.999 oz Laboratory Results Laboratory Results - last 24 hr 10/04/20 10/04/20 10/04/20 13:50 16:27 20:57 WBC RBC Hgb Hct MCV MCH MCHC RDW Std Deviation RDW Coeff of Richard Plt Count MPV Sodium Potassium Chloride Carbon Dioxide Anion Gap BUN Creatinine Est Cr Clr Drug Dosing Est GFR ( Amer) Est GFR (Non-Af Amer) BUN/Creatinine Ratio Glucose POC Glucose 124 H 89 95 Calcium Magnesium 10/05/20 10/05/20 10/05/20 07:32 07:32 07:32 WBC 6.51 RBC 4.65 L Hgb 13.5 L Hct 41.5 L MCV 89.2 MCH 29.0 MCHC 32.5 RDW Std Deviation 46.7 H RDW Coeff of Richard 14.4 Plt Count 143 MPV 11.2 H Sodium 144 Potassium 3.8 D Chloride 112 H Carbon Dioxide 27 Anion Gap 5.0 BUN 16 Creatinine 0.72 Est Cr Clr Drug Dosing 157.3 Est GFR ( Amer) 126.1 Est GFR (Non-Af Amer) 108.8 BUN/Creatinine Ratio 21.5 H Glucose 110 H POC Glucose 95 Calcium 8.4 L Magnesium 2.3 10/05/20 11:32 WBC RBC Hgb Hct MCV MCH MCHC RDW Std Deviation RDW Coeff of Richard Plt Count MPV Sodium Potassium Chloride Carbon Dioxide Anion Gap BUN Creatinine Est Cr Clr Drug Dosing Est GFR ( Amer) Est GFR (Non-Af Amer) BUN/Creatinine Ratio Glucose POC Glucose 149 H Calcium Magnesium Diagnostic Findings Telemetry personally reviewed: Atrial fibrillation, mostly with rapid ventricular response. Cardiac catheterization report from 05/12/2017 reviewed: EF 20-30%. Severe MR. Left dominant system. Pruning of the distal LAD with otherwise luminal irregularities. Non dominant RCA with 50-70% mid RCA stenosis. Echo was reviewed from 10/02/2020 and 05/10/2017: Images personally reviewed: Currently severely reduced LV systolic function, worsened from 05/10/2017. 05/10/2017 echo had more in the range of moderate LV systolic dysfunction. Mitral regurgitation currently appears moderate, appearing more severe on 2017 echo. Medications Administered Current Inpatient Medications Acetaminophen (Acetaminophen 500 Mg Tab) 1,000 mg PO Q8H PRN PRN Reason: pain Stop: 11/01/20 08:59 Last Admin: 10/02/20 20:11 Dose: 1,000 mg Documented by: Albuterol (Albuterol 0.083% Nebu Soln 3 Ml Vial) 2.5 mg INH Q2H PRN PRN Reason: SOB/Wheeze Stop: 11/01/20 06:27 Apixaban (Apixaban 5 Mg Tablet) 5 mg PO BID [facility] Stop: 11/01/20 08:59 Last Admin: 10/05/20 08:02 Dose: 5 mg Documented by: Aspirin (Aspirin 81 Mg Ectab) 81 mg PO DAILY [facility] Stop: 11/01/20 08:59 Last Admin: 10/05/20 08:02 Dose: 81 mg Documented by: Atorvastatin Calcium (Atorvastatin 40 Mg Tab) 40 mg PO HS [facility]SCAR Stop: 11/01/20 20:59 Last Admin: 10/04/20 21:02 Dose: 40 mg Documented by: Benztropine Mesylate (Benztropine Mesylate 1 Mg Tab) 1 mg PO DAILY [facility] Stop: 11/01/20 08:59 Last Admin: 10/05/20 08:03 Dose: 1 mg Documented by: Dextrose (Dextrose 50% 50 Ml Syringe) 25 - 50 ml IV UD PRN; Protocol PRN Reason: Hypoglycemia Protocol Stop: 11/01/20 06:15 Diphenhydramine HCl (Diphenhydramine Capsule 25 Mg Cap) 100 mg PO HS PRN PRN Reason: Sleep Stop: 11/01/20 06:28 Divalproex Sodium (Divalproex Delay Release 500 Mg Tab) 1,000 mg PO BID [facility] Stop: 11/01/20 08:59 Last Admin: 10/05/20 08:02 Dose: 1,000 mg Documented by: Duloxetine HCl (Duloxetine Hcl 60 Mg Cap) 60 mg PO HS [facility]SC[facility] Stop: 11/01/20 20:59 Last Admin: 10/04/20 21:01 Dose: 60 mg Documented by: Glucagon (Glucagon For Inj 1 Mg Vial) 1 mg SQ UD PRN; Protocol PRN Reason: Hypoglycemia Protocol Stop: 11/01/20 06:15 Glucose (Glucose 10 Tabs/Tube) 4 - 8 tabs PO UD PRN; Protocol PRN Reason: Hypoglycemia Protocol Stop: 11/01/20 06:15 Glucose (Glucose 40% Gel 15 Gm Tube) 15 - 30 gm PO UD PRN; Protocol PRN Reason: Hypoglycemia Protocol Stop: 11/01/20 06:15 Furosemide 40 mg/ Syringe 4 mls @ 4 mls/min IV BID17 [facility] Stop: 11/01/20 08:59 Last Admin: 10/05/20 08:03 Dose: 4 mls/min Documented by: Insulin Aspart (Insulin Aspart 100 Units/Ml 3 Ml Pen) 0 units SC ACHS [facility] Stop: 11/01/20 07:29 Last Admin: 10/05/20 12:48 Dose: 5 units Documented by: Insulin Glargine (Insulin Glargine Solostar 100 Units/Ml 3 Ml Pen) 30 units SC QAM [facility] [place] Stop: 11/04/20 08:59 Last Admin: 10/05/20 08:01 Dose: 30 units Documented by: Isosorbide Mononitrate (Isosorbide [place] Extended Rel 60 Mg Tabcr) 60 mg PO DAILY [facility] [place] Stop: 11/01/20 08:59 Last Admin: 10/05/20 08:02 Dose: 60 mg Documented by: Losartan Potassium (Losartan Potassium 50 Mg Tab) 50 mg PO DAILY [facility] [place] Stop: 11/01/20 08:59 Last Admin: 10/05/20 08:03 Dose: 50 mg Documented by: Loxapine Succinate (Loxapine Succinate 5mg Capsule) 2 ea PO BID [facility] [place] Stop: 11/02/20 20:59 Last Admin: 10/05/20 08:04 Dose: 2 ea Documented by: Metoprolol Succinate (Metoprolol Succ 50mg Ext Rel Tab) 100 mg PO QAM [facility] Stop: 11/03/20 08:59 Last Admin: 10/05/20 08:02 Dose: 100 mg Documented by: Metoprolol Tartrate (Metoprolol Tartrate 1 Mg/Ml Vial) 5 mg IV Q4H PRN PRN Reason: tachycardia Stop: 11/01/20 06:15 Miscellaneous (Carbohydrates For Hypoglycemia ) 15 - 30 gm PO UD PRN PRN Reason: Hypoglycemia Protocol Stop: 11/01/20 06:15 Ondansetron HCl (Ondansetron Inj 2 Mg/Ml 2 Ml Vial) 4 mg IV Q6H PRN PRN Reason: Nausea Stop: 11/01/20 06:15 PG Care Time/CCT Total # of Minutes Spent Total Time Spent with Patient: Total time spent is greater than 50% in coordination of care (as documented) at patient's floor/unit and/or counseling patient: Coding Level of Care Code 23929 Subseq Hosp Care Lvl 3 Diagnoses Acute on chronic systolic (congestive) heart failure I50.23 Cardiomyopathy I42.9 CAD (coronary artery disease) I25.10 Atrial fibrillation, permanent I48.21 Hypertension I10 Hypertension type: essential hypertension Hyperlipidemia E78.5 Hyperlipidemia type: unspecified Mitral regurgitation I34.0 (1) Hypertension Hypertension type: essential hypertension Qualified Code(s): I10 - Essential (primary) hypertension (2) Hyperlipidemia Hyperlipidemia type: unspecified Qualified Code(s): E78.5 - Hyperlipidemia, unspecified
[2020-10-05] MEDS ORDERED: SPIRONOLACTONE 25 MG TAB PO ONE (13:45)
[2020-10-05] MEDS ORDERED: METOPROLOL SUCC 50MG EXT REL TAB PO ONE (13:45)
--- NOTE | 2020-10-05 14:37 | Hospitalist Progress Note ---
Date of Service October 05, 2020 Assessment & Plan (1) CHF (congestive heart failure): Patient with acute systolic CHF. Likely non-ischemic cardiomyopathy. Patient had a right and left heart catheterization performed in 2017 which revealed a severe dilated cardiomyopathy with EF of 20-30% by LV gram, severe MR. He had pruning of distal LAD possibly consistent with previous infarct. Mid- portion of RCA - 50-70% stenosis. Elevated right heart pressures. - Echo on 10/02/2020 showed LVEF 25 - 30%, moderate/severe MR. Severe hypokinesis of the left ventricle with akinesis of the apex. - Continue isosorbide mononitrate, losartan, metoprolol. - Presently still hypervolemic on exam -> continue Lasix 40 mg IV BID (2) Atrial fibrillation: Patient in atrial fibrillation, rate of 90 - 100 at present. - Continue apixaban -> Will speak with [facility] tomorrow. I do not think they use anything but warfarin. - Continue metoprolol XL daily -> Titrated up by cardiology over today and tomorrow to 200 mg PO daily - Metoprolol 5 mg IV q 4h as needed for HR > 120bpm (3) Hypertension: Blood pressure well controlled today at 125/85. - Continue above meds (4) Diabetes mellitus, type 2: Blood sugar mildly elevated on admission. However, he reports he sometimes runs ~150 - 200 in the [facility], even on his AM check. A1c is 7.2% this admission. - Lantus 30 units down to QAM (from BID at the [facility]) due to the patient "feeling low" when he is in the 80s. - Sliding scale insulin - Doing better today. Low of 95 in the morning, but well-controlled after lunch. (5) Hyperlipidemia: - Continue atorvastatin (6) COPD (chronic obstructive pulmonary disease): No shortness of breath today. Do not strongly suspect COPD exacerbation at this time. - Albuterol PRN (7) Bipolar disorder: Patient states that his moods are stable. He recently had some medication adjustments, is uncertain of details. States he is doing well on current regimen. - Continue loxapine 10 mg PO BID - Continue duloxetine 60 mg PO qHS - Continue Divalproex 1000 mg PO BID - Continue benztropine 1mg PO daily - Benadryl QHS PRN insomnia (8) Sleep apnea: CPAP HS and PRN (9) DVT prophylaxis: Apixaban Admission and Anticipated Discharge Date Admission Date: October 02, 2020 Subjective Doing well today. Feels legs are doing better. shortness of breath has almost resolved. Reports no fevers/chills, chest pain, abdominal pain, nausea, or vomiting. Physical Exam Constitutional: WD/WN, vitals as above Eyes: EOM intact bilaterally; no conjunctival abnormality ENMT: external ear and nose normal, oropharynx normal Neck: trachea midline, no thyromegaly normal visual inspection Respiratory: normal respiratory effort, lungs clear to auscultation no respiratory distress Cardiovascular: Rate/Rhythm: + tachycardic and + irregularly irregular Heart Sounds: normal S1 and normal S2 Extremities: + edema (Trace) Gastrointestinal (Abdomen): Inspection/Auscultation: abdomen normal to inspection; abdomen not distended Musculoskeletal: no cyanosis or clubbing, extremities motor strength 5/5 Skin: no rashes, warm and dry Neurologic: moves all extremities and awake Psychiatric: Orientation: alert, oriented to person and cooperative Results & Data Results & Data ([facility]) Vital Signs (Past 12 Hours) Vital Signs Temp Pulse Pulse Resp BP Pulse Ox 10/05/20 11:52 36.6 C 85 18 126/86 92 10/05/20 08:00 112 H 10/05/20 07:19 36.6 C 92 H 17 137/93 92 10/05/20 04:05 36.3 C L 90 20 122/88 99 10/05/20 03:24 68 14 94 PG Care Time/CCT Total # of Minutes Spent Total Time Spent with Patient: Total time spent is greater than 50% in coordination of care (as documented) at patient's floor/unit and/or counseling patient: Coding Level of Care Code 73524 Subseq Hosp Care Lvl 2 Diagnoses CHF (congestive heart failure) I50.9 Atrial fibrillation I48.0 Atrial fibrillation type: paroxysmal Hypertension I10 Hypertension type: essential hypertension Diabetes mellitus, type 2 E11.9; Z79.4 Diabetes mellitus 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 Diabetes mellitus complication status: without complication Hyperlipidemia E78.5 Hyperlipidemia type: unspecified COPD (chronic obstructive pulmonary disease) J44.9 COPD type: unspecified COPD Bipolar disorder F31.9 Active/Remission status: remission status unspecified Sleep apnea G47.30 Sleep apnea type: unspecified type DVT prophylaxis Z29.9 (1) Atrial fibrillation Atrial fibrillation type: paroxysmal Qualified Code(s): I48.0 - Paroxysmal atrial fibrillation (2) Hypertension Hypertension type: essential hypertension Qualified Code(s): I10 - Essential (primary) hypertension (3) Diabetes mellitus, type 2 Diabetes mellitus 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 Diabetes mellitus complication status: without complication Qualified Code(s): E11.9 - Type 2 diabetes mellitus without complications; 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
[2020-10-05] MEDS: ATORVASTATIN 40 MG TAB PO SCH (20:30)
[2020-10-05] MEDS: DULoxetine HCL 60 MG CAP PO SCH (20:31)
[2020-10-06 07:39] LABS: Hematocrit (blood only) 42.1 % (42-52); Hemoglobin 13.8 g/dL (14.0-18.0); Mean Corpuscular Hemoglobin 29.4 pg (25-34); Mean Corpuscular Hgb Conc 32.8 g/dL (32-36); Mean Corpuscular Volume 89.8 fL (80-100); Mean Platelet Volume 10.9 fL (7.4-10.4); Platelet Count 165 K/uL (130-400); RDW Coefficient of Variation 14.3 % (11.5-14.5); RDW Standard Deviation 46.9 fL (36.4-46.3); Red Blood Count 4.69 M/uL (4.7-6.1); White Blood Count 6.67 K/uL (4.8-10.8)
[2020-10-06 07:54] LABS: Calcium 8.6 mg/dl (8.5-10.1); Creatinine Clr Calc Pharmacy 118.1 ml/min; Est GFR (African American) 109.1 ml/min; Est GFR (Non-African American) 94.2 ml/min; Potassium 3.6 mmol/L (3.5-5.1)
[2020-10-06] MEDS: INSULIN ASPART 100 UNITS/ML 3 ML PEN SC SCH ×4 (08:21→21:00)
[2020-10-06] MEDS: INSULIN GLARGINE SOLOSTAR 100 UNITS/ML 3 ML PEN SC SCH (08:21)
[2020-10-06] MEDS: LOSARTAN POTASSIUM 50 MG TAB PO SCH (08:22)
[2020-10-06] MEDS: DIVALPROEX DELAY RELEASE 500 MG TAB PO SCH ×2 (08:22→20:29)
[2020-10-06] MEDS: APIXABAN 5 MG TABLET PO SCH ×2 (08:22→20:28)
[2020-10-06] MEDS: SPIRONOLACTONE 25 MG TAB PO SCH (08:23)
[2020-10-06] MEDS: METOPROLOL SUCC 50MG EXT REL TAB PO SCH (08:23)
[2020-10-06] MEDS: ASPIRIN 81 MG ECTAB PO SCH (08:23)
[2020-10-06] MEDS: BENZTROPINE MESYLATE 1 MG TAB PO SCH (08:23)
[2020-10-06] MEDS: ISOSORBIDE MONO EXTENDED REL 60 MG TABCR PO SCH (08:24)
[2020-10-06] MEDS: LOXAPINE SUCCINATE 5 MG PO SCH ×2 (08:24→20:28)
[2020-10-06] MEDS: FUROSEMIDE 40 MG in SYRINGE 0 ML IV SCH ×2 (12:16→17:56)
--- NOTE | 2020-10-06 12:36 | Heart Failure Progress Note ---
Date of Service October 06, 2020 Assessment & Plan (1) Acute on chronic systolic (congestive) heart failure: (2) Cardiomyopathy: (3) CAD (coronary artery disease): (4) Atrial fibrillation, permanent: (5) Hypertension: (6) Hyperlipidemia: (7) Mitral regurgitation: ASSESSMENT/PLAN: 1. Acute on chronic CHF: Likely nearing euvolemia. Can continue current diuretic regimen today. Can likely transition to PO regimen tomorrow. Would recommend Lasix 40 mg PO BID on discharge. He will [facility] labs at the [facility] early next week (BMP, magnesium, ProBNP). Continue spironolactone 25 mg daily. Continue to Metoprolol 200 mg daily. Consider Entresto in place of losartan if available at his correctional facility. He did not tolerate ELIZABETH-inhibitor in the past due to cough. Low-sodium diet, less than 2000 mg daily. Educated patient on low sodium diet restrictions. Assured him he is receiving adequate calories. Continue daily weights and strict I's and nose while hospitalized. 2. Cardiomyopathy: Appears to be nonischemic in origin. Could be related to AFib with RVR as well. Continue Metoprolol succinate 200 mg daily, Losartan, and Spironolactone. Optimize medical therapy and repeat echocardiogram once on optimal therapy for 3 months. If LV systolic function remains severely reduced, would consider ICD for primary prevention at that time. 3. CAD: Nonobstructive CAD reported in non dominant RCA with possible distal LAD disease. This would not account for the degree of his LV systolic dysfunction and his EF at the time of cardiac catheterization was reported as 20-30%. No angina. Continue high-intensity statin therapy and beta-brian. 4. Permanent atrial fibrillation: Heart rate is not adequately controlled based on telemetry. Metoprolol increased this am. Rate slightly improved from 110s down to the 90s today. Could consider adding Digoxin for further rate optimi zation. Continue anticoagulation for stroke risk reduction. 5. Hypertension: Blood pressure currently reasonably controlled. Titrating medications as above. 6. Dyslipidemia: Continue high-intensity statin therapy. 7. Mitral regurgitation: Echo during this hospital stay notable for non severe mitral regurgitation, appearing moderate on personal review. Can monitor over time. May appear less significant following diuresis. 8. Disposition: Cardiology/HF will continue to follow while hospitalized. Follow up with both heart failure and Cardiology in the outpatient setting. Patient care communicated with Dr. Schulte of the primary hospitalist service. Admission and Anticipated Discharge Date Admission Date: October 02, 2020 Subjective Patient reports he's feeling improved more and more each day. He is sleeping comfortably but awakens easily. He is laying flat. He feels his breathing is 80- 85% improved. Edema is improving. He denies chest pain, palpitations, lightheadedness. His biggest complaint today is "they aren't feeding him enough." According to his guards, he has been requesting additional food after every meal. He continues Lasix 40 mg IV BID. Spironolactone recently added. He's averaging 3-4 L output daily. He's net negative 13 L for his hospitalization. Weight continues to trend down- 225 lb today. Physical Exam Physical Exam: Constitutional: Africian French. Alert, oriented, in no acute distress. Using CPAP but able to communicate. HEENT: Head is atraumatic and normocephalic. EOMs intact. Sclera anicteric. Face is symmetric. No perioral cyanosis. Mucous membranes moist. Neck: Supple, no JVD Pulmonary: Normal respiratory effort, mild bibasilar crackles. .No wheezes, rhonchi. Cardiac: Irregular rate and rhythm.Tachycardic. Normal S1 and S2, no gallops, no rubs, no murmurs Extremities: 2+ radial pulses bilaterally. 2+ posterior tibialis pulses bilaterally. Trace-1+ pitting edema to the knees. No cyanosis or clubbing. Abdomen: Normal bowel sounds, soft, non-tender, no abdominal mass palpated Skin: Normal skin color, turgor, and pigmentation, no rash, no skin lesions Neurological: Patient is awake, alert, and oriented. Pleasant and cooperative. Answers questions appropriately. Speech is clear. Normal movement in all 4 extremities. Results & Data ([facility]) Vital Signs (Past 12 Hours) Vital Signs Temp Pulse Pulse Resp BP Pulse Ox 10/06/20 11:23 98.2 F 71 19 125/89 93 10/06/20 07:41 98.2 F 106 H 20 117/75 91 10/06/20 04:10 97.9 F 110 H 12 129/94 100 10/06/20 03:12 107 H 19 98 10/06/20 00:37 115 H PG Care Time/CCT Total # of Minutes Spent Total Time Spent with Patient: Total time spent is greater than 50% in coordination of care (as documented) at patient's floor/unit and/or counseling patient: Heart Failure Data/Metrics Heart Failure Type: Systolic Evidenced Based Beta Brian Therapy Beta Brian Therapy: Yes ELIZABETH/ARB/ARNI Therapy ELIZABETH/ARB/ARNI Therapy: Yes Coding Level of Care Code 34957 Subseq Hosp Care Lvl 3 Diagnoses Acute on chronic systolic (congestive) heart failure I50.23 Cardiomyopathy I42.9 CAD (coronary artery disease) I25.10 Atrial fibrillation, permanent I48.21 Hypertension I10 Hypertension type: essential hypertension Hyperlipidemia E78.5 Hyperlipidemia type: unspecified Mitral regurgitation I34.0 (1) Hyperlipidemia Hyperlipidemia type: unspecified Qualified Code(s): E78.5 - Hyperlipidemia, unspecified (2) Hypertension Hypertension type: essential hypertension Qualified Code(s): I10 - Essential (primary) hypertension
--- NOTE | 2020-10-06 16:26 | Hospitalist Progress Note ---
Date of Service October 06, 2020 Assessment & Plan (1) CHF (congestive heart failure): Patient with acute systolic CHF. Likely non-ischemic cardiomyopathy. Patient had a right and left heart catheterization performed in 2017 which revealed a severe dilated cardiomyopathy with EF of 20-30% by LV gram, severe MR. He had pruning of distal LAD possibly consistent with previous infarct. Mid- portion of RCA - 50-70% stenosis. Elevated right heart pressures. - Echo on 10/02/2020 showed LVEF 25 - 30%, moderate/severe MR. Severe hypokinesis of the left ventricle with akinesis of the apex. - Continue isosorbide mononitrate, losartan, metoprolol. - Presently quite near euvolemic on exam -> continue Lasix 40 mg IV BID per cardiology. (2) Atrial fibrillation: Patient in atrial fibrillation, rate of 90 - 100 at night, but up to 110 - 120 while awake. - Continue apixaban -> Will speak with [facility] tomorrow. I do not think they use anything but warfarin. - Continue metoprolol XL daily -> Titrated up by cardiology to 200 mg PO daily; still with some room for better rate control. - Metoprolol 5 mg IV q 4h as needed for HR > 120bpm (3) Hypertension: Blood pressure well controlled today at 125/80. - Continue above meds (4) Diabetes mellitus, type 2: Blood sugar mildly elevated on admission. However, he reports he sometimes runs ~150 - 200 in the [facility], even on his AM check. A1c is 7.2% this admission. - Lantus 30 units down to QAM (from BID at the [facility]) due to the patient "feeling low" when he is in the 80s. - Sliding scale insulin - Doing well today. Blood sugars at goal. (5) Hyperlipidemia: - Continue atorvastatin (6) COPD (chronic obstructive pulmonary disease): No shortness of breath today. Do not strongly suspect COPD exacerbation at this time. - Albuterol PRN (7) Bipolar disorder: Patient states that his moods are stable. He recently had some medication adjustments, is uncertain of details. States he is doing well on current regimen. - Continue loxapine 10 mg PO BID - Continue duloxetine 60 mg PO qHS - Continue Divalproex 1000 mg PO BID - Continue benztropine 1mg PO daily - Benadryl QHS PRN insomnia (8) Sleep apnea: CPAP HS and PRN (9) DVT prophylaxis: Apixaban Admission and Anticipated Discharge Date Admission Date: October 02, 2020 Subjective Feels well overall. Asks for more food as he has with several other providers. Reports no fevers/chills, chest pain, shortness of breath, abdominal pain, nausea, or vomiting. Physical Exam Constitutional: WD/WN, vitals as above Eyes: EOM intact bilaterally; no conjunctival abnormality ENMT: external ear and nose normal, oropharynx normal Neck: trachea midline, no thyromegaly normal visual inspection Respiratory: normal respiratory effort, lungs clear to auscultation no respiratory distress Cardiovascular: Rate/Rhythm: + tachycardic and + irregularly irregular Heart Sounds: normal S1 and normal S2 Extremities: no edema Gastrointestinal (Abdomen): Inspection/Auscultation: abdomen normal to inspection; abdomen not distended Musculoskeletal: no cyanosis or clubbing, extremities motor strength 5/5 Skin: no rashes, warm and dry Neurologic: moves all extremities and awake Psychiatric: Orientation: alert, oriented to person and cooperative Results & Data Results & Data ([facility]) Vital Signs (Past 12 Hours) Vital Signs Temp Pulse Resp BP Pulse Ox 10/06/20 15:46 36.6 C 100 H 17 126/79 92 10/06/20 11:23 36.8 C 71 19 125/89 93 10/06/20 07:41 36.8 C 106 H 20 117/75 91 PG Care Time/CCT Total # of Minutes Spent Total Time Spent with Patient: Total time spent is greater than 50% in coordination of care (as documented) at patient's floor/unit and/or counseling patient: Coding Level of Care Code 73244 Subseq Hosp Care Lvl 2 Diagnoses CHF (congestive heart failure) I50.9 Atrial fibrillation I48.0 Atrial fibrillation type: paroxysmal Hypertension I10 Hypertension type: essential hypertension Diabetes mellitus, type 2 E11.9; Z79.4 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 Diabetes mellitus complication status: without complication Hyperlipidemia E78.5 Hyperlipidemia type: unspecified COPD (chronic obstructive pulmonary disease) J44.9 COPD type: unspecified COPD Bipolar disorder F31.9 Active/Remission status: remission status unspecified Sleep apnea G47.30 Sleep apnea type: unspecified type DVT prophylaxis Z29.9 (1) Atrial fibrillation Atrial fibrillation type: paroxysmal Qualified Code(s): I48.0 - Paroxysmal atrial fibrillation (2) Hypertension Hypertension type: essential hypertension Qualified Code(s): I10 - Essential (primary) hypertension (3) Diabetes mellitus, type 2 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: with [facility] use Diabetes mellitus complication status: without complication Qualified Code(s): E11.9 - Type 2 diabetes mellitus without complications; 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
[2020-10-06] MEDS: ATORVASTATIN 40 MG TAB PO SCH (20:29)
[2020-10-06] MEDS: DULoxetine HCL 60 MG CAP PO SCH (20:29)
[2020-10-07 06:48] LABS: Hematocrit (blood only) 44.1 % (42-52); Hemoglobin 14.5 g/dL (14.0-18.0); Mean Corpuscular Hemoglobin 29.7 pg (25-34); Mean Corpuscular Hgb Conc 32.9 g/dL (32-36); Mean Corpuscular Volume 90.4 fL (80-100); Platelet Count 167 K/uL (130-400); RDW Coefficient of Variation 14.2 % (11.5-14.5); Red Blood Count 4.88 M/uL (4.7-6.1); White Blood Count 6.57 K/uL (4.8-10.8)
[2020-10-07 07:19] LABS: BUN Creatinine Ratio 19.5 (10-20); Calcium 8.5 mg/dl (8.5-10.1); Creatinine Clr Calc Pharmacy 113.7 ml/min; Est GFR (African American) 105.1 ml/min; Est GFR (Non-African American) 90.7 ml/min; Magnesium 2.4 mg/dl (1.8-2.4); Potassium 3.8 mmol/L (3.5-5.1)
[2020-10-07] MEDS: INSULIN ASPART 100 UNITS/ML 3 ML PEN SC SCH ×4 (07:49→22:22)
[2020-10-07] MEDS: LOXAPINE SUCCINATE 5 MG PO SCH ×2 (09:19→20:01)
[2020-10-07] MEDS: DIVALPROEX DELAY RELEASE 500 MG TAB PO SCH ×2 (09:19→20:01)
[2020-10-07] MEDS: ASPIRIN 81 MG ECTAB PO SCH (09:20)
[2020-10-07] MEDS: ISOSORBIDE MONO EXTENDED REL 60 MG TABCR PO SCH (09:20)
[2020-10-07] MEDS: SPIRONOLACTONE 25 MG TAB PO SCH (09:20)
[2020-10-07] MEDS: BENZTROPINE MESYLATE 1 MG TAB PO SCH (09:20)
[2020-10-07] MEDS: METOPROLOL SUCC 50MG EXT REL TAB PO SCH (09:21)
[2020-10-07] MEDS: LOSARTAN POTASSIUM 50 MG TAB PO SCH (09:21)
[2020-10-07] MEDS: APIXABAN 5 MG TABLET PO SCH ×2 (09:21→20:01)
[2020-10-07] MEDS: INSULIN GLARGINE SOLOSTAR 100 UNITS/ML 3 ML PEN SC SCH (09:23)
--- NOTE | 2020-10-07 09:38 | Heart Failure Progress Note ---
Date of Service October 07, 2020 Assessment & Plan (1) Acute on chronic systolic (congestive) heart failure: (2) Cardiomyopathy: (3) CAD (coronary artery disease): (4) Atrial fibrillation, permanent: (5) Hypertension: (6) Hyperlipidemia: (7) Mitral regurgitation: ASSESSMENT/PLAN: 1. Acute on chronic CHF: Likely near euvolemic. Plan to stop IV diuretics and switch to PO today. Would recommend Lasix 40 mg PO BID on discharge. [facility] (BMP, magnesium, ProBNP). Continue spironolactone 25 mg daily. Continue to Metoprolol 200 mg daily. Consider Entresto in place of losartan if available at his correctional facility. He did not tolerate ELIZABETH-inhibitor in the past due to cough. Low-sodium diet, less than 2000 mg daily. Educated patient on low sodium diet restrictions. Assured him he is receiving adequate calories. Continue daily weights and strict I's and nose while hospitalized. 2. Cardiomyopathy: Appears to be nonischemic in origin. Could be related to AFib with RVR as well. Continue Metoprolol succinate 200 mg daily, Losartan, and Spironolactone. Optimize medical therapy and repeat echocardiogram once on optimal therapy for 3 months. If LV systolic function remains severely reduced, would consider ICD for primary prevention at that time. 3. CAD: Nonobstructive CAD reported in non dominant RCA with possible distal LAD disease. This would not account for the degree of his LV systolic dysfunction and his EF at the time of cardiac catheterization was reported as 20-30%. No angina. Continue high-intensity statin therapy and beta-brian. 4. Permanent atrial fibrillation: Heart rate is not adequately controlled based on telemetry. Metoprolol increased yesterday. Rate slightly improved but still 90s/100s at rest. Plan to initiate Digoxin for further rate optimization. Continue anticoagulation for stroke risk reduction. 5. Hypertension: Blood pressure currently reasonably controlled. Titrating medications as above. 6. Dyslipidemia: Continue high-intensity statin therapy. 7. Mitral regurgitation: Echo during this hospital stay notable for non severe mitral regurgitation, appearing moderate on personal review. Can monitor over time. May appear less significant following diuresis. 8. Disposition: Cardiology/HF will continue to follow while hospitalized. Follow up with both heart failure and Cardiology in the outpatient setting. Patient care communicated with Dr. Schulte of the primary hospitalist service. Admission and Anticipated Discharge Date Admission Date: October 02, 2020 Subjective Patient is feeling well. He continues to improve. He feels his breathing is at baseline. Edema has resolved. He has not been out of bed yet. He denies chest pain, palpitations, or lightheadedness. He's net negative 14 L for his admission. Weight 246 ---> 222 lb. Physical Exam Physical Exam: Constitutional: Africian Slovenian. Alert, oriented, in no acute distress. Using CPAP but able to communicate. HEENT: Head is atraumatic and normocephalic. EOMs intact. Sclera anicteric. Face is symmetric. No perioral cyanosis. Mucous membranes moist. Neck: Supple, no JVD Pulmonary: Normal respiratory effort, mild bibasilar crackles. .No wheezes, rhonchi. Cardiac: Irregular rate and rhythm.Tachycardic. Normal S1 and S2, no gallops, no rubs, no murmurs Extremities: 2+ radial pulses bilaterally. 2+ posterior tibialis pulses bilaterally. Trace pitting edema. No cyanosis or clubbing. Abdomen: Normal bowel sounds, soft, non-tender, no abdominal mass palpated Skin: Normal skin color, turgor, and pigmentation, no rash, no skin lesions Neurological: Patient is awake, alert, and oriented. Pleasant and cooperative. Answers questions appropriately. Speech is clear. Normal movement in all 4 extremities. Results & Data ([facility]) Vital Signs (Past 12 Hours) Vital Signs Temp Pulse Pulse Resp BP Pulse Ox 10/07/20 08:20 107 H 10/07/20 06:22 98.1 F 92 H 17 139/89 94 10/07/20 04:16 97.7 F 100 H 18 121/75 93 10/07/20 03:46 101 H 18 96 10/07/20 00:19 98.6 F 97 H 17 134/103 H 91 PG Care Time/CCT Total # of Minutes Spent Total Time Spent with Patient: Total time spent is greater than 50% in coordination of care (as documented) at patient's floor/unit and/or counseling patient: Heart Failure Data/Metrics Heart Failure Type: Systolic Ejection Fraction: 25-30 NYHA classification: II: Sx w/ usual activity Risk Stratification: B Dry Weight (kg): 220 Weight: 222 lb Pacemaker: No Implanted Cardiac Defibrillator (ICD): No Bi-V Pacemaker: No Bi-V Defibrillator: No Advanced Directives Discussed/Complete: Yes Diabetes Mellitus: No Evidenced Based Beta Brian Therapy Beta Brian Therapy: Yes Beta Brian Name: Metoprolol Succinate Beta Brian Target Therapy: Target Therapy ELIZABETH/ARB/ARNI Therapy ELIZABETH/ARB/ARNI Therapy: Yes ELIZABETH/ARB/ARNI Name: Losartan Aldosterone Antagonist Therapy Aldosterone Antagonist Therapy: Yes Coding Level of Care Code 17191 Subs Hosp Care Lv 3 Diagnoses Acute on chronic systolic (congestive) heart failure I50.23 Cardiomyopathy I42.9 CAD (coronary artery disease) I25.10 Atrial fibrillation, permanent I48.21 Hypertension I10 Hypertension type: essential hypertension Hyperlipidemia E78.5 Hyperlipidemia type: unspecified Mitral regurgitation I34.0 (1) Hypertension Hypertension type: essential hypertension Qualified Code(s): I10 - Essential (primary) hypertension (2) Hyperlipidemia Hyperlipidemia type: unspecified Qualified Code(s): E78.5 - Hyperlipidemia, unspecified
[2020-10-07] MEDS ORDERED: DIGOXIN 0.125 MG TAB PO SCH (09:45)
[2020-10-07] MEDS: FUROSEMIDE 40 MG in SYRINGE 0 ML IV SCH (09:54)
--- NOTE | 2020-10-07 10:45 | CT Scan Report ---
CT SCAN OF THE CHEST WITHOUT IV CONTRAST CLINICAL HISTORY: Hemoptysis. COMPARISON STUDY: Chest x-ray dated 10/02/2020. Chest CT dated 04/06/2017. TECHNIQUE: CT scan of the thorax was performed from the thoracic inlet to the upper abdomen. Images are reviewed in the axial, sagittal, and coronal planes. IV contrast was not administered for this ex amination as per the referring clinician. A dose lowering technique was utilized adhering to the holly concepcionples of PRASAD. CT DOSE: 604.34 mGy.cm FINDINGS: Thyroid: Imaged portions of the thyroid gland are normal in size and attenuation. Thoracic aorta: The thoracic aorta is normal in caliber and demonstrates standard 3-vessel arch anato my. Heart: The heart is enlarged and without pericardial effusion. There are scattered coronary artery ca lcifications. The pulmonary trunk is mildly dilated measuring 3.3 cm in diameter. This suggests pulmo nary artery hypertension. Lungs and pleural spaces: Mild emphysematous change is noted at the apices. Subtle groundglass consol idation is seen throughout both lungs, most confluent in the lower lobes. No pleural effusion is iden tified. There is mild intralobular septal thickening. The trachea and central airways are clear. A 3 mm right lower lobe pulmonary nodule is seen on image #225. Mediastinum: There are numerous mildly enlarged mediastinal lymph nodes. An AP window node on image # 121 measures 15 mm in short axis. Pretracheal nodes measure up to 11 mm in short axis, and right nasrin tracheal nodes measure up to 14 mm in short axis. Amira: Although not well evaluated without IV contrast, there is bilateral hilar adenopathy. Hilar nod es measure up to 15 mm in short axis. Axillae: There is no axillary lymphadenopathy. Upper abdomen: A 2.4 cm adenoma of the right adrenal gland has been present dating back to 2017. Visu alized upper abdominal viscera is otherwise grossly unremarkable. Skeletal structures: No lytic or blastic bony lesions are seen. IMPRESSION: 1. Cardiomegaly and mild emphysema. Intralobular septal thickening suggests a component of congestive failure and clinical correlation will be required. 2. Mild groundglass consolidation is seen throughout both lungs. This could represent mild pulmonary edema versus an infectious/inflammatory pneumonitis. Again, clinical correlation will be required. Ra diographic follow-up to resolution is recommended. 3. A 3 mm right lower lobe pulmonary nodule is indeterminant, but was not clearly seen on the 2017 ex amination. If clinically warranted this can be followed as per the Fleischner criteria below. 4. Mildly enlarged mediastinal and hilar lymph nodes are nonspecific and likely reactive. This can al so be reassessed at follow-up. 5. Additional findings as above. Please refer to below summary of Fleischner criteria recommendations for follow-up of incidental CT n odules (Arlene Carrasco, Guidelines for management of small pulmonary nodules detected on CT scans: A sta tement from the Fleischner Society, Radiology 237: [phone].) SOLID NODULES Solitary nodule size: <6 mm * low risk patients: no follow-up needed * high risk patients: optional CT at 12 months Solitary nodule size: 6-8 mm * low risk patients: follow-up at 6-12 months, then consider further follow-up at 18-24 months * high risk patients: initial follow-up CT at 6-12 months and then at 18-24 months if no change Solitary nodule size: >8 mm * either low or high risk patients - consider follow-up CT at 3 months, and/or CT-PET, and/or biopsy Multiple nodules size: <6 mm * low risk patients: no routine follow-up * high risk patients: optional CT at 12 months Multiple nodules size: 6-8 mm * low risk patients: follow-up at 3-6 months, then consider further follow-up at 18-24 months * high risk patients: follow-up at 3-6 months, then at 18-24 months if no change Multiple nodules size: >8 mm * low risk patients: follow-up at 3-6 months, then consider further follow-up at 18-24 months * high risk patients: follow-up at 3-6 months, then at 18-24 months if no change Note: newly detected indeterminate nodule in persons 35 years of age or older. * low risk patients: minimal or absent history of smoking and/or other known risk factors * high risk patients: history of smoking or of other known risk factors (e.g. first degree relative with lung cancer, or exposure to asbestos, radon, uranium) * if a nodule up to 8 mm is partly solid or is ground glass further follow-up is required after 24 m onths to exclude possible slow growing adenocarcinoma (JIMMY) SUBSOLID NODULES Solitary pure ground-glass nodule * nodule size <6 mm - no CT follow-up required * nodule size >=6 mm - follow-up CT at 6-12 months, then every 2 years until 5 years Solitary part-solid nodule * nodule size <6 mm - no CT follow-up required * nodule size >=6 mm - follow-up CT at 3-6 months. If unchanged, and solid component remains <6 mm, then annual follow-up for 5 years Multiple subsolid nodules * nodule size <6 mm - follow-up CT at 3-6 months, consider further follow-up at 2 and 4 years if sta ble * nodule size >=6 mm - follow-up CT at 3-6 months, subsequent management based on the most suspiciou s nodule(s) ACT 112: Negative or not required by law. Electronically signed by: Carlos Davidson M.D. 10/07/2020 10:44 AM
--- NOTE | 2020-10-07 16:04 | Hospitalist Progress Note ---
Date of Service October 07, 2020 Assessment & Plan (1) CHF (congestive heart failure): Patient with acute systolic CHF. Likely non-ischemic cardiomyopathy. Patient had a right and left heart catheterization performed in 2017 which revealed a severe dilated cardiomyopathy with EF of 20-30% by LV gram, severe MR. He had pruning of distal LAD possibly consistent with previous infarct. Mid- portion of RCA - 50-70% stenosis. Elevated right heart pressures. - Echo on 10/02/2020 showed LVEF 25 - 30%, moderate/severe MR. Severe hypokinesis of the left ventricle with akinesis of the apex. - Continue isosorbide mononitrate, losartan, metoprolol, spironolactone - Presently quite near euvolemic on exam -> Switch to Lasix 40 mg PO BID per cardiology. (2) Atrial fibrillation: Patient in atrial fibrillation, rate of 90 - 100 at night, but up to 110 - 120 while awake. - Continue apixaban -> Will speak with correction tomorrow. I do not think they use anything but warfarin. - Continue metoprolol XL daily -> Titrated up by cardiology to 200 mg PO daily; still with some room for better rate control. Added digoxin today. - Metoprolol 5 mg IV q 4h as needed for HR > 120bpm (3) Hypertension: Blood pressure well controlled today at 125/80. - Continue above meds (4) Diabetes mellitus, type 2: Blood sugar mildly elevated on admission. However, he reports he sometimes runs ~150 - 200 in the correction, even on his AM check. A1c is 7.2% this admission. - Lantus 30 units down to QAM (from BID at the correction) due to the patient "feeling low" when he is in the 80s. - Sliding scale insulin - Doing well today. Blood sugars at goal. (5) Hyperlipidemia: - Continue atorvastatin (6) COPD (chronic obstructive pulmonary disease): No shortness of breath today. Do not strongly suspect COPD exacerbation at this time. - Albuterol PRN (7) Bipolar disorder: Patient states that his moods are stable. He recently had some medication adjustments, is uncertain of details. States he is doing well on current regimen. - Continue loxapine 10 mg PO BID - Continue duloxetine 60 mg PO qHS - Continue Divalproex 1000 mg PO BID - Continue benztropine 1mg PO daily - Benadryl QHS PRN insomnia (8) Sleep apnea: CPAP HS and PRN (9) DVT prophylaxis: Apixaban Admission and Anticipated Discharge Date Admission Date: October 02, 2020 Subjective Doing well today. Breathing is stable. Reports no fevers/chills, chest pain, shortness of breath, abdominal pain, nausea, or vomiting. Physical Exam Constitutional: WD/WN, vitals as above Eyes: EOM intact bilaterally; no conjunctival abnormality ENMT: external ear and nose normal, oropharynx normal Neck: trachea midline, no thyromegaly normal visual inspection Respiratory: normal respiratory effort, lungs clear to auscultation no respiratory distress Cardiovascular: Rate/Rhythm: + tachycardic and + irregularly irregular Heart Sounds: normal S1 and normal S2 Extremities: no edema Gastrointestinal (Abdomen): Inspection/Auscultation: abdomen normal to inspection; abdomen not distended Musculoskeletal: no cyanosis or clubbing, extremities motor strength 5/5 Skin: no rashes, warm and dry Neurologic: moves all extremities and awake Psychiatric: Orientation: alert, oriented to person and cooperative Results & Data Results & Data ([facility]) Vital Signs (Past 12 Hours) Vital Signs Temp Pulse Pulse Resp BP Pulse Ox 10/07/20 11:34 37.0 C 89 20 117/83 93 10/07/20 10:47 106 H 10/07/20 08:20 107 H 10/07/20 06:22 36.7 C 92 H 17 139/89 94 10/07/20 04:16 36.5 C 100 H 18 121/75 93 PG Care Time/CCT Total # of Minutes Spent Total Time Spent with Patient: Total time spent is greater than 50% in coordination of care (as documented) at patient's floor/unit and/or counseling patient: Coding Level of Care Code 42675 Subseq Hosp Care Lvl 2 Diagnoses CHF (congestive heart failure) I50.9 Atrial fibrillation I48.0 Atrial fibrillation type: paroxysmal Hypertension I10 Hypertension type: essential hypertension Diabetes mellitus, type 2 E11.9; Z79.4 Diabetes mellitus residential insulin use: with residential use Diabetes mellitus complication status: without complication Hyperlipidemia E78.5 Hyperlipidemia type: unspecified COPD (chronic obstructive pulmonary disease) J44.9 COPD type: unspecified COPD Bipolar disorder F31.9 Active/Remission status: remission status unspecified Sleep apnea G47.30 Sleep apnea type: unspecified type DVT prophylaxis Z29.9 (1) Atrial fibrillation Atrial fibrillation type: paroxysmal Qualified Code(s): I48.0 - Paroxysmal atrial fibrillation (2) Hypertension Hypertension type: essential hypertension Qualified Code(s): I10 - Essential (primary) hypertension (3) Diabetes mellitus, type 2 Diabetes mellitus residential insulin use: with 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 Diabetes mellitus complication status: without complication Qualified Code(s): E11.9 - Type 2 diabetes mellitus without complications; Z79.4 - intermediate project manager (current) use of insulin (4) Hyperlipidemia Hyperlipidemia type: unspecified Qualified Code(s): E78.5 - Hyperlipidemia, unspecified (5) COPD (chronic obstructive pulmonary disease) COPD type: unspecified COPD Qualified Code(s): J44.9 - Chronic obstructive pulmonary disease, unspecified (6) Bipolar disorder Active/Remission status: remission status unspecified Qualified Code(s): F31.9 - Bipolar disorder, unspecified (7) Sleep apnea Sleep apnea type: unspecified type Qualified Code(s): G47.30 - Sleep apnea, unspecified
[2020-10-07] MEDS: FUROSEMIDE 40 MG TAB PO SCH (17:03)
[2020-10-07] MEDS: DULoxetine HCL 60 MG CAP PO SCH (20:01)
[2020-10-07] MEDS: ATORVASTATIN 40 MG TAB PO SCH (20:01)
[2020-10-08 07:02] LABS: Hematocrit (blood only) 43.1 % (42-52); Hemoglobin 14.2 g/dL (14.0-18.0); Mean Corpuscular Hemoglobin 29.3 pg (25-34); Mean Corpuscular Hgb Conc 32.9 g/dL (32-36); Mean Platelet Volume 10.8 fL (7.4-10.4); Platelet Count 175 K/uL (130-400); RDW Coefficient of Variation 13.9 % (11.5-14.5); RDW Standard Deviation 45.6 fL (36.4-46.3); Red Blood Count 4.84 M/uL (4.7-6.1); White Blood Count 6.69 K/uL (4.8-10.8)
[2020-10-08 07:26] LABS: BUN Creatinine Ratio 20.1 (10-20); Calcium 8.4 mg/dl (8.5-10.1); Creatinine Clr Calc Pharmacy 137.8 ml/min; Est GFR (African American) 120.7 ml/min; Est GFR (Non-African American) 104.2 ml/min; Magnesium 2.2 mg/dl (1.8-2.4); Potassium 3.8 mmol/L (3.5-5.1)
[2020-10-08] MEDS: LOXAPINE SUCCINATE 5 MG PO SCH (08:16)
[2020-10-08] MEDS: METOPROLOL SUCC 50MG EXT REL TAB PO SCH (08:16)
[2020-10-08] MEDS: DIVALPROEX DELAY RELEASE 500 MG TAB PO SCH (08:17)
[2020-10-08] MEDS: APIXABAN 5 MG TABLET PO SCH (08:17)
[2020-10-08] MEDS: FUROSEMIDE 40 MG TAB PO SCH (08:17)
[2020-10-08] MEDS: ISOSORBIDE MONO EXTENDED REL 60 MG TABCR PO SCH (08:18)
[2020-10-08] MEDS: LOSARTAN POTASSIUM 50 MG TAB PO SCH (08:18)
[2020-10-08] MEDS: ASPIRIN 81 MG ECTAB PO SCH (08:18)
[2020-10-08] MEDS: SPIRONOLACTONE 25 MG TAB PO SCH (08:18)
[2020-10-08] MEDS: BENZTROPINE MESYLATE 1 MG TAB PO SCH (08:19)
[2020-10-08] MEDS: INSULIN ASPART 100 UNITS/ML 3 ML PEN SC SCH (08:29)
[2020-10-08] MEDS: INSULIN GLARGINE SOLOSTAR 100 UNITS/ML 3 ML PEN SC SCH (08:30)
--- NOTE | 2020-10-08 10:41 | Heart Failure Progress Note ---
Date of Service October 08, 2020 Assessment & Plan (1) Acute on chronic systolic (congestive) heart failure: (2) Cardiomyopathy: (3) CAD (coronary artery disease): (4) Atrial fibrillation, permanent: (5) Hypertension: (6) Hyperlipidemia: (7) Mitral regurgitation: ASSESSMENT/PLAN: 1. Acute on chronic CHF: Likely near euvolemic. Tolerating PO Lasix 40 mg BID. Weight and symptoms stable x 24 hrs. Would recommend Lasix 40 mg PO BID on discharge. May need to escalate diuretics at the retirement if he resumes high sodium diet. He will need labs at the retirement early next week (BMP, magnesium, ProBNP). Continue spironolactone 25 mg daily. Continue to Metoprolol 200 mg daily. Consider Entresto in place of losartan if available at his correctional facility- plan to discuss formulary with providers as outpatient. He did not tolerate ELIZABETH-inhibitor in the past due to cough. Low-sodium diet, less than 2000 mg daily. Educated patient on low sodium diet restrictions. Continue daily weights and strict I&Os while hospitalized. Will need to continue daily weights at the retirement. Discussed when to notify providers. 2. Cardiomyopathy: Appears to be nonischemic in origin. Could be related to AFib with RVR as well. Continue Metoprolol succinate 200 mg daily, , Digoxin, Losartan, and Spironolactone. Optimize medical therapy and repeat echocardiogram once on optimal therapy for 3 months. If LV systolic function remains severely reduced, would consider ICD for primary prevention at that time. 3. CAD: Nonobstructive CAD reported in non dominant RCA with possible distal LAD disease. This would not account for the degree of his LV systolic dysfunction and his EF at the time of cardiac catheterization was reported as 20-30%. No angina. Continue high-intensity statin therapy and beta-brian. 4. Permanent atrial fibrillation: Heart rate is not adequately controlled based on telemetry. Metoprolol 200 mg daily. Digoxin added 10/07. Rate trend slightly improved but still 90s/100s at rest. Continue anticoagulation for stroke risk reduction. 5. Hypertension: Blood pressure currently reasonably controlled. Titrating medications as above. 6. Dyslipidemia: Continue high-intensity statin therapy. 7. Mitral regurgitation: Echo during this hospital stay notable for non severe mitral regurgitation, appearing moderate on personal review. Can monitor over time. May appear less significant following diuresis. 8. Disposition: Ancipitate discharge today. Follow up with both heart failure and Cardiology in the outpatient setting- 10/15 at 10:30am. Patient care communicated with Dr. Schulte of the primary hospitalist service. Admission and Anticipated Discharge Date Admission Date: October 02, 2020 Subjective No new complaints today. Reports he's feeling well, anxious for discharge. He denies SOB, edema, orthopnea. Denies chest pain, palpitations. Telemetry reviewed, rate trend slightly improved with adding Digoxin. Fluid balance, negative 13 L. Weight stable, 222 lb. Physical Exam Physical Exam: Constitutional: Africian [place]. Alert, oriented, in no acute distress. Room air. HEENT: Head is atraumatic and normocephalic. EOMs intact. Sclera anicteric. Face is symmetric. No perioral cyanosis. Mucous membranes moist. Neck: Supple, no JVD Pulmonary: Normal respiratory effort, mild bibasilar crackles. .No wheezes, rhonchi. Cardiac: Irregular rate and rhythm.Tachycardic. Normal S1 and S2, no gallops, no rubs, no murmurs Extremities: 2+ radial pulses bilaterally. 2+ posterior tibialis pulses bilaterally. Trace pitting edema. No cyanosis or clubbing. Abdomen: Normal bowel sounds, soft, non-tender, no abdominal mass palpated Skin: Normal skin color, turgor, and pigmentation, no rash, no skin lesions Neurological: Patient is awake, alert, and oriented. Pleasant and cooperative. Answers questions appropriately. Speech is clear. Normal movement in all 4 extremities. Results & Data ([facility]) Vital Signs (Past 12 Hours) Vital Signs Temp Pulse Pulse Resp BP BP Pulse Ox 10/08/20 10:20 98.1 F 103 H 19 122/82 113/80 91 10/08/20 08:12 98.1 F 103 H 19 122/82 91 10/08/20 08:00 74 10/08/20 04:10 74 17 98 10/08/20 04:00 97.7 F 94 H 16 135/98 97 10/07/20 23:03 98.8 F 92 H 16 137/95 96 10/07/20 23:00 106 H PG Care Time/CCT Total # of Minutes Spent Total Time Spent with Patient: Total time spent is greater than 50% in coordination of care (as documented) at patient's floor/unit and/or counseling patient: Heart Failure Data/Metrics Heart Failure Type: Systolic Evidenced Based Beta Brian Therapy Beta Brian Therapy: Yes ELIZABETH/ARB/ARNI Therapy ELIZABETH/ARB/ARNI Therapy: Yes Coding Level of Care Code 24248 Subseq Hosp Care Lvl 3 Diagnoses Acute on chronic systolic (congestive) heart failure I50.23 Cardiomyopathy I42.9 CAD (coronary artery disease) I25.10 Atrial fibrillation, permanent I48.21 Hypertension I10 Hypertension type: essential hypertension Hyperlipidemia E78.5 Hyperlipidemia type: unspecified Mitral regurgitation I34.0 (1) Hypertension Hypertension type: essential hypertension Qualified Code(s): I10 - Essential (primary) hypertension (2) Hyperlipidemia Hyperlipidemia type: unspecified Qualified Code(s): E78.5 - Hyperlipidemia, unspecified
--- NOTE | 2020-10-08 20:39 | Discharge Summary ---
Date of Service October 08, 2020 Admission HPI Per Admitting Provider Isidro Carter is a 50yo male presenting from [facility] with acute hypoxic respiratory failure. Patient reports 2+ weeks of progressive bilateral LE edema as well as SOB and orthopnea. Patient's breathing acutely worsened this evening. By report his saturations were 55% at the long-term - EMS reported saturations in the 80%. When he arrived to [facility] he was afebrile, in atrial fibrillation at 117bpm, saturating 82% on room air. He was placed on CPAP and administered Lasix with improvement in clincal status. He denies chest pain, palpitations, abdominal pain, nausea, diarrhea. He had an episode of vomiting prior to arrival. Also reports a moist cough. Patient has received both Covid-19 vaccinations. Patient was seen in the ER on 09/21/20 with similar complaints - bilateral LE edema. At that time there was concern that patient had not been receiving his Coumadin for AFib. BNP was 1300, bilateral duplex of lower extremities was negative for DVT. He was given Lasix and started on Eliquis and discharged home to [facility]. ER Course: Lasix 40mg IV Principal Diagnosis Systolic CHF exacerbation Discharge Exam Constitutional WD/WN, vitals as above Eyes EOM intact bilaterally; no conjunctival abnormality ENMT external ear and nose normal, oropharynx normal Neck trachea midline, no thyromegaly normal visual inspection Respiratory normal respiratory effort, lungs clear to auscultation no respiratory distress Cardiovascular Rate/Rhythm: + tachycardic and + irregularly irregular Heart Sounds: normal S1 and normal S2 Extremities: no edema Gastrointestinal (Abdomen) Inspection/Auscultation: abdomen normal to inspection; abdomen not distended Musculoskeletal no cyanosis or clubbing, extremities motor strength 5/5 Skin no rashes, warm and dry Neurologic moves all extremities and awake Psychiatric Orientation: alert, oriented to person and cooperative Discharge Data Allergies Allergy/AdvReac Type Severity Reaction Status Date / Time iodine Allergy Unknown UNKNOWN Verified 10/02/20 02:18 shellfish derived Allergy Unknown UNKNOWN Verified 10/02/20 02:18 lisinopril AdvReac Mild COUGH Verified 09/21/20 12:07 Consultations 10/03/20 10:30 [facility] CHF Program Referral Routine 10/04/20 16:18 Consult Cardiology Routine Ordered Studies 10/07/20 09:02 CT chest diagnostic wo con Routine Hospital Course (1) CHF (congestive heart failure): Patient with acute systolic CHF. Likely non-ischemic cardiomyopathy. Ina vaughan had a right and left heart catheterization performed in 2017 which revealed a severe dilated cardiomyopathy with EF of 20-30% by LV gram, severe MR. He had pruning of distal LAD possibly consistent with previous infarct. Mid-portion of RCA - 50-70% stenosis. Elevated right heart pressures. - Echo on 10/02/2020 showed LVEF 25 - 30%, moderate/severe MR. Severe hypokinesis of the left ventricle with akinesis of the apex. - Continue isosorbide mononitrate, losartan, metoprolol, spironolactone - Euvolemic on exam -> Baseline weight around 212 lbs. - Switched to Lasix 40 mg PO BID per cardiology. Will need to monitor weights at the long-term where he will eat more food and likely with more salt. - Follow up with Kenya Cochran, heart failure PA. (2) Atrial fibrillation: Patient in atrial fibrillation, rate of 90 - 100 at night, but up to 110 - 120 while awake. - Continue apixaban - Continued metoprolol XL 200 mg PO daily - Added digoxin 125 mcg PO daily on 10/07 with slowly improving heart rates. (3) Hypertension: Blood pressure well controlled today at 125/80. - Continue above meds (4) Diabetes mellitus, type 2: Blood sugar mildly elevated on admission. However, he reports he sometimes runs ~150 - 200 in the long-term, even on his AM check. A1c is 7.2% this admission. - Lantus 30 units down to QAM (from BID at the long-term) due to the patient "feeling low" when he is in the 80s. - Sliding scale insulin - Doing well today. Blood sugars at goal. Can return to home regimen tomorrow as he will eat more food. (5) Hyperlipidemia: - Continue atorvastatin (6) COPD (chronic obstructive pulmonary disease): No shortness of breath today. Do not strongly suspect COPD exacerbation at this time. - Albuterol PRN (7) Bipolar disorder: Patient states that his moods are stable. He recently had some medication adjustments, is uncertain of details. States he is doing well on current regimen. - Continue loxapine 10 mg PO BID - Continue duloxetine 60 mg PO qHS - Continue Divalproex 1000 mg PO BID - Continue benztropine 1mg PO daily - Yazanl QHS PRN insomnia (8) Sleep apnea: CPAP HS and PRN -> Recommend using one of these at the long-term to help with blood pressure. (9) DVT prophylaxis: Apixaban Total Time Total Time Spent Total Time Spent (In Minutes): 35 Discharge Plan Discharge Items [facility] Disposition[facility] Reason For Visit: ACUTE HYPOXIC RESPIRATORY FAILURE Discharge Diagnosis: Systolic heart failure Activity: Resume your previous activity Non-emergency contact: Primary Care Provider Call non-emergency contact if: your symptoms worsen Follow-up/Referrals: Kenya Cochran PA-C [Physician Freight Car Loader] - 10/15/20 10:30 am (Congestive Heart Failure Program Appointment Information Early follow up is essential to managing your heart failure. An appointment has been scheduled for you with the [facility] Heart Failure Program within 7 days of discharge. Anticipate this visit to be 30-60 minutes long. Please expect a cisco certified internetwork expert phone call from one of our nurses approximately 48 hours from discharge. They will also be placing an order for lab work to be completed 1-2 days prior to your heart failure follow up appointment. Please be sure to have this done so we can go over the results when you come in. Office Location The cardiology office building is located in front of the hospital at [address] Bring the following with you to your follow-up doctor appointments: Please bring your daily weight log and any labs that have been completed from the long-term.) Howie CAREY [Primary Care Provider] - Diet: Low Sodium (2gm) Addtl Attending Provider Instructions: Found to have heart failure with atrial fibrillation. Used IV Lasix to diurese, and now patient's weight is 212 lbs. He should be weighed daily on a standing scale to make sure he is not accumulating more fluid. It sounds like he eats from the commissary frequently, so his Lasix may need to be adjusted to keep his weight stable. He is stable here on Lasix 40 mg PO BID. For his heart failure, we added spironolactone 25 mg PO daily and put him on Toprol XL 200 mg PO daily for a good heart failure regimen. He could benefit from exercise. He has been using BiPap here at night and would benefit from continuing this in the correctional facility. The BiPap settings were inspiration pressure of 10 cmH2O and expiration pressure of 5 cmH2O. If only CPAP is available, he would probably need 5-8 cmH2O. For his afib, we have him on metoprolol succinate 200 mg PO daily and digoxin 125 mcg PO daily. His HR is slowly improving and down around 90 - 100 bpm. It should gradually improve as he remains on the digoxin. He should have labs drawn in a week. Kenya Cochran from our heart failure clinic will call to help monitor his heart failure. Thanks! Addtl Belt Maker Helper Provider Instructions: Call your Primary Care doctor if any of the following symptoms or problems start or get worse: * Shortness of breath or difficulty breathing * Wake up at night short of breath * Chest pain * Cough * Swelling of your hands, feet, or legs * More fatigued or tired with your normal activity * Palpitations - sudden fast heart beats WEIGHT * Weigh yourself every morning after using the bathroom. * Use the same scale. * Wear the same amount of clothing. * Write your weight down on a chart. * Call your Primary Care doctor if you gain more than 2-3 pounds in 1-2 days. MEDICATIONS * Use this discharge instruction sheet for medication instructions. * Take your medications at the time your doctor ordered. * Do not skip a dose of your medicines. * If you miss a dose of medicine, take it as soon as possible, but DO NOT DOUBLE A DOSE. * Read your medicine information when you get home. * Know all of the side effects of your medicine. If in doubt, ask your pharmacist * Call your Primary Care doctor's office if you have any side effects. * Be sure all of your doctors know what medicine and herbs you take (including cold, flu, and herbal medicine). Take the following with you to your follow-up doctor appointments: * Weight Chart * Medication List * List of questions Do not drink excessive alcohol, beer or wine. Pending Studies at Discharge: No Stand-Alone Forms: My [facility] Skilled Items Patient informed of condition?: Yes Discharge Level of Care: Skilled Communicable Disease: No Discharge Prognosis: Improving Lines: None Urinary Catheter: No Medications and DC Order Prescriptions: New metoprolol succinate 50 mg Tablet Extended Release 24 Hr 200 mg PO QAM Qty: 0 RF: 0 spironolactone 25 mg Tablet 25 mg PO QAM Qty: 0 RF: 0 digoxin [Digitek] 125 mcg (0.125 mg) Tablet 0.125 mg PO DAILY@1600 Qty: 0 RF: 0 Continued losartan 50 mg Tablet 50 mg PO DAILY RF: 0 atorvastatin 40 mg Tablet 40 mg PO HS RF: 0 Lantus U-100 Insulin 100 unit/mL Solution 60 unit SUBCUT PM RF: 0 diphenhydramine HCl 50 mg Capsule 100 mg PO HS PRN (Reason: Sleep) RF: 0 divalproex 500 mg Tablet,Delayed Release (Dr/Ec) 1,000 mg PO BID RF: 0 aspirin 81 mg Tablet,Delayed Release (Dr/Ec) 81 mg PO DAILY RF: 0 isosorbide mononitrate 60 mg Tablet Extended Release 24 Hr 60 mg PO DAILY RF: 0 benztropine 1 mg Tablet 1 mg PO DAILY RF: 0 duloxetine 60 mg Capsule,Delayed Release(Dr/Ec) 60 mg PO HS RF: 0 Novolin R Regular U-100 Insuln 100 unit/mL Solution 1 sliding scale dose SUBCUT USEASDIRECTD RF: 0 Eliquis 5 mg tablet 5 mg PO Q12H Qty: 60 RF: 0 DermaPhor Ointment 1 applic TOPICAL UD RF: 0 acetaminophen 500 mg Tablet 1,000 mg PO TID PRN (Reason: Pain) RF: 0 nitroglycerin [Nitrostat] 0.4 mg Tablet, Sublingual 0.4 mg sublingual UD MDD 3 tabs PRN (Reason: Chest Pain) RF: 0 loxapine succinate 10 mg Capsule 10 mg PO BID RF: 0 Changed furosemide 40 mg Tablet 40 mg PO BID Qty: 0 RF: 0 Discontinued metoprolol tartrate 50 mg Tablet 50 mg PO BID RF: 0 Discharge Orders: Discharge Order (Routine); Ordered 10/08/20 Ordered By: Ricardo Baum/Other Patient Handouts: Managing Type 2 Diabetes, A1C Admission Data Admit Date/Time: 10/02/20 04:17 Attending Provider: Ricardo Schulte Admit Provider: Amanda Ruggiero Primary Care Provider: Howie CAREY Other Providers: Kenya Cochran ; Rene Roe Other Interventions: Discharge Summary Assessment (RN) Last Done: 10/08/20 10:20 Coding Level of Care Code D/C Day Management >30 mins Diagnoses CHF (congestive heart failure) I50.9 Atrial fibrillation I48.0 Atrial fibrillation type: paroxysmal Hypertension I10 Hypertension type: essential hypertension Diabetes mellitus, type 2 E11.9; Z79.4 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
== END 2020-10-08 11:59 | DRG 291 ==
LOC: ED 01:41 → SUATTDRO 04:17 → 2S 04:17

== ENCOUNTER 2020-10-20 11:34 | Inpatient (IN) ==
[2020-10-20 13:06] LABS: Basophils # (auto) 0.01 K/uL (0-0.2); Basophils % (auto) 0.2 %; Eosinophils # (auto) 0.11 K/uL (0-0.5); Eosinophils % (auto) 1.8 %; Hematocrit (blood only) 38.9 % (42-52); Immature Granulocytes # (auto) 0.03 K/uL (0.00-0.02); Immature Granulocytes % (auto) 0.5 %; Lymphocytes % (auto) 29.3 %; Mean Corpuscular Hemoglobin 29.7 pg (25-34); Mean Corpuscular Hgb Conc 33.4 g/dL (32-36); Mean Platelet Volume 12.1 fL (7.4-10.4); Monocytes # (auto) 0.74 K/uL (0.11-0.59); Monocytes % (auto) 12.1 %; Neutrophils # (auto) 3.45 K/uL (1.4-6.5); Neutrophils % (auto) 56.1 %; Platelet Count 195 K/uL (130-400); RDW Coefficient of Variation 13.4 % (11.5-14.5); RDW Standard Deviation 43.8 fL (36.4-46.3); Red Blood Count 4.37 M/uL (4.7-6.1); White Blood Count 6.14 K/uL (4.8-10.8)
[2020-10-20 13:17] LABS: Partial Thromboplastin Ratio 0.9; Partial Thromboplastin Time 24.5 Seconds (21.0-31.0); Prothrombin Time 10.6 Seconds (9.0-12.0)
--- NOTE | 2020-10-20 13:18 | XRay Report ---
XR chest 1V portable HISTORY: 50 years-old Male Chest Pain acute atypical chest pain COMPARISON: Chest CT 10/07/2020, chest radiograph 10/02/2020 TECHNIQUE: Portable AP view of the chest FINDINGS: Cardiac silhouette is mildly enlarged. Ill-defined bibasilar and midlung airspace and interstitial op acities have progressed from the 10/08/2019 exam. No pneumothorax or large pleural effusion. Degenerat mauro changes of the shoulders and spine. IMPRESSION: Mixed interstitial and alveolar opacities of the mid and lower lung zones have progressiv marc worsened from 10/07/2020 suspicious for an infectious or inflammatory pneumonitis. ACT 112: Negative or not required by law. The above report was generated using voice recognition software. It may contain grammatical, syntax o r spelling errors. Electronically signed by: Beck Junior M.D. 10/20/2020 1:17 PM
[2020-10-20 13:40] LABS: BUN Creatinine Ratio 14.5 (10-20); Calcium 8.5 mg/dl (8.5-10.1); Creatinine Clr Calc Pharmacy 120.4 ml/min; Est GFR (African American) 107.7 ml/min; Potassium 4.5 mmol/L (3.5-5.1); Troponin I 0.015 ng/ml (0-0.045)
[2020-10-20] MEDS ORDERED: FUROSEMIDE 40 MG/4 ML VIAL IV STA (13:47)
--- NOTE | 2020-10-20 14:50 | History & Physical Report ---
Date of Service October 20, 2020 Assessment & Plan (1) Acute on chronic systolic (congestive) heart failure: Patient once again in acute CHF, likely acute systolic consider history. Discharged at 100.6 kg, now 112.4 kg Echo from 10/02 reviewed, LVEF 25-30% with hypokinetic left ventricle, apical a kinesis Admit to a monitored bed Start Lasix 40 mg IV every 12 hours Continue diuresis with spironolactone 25 mg every morning Continue other medications such as digoxin 0.125 mg, losartan 50 mg daily, and Toprol 200 mg daily Follow I's and O's, daily weights No need to repeat echo this presentation We will ask cardiology/heart failure service to reevaluate (2) Atrial fibrillation, permanent: Rate control with medication as noted, Toprol 200 mg daily Patient is anticoagulated with Eliquis 5 mg every 12 hours (3) CAD (coronary artery disease): Continue low-dose aspirin along with Lipitor 40 mg at bedtime (4) Diabetes: Okay for large portions if allowed Continue Lantus 60 units q. p.m. Patient is on a Novolin sliding scale, I will order along with pharmacy consultation for recommendations (5) Bipolar disorder: Patient is a multiple psych medications, will continue I suspect patient is at baseline, can consider psych consultation if any deviation from this History of Present Illness Chief Complaint: Edema Primary Care Provider: [facility] Howie This is a 50-year-old male with past medical history of cardiomyopathy, chronic systolic CHF, atrial fibrillation that presents today with lower extremity edema and shortness of breath. Patient is a somewhat limited historian as noted below. Patient is a prisoner at [facility]. He was admitted here with acute congestive heart failure. He was diuresed aggressively and eventually discharged. At that time, he was discharged with Lasix 40 mg p.o. twice daily. He was 100.6 kilograms at time of discharge. Patient tells me that he is having issues at the present as he is been going back to his previous eating habits which he feels involves all larger portions. He feels this may be why he is now short of breath again. He is requesting larger portions here as he feels that that might help him regulate his blood sugars and fluid better. On further questioning, he tells me he is given 2 medications at night, 1 of which is a psychiatric medication but he is unsure of the other and feels he may not be re ceiving the Lasix tonight. I do see he is on multiple twice daily medications including divalproex, Eliquis, loxapine, as well as Lasix. At the time my evaluation, the patient was off of monitor. He was awake and alert and did not appear to be in any cardiopulmonary distress. Allergies Allergy/AdvReac Type Severity Reaction Status Date / Time iodine Allergy Unknown UNKNOWN Verified 10/20/20 14:34 shellfish derived Allergy Unknown UNKNOWN Verified 10/20/20 14:34 lisinopril AdvReac Mild COUGH Verified 09/21/20 12:07 Home Medications Medication Instructions Recorded Confirmed Type Eliquis 5 mg PO Q12H #60 tab 09/21/20 10/20/20 Rx Lantus U-100 Insulin 60 unit SUBCUT PM 09/21/20 10/20/20 History Novolin R Regular U-100 Insuln 1 sliding scale dose SUBCUT 09/21/20 10/20/20 History USEASDIRECTD aspirin 81 mg PO DAILY 09/21/20 10/20/20 History atorvastatin 40 mg PO HS 09/21/20 10/20/20 History benztropine 1 mg PO DAILY 09/21/20 10/20/20 History diphenhydramine HCl 100 mg PO HS PRN 09/21/20 10/20/20 History divalproex 1,000 mg PO BID 09/21/20 10/20/20 History duloxetine 60 mg PO HS 09/21/20 10/20/20 History isosorbide mononitrate 60 mg PO DAILY 09/21/20 10/20/20 History losartan 50 mg PO DAILY 09/21/20 10/20/20 History DermaPhor 1 applic TOPICAL UD 10/02/20 10/20/20 History loxapine succinate 10 mg PO BID 10/02/20 10/20/20 History nitroglycerin [Nitrostat] 0.4 mg SUBLINGUAL UD PRN MDD 3 tabs 10/02/20 10/20/20 History digoxin [Digitek] 0.125 mg PO DAILY@1600 #0 tab 10/08/20 10/20/20 Rx furosemide 40 mg PO BID #0 tab 10/08/20 10/20/20 Rx metoprolol succinate 200 mg PO QAM #0 tab 10/08/20 10/20/20 Rx spironolactone 25 mg PO QAM #0 tab 10/08/20 10/20/20 Rx Past Med/Surg History Medical History (Updated 10/06/20 @ 00:04 by Emily Robbins) Atrial fibrillation, permanent Bipolar disorder CAD (coronary artery disease) Cardiomyopathy COPD (chronic obstructive pulmonary disease) Diabetes mellitus, type 2 Hyperlipidemia Hypertension Mitral regurgitation Sleep apnea Surgical History Status post tonsillectomy Family History Other Cancer Hypertension Social History Smoking Status: Former smoker Hx Alcohol Use: No Hx Substance Use: No Preferred Language: Danish Communication Ability: Effective Earth Moving Technician Required: No Beliefs That Will Affect Care: None Current Living Situation: Other Feels Safe at Home: Yes Assistive Devices: BiPap Review of Systems Review of Systems: May be less reliable, suspect that this may be due to patient's mental health diagnosis Constitutional: + weight gain; no fever, no chills, no weakness and no weight loss Eyes: as per Subjective / HPI Respiratory: + dyspnea on exertion; no cough, no chest congestion and no dyspnea Cardiovascular: no chest pain, no orthopnea, no palpitations, no lightheadedness and no edema Gastrointestinal: no abdominal pain, no nausea, no vomiting, no constipation and no diarrhea/loose stools Musculoskeletal: no back pain, no neck pain, no joint pain, no stiffness and no myalgia Integumentary: no rash Neurologic: no gait abnormality, no unsteadiness, no falls and no generalized weakness Physical Exam Constitutional: cooperative and comfortable; no acute distress Neck: trachea midline, no thyromegaly Respiratory: normal respiratory effort Auscultation: + rales; no crackles, no rhonchi and no wheezes Cardiovascular: Rate/Rhythm: regular rate and regular rhythm Heart Sounds: normal S1 and normal S2; no murmur Extremities: + edema (2-3+ b/l LE) Gastrointestinal (Abdomen): Inspection/Auscultation: abdomen normal to inspection Percussion/Palpation: abdomen soft; abdomen nontender, no guarding, abdomen not rigid and no hepatosplenomegaly Skin: no rashes, warm and dry Results & Data Results & Data ([facility]) Vital Signs (Past 12 Hours) Vital Signs Temp Pulse Pulse Resp BP BP Pulse Ox 10/20/20 12:55 92 10/20/20 12:36 112 H 20 122/96 93 10/20/20 12:05 90 10/20/20 11:42 36.6 C 105 H 22 137/103 H 90 PG Care Time/CCT Total # of Minutes Spent Total Time Spent with Patient: Total time spent is greater than 50% in coordi nation of care (as documented) at patient's floor/unit and/or counseling patient: Coding Level of Care Code 65360 Initial Inpt Care Lvl 3 Diagnoses Acute on chronic systolic (congestive) heart failure I50.23 Atrial fibrillation, permanent I48.21 CAD (coronary artery disease) I25.10 Diabetes E11.9 Bipolar disorder F31.9 Active/Remission status: remission status unspecified (1) Bipolar disorder Active/Remission status: remission status unspecified Qualified Code(s): F31.9 - Bipolar disorder, unspecified
[2020-10-20] MEDS ORDERED: GLUCOSE 40% GEL 15 GM TUBE PO PRN (16:58)
[2020-10-20] MEDS ORDERED: DIGOXIN 0.125 MG TAB PO SCH (16:58)
[2020-10-20] MEDS ORDERED: GLUCAGON FOR INJ 1 MG VIAL SQ PRN (16:58)
[2020-10-20] MEDS ORDERED: CARBOHYDRATES FOR HYPOGLYCEMIA PO PRN (16:58)
[2020-10-20] MEDS ORDERED: DEXTROSE 50% 50 ML SYRINGE IV PRN (16:58)
[2020-10-20] MEDS ORDERED: NITROGLYCERIN SL 0.4 MG/TAB TAB SL PRN (16:58)
[2020-10-20] MEDS ORDERED: ONDANSETRON INJ 2 MG/ML 2 ML VIAL IV PRN (16:58)
[2020-10-20] MEDS ORDERED: GLUCOSE 10 TABS/TUBE PO PRN (16:58)
[2020-10-20] MEDS ORDERED: diphenhydrAMINE Capsule 25 MG CAP PO PRN (17:25)
[2020-10-20] MEDS ORDERED: PHARMACY GLYCEMIC MGMT CONSULT PRN (17:39)
[2020-10-20] MEDS: INSULIN ASPART 100 UNITS/ML 3 ML PEN SC SCH ×3 (17:57→23:50)
[2020-10-20] MEDS ORDERED: INSULIN GLARGINE SOLOSTAR 100 UNITS/ML 3 ML PEN SC SCH (18:00)
--- NOTE | 2020-10-20 18:01 | Emergency Department Note ---
History of Present Illness General Chief Complaint: Shortness of Breath/Dyspnea Stated Complaint: SOB, EDEMA Time Seen by Provider: 10/20/20 12:04 History of Present Illness Provider Complaint: shortness of breath Onset (ago): hour(s) (9) Severity: severe Consistency/Duration: + improved Relieved By: + oxygen and + upright position Exacerbated By: + lying flat Context: + medication noncompliance and + other (Patient states he has been eating a lot of salty foods) Known history of: congestive heart failure Associated symptoms: + orthopnea Treatment prior to arrival: oxygen HPI Narrative: Patient was satting 87% on room air at the [facility]. Related Data Home oxygen amount: 2 liters Home Medications Medication Instructions Recorded Confirmed Type Eliquis 5 mg PO Q12H #60 tab 09/21/20 10/20/20 Rx Lantus U-100 Insulin 60 unit SUBCUT PM 09/21/20 10/20/20 History Novolin R Regular U-100 Insuln 1 sliding scale dose SUBCUT 09/21/20 10/20/20 History USEASDIRECTD aspirin 81 mg PO DAILY 09/21/20 10/20/20 History atorvastatin 40 mg PO HS 09/21/20 10/20/20 History benztropine 1 mg PO DAILY 09/21/20 10/20/20 History diphenhydramine HCl 100 mg PO HS PRN 09/21/20 10/20/20 History divalproex 1,000 mg PO BID 09/21/20 10/20/20 History duloxetine 60 mg PO HS 09/21/20 10/20/20 History isosorbide mononitrate 60 mg PO DAILY 09/21/20 10/20/20 History losartan 50 mg PO DAILY 09/21/20 10/20/20 History DermaPhor 1 applic TOPICAL UD 10/02/20 10/20/20 History loxapine succinate 10 mg PO BID 10/02/20 10/20/20 History nitroglycerin [Nitrostat] 0.4 mg SUBLINGUAL UD PRN MDD 3 tabs 10/02/20 10/20/20 History digoxin [Digitek] 0.125 mg PO DAILY@1600 #0 tab 10/08/20 10/20/20 Rx furosemide 40 mg PO BID #0 tab 10/08/20 10/20/20 Rx metoprolol succinate 200 mg PO QAM #0 tab 10/08/20 10/20/20 Rx spironolactone 25 mg PO QAM #0 tab 10/08/20 10/20/20 Rx Allergies Allergy/AdvReac Type Severity Reaction Status Date / Time iodine Allergy Unknown UNKNOWN Verified 10/20/20 14:34 shellfish derived Allergy Unknown UNKNOWN Verified 10/20/20 14:34 lisinopril AdvReac Mild COUGH Verified 09/21/20 12:07 Past Med/Surg History Medical History Atrial fibrillation, permanent Bipolar disorder CAD (coronary artery disease) Cardiomyopathy COPD (chronic obstructive pulmonary disease) Diabetes mellitus, type 2 Hyperlipidemia Hypertension Mitral regurgitation Sleep apnea Surgical History Status post tonsillectomy Family History Other Cancer Hypertension Social History Smoking Status: Former smoker Hx Alcohol Use: No Hx Substance Use: No Preferred Language: Nauruan Communication Ability: Effective Energy Scheduler Required: No Beliefs That Will Affect Care: None Current Living Situation: Other Other Information That Helps Us Care for You: No Feels Safe at Home: Yes Safety Concerns: Feels Safe At This Time Assistive Devices: BiPap Review of Systems A total of 10 systems reviewed and were otherwise negative Physical Exam Vital Signs: Vital Signs - 24 hr 10/20/20 11:42 10/20/20 12:00 10/20/20 12:05 Temperature 36.6 C Temperature Source Oral Pulse Rate 105 H 113 H Pulse Rate [Apical ] Pulse Rate from Sp O2 Sensor 108 H Pulse Rhythm Irregular Pulse Rhythm [Apic al] Pulse Strength Normal Pulse Strength [Ap ical] Respiratory Rate 22 20 Respiratory Effort / Characteristics Spontaneous Short of Breath SOB on E xertion Respiratory Depth Normal Respiratory Patter n Regular Blood Pressure 137/103 H 119/97 Blood Pressure [Le ft Arm] Blood Pressure Maria Victoria n 114 104 Blood Pressure Maria Victoria n [Left Arm] Blood Pressure Pos ition Sitting Blood Pressure Pos ition [Left Arm] Pulse Oximetry 90 93 90 Oxygen Delivery Me thod Room Air Nasal Cannula Room Air Oxygen Flow Rate 2 Sepsis Recent Feve r Within 48 Hours No Sepsis New/Unexpla ined Change in Men constance Status No Sepsis Action Take n by Nursing No Action Required Oxygen Flow Rate - Titration 2 Pulse Oximetry Pos t Tiitration 92 10/20/20 12:30 10/20/20 12:36 10/20/20 12:55 Temperature Temperature Source Pulse Rate Pulse Rate [Apical ] 112 H Pulse Rate from Sp O2 Sensor 112 H Pulse Rhythm Pulse Rhythm [Apic al] Irregular Pulse Strength Pulse Strength [Ap ical] Normal Respiratory Rate 20 20 Respiratory Effort / Characteristics Non-Labored Sponta neous Respiratory Depth Normal Respiratory Patter n Regular Blood Pressure 122/96 Blood Pressure [Le ft Arm] 122/96 Blood Pressure Maria Victoria n 104 Blood Pressure Maria Victoria n [Left Arm] 104 Blood Pressure Pos ition Blood Pressure Pos ition [Left Arm] Sitting Pulse Oximetry 94 93 92 Oxygen Delivery Me thod Nasal Cannula Nasal Cannula Nasal Cannula Oxygen Flow Rate 2 2 2 Sepsis Recent Feve r Within 48 Hours Sepsis New/Unexpla ined Change in Men constance Status Sepsis Action Take n by Nursing Oxygen Flow Rate - Titration Pulse Oximetry Pos t Tiitration 10/20/20 13:00 10/20/20 13:54 10/20/20 14:00 Temperature Temperature Source Pulse Rate 110 H 111 H 120 H Pulse Rate [Apical ] Pulse Rate from Sp O2 Sensor 109 H 105 H 116 H Pulse Rhythm Pulse Rhythm [Apic al] Pulse Strength Pulse Strength [Ap ical] Respiratory Rate 20 20 18 Respiratory Effort / Characteristics Respiratory Depth Respiratory Patter n Blood Pressure 147/123 H 137/92 149/113 H Blood Pressure [Le ft Arm] Blood Pressure Maria Victoria n 131 107 125 Blood Pressure Maria Victoria n [Left Arm] Blood Pressure Pos ition Blood Pressure Pos ition [Left Arm] Pulse Oximetry 95 92 92 Oxygen Delivery Me thod Nasal Cannula Nasal Cannula Nasal Cannula Oxygen Flow Rate 2 2 2 Sepsis Recent Feve r Within 48 Hours Sepsis New/Unexpla ined Change in Men constance Status Sepsis Action Take n by Nursing Oxygen Flow Rate - Titration Pulse Oximetry Pos t Tiitration 10/20/20 14:41 10/20/20 15:00 Temperature Temperature Source Pulse Rate 107 H 112 H Pulse Rate [Apical ] Pulse Rate from Sp O2 Sensor 117 H 111 H Pulse Rhythm Pulse Rhythm [Apic al] Pulse Strength Pulse Strength [Ap ical] Respiratory Rate 18 18 Respiratory Effort / Characteristics Respiratory Depth Respiratory Patter n Blood Pressure 119/97 119/87 Blood Pressure [Le ft Arm] Blood Pressure Maria Victoria n 104 97 Blood Pressure Maria Victoria n [Left Arm] Blood Pressure Pos ition Blood Pressure Pos ition [Left Arm] Pulse Oximetry 91 92 Oxygen Delivery Me thod Nasal Cannula Nasal Cannula Oxygen Flow Rate 2 2 Sepsis Recent Feve r Within 48 Hours Sepsis New/Unexpla ined Change in Men constance Status Sepsis Action Take n by Nursing Oxygen Flow Rate - Titration Pulse Oximetry Pos t Tiitration Physical Exam: Physical Exam GENERAL: He is oriented to person, place, and time. He appears well-developed and well-nourished. He does not appear distressed. HENT: Exam performed. - Head: Normocephalic and atraumatic. - Right Ear: External ear normal. No mastoid tenderness. - Left Ear: External ear normal. No mastoid tenderness. - Mouth/Throat: The oropharynx is clear and moist. No trismus in the jaw. No dental abscesses or uvula swelling. No oropharyngeal exudate or tonsillar abscesses. EYES: Conjunctivae and EOM are normal. Pupils are equal, round, and reactive to light. Right eye exhibits no discharge. Left eye exhibits no discharge. No scleral icterus. NECK: Normal range of motion. Neck supple. No JVD present. No spinous process tenderness present. No carotid bruit present. No rigidity. No tracheal deviation and normal range of motion present. No Brudzinski's sign and no Kernig's sign noted. CV: Normal rate, irregular rhythm, normal heart sounds and intact distal pulses. 2+ pitting edema of the bilateral lower extremities. Palpable radial pulses bue. PULM/CHEST: Rales bilaterally. ABD: The abdomen is soft. Bowel sounds are normal. He has no distension. No mass is present. There is no tenderness. There is no rebound, no guarding, no James's sign and no tenderness at McBurney's point. Rovsig negative. MUSC/SKEL: Normal range of motion. 2+ pitting edema of the bilateral lower extremities. LYMPH: No cervical adenopathy. NEURO: He is alert and oriented to person, place, and time. He has normal strength. No cranial nerve deficit or sensory deficit. Coordination and gait normal. GCS eye subscore is 4. GCS verbal subscore is 5. GCS motor subscore is 6. Cerebellar tests wnl. SKIN: Skin is warm and dry. He is not diaphoretic. PSYCH: He has a normal mood and affect. Behavior is normal. Judgment and thought content normal. Course Course 1204: The patient was evaluated in room C9. A complete history and physical exam was performed Cardiac monitoring: An order was placed for continuous cardiac monitoring. The monitor shows a rate of 90 with atrial fibrilation rhythm 1355: Vital signs stable on supplemental oxygen via nasal cannula. Labs show a normal troponin and a proBNP of 1171. Chest x-ray calls for infectious versus inflammatory pneumonitis. It is thought that the patient is more likely suffering from CHF given his noncompliance of a low-salt diet. Patient has no fevers no white blood cell count, pneumonia thought to be much less. [facility] who also agrees. He states to draw a pro calcitonin level and if that is elevated he will start the patient on antibiotics but this time to hold antibiotics. Lasix 40 mg IV push was ordered for the patient. Administered Medications Digoxin (Digoxin 0.125 Mg Tab) 0.125 mg PO DAILY@1600 OSCAR Stop: 11/19/20 16:57 Last Admin: 10/20/20 17:54 Dose: 0.125 mg Documented by: Insulin Aspart (Insulin Aspart 100 Units/Ml 3 Ml Pen) 0 units SC [facility]; Protocol Stop: 11/19/20 16:57 Last Admin: 10/20/20 17:57 Dose: 11 units Documented by: Discontinued Medications Furosemide (Furosemide 40 Mg/4 Ml Vial) 40 mg IV NOW STA Stop: 10/20/20 13:48 Last Admin: 10/20/20 14:03 Dose: 40 mg Documented by: [id number] Medical Decision Making Laboratory Data Result diagrams: 10/20/20 11:45 10/20/20 11:45 Lab Results 10/20/20 10/20/20 10/20/20 Range/Units 11:45 11:45 11:45 WBC 6.14 (4.8-10.8) K/uL RBC 4.37 L (4.7-6.1) M/uL Hgb 13.0 L (14.0-18.0) g/dL Hct 38.9 L (42-52) % MCV 89.0 (80-100) fL MCH 29.7 (25-34) pg MCHC 33.4 (32-36) g/dL RDW Std Deviation 43.8 (36.4-46.3) fL RDW Coeff of Richard 13.4 (11.5-14.5) % Plt Count 195 (130-400) K/uL MPV 12.1 H (7.4-10.4) fL Immature Gran % (Auto) 0.5 % Neut % (Auto) 56.1 % Lymph % (Auto) 29.3 % Finney % (Auto) 12.1 % Eos % (Auto) 1.8 % Baso % (Auto) 0.2 % Neut # (Auto) 3.45 (1.4-6.5) K/uL Lymph # (Auto) 1.80 (1.2-3.4) K/uL Finney # (Auto) 0.74 H (0.11-0.59) K/uL Eos # (Auto) 0.11 (0-0.5) K/uL Baso # (Auto) 0.01 (0-0.2) K/uL Immature Gran # (Auto) 0.03 H (0.00-0.02) K/uL PT 10.6 (9.0-12.0) Seconds INR 1.0 (0.9-1.1) APTT 24.5 (21.0-31.0) Seconds PTT Ratio 0.9 Sodium 137 (136-145) mmol/L Potassium 4.5 (3.5-5.1) mmol/L Chloride 103 (98-107) mmol/L Carbon Dioxide 26 (21-32) mmol/L Anion Gap 8.0 (3-11) BUN 14 (7-18) mg/dl Creatinine 0.95 (0.6-1.4) mg/dl Est Cr Clr Drug Dosing 120.4 ml/min Est GFR ( Amer) 107.7 ml/min Est GFR (Non-Af Amer) 93.0 ml/min BUN/Creatinine Ratio 14.5 (10-20) Glucose 336 H* (70-99) mg/dl Calcium 8.5 (8.5-10.1) mg/dl Troponin I 0.015 (0-0.045) ng/ml NT-Pro-B Natriuret Pep 1171 H (0-900) pg/ml Lipase 54 L (73-393) U/L Beta-Hydroxybutyric Acd (0.2-2.81) mg/dl Procalcitonin (0-0.5) ng/ml COVID-19 Eval Order SARS-CoV-2 (PCR) (Negative) 10/20/20 10/20/20 10/20/20 Range/Units 11:45 13:01 13:01 WBC (4.8-10.8) K/uL RBC (4.7-6.1) M/uL Hgb (14.0-18.0) g/dL Hct (42-52) % MCV (80-100) fL MCH (25-34) pg MCHC (32-36) g/dL RDW Std Deviation (36.4-46.3) fL RDW Coeff of Richard (11.5-14.5) % Plt Count (130-400) K/uL MPV (7.4-10.4) fL Immature Gran % (Auto) % Neut % (Auto) % Lymph % (Auto) % Finney % (Auto) % Eos % (Auto) % Baso % (Auto) % Neut # (Auto) (1.4-6.5) K/uL Lymph # (Auto) (1.2-3.4) K/uL Finney # (Auto) (0.11-0.59) K/uL Eos # (Auto) (0-0.5) K/uL Baso # (Auto) (0-0.2) K/uL Immature Gran # (Auto) (0.00-0.02) K/uL PT (9.0-12.0) Seconds INR (0.9-1.1) APTT (21.0-31.0) Seconds PTT Ratio Sodium (136-145) mmol/L Potassium (3.5-5.1) mmol/L Chloride (98-107) mmol/L Carbon Dioxide (21-32) mmol/L Anion Gap (3-11) BUN (7-18) mg/dl Creatinine (0.6-1.4) mg/dl Est Cr Clr Drug Dosing ml/min Est GFR ( Amer) ml/min Est GFR (Non-Af Amer) ml/min BUN/Creatinine Ratio (10-20) Glucose (70-99) mg/dl Calcium (8.5-10.1) mg/dl Troponin I (0-0.045) ng/ml NT-Pro-B Natriuret Pep (0-900) pg/ml Lipase (73-393) U/L Beta-Hydroxybutyric Acd (0.2-2.81) mg/dl Procalcitonin < 0.05 (0-0.5) ng/ml COVID-19 Eval Order Covid19 at [facility] SARS-CoV-2 (PCR) NEGATIVE (Negative) Imaging Data Radiologist's Impression: Chest X-Ray 10/20/20 12:53 XR chest 1V portable HISTORY: 50 years-old Male Chest Pain acute atypical chest pain COMPARISON: Chest CT 10/07/2020, chest radiograph 10/02/2020 TECHNIQUE: Portable AP view of the chest FINDINGS: Cardiac silhouette is mildly enlarged. Ill-defined bibasilar and midlung airspace and interstitial opacities have progressed from the 10/08/2019 exam. No pneumothorax or large pleural effusion. Degenerative changes of the shoulders and spine. IMPRESSION: Mixed interstitial and alveolar opacities of the mid and lower lung zones have progressively worsened from 10/07/2020 suspicious for an infectious or inflammatory pneumonitis. ACT 112: Negative or not required by law. The above report was generated using voice recognition software. It may contain grammatical, syntax or spelling errors. Electronically signed by: Beck Junior M.D. 10/20/2020 1:17 PM ECG Data Interpretation: Atrial fibrillation with a rate of 102. QRS and QTc intervals within normal limits. No ST elevation or ST depression. [facility] Narrative 1204: The patient was evaluated in room C9. A complete history and physical exam was performed Cardiac monitoring: An order was placed for continuous cardiac monitoring. The monitor shows a rate of 90 with atrial fibrilation rhythm 1355: Vital signs stable on supplemental oxygen via nasal cannula. Labs show a normal troponin and a proBNP of 1171. Chest x-ray calls for infectious versus inflammatory pneumonitis. It is thought that the patient is more likely suffering from CHF given his noncompliance of a low-salt diet. Patient has no fevers no white blood cell count, pneumonia thought to be much less. [facility] who also agrees. He states to draw a pro calcitonin level and if that is elevated he will start the patient on antibiotics but this time to hold antibiotics. Lasix 40 mg IV push was ordered for the patient. Impression & Plan Acute on chronic systolic (congestive) heart failure Discharge Plan Visit Data Chief Complaint: Shortness of Breath/Dyspnea Stated Complaint: SOB, EDEMA ED Provider: Chay Noonan Discharge Problem: Acute on chronic systolic (congestive) heart failure Patient Disposition: Admitted As Inpatient Discharge Instructions Interventions: ED Discharge Assessment Last Done: 10/20/20 16:25
[2020-10-20] MEDS: FUROSEMIDE 40 MG/4 ML VIAL IV SCH (18:36)
[2020-10-20] MEDS ORDERED: LANTUS PER UNIT CHARGE SQ SCH (21:00)
[2020-10-20] MEDS: EMOLLIENT OINTMENT 1 GM EXT SCH ×3 (21:02→23:48)
[2020-10-20] MEDS: DIVALPROEX DELAY RELEASE 500 MG TAB PO SCH (21:10)
[2020-10-20] MEDS: DULoxetine HCL 60 MG CAP PO SCH (21:11)
[2020-10-20] MEDS: ATORVASTATIN 40 MG TAB PO SCH (21:11)
[2020-10-20] MEDS: APIXABAN 5 MG TABLET PO SCH (21:11)
--- NOTE | 2020-10-20 22:54 | Electrocardiogram Report ---
Test Reason : Blood Pressure : / mmHG Vent. Rate : 102 BPM Atrial Rate : 166 BPM P-R Int : 000 ms QRS Dur : 094 ms QT Int : 330 ms P-R-T Axes : 000 -39 059 degrees QTc Int : 430 ms Poor data quality, interpretation may be adversely affected Atrial fibrillation with rapid ventricular response Left axis deviation Septal infarct (cited on or before 20-OCT-2020) T wave abnormality, consider anterolateral ischemia Abnormal ECG When compared with ECG of 02-OCT-2020 01:52, No significant change Confirmed by Rene Roe ([id number]) on 10/20/2020 10:54:01 PM Referred By: Howie CAREY Confirmed By:Rene Roe
[2020-10-20] MEDS ORDERED: METOPROLOL TARTRATE 1 MG/ML VIAL IV PRN (23:58)
[2020-10-21] MEDS: INSULIN ASPART 100 UNITS/ML 3 ML PEN SC SCH ×5 (04:00→20:59)
[2020-10-21] MEDS: ACETAMINOPHEN 325 MG TAB PO PRN ×2 (04:06→12:45)
[2020-10-21] MEDS: FUROSEMIDE 40 MG/4 ML VIAL IV SCH ×2 (05:24→16:51)
[2020-10-21 07:08] LABS: Basophils # (auto) 0.02 K/uL (0-0.2); Basophils % (auto) 0.3 %; Eosinophils # (auto) 0.12 K/uL (0-0.5); Hematocrit (blood only) 41.6 % (42-52); Hemoglobin 13.8 g/dL (14.0-18.0); Immature Granulocytes # (auto) 0.04 K/uL (0.00-0.02); Immature Granulocytes % (auto) 0.7 %; Lymphocytes # (auto) 1.71 K/uL (1.2-3.4); Lymphocytes % (auto) 28.5 %; Mean Corpuscular Hemoglobin 28.9 pg (25-34); Mean Corpuscular Hgb Conc 33.2 g/dL (32-36); Mean Platelet Volume 10.9 fL (7.4-10.4); Monocytes # (auto) 0.65 K/uL (0.11-0.59); Monocytes % (auto) 10.9 %; Neutrophils # (auto) 3.45 K/uL (1.4-6.5); Neutrophils % (auto) 57.6 %; Platelet Count 177 K/uL (130-400); RDW Coefficient of Variation 13.5 % (11.5-14.5); RDW Standard Deviation 43.2 fL (36.4-46.3); Red Blood Count 4.78 M/uL (4.7-6.1); White Blood Count 5.99 K/uL (4.8-10.8)
[2020-10-21 07:38] LABS: BUN Creatinine Ratio 18.9 (10-20); Calcium 8.1 mg/dl (8.5-10.1); Creatinine Clr Calc Pharmacy 117.7 ml/min; Est GFR (African American) 105.1 ml/min; Est GFR (Non-African American) 90.7 ml/min; Potassium 3.7 mmol/L (3.5-5.1)
[2020-10-21] MEDS: DIVALPROEX DELAY RELEASE 500 MG TAB PO SCH ×2 (08:18→20:56)
[2020-10-21] MEDS: SPIRONOLACTONE 25 MG TAB PO SCH (08:19)
[2020-10-21] MEDS: BENZTROPINE MESYLATE 1 MG TAB PO SCH (08:19)
[2020-10-21] MEDS: ASPIRIN 81 MG ECTAB PO SCH (08:19)
[2020-10-21] MEDS: APIXABAN 5 MG TABLET PO SCH ×2 (08:19→20:55)
[2020-10-21] MEDS: EMOLLIENT OINTMENT 1 GM EXT SCH ×3 (08:19→20:57)
[2020-10-21] MEDS: ISOSORBIDE MONO EXTENDED REL 60 MG TABCR PO SCH (08:19)
[2020-10-21] MEDS ORDERED: LOSARTAN POTASSIUM 50 MG TAB PO SCH (09:00)
[2020-10-21] MEDS ORDERED: METOPROLOL SUCC 50MG EXT REL TAB PO SCH (09:00)
--- NOTE | 2020-10-21 09:53 | Communication Note ---
Date of Service: October 21, 2020 This patient was seen in concert with Dr. Roe and we discussed and agreed upon the history, physical, assessment, and plan. See attending's note for de tails. Resident Activity Tracking Resident Involvement: Resident Care Provided Care Provided: [facility] Medicine
[2020-10-21] MEDS ORDERED: METOPROLOL SUCC 50MG EXT REL TAB PO ONE (12:00)
--- NOTE | 2020-10-21 12:09 | Pharmacy Report ---
Pharmacy Glycemic Short Note 2 - Date of Service October 21, 2020 - Glycemic Short BSG Results (Last 24 hours): 10/20/20 10/20/20 10/20/20 11:45 16:43 20:45 Glucose 336 H* POC Glucose 252 H 238 H 10/20/20 10/21/20 10/21/20 23:40 03:57 06:54 Glucose 200 H POC Glucose 194 H 159 H 10/21/20 10/21/20 07:34 11:28 Glucose POC Glucose 174 H 213 H OUTPATIENT ANTIDIABETIC REGIMEN: * Lantus 60 units qPM * Regular Insulin sliding scale * A1c 7.2% 10/03/20 ASSESSMENT: * Mr. GUTIÉRREZ admitted with CHF exacerbation, patient recently admitted and was started on a similar dosing strategy. * Patient is ordered a type II diabetes diet. BSGs elevated on arrival down to 174 mg/dL on AM check. * Will increase lantus with scale tonight, per previous physician note patient feels hypoglycemic in the 80s * Will tighten correction factor as lunch BSG elevated. PLAN FOR INPATIENT GLYCEMIC CONTROL: * Hold outpatient oral diabetes medications * Basal insulin * Lantus 30-40 units SQ pm * Bolus insulin * NovoLog per scale ACHS or Q6hrs while NPO * Goal Range: Low 110 mg/dL - High 140 mg/dL * Correction Factor: 20 mg/dL/unit * Nutritional / Prandial insulin per carb ratio of 1 unit per 10 grams CHO consumed
--- NOTE | 2020-10-21 13:16 | Cardiology Consultation ---
Date of Consultation October 21, 2020 Assessment & Plan (1) Acute on chronic systolic (congestive) heart failure: (2) Atrial fibrillation, permanent: (3) Mitral regurgitation: (4) Cardiomyopathy: (5) CAD (coronary artery disease): (6) Hypertension: (7) Hyperlipidemia: ASSESSMENT/PLAN: 1. Acute on chronic systolic CHF: He appears hypervolemic on examination and has responded well thus far to diuretic therapy. Exacerbation likely due to dietary noncompliance, noncompliance with medications per patient report, and noncompliance with follow-up. AFib with RVR may also be playing a role. We discussed the importance of a low-sodium diet, less than 2000 mg daily. Choices are somewhat limited while incarcerated but he is adding salt to food and as per medical staff at his facility, has been buying potato chips on his own. Continue daily weights. Ms Sammie of the Heart failure program has coordinated with [facility] Howie physician to allow for communication of his weights and vital signs as appropriate as well as appropriate follow-up. Continue current diuretic dose. Recommend Entresto in place of losartan. Continue metoprolol succinate. Continue digoxin. 2. Atrial fibrillation: Appears to be permanent. Heart rate not adequately controlled. Increase metoprolol succinate to 300 mg daily. Increase digoxin to 250 mcg daily. Monitor digoxin level. Attempting to better rate control. Continue anticoagulation therapy for stroke risk reduction. 3. Mitral regurgitation: Appeared to be moderate on personal review on most recent echo. This was in the setting of hypervolemia. Recommend repeating echo when better optimized. 4. CAD: Degree of CAD noted in cardiac catheterization by Jose Angel in the past would not correlate with his degree of LV systolic dysfunction. No angina. Continue beta-mini and high-intensity statin therapy. 5. Cardiomyopathy: Etiology uncertain. Appears non ischemic based on catheterization findings reported in the past. Recommend secondary evaluation. Labs will be ordered to be done while hospitalized. Recommend Entresto in place of losartan. Continue high-dose metoprolol succinate. If no significant improvement after optimal medical therapy, would consider ICD for primary prevention, which was discussed with him today. Would also consider hydralazine with nitrate therapy after Entresto is titrated appropriately. 6. Hypertension: Blood pressure acceptable most recently but has been mildly hypertensive at times. Medications as above. 7. Dyslipidemia: Continue high-intensity statin therapy. 8. Disposition: Cardiology will continue to follow. Patient care has been discussed in detail with Kenya Cochran of the Heart failure program. She in turn has discussed his overall care with his primary provider at his correctional facility, Dr. Chambers. Plan of care communicated with Dr. Duvall of the primary hospitalist service. Highly complex medical issues. Thank you for allowing me to participate in the care of your patient. Please call for any other questions or concerns. Sincerely, Kb Roe M.D. History of Present Illness Reason for Consultation: CHF Requesting Physician: Dr. Gao Attending Physician: Ronnell Duvall, DO History of Present Illness Mr. Carter is a 50-year-old gentleman with a history significant for systolic CHF, cardiomyopathy, CAD, atrial fibrillation, mitral regurgitation, COPD, diabetes, bipolar disorder, hypertension, and sleep apnea. He is currently incarcerated at [facility]. He was initially diagnosed with heart failure in 2017 when he was seen by [facility] cardiology. He was found to have newly diagnosed cardiomyopathy and underwent cardiac catheterization which demonstrated proving of the distal LAD and non dominant RCA with 50-70% stenosis within the midportion. His CAD did not necessarily correlate with his degree of hypokinesis and LV dysfunction. An echo at that time suggested moderate to severe mitral regurgitation with moderate global hypokinesis and an EF of 40-45%. Cardiac catheterization at that time suggested EF of 20-30%. He was then hospitalized on 10/02/2020 with systolic CHF exacerbation. He was found to be in atrial fibrillation with rapid ventricular response which was felt to be permanent given history of atrial fibrillation. Rate-controlling medication was titrated and he was discharged on metoprolol succinate 200 mg and digoxin 0.125 mcg daily. On discharge, Lasix 40 mg twice daily was recommended. Today's history was obtained via patient, chart review and also in conjunction with Kenya Cochran of the Heart failure program who was able to communicate with his physician at [facility], Dr. Chambers. As per Ms Cochran's conversation wit Dr. Chambers, he [facility] the [facility]. He was weighed on a daily basis and his weight was stable. His medications were administered and supervised and he was compliant with medical therapy. When he returned to his block, he continued to be weighed on a daily basis but the weights were not communicated with medical personnel. He apparently began gaining weight. He consumed foods high in sodium content and admits to adding salt to his food. He apparently also was noted to be consuming larger amounts of potato chips. While in his cell, some of his medications are provided to him but otherwise it is up to him to take the medications on a regular basis. He estimates missing his cardiac medications approximately 40% of the time. According to his provider there, he was compliant with Lasix 91% of the time, but that would not account if he discarded the medication on his own. He was then scheduled for outpatient follow-up in the Heart failure program, but did not attend and had it rescheduled. Apparently he was not initially approved to follow-up in the Heart failure program but approval has been since obtained. His next follow-up was scheduled to be the day of this admission. He noted increased shortness of breath, increased edema, paroxysmal nocturnal dyspnea, orthopnea, and occasional productive cough over the past few days. He denies chest pain, palpitations, fevers, chill, syncope, near-syncope, or bleeding such as melena, hematochezia, or hematuria. He was apparently evaluated [facility] yesterday and was hypoxic with oxygen saturation approximately 80% on room air. He freely admits to adding sodium to his food and has been eating larger amounts in general. His weight has increased reportedly approximately 12 kg since last hospitalization, but it is not clear if this was on the same scale. Since here, he has been given Lasix 40 mg IV b.i.d. and diuresed approximately 4.2 L net negative yesterday. He is feeling better overall. He has had the following studies/procedures: 1. Cardiac catheterization 05/12/2017 [facility]: EF 20-30%. Severe MR. Pruning of the distal LAD with otherwise luminal irregularities. Non dominant RCA with 50- 70% stenosis within the mid RCA. 2. Echo 05/10/2017: Moderately reduced LV systolic function. Moderate to severe MR. 3. Echo 10/02/2020: Severely reduced LV systolic function with EF 25-30%. Moderate left atrial dilation. Moderate MR (on personal review). Review of systems: As above. Review of systems otherwise negative/unremarkable. Family history: No known premature CAD. Social history: Stop smoking years ago after approximately 38 pack year. No longer consuming alcohol since 2014. Prior drug use including cocaine. Incarcerated at [facility]. He was accompanied by 2 custodial guards. Allergies Allergy/AdvReac Type Severity Reaction Status Date / Time iodine Allergy Unknown UNKNOWN Verified 10/20/20 14:34 shellfish derived Allergy Unknown UNKNOWN Verified 10/20/20 14:34 lisinopril AdvReac Mild COUGH Verified 09/21/20 12:07 Home Medications Medication Instructions Recorded Confirmed Type Eliquis 5 mg PO Q12H #60 tab 09/21/20 10/20/20 Rx Lantus U-100 Insulin 60 unit SUBCUT PM 09/21/20 10/20/20 History Novolin R Regular U-100 Insuln 1 sliding scale dose SUBCUT 09/21/20 10/20/20 History USEASDIRECTD aspirin 81 mg PO DAILY 09/21/20 10/20/20 History atorvastatin 40 mg PO HS 09/21/20 10/20/20 History benztropine 1 mg PO DAILY 09/21/20 10/20/20 History diphenhydramine HCl 100 mg PO HS PRN 09/21/20 10/20/20 History divalproex 1,000 mg PO BID 09/21/20 10/20/20 History duloxetine 60 mg PO HS 09/21/20 10/20/20 History isosorbide mononitrate 60 mg PO DAILY 09/21/20 10/20/20 History losartan 50 mg PO DAILY 09/21/20 10/20/20 History DermaPhor 1 applic TOPICAL UD 10/02/20 10/20/20 History loxapine succinate 10 mg PO BID 10/02/20 10/20/20 History nitroglycerin [Nitrostat] 0.4 mg SUBLINGUAL UD PRN MDD 3 tabs 10/02/20 10/20/20 History digoxin [Digitek] 0.125 mg PO DAILY@1600 #0 tab 10/08/20 10/20/20 Rx furosemide 40 mg PO BID #0 tab 10/08/20 10/20/20 Rx metoprolol succinate 200 mg PO QAM #0 tab 10/08/20 10/20/20 Rx spironolactone 25 mg PO QAM #0 tab 10/08/20 10/20/20 Rx Patient History Medical History Atrial fibrillation, permanent Bipolar disorder CAD (coronary artery disease) Cardiomyopathy Chronic systolic CHF (congestive heart failure) COPD (chronic obstructive pulmonary disease) Diabetes mellitus, type 2 Hyperlipidemia Hypertension Mitral regurgitation Sleep apnea Surgical History Status post tonsillectomy Family History Other Cancer Hypertension Social History Smoking Status: Former smoker Hx Alcohol Use: No Hx Substance Use: No Preferred Language: Slovak Communication Ability: Effective Garage Door 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 Alert and oriented. HEENT: Anicteric sclera. Neck: Mild JVD with mild hepatic jugular reflux. No bruit. Normal carotid upstrokes bilaterally. Cardiac: PMI was nondisplaced. No ventricular heave. Irregularly irregular and tachycardic. Normal S1-S2. No murmurs, rubs, or gallops. Pulmonary: Bibasilar rales. Otherwise, clear to auscultation bilaterally. Abdomen: Soft, nontender, nondistended, with normoactive bowel sounds. No bruits noted. Extremities: 2+ radial pulses bilaterally. 2+ posterior tibialis pulses bilaterally. Trace bilateral lower extremity edema. No cyanosis. Psychiatric: Affect appears appropriate. Results & Data ([facility]) Vital Signs (Past 12 Hours) Vital Signs Temp Pulse Pulse Resp BP BP Pulse Ox 10/21/20 11:50 36.7 C 108 H 18 137/85 93 10/21/20 08:00 121 H 10/21/20 07:37 37.0 C 115 H 19 115/92 94 10/21/20 04:01 121 H 150/119 H 10/21/20 04:00 36.9 C 121 H 18 150/119 H 95 Intake & Output 10/19/20 10/20/20 10/21/20 10/22/20 06:59 06:59 06:59 06:59 Intake Total 240 / 240 650 / 650 Output Total 4425 / 4425 600 / 600 Balance -4185 / -4185 50 / 50 Weight 246 lb 14.684 oz Laboratory Results Laboratory Results - last 24 hr 10/20/20 10/20/20 10/20/20 16:43 20:45 23:40 WBC RBC Hgb Hct MCV MCH MCHC RDW Std Deviation RDW Coeff of Richard Plt Count MPV Immature Gran % (Auto) Neut % (Auto) Lymph % (Auto) [place] % (Auto) Eos % (Auto) Baso % (Auto) Neut # (Auto) Lymph # (Auto) [place] # (Auto) Eos # (Auto) Baso # (Auto) Immature Gran # (Auto) Sodium Potassium Chloride Carbon Dioxide Anion Gap BUN Creatinine Est Cr Clr Drug Dosing Est GFR ( Amer) Est GFR (Non-Af Amer) BUN/Creatinine Ratio Glucose POC Glucose 252 H 238 H 194 H Calcium Digoxin 10/21/20 10/21/20 10/21/20 03:57 06:54 06:54 WBC 5.99 RBC 4.78 Hgb 13.8 L Hct 41.6 L MCV 87.0 MCH 28.9 MCHC 33.2 RDW Std Deviation 43.2 RDW Coeff of Richard 13.5 Plt Count 177 MPV 10.9 H Immature Gran % (Auto) 0.7 Neut % (Auto) 57.6 Lymph % (Auto) 28.5 [place] % (Auto) 10.9 Eos % (Auto) 2.0 Baso % (Auto) 0.3 Neut # (Auto) 3.45 Lymph # (Auto) 1.71 [place] # (Auto) 0.65 H Eos # (Auto) 0.12 Baso # (Auto) 0.02 Immature Gran # (Auto) 0.04 H Sodium 138 Potassium 3.7 D Chloride 102 Carbon Dioxide 27 Anion Gap 9.0 BUN 18 Creatinine 0.97 Est Cr Clr Drug Dosing 117.7 Est GFR ( Amer) 105.1 Est GFR (Non-Af Amer) 90.7 BUN/Creatinine Ratio 18.9 Glucose 200 H POC Glucose 159 H Calcium 8.1 L Digoxin 10/21/20 10/21/20 10/21/20 06:54 07:34 11:28 WBC RBC Hgb Hct MCV MCH MCHC RDW Std Deviation RDW Coeff of Richard Plt Count MPV Immature Gran % (Auto) Neut % (Auto) Lymph % (Auto) [place] % (Auto) Eos % (Auto) Baso % (Auto) Neut # (Auto) Lymph # (Auto) [place] # (Auto) Eos # (Auto) Baso # (Auto) Immature Gran # (Auto) Sodium Potassium Chloride Carbon Dioxide Anion Gap BUN Creatinine Est Cr Clr Drug Dosing Est GFR ( Amer) Est GFR (Non-Af Amer) BUN/Creatinine Ratio Glucose POC Glucose 174 H 213 H Calcium Digoxin 0.4 L Diagnostic Findings Chest x-ray 10/20/2020: Mixed interstitial and alveolar opacities worsened from 10/07/2020 as per Radiology. No obvious infiltrate on personal review. Telemetry personally reviewed: Atrial fibrillation with rapid ventricular response. No significant pause. ECG personally reviewed: ECG 10/20/2020 at 11:42 a.m.: AFib with RVR 102 beats per minute. Anterolateral T-wave inversion. Possible septal infarct. No significant change from prior study on 10/02/2020 at 1:52 a.m. Chart reviewed. Medications Administered Current Inpatient Medications Acetaminophen (Acetaminophen 325 Mg Tab) 650 mg PO Q4H PRN PRN Reason: Pain or Fever Stop: 11/19/20 16:57 Last Admin: 10/21/20 12:45 Dose: 650 mg Documented by: Apixaban (Apixaban 5 Mg Tablet) 5 mg PO Q12 [facility] Stop: 11/19/20 20:59 Last Admin: 10/21/20 08:19 Dose: 5 mg Documented by: Aspirin (Aspirin 81 Mg Ectab) 81 mg PO DAILY [facility] Stop: 11/20/20 08:59 Last Admin: 10/21/20 08:19 Dose: 81 mg Documented by: Atorvastatin Calcium (Atorvastatin 40 Mg Tab) 40 mg PO HS [facility]AR Stop: 11/19/20 20:59 Last Admin: 10/20/20 21:11 Dose: 40 mg Documented by: Benztropine Mesylate (Benztropine Mesylate 1 Mg Tab) 1 mg PO DAILY [facility] Stop: 11/20/20 08:59 Last Admin: 10/21/20 08:19 Dose: 1 mg Documented by: Dextrose (Dextrose 50% 50 Ml Syringe) 25 - 50 ml IV UD PRN; Protocol PRN Reason: Hypoglycemia Protocol Stop: 11/19/20 16:57 Digoxin (Digoxin 0.125 Mg Tab) 0.25 mg PO DAILY@1600 [facility] Stop: 11/20/20 15:59 Diphenhydramine HCl (Diphenhydramine Capsule 25 Mg Cap) 100 mg PO HS PRN PRN Reason: Sleep Stop: 11/19/20 17:24 Divalproex Sodium (Divalproex Delay Release 500 Mg Tab) 1,000 mg PO BID [facility] Stop: 11/19/20 20:59 Last Admin: 10/21/20 08:18 Dose: 1,000 mg Documented by: Duloxetine HCl (Duloxetine Hcl 60 Mg Cap) 60 mg PO HS [facility] Stop: 11/19/20 20:59 Last Admin: 10/20/20 21:11 Dose: 60 mg Documented by: Emollient Ointment (Emollient Ointment 1 Gm) 1 gm EXT BID [facility] Stop: 11/20/20 08:59 Last Admin: 10/21/20 11:15 Dose: 1 gm Documented by: Furosemide (Furosemide 40 Mg/4 Ml Vial) 40 mg IV Q12H [facility]SCAR Stop: 11/19/20 16:57 Last Admin: 10/21/20 05:24 Dose: 40 mg Documented by: Glucagon (Glucagon For Inj 1 Mg Vial) 1 mg SQ UD PRN; Protocol PRN Reason: Hypoglycemia Protocol Stop: 11/19/20 16:57 Glucose (Glucose 10 Tabs/Tube) 4 - 8 tabs PO UD PRN; Protocol PRN Reason: Hypoglycemia Protocol Stop: 11/19/20 16:57 Glucose (Glucose 40% Gel 15 Gm Tube) 15 - 30 gm PO UD PRN; Protocol PRN Reason: Hypoglycemia Protocol Stop: 11/19/20 16:57 Insulin Aspart (Insulin Aspart 100 Units/Ml 3 Ml Pen) 0 units SC ACHS [facility]; Protocol Stop: 11/19/20 16:57 Last Admin: 10/21/20 11:51 Dose: 9 units Documented by: Insulin Glargine (Insulin Glargine Solostar 100 Units/Ml 3 Ml Pen) 0 units SC QPM [facility]; Protocol Stop: 11/19/20 17:59 Isosorbide Mononitrate (Isosorbide [place] Extended Rel 60 Mg Tabcr) 60 mg PO DAILY [facility] Stop: 11/20/20 08:59 Last Admin: 10/21/20 08:19 Dose: 60 mg Documented by: Losartan Potassium (Losartan Potassium 50 Mg Tab) 50 mg PO DAILY [facility] Stop: 11/20/20 08:59 Last Admin: 10/21/20 08:19 Dose: 50 mg Documented by: Metoprolol Succinate (Metoprolol Succ 50mg Ext Rel Tab) [facility]: 11/21/20 08:59 Metoprolol Tartrate (Metoprolol Tartrate 1 Mg/Ml Vial) 5 mg IV Q5M PRN PRN Reason: HR>120 Stop: 11/19/20 23:57 Last Admin: 10/21/20 04:01 Dose: 5 mg Documented by: Miscellaneous (Carbohydrates For Hypoglycemia ) 15 - 30 gm PO UD PRN PRN Reason: Hypoglycemia Protocol Stop: 11/19/20 16:57 Miscellaneous (Loxapine 10mg~Order Awaiting Action) 1 ea N/A QS [facility] Stop: 11/20/20 00:00 Last Admin: 10/21/20 08:18 Dose: Not Given Documented by: Miscellaneous Information (Pharmacy Glycemic Mgmt Consult) 1 ea N/A UD PRN; Protocol PRN Reason: Consult Stop: 11/19/20 17:38 Nitroglycerin (Nitroglycerin Sl 0.4 Mg/Tab Tab) 0.4 mg SL UD PRN PRN Reason: Chest Pain Stop: 11/19/20 16:57 Ondansetron HCl (Ondansetron Inj 2 Mg/Ml 2 Ml Vial) 4 mg IV Q6H PRN PRN Reason: Nausea Stop: 11/19/20 16:57 Spironolactone (Spironolactone 25 Mg Tab) 25 mg PO [facility] Stop: 11/20/20 08:59 Last Admin: 10/21/20 08:19 Dose: 25 mg Documented by: PG Care Time/CCT Total # of Minutes Spent Total Time Spent with Patient: Total time spent is greater than 50% in coordination of care (as documented) at patient's floor/unit and/or counseling patient: Coding Level of Care Code 17239 Inpt Consult Level 5 Diagnoses Acute on chronic systolic (congestive) heart failure I50.23 Atrial fibrillation, permanent I48.21 Mitral regurgitation I34.0 Cardiomyopathy I42.9 CAD (coronary artery disease) I25.10 Hypertension I10 Hypertension type: essential hypertension Hyperlipidemia E78.5 Hyperlipidemia type: unspecified (1) Hypertension Hypertension type: essential hypertension Qualified Code(s): I10 - Essential (primary) hypertension (2) Hyperlipidemia Hyperlipidemia type: unspecified Qualified Code(s): E78.5 - Hyperlipidemia, unspecified
--- NOTE | 2020-10-21 15:40 | Hospitalist Progress Note ---
Date of Service October 21, 2020 Assessment & Plan (1) Acute on chronic systolic (congestive) heart failure: acute on chronic heart failure with reduced EF, due to poor compliance, eats a lot of salt and does not follow fluid restriction Discharged at 100.6 kg, now 112.4 kg on admission down 4 liters already, continue lasix 40 q12, check BMP in the morning Echo from 10/02 reviewed, LVEF 25-30% with hypokinetic left ventricle, apical akinesis Continue diuresis with spironolactone 25 mg every morning continue losartan 50 mg daily, increase Toprol to 300 mg daily, increase Digoxin to 250mcg daily continue Imdur Follow I's and O's, daily weights follow up closely with Kenya MCGILL on discharge anticipate him being here 2 more days for diuresis (2) Acute respiratory failure with hypoxia: still on low flow NC, no distress suspect he will be off oxygen by tomorrow with diuresis hypoxia due to pulmonary edema from heart failure (3) Atrial fibrillation, permanent: Rate control with medication as noted, Toprol 300 mg daily Patient is anticoagulated with Eliquis 5 mg every 12 hours Digoxin 250mcg daily (4) Cardiomyopathy: ischemic he is on appropriate regimen with Losartan, Toprol, Spinolactone, lasix, Imdur follow up with cardiology (5) CAD (coronary artery disease): Continue low-dose aspirin along with Lipitor 40 mg at bedtime no chest pain or ischemic changes on EKG (6) Diabetes: Okay for large portions if allowed Continue Lantus 60 units q. p.m. Patient is on a Novolin sliding scale monitor for hypoglycemia, no episodes (7) Bipolar disorder: Patient is a multiple psych medications, will continue mood is stable today Admission and Anticipated Discharge Date Admission Date: October 20, 2020 Subjective patient feeling much better, negative several liters already he admits to being non compliant with low sodium diet and fluid restriction discussed with Kenya MCGILL, she will follow him closely, CHERRY Denise will make sure he follows up with her discussed with Dr. Roe, he recommends increasing metoprolol to 300mg, increasing Digoxin to 250mcg continue prior regimen continue lasix 40mg q12 reviewed chart and lab work Review of Systems Review of Systems: All systems reviewed & are unremarkable except as noted in Subjective Constitutional: no fever, no fatigue and no weakness Respiratory: + dyspnea on exertion; no cough and no dyspnea Cardiovascular: + dyspnea on exertion, + orthopnea and + edema; no chest pain, no dyspnea and no syncope Gastrointestinal: no abdominal pain, no nausea, no vomiting, no constipation and no diarrhea/loose stools Physical Exam Constitutional: WD/WN, vitals as above comfortable; no acute distress Neck: trachea midline, no thyromegaly Respiratory: normal respiratory effort; no respiratory distress, no labored breathing and no cough Auscultation: + rales (bases); no crackles and no wheezes Cardiovascular: Rate/Rhythm: regular rate and regular rhythm Heart Sounds: normal S1 and normal S2; no murmur Vessels: + JVD Extremities: normal capillary refill and + edema (pitting to lower shins) Gastrointestinal (Abdomen): normal bowel sounds, soft, nontender, no hepatosplenomegaly Musculoskeletal: no cyanosis or clubbing, extremities motor strength 5/5 Skin: no rashes, warm and dry Neurologic: patellar DTR's 2+ bilat, sensation intact and PERRL, EOMI, accommodation nl, no face palsy, no dysarthria Psychiatric: A+Ox3, euthymic affect Lymphatic: no cervical or axillary lymphadenopathy Results & Data Results & Data ([facility]) Vital Signs (Past 12 Hours) Vital Signs Temp Pulse Pulse Resp BP BP Pulse Ox 10/21/20 11:50 36.7 C 108 H 18 137/85 93 10/21/20 08:00 121 H 10/21/20 07:37 37.0 C 115 H 19 115/92 94 10/21/20 04:01 121 H 150/119 H 10/21/20 04:00 36.9 C 121 H 18 150/119 H 95 Laboratory Results Laboratory Results - last 24 hr 10/20/20 10/20/20 10/20/20 16:43 20:45 23:40 WBC RBC Hgb Hct MCV MCH MCHC RDW Std Deviation RDW Coeff of Richard Plt Count MPV Immature Gran % (Auto) Neut % (Auto) Lymph % (Auto) [place] % (Auto) Eos % (Auto) Baso % (Auto) Neut # (Auto) Lymph # (Auto) [place] # (Auto) Eos # (Auto) Baso # (Auto) Immature Gran # (Auto) Sodium Potassium Chloride Carbon Dioxide Anion Gap BUN Creatinine Est Cr Clr Drug Dosing Est GFR ( Amer) Est GFR (Non-Af Amer) BUN/Creatinine Ratio Glucose POC Glucose 252 H 238 H 194 H Calcium Digoxin 10/21/20 10/21/20 10/21/20 03:57 06:54 06:54 WBC 5.99 RBC 4.78 Hgb 13.8 L Hct 41.6 L MCV 87.0 MCH 28.9 MCHC 33.2 RDW Std Deviation 43.2 RDW Coeff of Richard 13.5 Plt Count 177 MPV 10.9 H Immature Gran % (Auto) 0.7 Neut % (Auto) 57.6 Lymph % (Auto) 28.5 [place] % (Auto) 10.9 Eos % (Auto) 2.0 Baso % (Auto) 0.3 Neut # (Auto) 3.45 Lymph # (Auto) 1.71 [place] # (Auto) 0.65 H Eos # (Auto) 0.12 Baso # (Auto) 0.02 Immature Gran # (Auto) 0.04 H Sodium 138 Potassium 3.7 D Chloride 102 Carbon Dioxide 27 Anion Gap 9.0 BUN 18 Creatinine 0.97 Est Cr Clr Drug Dosing 117.7 Est GFR ( Amer) 105.1 Est GFR (Non-Af Amer) 90.7 BUN/Creatinine Ratio 18.9 Glucose 200 H POC Glucose 159 H Calcium 8.1 L Digoxin 10/21/20 10/21/20 10/21/20 06:54 07:34 11:28 WBC RBC Hgb Hct MCV MCH MCHC RDW Std Deviation RDW Coeff of Richard Plt Count MPV Immature Gran % (Auto) Neut % (Auto) Lymph % (Auto) [place] % (Auto) Eos % (Auto) Baso % (Auto) Neut # (Auto) Lymph # (Auto) [place] # (Auto) Eos # (Auto) Baso # (Auto) Immature Gran # (Auto) Sodium Potassium Chloride Carbon Dioxide Anion Gap BUN Creatinine Est Cr Clr Drug Dosing Est GFR ( Amer) Est GFR (Non-Af Amer) BUN/Creatinine Ratio Glucose POC Glucose 174 H 213 H Calcium Digoxin 0.4 L Medications Administered Current Inpatient Medications Acetaminophen (Acetaminophen 325 Mg Tab) 650 mg PO Q4H PRN PRN Reason: Pain or Fever Stop: 11/19/20 16:57 Last Admin: 10/21/20 12:45 Dose: 650 mg Documented by: Apixaban (Apixaban 5 Mg Tablet) 5 mg PO Q12 [facility] Stop: 11/19/20 20:59 Last Admin: 10/21/20 08:19 Dose: 5 mg Documented by: Aspirin (Aspirin 81 Mg Ectab) 81 mg PO DAILY [facility] Stop: 11/20/20 08:59 Last Admin: 10/21/20 08:19 Dose: 81 mg Documented by: Atorvastatin Calcium (Atorvastatin 40 Mg Tab) 40 mg PO HS [facility] Stop: 11/19/20 20:59 Last Admin: 10/20/20 21:11 Dose: 40 mg Documented by: Benztropine Mesylate (Benztropine Mesylate 1 Mg Tab) 1 mg PO DAILY [facility] Stop: 11/20/20 08:59 Last Admin: 10/21/20 08:19 Dose: 1 mg Documented by: Dextrose (Dextrose 50% 50 Ml Syringe) 25 - 50 ml IV UD PRN; Protocol PRN Reason: Hypoglycemia Protocol Stop: 11/19/20 16:57 Digoxin (Digoxin 0.125 Mg Tab) 0.25 mg PO DAILY@1600 [facility] Stop: 11/20/20 15:59 Diphenhydramine HCl (Diphenhydramine Capsule 25 Mg Cap) 100 mg PO HS PRN PRN Reason: Sleep Stop: 11/19/20 17:24 Divalproex Sodium (Divalproex Delay Release 500 Mg Tab) 1,000 mg PO BID [facility] Stop: 11/19/20 20:59 Last Admin: 10/21/20 08:18 Dose: 1,000 mg Documented by: Duloxetine HCl (Duloxetine Hcl 60 Mg Cap) 60 mg PO HS [facility] Stop: 11/19/20 20:59 Last Admin: 10/20/20 21:11 Dose: 60 mg Documented by: Emollient Ointment (Emollient Ointment 1 Gm) 1 gm EXT BID [facility] Stop: 11/20/20 08:59 Last Admin: 10/21/20 11:15 Dose: 1 gm Documented by: Furosemide (Furosemide 40 Mg/4 Ml Vial) 40 mg IV Q12H [facility] Stop: 11/19/20 16:57 Last Admin: 10/21/20 05:24 Dose: 40 mg Documented by: Glucagon (Glucagon For Inj 1 Mg Vial) 1 mg SQ UD PRN; Protocol PRN Reason: Hypoglycemia Protocol Stop: 11/19/20 16:57 Glucose (Glucose 10 Tabs/Tube) 4 - 8 tabs PO UD PRN; Protocol PRN Reason: Hypoglycemia Protocol Stop: 11/19/20 16:57 Glucose (Glucose 40% Gel 15 Gm Tube) 15 - 30 gm PO UD PRN; Protocol PRN Reason: Hypoglycemia Protocol Stop: 11/19/20 16:57 Insulin Aspart (Insulin Aspart 100 Units/Ml 3 Ml Pen) 0 units SC ACHS [facility]; Protocol Stop: 11/19/20 16:57 Last Admin: 10/21/20 11:51 Dose: 9 units Documented by: Insulin Glargine (Insulin Glargine Solostar 100 Units/Ml 3 Ml Pen) 0 units SC QPM [facility]; Protocol Stop: 11/19/20 17:59 Isosorbide Mononitrate (Isosorbide [place] Extended Rel 60 Mg Tabcr) 60 mg PO DAILY [facility] Stop: 11/20/20 08:59 Last Admin: 10/21/20 08:19 Dose: 60 mg Documented by: Losartan Potassium (Losartan Potassium 50 Mg Tab) 50 mg PO DAILY [facility] Stop: 11/20/20 08:59 Last Admin: 10/21/20 08:19 Dose: 50 mg Documented by: Metoprolol Succinate (Metoprolol Succ 50mg Ext Rel Tab) 300 mg PO QAM [facility] Stop: 11/21/20 08:59 Metoprolol Tartrate (Metoprolol Tartrate 1 Mg/Ml Vial) 5 mg IV Q5M PRN PRN Reason: HR>120 Stop: 11/19/20 23:57 Last Admin: 10/21/20 04:01 Dose: 5 mg Documented by: Miscellaneous (Carbohydrates For Hypoglycemia ) 15 - 30 gm PO UD PRN PRN Reason: Hypoglycemia Protocol Stop: 11/19/20 16:57 Miscellaneous (Loxapine 10mg~Order Awaiting Action) 1 ea N/A QS [facility] Stop: 11/20/20 00:00 Last Admin: 10/21/20 08:18 Dose: Not Given Documented by: Miscellaneous Information (Pharmacy Glycemic Mgmt Consult) 1 ea N/A UD PRN; Protocol PRN Reason: Consult Stop: 11/19/20 17:38 Nitroglycerin (Nitroglycerin Sl 0.4 Mg/Tab Tab) 0.4 mg SL UD PRN PRN Reason: Chest Pain Stop: 11/19/20 16:57 Ondansetron HCl (Ondansetron Inj 2 Mg/Ml 2 Ml Vial) 4 mg IV Q6H PRN PRN Reason: Nausea Stop: 11/19/20 16:57 Spironolactone (Spironolactone 25 Mg Tab) 25 mg PO QAM [facility] Stop: 11/20/20 08:59 Last Admin: 10/21/20 08:19 Dose: 25 mg Documented by: PG Care Time/CCT Total # of Minutes Spent Total Time Spent with Patient: Total time spent is greater than 50% in coordination of care (as documented) at patient's floor/unit and/or counseling patient: Coding Level of Care Code 81555 Subseq Hosp Care Lvl 3 Diagnoses Acute on chronic systolic (congestive) heart failure I50.23 Acute respiratory failure with hypoxia J96.01 Atrial fibrillation, permanent I48.21 Cardiomyopathy I42.9 CAD (coronary artery disease) I25.10 Diabetes E11.9 Bipolar disorder F31.9 Active/Remission status: remission status unspecified (1) Bipolar disorder Active/Remission status: remission status unspecified Qualified Code(s): F31.9 - Bipolar disorder, unspecified
[2020-10-21] MEDS: DIGOXIN 0.125 MG TAB PO SCH (16:46)
[2020-10-21] MEDS: ATORVASTATIN 40 MG TAB PO SCH (20:55)
[2020-10-21] MEDS: DULoxetine HCL 60 MG CAP PO SCH (20:57)
[2020-10-21] MEDS: INSULIN GLARGINE SOLOSTAR 100 UNITS/ML 3 ML PEN SC SCH (21:01)
[2020-10-22] MEDS: ACETAMINOPHEN 325 MG TAB PO PRN ×2 (03:52→13:53)
[2020-10-22] MEDS: FUROSEMIDE 40 MG/4 ML VIAL IV SCH ×2 (05:52→17:01)
[2020-10-22 07:57] LABS: Ferritin 56.8 ng/ml (8-388)
[2020-10-22] MEDS: ISOSORBIDE MONO EXTENDED REL 60 MG TABCR PO SCH (08:20)
[2020-10-22] MEDS: SPIRONOLACTONE 25 MG TAB PO SCH (08:20)
[2020-10-22] MEDS: BENZTROPINE MESYLATE 1 MG TAB PO SCH (08:20)
[2020-10-22] MEDS: DIVALPROEX DELAY RELEASE 500 MG TAB PO SCH ×2 (08:21→21:17)
[2020-10-22] MEDS: ASPIRIN 81 MG ECTAB PO SCH (08:21)
[2020-10-22] MEDS: APIXABAN 5 MG TABLET PO SCH ×2 (08:21→21:16)
[2020-10-22] MEDS: SACUBITRIL-VALSARTAN 24-26 MG TAB PO SCH ×2 (08:22→21:16)
[2020-10-22] MEDS: EMOLLIENT OINTMENT 1 GM EXT SCH ×2 (08:23→21:18)
[2020-10-22] MEDS: INSULIN ASPART 100 UNITS/ML 3 ML PEN SC SCH ×4 (08:23→22:19)
[2020-10-22] MEDS ORDERED: INSULIN GLARGINE SOLOSTAR 100 UNITS/ML 3 ML PEN SC ONE (09:00)
[2020-10-22] MEDS ORDERED: METOPROLOL SUCC 50MG EXT REL TAB PO SCH (09:00)
--- NOTE | 2020-10-22 16:24 | Hospitalist Progress Note ---
Date of Service October 22, 2020 Assessment & Plan (1) Acute on chronic systolic (congestive) heart failure: acute on chronic heart failure with reduced EF, due to poor compliance, eats a lot of salt and does not follow fluid restriction Discharged at 100.6 kg, now 112.4 kg on admission down 5 liters already, change to lasix 40 PO BID, check BMP in the morning Echo from 10/02 reviewed, LVEF 25-30% with hypokinetic left ventricle, apical akinesis Continue diuresis with spironolactone 25 mg every morning continue losartan 50 mg daily, increase Toprol to 300 mg daily, increase Digoxin to 250mcg daily continue Imdur Follow I's and O's, daily weights follow up closely with Kenya MCGILL on discharge anticipate him being discharged tomorrow (2) Acute respiratory failure with hypoxia: now down to room air, no distress hypoxia due to pulmonary edema from heart failure (3) Atrial fibrillation, permanent: Rate control with medication as noted, Toprol 300 mg daily Patient is anticoagulated with Eliquis 5 mg every 12 hours Digoxin 250mcg daily (4) Cardiomyopathy: ischemic he is on appropriate regimen with Losartan, Toprol, Spinolactone, lasix, Imdur follow up with cardiology (5) CAD (coronary artery disease): Continue low-dose aspirin along with Lipitor 40 mg at bedtime no chest pain or ischemic changes on EKG (6) Diabetes: Okay for large portions if allowed Continue Lantus 60 units q. p.m. Patient is on a Novolin sliding scale monitor for hypoglycemia, no episodes (7) Bipolar disorder: Patient is a multiple psych medications, will continue mood is stable today Admission and Anticipated Discharge Date Admission Date: October 20, 2020 Subjective patient doing well, breathing well off oxygen today, not making as much urine as yesterday will change back to Lasix 40mg PO BID check labs tomorrow should be ready to be discharged tomorrow weights are likely not accurate Review of Systems Review of Systems: All systems reviewed & are unremarkable except as noted in Subjective Physical Exam Constitutional: WD/WN, vitals as above comfortable; no acute distress Neck: trachea midline, no thyromegaly Respiratory: normal respiratory effort; no respiratory distress, no labored breathing and no cough Auscultation: + rales (bases); no crackles and no wheezes Cardiovascular: Rate/Rhythm: regular rate and regular rhythm Heart Sounds: normal S1 and normal S2; no murmur Vessels: no JVD Extremities: normal capillary refill; no edema Gastrointestinal (Abdomen): normal bowel sounds, soft, nontender, no hepatosplenomegaly Musculoskeletal: no cyanosis or clubbing, extremities motor strength 5/5 Skin: no rashes, warm and dry Neurologic: patellar DTR's 2+ bilat, sensation intact and PERRL, EOMI, accommodation nl, no face palsy, no dysarthria Psychiatric: A+Ox3, euthymic affect Lymphatic: no cervical or axillary lymphadenopathy Results & Data Results & Data ([facility]) Vital Signs (Past 12 Hours) Vital Signs Temp Pulse Resp BP BP Pulse Ox 10/22/20 11:25 36.6 C 99 H 17 145/98 H 93 10/22/20 08:07 36.5 C 110 H 18 146/90 H 94 Laboratory Results Laboratory Results - last 24 hr 10/21/20 10/21/20 10/22/20 16:26 20:51 06:30 POC Glucose 159 H 199 H Iron Transferrin Transferrin % Sat Ferritin Total Protein (PEP) Albumin (PEP) Icldg-9-Lfzinptzb Kpphs-6-Gwibxvkus Bejj-6-Ammsiade Fgob-8-Pygnxmkn Gamma Globulins Monoclonal Peak 3 Ser Monoclonl Protein Ser Monoclonal Prot 2 PEP Interpretation Angiotensin Convert Enz U Random Total Protein Pending Ur Creatinine mg/dL Pending Protein/Creatinin Ratio Pending Urine Albumin (%) Pending U Gaqab-8-Tnxndmef (%) Pending U Flxht-9-Ytabbdmg (%) Pending U Beta Globulin (%) Pending U Gamma Globulin (%) Pending U Abnormal Prot Band 1 Pending U Abnormal Prot Band 2 Pending U Abnormal Prot Band 3 Pending Urine PEP Interpret Pending 10/22/20 10/22/20 10/22/20 06:55 06:55 07:35 POC Glucose 246 H Iron 81 Transferrin 334 Transferrin % Sat 17 L Ferritin 56.8 Total Protein (PEP) Pending Albumin (PEP) Pending Komxf-2-Jotjqgexf Pending Qsfgg-0-Tazbiegkl Pending Ebyf-0-Prqkteuy Pending Zcjx-5-Wajnsari Pending Gamma Globulins Pending Monoclonal Peak 3 Pending Ser Monoclonl Protein Pending Ser Monoclonal Prot 2 Pending PEP Interpretation Pending Angiotensin Convert Enz Pending U Random Total Protein Ur Creatinine mg/dL Protein/Creatinin Ratio Urine Albumin (%) U Rdtys-5-Bunypckt (%) U Sjnwt-9-Ktwcmckq (%) U Beta Globulin (%) U Gamma Globulin (%) U Abnormal Prot Band 1 U Abnormal Prot Band 2 U Abnormal Prot Band 3 Urine PEP Interpret 10/22/20 11:23 POC Glucose 213 H Iron Transferrin Transferrin % Sat Ferritin Total Protein (PEP) Albumin (PEP) Loxcp-3-Ykdwypgwd Qbbhe-0-Smueehrgj Pqgs-4-Bjhebcjd Qlns-8-Sgpafrsf Gamma Globulins Monoclonal Peak 3 Ser Monoclonl Protein Ser Monoclonal Prot 2 PEP Interpretation Angiotensin Convert Enz U Random Total Protein Ur Creatinine mg/dL Protein/Creatinin Ratio Urine Albumin (%) U Tlicm-2-Zrxygevu (%) U Epcbe-6-Wflyahxy (%) U Beta Globulin (%) U Gamma Globulin (%) U Abnormal Prot Band 1 U Abnormal Prot Band 2 U Abnormal Prot Band 3 Urine PEP Interpret Medications Administered Current Inpatient Medications Acetaminophen (Acetaminophen 325 Mg Tab) 650 mg PO Q4H PRN PRN Reason: Pain or Fever Stop: 11/19/20 16:57 Last Admin: 10/22/20 13:53 Dose: 650 mg Documented by: Apixaban (Apixaban 5 Mg Tablet) 5 mg PO Q12 [facility] Stop: 11/19/20 20:59 Last Admin: 10/22/20 08:21 Dose: 5 mg Documented by: Aspirin (Aspirin 81 Mg Ectab) 81 mg PO DAILY [facility] Stop: 11/20/20 08:59 Last Admin: 10/22/20 08:21 Dose: 81 mg Documented by: Atorvastatin Calcium (Atorvastatin 40 Mg Tab) 40 mg PO HS [facility] Stop: 11/19/20 20:59 Last Admin: 10/21/20 20:55 Dose: 40 mg Documented by: Benztropine Mesylate (Benztropine Mesylate 1 Mg Tab) 1 mg PO DAILY [facility] Stop: 11/20/20 08:59 Last Admin: 10/22/20 08:20 Dose: 1 mg Documented by: Dextrose (Dextrose 50% 50 Ml Syringe) 25 - 50 ml IV UD PRN; Protocol PRN Reason: Hypoglycemia Protocol Stop: 11/19/20 16:57 Digoxin (Digoxin 0.125 Mg Tab) 0.25 mg PO DAILY@1600 [facility] Stop: 11/20/20 15:59 Last Admin: 10/21/20 16:46 Dose: 0.25 mg Documented by: Diphenhydramine HCl (Diphenhydramine Capsule 25 Mg Cap) 100 mg PO HS PRN PRN Reason: Sleep Stop: 11/19/20 17:24 Divalproex Sodium (Divalproex Delay Release 500 Mg Tab) 1,000 mg PO BID [facility] Stop: 11/19/20 20:59 Last Admin: 10/22/20 08:21 Dose: 1,000 mg Documented by: Duloxetine HCl (Duloxetine Hcl 60 Mg Cap) 60 mg PO HS [facility] Stop: 11/19/20 20:59 Last Admin: 10/21/20 20:57 Dose: 60 mg Documented by: Emollient Ointment (Emollient Ointment 1 Gm) 1 gm EXT BID [facility] Stop: 11/20/20 08:59 Last Admin: 10/22/20 08:23 Dose: 1 gm Documented by: Furosemide (Furosemide 40 Mg/4 Ml Vial) 40 mg IV Q12H [facility] Stop: 11/19/20 16:57 Last Admin: 10/22/20 05:52 Dose: 40 mg Documented by: Glucagon (Glucagon For Inj 1 Mg Vial) 1 mg SQ UD PRN; Protocol PRN Reason: Hypoglycemia Protocol Stop: 11/19/20 16:57 Glucose (Glucose 10 Tabs/Tube) 4 - 8 tabs PO UD PRN; Protocol PRN Reason: Hypoglycemia Protocol Stop: 11/19/20 16:57 Glucose (Glucose 40% Gel 15 Gm Tube) 15 - 30 gm PO UD PRN; Protocol PRN Reason: Hypoglycemia Protocol Stop: 11/19/20 16:57 Insulin Aspart (Insulin Aspart 100 Units/Ml 3 Ml Pen) 0 units SC ACHS [facility]; Protocol Stop: 11/19/20 16:57 Last Admin: 10/22/20 12:02 Dose: 10 units Documented by: Insulin Aspart (Insulin Aspart 100 Units/Ml 3 Ml Pen) 0 units SC TODAY@0000,0400 [facility]; Protocol Stop: 10/23/20 04:01 Insulin Glargine (Insulin Glargine Solostar 100 Units/Ml 3 Ml Pen) 0 units SC QPM [facility]; Protocol Stop: 11/19/20 17:59 Last Admin: 10/21/20 21:01 Dose: 40 units Documented by: Isosorbide Mononitrate (Isosorbide [place] Extended Rel 60 Mg Tabcr) 60 mg PO DAILY [facility] Stop: 11/20/20 08:59 Last Admin: 10/22/20 08:20 Dose: 60 mg Documented by: Metoprolol Succinate (Metoprolol Succ 50mg Ext Rel Tab) 300 mg PO QAM [facility] Stop: 11/21/20 08:59 Last Admin: 10/22/20 08:20 Dose: 300 mg Documented by: Metoprolol Tartrate (Metoprolol Tartrate 1 Mg/Ml Vial) 5 mg IV Q5M PRN PRN Reason: HR>120 Stop: 11/19/20 23:57 Last Admin: 10/21/20 04:01 Dose: 5 mg Documented by: Miscellaneous (Carbohydrates For Hypoglycemia ) 15 - 30 gm PO UD PRN PRN Reason: Hypoglycemia Protocol Stop: 11/19/20 16:57 Miscellaneous (Loxapine 10mg~Order Awaiting Action) 1 ea N/A QS [facility] Stop: 11/20/20 00:00 Last Admin: 10/22/20 15:50 Dose: Not Given Documented by: Miscellaneous Information (Pharmacy Glycemic Mgmt Consult) 1 ea N/A UD PRN; Protocol PRN Reason: Consult Stop: 11/19/20 17:38 Nitroglycerin (Nitroglycerin Sl 0.4 Mg/Tab Tab) 0.4 mg SL UD PRN PRN Reason: Chest Pain Stop: 11/19/20 16:57 Ondansetron HCl (Ondansetron Inj 2 Mg/Ml 2 Ml Vial) 4 mg IV Q6H PRN PRN Reason: Nausea Stop: 11/19/20 16:57 Sacubitril/Valsartan (Sacubitril-Valsartan 24-26 Mg Tab) 1 tab PO BID [facility] Stop: 11/21/20 08:59 Last Admin: 10/22/20 08:22 Dose: 1 tab Documented by: Spironolactone (Spironolactone 25 Mg Tab) 25 mg PO QAM [facility] Stop: 11/20/20 08:59 Last Admin: 10/22/20 08:20 Dose: 25 mg Documented by: PG Care Time/CCT Total # of Minutes Spent Total Time Spent with Patient: Total time spent is greater than 50% in coordination of care (as documented) at patient's floor/unit and/or counseling patient: Coding Level of Care Code 25918 Subseq Hosp Care Lvl 2 Diagnoses Acute on chronic systolic (congestive) heart failure I50.23 Acute respiratory failure with hypoxia J96.01 Atrial fibrillation, permanent I48.21 Cardiomyopathy I42.9 CAD (coronary artery disease) I25.10 Diabetes E11.9 Bipolar disorder F31.9 Active/Remission status: remission status unspecified (1) Bipolar disorder Active/Remission status: remission status unspecified Qualified Code(s): F31.9 - Bipolar disorder, unspecified
[2020-10-22] MEDS: DIGOXIN 0.125 MG TAB PO SCH (16:56)
[2020-10-22] MEDS: DULoxetine HCL 60 MG CAP PO SCH (21:16)
[2020-10-22] MEDS: ATORVASTATIN 40 MG TAB PO SCH (21:17)
[2020-10-22] MEDS: INSULIN GLARGINE SOLOSTAR 100 UNITS/ML 3 ML PEN SC SCH (21:20)
[2020-10-23] MEDS: INSULIN ASPART 100 UNITS/ML 3 ML PEN SC SCH ×4 (02:31→11:59)
[2020-10-23] MEDS: FUROSEMIDE 40 MG/4 ML VIAL IV SCH (05:04)
[2020-10-23 06:16] LABS: Hematocrit (blood only) 47.5 % (42-52); Hemoglobin 16.2 g/dL (14.0-18.0); Mean Corpuscular Hemoglobin 29.6 pg (25-34); Mean Corpuscular Hgb Conc 34.1 g/dL (32-36); Mean Corpuscular Volume 86.7 fL (80-100); Mean Platelet Volume 10.7 fL (7.4-10.4); Platelet Count 195 K/uL (130-400); RDW Coefficient of Variation 13.6 % (11.5-14.5); RDW Standard Deviation 43.1 fL (36.4-46.3); Red Blood Count 5.48 M/uL (4.7-6.1); White Blood Count 6.75 K/uL (4.8-10.8)
[2020-10-23 06:52] LABS: BUN Creatinine Ratio 21.4 (10-20); Calcium 8.4 mg/dl (8.5-10.1); Creatinine Clr Calc Pharmacy 133.4 ml/min; Est GFR (African American) 119.5 ml/min; Est GFR (Non-African American) 103.1 ml/min; Potassium 3.9 mmol/L (3.5-5.1)
--- NOTE | 2020-10-23 08:11 | Cardiology Progress Note ---
Date of Service October 23, 2020 Assessment & Plan (1) Acute on chronic systolic (congestive) heart failure: (2) Atrial fibrillation, permanent: (3) Mitral regurgitation: (4) Cardiomyopathy: (5) CAD (coronary artery disease): (6) Hypertension: (7) Hyperlipidemia: ASSESSMENT/PLAN: 1. Acute on chronic systolic CHF: He does not appear to be euvolemic. Can consider transitioning to oral diuretic later today. Would consider Lasix 60 mg p.o. BID. ProBNP is now normal. Exacerbation likely due to dietary noncompliance, noncompliance with medications per patient report, and noncompliance with follow-up. AFib with RVR may also be playing a role. Continue metoprolol succinate, Entresto, loop diuretic, spironolactone, and digoxin. We once again discussed the importance of a low-sodium diet and avoidingfoods high in sodium content, such as potato chips. Daily weights. Close follow-up with heart failure program has been coordinated with the [facility] at his correctional institution. 2. Atrial fibrillation: Appears to be permanent. Heart rate has improved with titration of beta-mini and digoxin. It will likely be a few more days to get the full effect of his digoxin titration. Increase metoprolol succinate to 400 mg today. If heart rate control is not sufficient, we discussed other potential options such as cardioversion, antiarrhythmic therapy, etc.. Continue anticoagulation therapy for stroke risk reduction. 3. Mitral regurgitation: Appeared to be moderate on personal review on most recent echo. This was in the setting of hypervolemia. Recommend repeating echo when better optimized. 4. CAD: Degree of CAD noted in cardiac catheterization by Jose Angel in the past would not correlate with his degree of LV systolic dysfunction. No angina/chest pain. Continue beta-mini and high-intensity statin therapy. 5. Cardiomyopathy: Etiology uncertain. Appears non ischemic based on catheterization findings reported in the past. Secondary workup is still pending. TSH was unremarkable. Continue metoprolol succinate and Entresto. Titrate Entresto over time. If no significant improvement after optimal medical therapy, would consider ICD for primary prevention, which has been discussed with him. Would also consider hydralazine with nitrate therapy after Entresto is titrated appropriately. 6. Hypertension: Blood pressure has been mildly elevated at times. Metoprolol succinate titrated as above. 7. Dyslipidemia: Continue high-intensity statin therapy. 8. Disposition: Cardiology will continue to follow. Close follow-up with heart failure program has been coordinated with his correctional facility physician. He would like to go home today. From a heart failure standpoint, he appears to be appropriate for discharge. If his heart rate is better controlled after titration of beta-mini, can further adjust medications as an outpatient. Admission and Anticipated Discharge Date Admission Date: October 20, 2020 Subjective Patient feels back to baseline in regards to breathing. He does have some dyspnea with exertion at times but apparently this is more chronic. He feels much better overall. He denies chest pain, palpitations, syncope, near-syncope, bleeding, or edema. He is hoping to be discharged today back to his correctional facility. Review of systems: As above. Physical Exam Physical Exam: Gen.: No acute distress. Alert and oriented. HEENT: Anicteric sclera. Neck: No appreciable JVD or hepatic jugular reflux. Cardiac: PMI was nondisplaced. No ventricular heave. Irregularly irregular with heart rate in the 90s to low 100s. Normal S1-S2. No murmurs, rubs, or gallops. Pulmonary: Clear to auscultation bilaterally without wheezes, rales, or rhonchi. Abdomen: Soft, nontender, nondistended, with normoactive bowel sounds. No bruits noted. Extremities: 2+ radial pulses bilaterally. No significant edema. No cyanosis. Psychiatric: Affect appears appropriate. Results & Data ([facility]) Vital Signs (Past 12 Hours) Vital Signs Temp Pulse Pulse Resp BP Pulse Ox 10/23/20 07:37 36.6 C 112 H 14 139/115 H 97 10/23/20 04:03 36.6 C 89 16 141/102 H 95 10/23/20 00:10 36.8 C 104 H 18 144/91 H 93 10/22/20 23:21 101 H 10/22/20 20:37 37.1 C 98 H 19 133/98 91 Intake & Output 10/21/20 10/22/20 10/23/20 10/24/20 06:59 06:59 06:59 06:59 Intake Total 240 / 240 1590 / 1590 780 / 780 Output Total 4425 / 4425 2075 / 2075 4475 / 4475 Balance -4185 / -4185 -485 / -485 -3695 / -3695 Weight 246 lb 14.684 oz 246 lb 14.684 oz 225 lb 8.526 oz Laboratory Results Laboratory Results - last 24 hr 10/22/20 10/22/20 10/22/20 11:23 16:32 20:36 WBC RBC Hgb Hct MCV MCH MCHC RDW Std Deviation RDW Coeff of Richard Plt Count MPV Sodium Potassium Chloride Carbon Dioxide Anion Gap BUN Creatinine Est Cr Clr Drug Dosing Est GFR ( Amer) Est GFR (Non-Af Amer) BUN/Creatinine Ratio Glucose POC Glucose 213 H 175 H 237 H Calcium NT-Pro-B Natriuret Pep 10/23/20 10/23/20 10/23/20 02:25 04:53 05:58 WBC RBC Hgb Hct MCV MCH MCHC RDW Std Deviation RDW Coeff of Richard Plt Count MPV Sodium 137 Potassium 3.9 Chloride 105 Carbon Dioxide 24 Anion Gap 8.0 BUN 17 Creatinine 0.82 Est Cr Clr Drug Dosing 133.4 Est GFR ( Amer) 119.5 Est GFR (Non-Af Amer) 103.1 BUN/Creatinine Ratio 21.4 H Glucose 221 H POC Glucose 209 H 195 H Calcium 8.4 L NT-Pro-B Natriuret Pep 364 10/23/20 10/23/20 05:58 07:14 WBC 6.75 RBC 5.48 Hgb 16.2 Hct 47.5 MCV 86.7 MCH 29.6 MCHC 34.1 RDW Std Deviation 43.1 RDW Coeff of Richard 13.6 Plt Count 195 MPV 10.7 H Sodium Potassium Chloride Carbon Dioxide Anion Gap BUN Creatinine Est Cr Clr Drug Dosing Est GFR ( Amer) Est GFR (Non-Af Amer) BUN/Creatinine Ratio Glucose POC Glucose 199 H Calcium NT-Pro-B Natriuret Pep Diagnostic Findings Telemetry personally reviewed: He remains in atrial fibrillation but his heart rate trend has improved after titration of rate controlled meds. Medications Administered Current Inpatient Medications Acetaminophen (Acetaminophen 325 Mg Tab) 650 mg PO Q4H PRN PRN Reason: Pain or Fever Stop: 11/19/20 16:57 Last Admin: 10/22/20 13:53 Dose: 650 mg Documented by: Apixaban (Apixaban 5 Mg Tablet) 5 mg PO Q12 OSCAR Stop: 11/19/20 20:59 Last Admin: 10/22/20 21:16 Dose: 5 mg Documented by: Aspirin (Aspirin 81 Mg Ectab) 81 mg PO DAILY OSCAR Stop: 11/20/20 08:59 Last Admin: 10/22/20 08:21 Dose: 81 mg Documented by: Atorvastatin Calcium (Atorvastatin 40 Mg Tab) 40 mg PO HS OSCAR Stop: 11/19/20 20:59 Last Admin: 10/22/20 21:17 Dose: 40 mg Documented by: Benztropine Mesylate (Benztropine Mesylate 1 Mg Tab) 1 mg PO DAILY OSCAR Stop: 11/20/20 08:59 Last Admin: 10/22/20 08:20 Dose: 1 mg Documented by: Dextrose (Dextrose 50% 50 Ml Syringe) 25 - 50 ml IV UD PRN; Protocol PRN Reason: Hypoglycemia Protocol Stop: 11/19/20 16:57 Digoxin (Digoxin 0.125 Mg Tab) 0.25 mg PO DAILY@1600 [facility] Stop: 11/20/20 15:59 Last Admin: 10/22/20 16:56 Dose: 0.25 mg Documented by: Diphenhydramine HCl (Diphenhydramine Capsule 25 Mg Cap) 100 mg PO HS PRN PRN Reason: Sleep Stop: 11/19/20 17:24 Divalproex Sodium (Divalproex Delay Release 500 Mg Tab) 1,000 mg PO BID [facility] Stop: 11/19/20 20:59 Last Admin: 10/22/20 21:17 Dose: 1,000 mg Documented by: Duloxetine HCl (Duloxetine Hcl 60 Mg Cap) 60 mg PO HS [facility] Stop: 11/19/20 20:59 Last Admin: 10/22/20 21:16 Dose: 60 mg Documented by: Emollient Ointment (Emollient Ointment 1 Gm) 1 gm EXT BID OSCAR Stop: 11/20/20 08:59 Last Admin: 10/22/20 21:18 Dose: 1 gm Documented by: Furosemide (Furosemide 40 Mg/4 Ml Vial) 40 mg IV Q12H OSCAR Stop: 11/19/20 16:57 Last Admin: 10/23/20 05:04 Dose: 40 mg Documented by: Glucagon (Glucagon For Inj 1 Mg Vial) 1 mg SQ UD PRN; Protocol PRN Reason: Hypoglycemia Protocol Stop: 11/19/20 16:57 Glucose (Glucose 10 Tabs/Tube) 4 - 8 tabs PO UD PRN; Protocol PRN Reason: Hypoglycemia Protocol Stop: 11/19/20 16:57 Glucose (Glucose 40% Gel 15 Gm Tube) 15 - 30 gm PO UD PRN; Protocol PRN Reason: Hypoglycemia Protocol Stop: 11/19/20 16:57 Insulin Aspart (Insulin Aspart 100 Units/Ml 3 Ml Pen) 0 units SC ACHS [facility]; Protocol Stop: 11/19/20 16:57 Last Admin: 10/22/20 22:19 Dose: 5 units Documented by: Insulin Glargine (Insulin Glargine Solostar 100 Units/Ml 3 Ml Pen) 0 units SC QPM [facility]; Protocol Stop: 11/19/20 17:59 Last Admin: 10/22/20 21:20 Dose: 40 units Documented by: Isosorbide Mononitrate (Isosorbide Howell Extended Rel 60 Mg Tabcr) 60 mg PO DAILY [facility] Stop: 11/20/20 08:59 Last Admin: 10/22/20 08:20 Dose: 60 mg Documented by: Metoprolol Succinate (Metoprolol Succ 50mg Ext Rel Tab) 400 mg PO QAM [facility] Stop: 11/22/20 08:59 Metoprolol Tartrate (Metoprolol Tartrate 1 Mg/Ml Vial) 5 mg IV Q5M PRN PRN Reason: HR>120 Stop: 11/19/20 23:57 Last Admin: 10/21/20 04:01 Dose: 5 mg Documented by: Miscellaneous (Carbohydrates For Hypoglycemia ) 15 - 30 gm PO UD PRN PRN Reason: Hypoglycemia Protocol Stop: 11/19/20 16:57 Miscellaneous (Loxapine 10mg~Order Awaiting Action) 1 ea N/A QS [facility] Stop: 11/20/20 00:00 Last Admin: 10/23/20 02:36 Dose: Not Given Documented by: Miscellaneous Information (Pharmacy Glycemic Mgmt Consult) 1 ea N/A UD PRN; Protocol PRN Reason: Consult Stop: 11/19/20 17:38 Nitroglycerin (Nitroglycerin Sl 0.4 Mg/Tab Tab) 0.4 mg SL UD PRN PRN Reason: Chest Pain Stop: 11/19/20 16:57 Ondansetron HCl (Ondansetron Inj 2 Mg/Ml 2 Ml Vial) 4 mg IV Q6H PRN PRN Reason: Nausea Stop: 11/19/20 16:57 Sacubitril/Valsartan (Sacubitril-Valsartan 24-26 Mg Tab) 1 tab PO BID [facility] Stop: 11/21/20 08:59 Last Admin: 10/22/20 21:16 Dose: 1 tab Documented by: Spironolactone (Spironolactone 25 Mg Tab) 25 mg PO QAM [facility] Stop: 11/20/20 08:59 Last Admin: 10/22/20 08:20 Dose: 25 mg Documented by: PG Care Time/CCT Total # of Minutes Spent Total Time Spent with Patient: Total time spent is greater than 50% in coordin ation of care (as documented) at patient's floor/unit and/or counseling patient: Coding Level of Care Code 86850 Subseq Hosp Care Lvl 3 Diagnoses Acute on chronic systolic (congestive) heart failure I50.23 Atrial fibrillation, permanent I48.21 Mitral regurgitation I34.0 Cardiomyopathy I42.9 CAD (coronary artery disease) I25.10 Hypertension I10 Hypertension type: essential hypertension Hyperlipidemia E78.5 Hyperlipidemia type: unspecified (1) Hypertension Hypertension type: essential hypertension Qualified Code(s): I10 - Essential (primary) hypertension (2) Hyperlipidemia Hyperlipidemia type: unspecified Qualified Code(s): E78.5 - Hyperlipidemia, unspecified
[2020-10-23] MEDS: ISOSORBIDE MONO EXTENDED REL 60 MG TABCR PO SCH (08:45)
[2020-10-23] MEDS: SACUBITRIL-VALSARTAN 24-26 MG TAB PO SCH (08:45)
[2020-10-23] MEDS: BENZTROPINE MESYLATE 1 MG TAB PO SCH (08:45)
[2020-10-23] MEDS: ASPIRIN 81 MG ECTAB PO SCH (08:46)
[2020-10-23] MEDS: DIVALPROEX DELAY RELEASE 500 MG TAB PO SCH (08:46)
[2020-10-23] MEDS: APIXABAN 5 MG TABLET PO SCH (08:46)
[2020-10-23] MEDS: SPIRONOLACTONE 25 MG TAB PO SCH (08:46)
[2020-10-23] MEDS: EMOLLIENT OINTMENT 1 GM EXT SCH (08:57)
[2020-10-23] MEDS ORDERED: METOPROLOL SUCC 50MG EXT REL TAB PO SCH (09:00)
[2020-10-23] MEDS ORDERED: INSULIN GLARGINE SOLOSTAR 100 UNITS/ML 3 ML PEN SC SCH (11:30)
[2020-10-24 06:07] LABS: Albumin 3.4 g/dL (3.8-4.8); Alpha 1 Globulin 0.3 g/dL (0.2-0.3); Alpha 2 Globulin 0.8 g/dL (0.5-0.9); Angiotensin Converting Enzyme 37 U/L (9-67); Beta-1-Globulin 0.5 g/dL (0.4-0.6); Beta-2-Globulin 0.5 g/dL (0.2-0.5); Gamma Globulin 1.1 g/dL (0.8-1.7); Monoclonal Protein Band 1 DNR g/dL (NONE DETECTED); Monoclonal Protein Band 2 DNR g/dL (NONE DETECTED); Monoclonal Protein Band 3 DNR g/dL (NONE DETECTED); Total Protein 6.7 g/dL (6.1-8.1)
[2020-10-24 10:27] LABS: Creatinine Ur 51 mg/dL (20-320); Protein, Urine Random 8 mg/dL (5-25); Ur Protein/Creat Ratio mg/g 157 mg/g creat (22-128); Urine Abnormal Protein Band 1 DNR mg/dL (NONE DETECTED); Urine Abnormal Protein Band 2 DNR mg/dL (NONE DETECTED); Urine Abnormal Protein Band 3 DNR mg/dL (NONE DETECTED); Urine Protein/Creatinine Ratio 0.157 (0.022-0.128)
--- NOTE | 2020-11-03 07:40 | Discharge Summary ---
Date of Service October 23, 2020 Admission HPI Per Admitting Provider This is a 50-year-old male with past medical history of cardiomyopathy, chronic systolic CHF, atrial fibrillation that presents today with lower extremity edema and shortness of breath. Patient is a somewhat limited historian as noted below. Patient is a prisoner at [facility]. He was admitted here with acute congestive heart failure. He was diuresed aggressively and eventually discharged. At that time, he was discharged with Lasix 40 mg p.o. twice daily. He was 100.6 kilograms at time of discharge. Patient tells me that he is having issues at the present as he is been going back to his previous eating habits which he feels involves all larger portions. He feels this may be why he is now short of breath again. He is requesting larger portions here as he feels that that might help him regulate his blood sugars and fluid better. On further questioning, he tells me he is given 2 medications at night, 1 of which is a psychiatric medication but he is unsure of the other and feels he may not be receiving the Lasix tonight. I do see he is on multiple twice daily medications including divalproex, Eliquis, loxapine, as well as Lasix. At the time my evaluation, the patient was off of monitor. He was awake and alert and did not appear to be in any cardiopulmonary distress. Principal Diagnosis Acute on chronic heart failure with reduced ejection fraction Discharge Exam Constitutional WD/WN, vitals as above comfortable; no acute distress Neck trachea midline, no thyromegaly Respiratory normal respiratory effort; no respiratory distress, no labored breathing and no cough Auscultation: lungs clear to auscultation bilaterally; no crackles, no rales and no wheezes Cardiovascular Rate/Rhythm: regular rate and regular rhythm Heart Sounds: normal S1 and normal S2; no murmur Vessels: no JVD Extremities: normal capillary refill; no edema Gastrointestinal (Abdomen) normal bowel sounds, soft, nontender, no hepatosplenomegaly Musculoskeletal no cyanosis or clubbing, extremities motor strength 5/5 Skin no rashes, warm and dry Neurologic patellar DTR's 2+ bilat, sensation intact and PERRL, EOMI, accommodation nl, no face palsy, no dysarthria Psychiatric A+Ox3, euthymic affect Lymphatic no cervical or axillary lymphadenopathy Discharge Data Allergies Allergy/AdvReac Type Severity Reaction Status Date / Time iodine Allergy Unknown UNKNOWN Verified 10/20/20 14:34 shellfish derived Allergy Unknown UNKNOWN Verified 10/20/20 14:34 lisinopril AdvReac Mild COUGH Verified 09/21/20 12:07 Consultations 10/20/20 13:47 ED Decision to Admit Stat 10/20/20 16:58 Consult Cardiology Routine Hospital Course (1) Acute on chronic systolic (congestive) heart failure: acute on chronic heart failure with reduced EF, due to poor compliance, eats a lot of salt and does not follow fluid restriction Discharged last admission at 100.6 kg, now 112.4 kg in the ED this time diuresed extremely well, responds to Lasix and fluid restriction and salt restriction down to 100kg on discharge Echo from 10/02 reviewed, LVEF 25-30% with hypokinetic left ventricle, apical akinesis Continue diuresis with spironolactone 25 mg every morning recommend starting Entresto BID if it can be approved by [facility], if not then use Losartan 50mg continue losartan 50 mg daily, increase Toprol to 400 mg daily, increase Digoxin to 250mcg daily continue Imdur Follow I's and O's, daily weights follow up closely with Kenya MCGILL on discharge (2) Acute respiratory failure with hypoxia: now down to room air, no distress hypoxia due to pulmonary edema from heart failure (3) Atrial fibrillation, permanent: Rate control with medication as noted, Toprol 400 mg daily Patient is anticoagulated with Eliquis 5 mg every 12 hours Digoxin 250mcg daily (4) Cardiomyopathy: ischemic he is on appropriate regimen with Losartan, Toprol, Spinolactone, lasix, Imdur follow up with cardiology (5) CAD (coronary artery disease): Continue low-dose aspirin along with Lipitor 40 mg at bedtime no chest pain or ischemic changes on EKG (6) Diabetes: Okay for large portions if allowed Continue Lantus 60 units q. p.m. Patient is on a Novolin sliding scale monitor for hypoglycemia, no episodes (7) Bipolar disorder: Patient is a multiple psych medications, will continue mood is stable today Total Time Total Time Spent Total Time Spent (In Minutes): 32 Total Time Includes: Examination of the Patient, Discharge Planning, Medication Reconciliation and Communication With Other Providers (spoke with physician at [facility] Howie and cardiology) Discharge Plan Discharge Items Patient Disposition: [facility] Reason For Visit: CHF Discharge Diagnosis: Acute on chronic systolic heart failure Acute hypoxic respiratory failure Condition on Discharge: Good Goals: compliance with heart medications follow low sodium diet, fluid restriction of 2000mL a day daily weight follow closely with heart failure clinic Activity: Resume your previous activity Weightbearing: Full weightbearing Non-emergency contact: Primary Care Provider and Casing 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 An appointment has been scheduled for you with the [facility] Heart Failure Program within 7 days of discharge. Anticipate this visit to be 30-60 minutes long. Please expect a lay out and detail drafter phone call from one of our nurses approximately 48 hours from discharge. They will also be placing an order for lab work to be completed 1-2 days prior to your heart failure follow up appointment. Please be sure to have this done so we can go over the results when you come in. Office Location The cardiology office building is located in front of the hospital at [address] Bring the following with you to your follow-up doctor appointments: Please bring your daily weight log any discharge paperwork all of your medication bottles with you to this visit. ) Howie CAREY [Primary Care Provider] - Diet: Carb Consistent or DM2 and Heart Healthy Fluids: 2000ml (8 cups) Addtl Attending Provider Instructions: Medications: - TOPROL: increased to 400mg daily in the morning - DIGOXIN: increased to 250mcg daily - ENTRESTO: recommend using 24/26mg tablets, BID, if this cannot be used due to SCI then recommend Losartan 50mg but Entresto is much preferred Please have patient follow strict heart failure restrictions, Sodium < 2gm daily, fluids < 2 liters daily he should weigh himself daily and notify provider at [facility] if weight is going up by 2-3 lbs from baseline his baseline appears to be 100kg (when he was admitted here he was 112kg, now down to 102kg prior to Lasix this morning) close follow up with Kenya MCGILL with CHF clinic on 10/29 is vital to his care Call 911 and go to the Emergency Room if: * You have tightness or pain in your chest that does not go away with rest or Nitroglycerin * You are very short of breath even with rest Call your doctor if any of the following symptoms or problems start or get worse: * Shortness of breath or difficulty breathing * Wake up at night short of breath * Chest pain * Cough * Swelling of your hands, fee, or legs * More fatigued or tired with your normal activity * Palpitations - sudden fast heart beats WEIGHT * Weigh yourself every morning after using the bathroom. * Use the same scale. * Wear the same amount of clothing. * Write your weight down on your chart. * Call your doctor if you gain more than 2-3 pounds in 1-2 days. MEDICATIONS * Use this discharge instruction sheet for instructions. * Take your medications at the time your doctor ordered. * Do not skip a dose of your medicines. * If you miss a dose of medicine, take as soon as possible, but DO NOT DOUBLE A DOSE. * Read your medicine information when you get home. * Know all of the side effects of your medicine. * Call your doctor's office if you have any side effects. * Be sure all of your doctors know what medicine and herbs you take (including cold, flu, and herbal medicine). * Pain Medicine: If you do not get relief from your pain, please call your doctor for help. Take the following with you to your follow-up doctor appointments: * Weight Chart * Medication List * List of questions Do not drink excessive alcohol, beer or wine. Pending Studies at Discharge: No Stand-Alone Forms: My [facility] Skilled Items Patient informed of condition?: Yes Discharge Level of Care: Other Communicable Disease: No Discharge Prognosis: Stable Lines: None Urinary Catheter: No Medications and DC Order Prescriptions: New digoxin [Digitek] 125 mcg (0.125 mg) Tablet 0.25 mg PO DAILY@1600 30 Days Qty: 60 RF: 0 Entresto 24-26 mg Tablet 1 tab PO BID 30 Days Qty: 60 RF: 0 Continued atorvastatin 40 mg Tablet 40 mg PO HS RF: 0 Lantus U-100 Insulin 100 unit/mL Solution 60 unit SUBCUT PM RF: 0 diphenhydramine HCl 50 mg Capsule 100 mg PO HS PRN (Reason: Sleep) RF: 0 divalproex 500 mg Tablet,Delayed Release (Dr/Ec) 1,000 mg PO BID RF: 0 aspirin 81 mg Tablet,Delayed Release (Dr/Ec) 81 mg PO DAILY RF: 0 isosorbide mononitrate 60 mg Tablet Extended Release 24 Hr 60 mg PO DAILY RF: 0 benztropine 1 mg Tablet 1 mg PO DAILY RF: 0 duloxetine 60 mg Capsule,Delayed Release(Dr/Ec) 60 mg PO HS RF: 0 Novolin R Regular U-100 Insuln 100 unit/mL Solution 1 sliding scale dose SUBCUT USEASDIRECTD RF: 0 Eliquis 5 mg tablet 5 mg PO Q12H Qty: 60 RF: 0 DermaPhor Ointment 1 applic TOPICAL UD RF: 0 nitroglycerin [Nitrostat] 0.4 mg Tablet, Sublingual 0.4 mg sublingual UD MDD 3 tabs PRN (Reason: Chest Pain) RF: 0 loxapine succinate 10 mg Capsule 10 mg PO BID RF: 0 spironolactone 25 mg Tablet 25 mg PO QAM Qty: 0 RF: 0 furosemide 40 mg Tablet 40 mg PO BID Qty: 0 RF: 0 Discontinued losartan 50 mg Tablet 50 mg PO DAILY RF: 0 metoprolol succinate 50 mg Tablet Extended Release 24 Hr 200 mg PO QAM Qty: 0 RF: 0 digoxin [Digitek] 125 mcg (0.125 mg) Tablet 0.125 mg PO DAILY@1600 Qty: 0 RF: 0 No Action metoprolol succinate 200 mg tablet extended release 24 hr 400 mg PO DAILY RF: 0 Discharge Orders: Discharge Order (Routine); Ordered 10/23/20 Ordered By: Ronnell Baum/Other Patient Handouts: Diabetes and Heart Disease, Coping with Heart Failure, Heart Failure Making Changes to ..., Heart Failure Dc, Diabetes Learn Serve Portion Size, Diabetes Carbs Fats Protein, Eating Heart-Healthy Foods Admission Data Admit Date/Time: 10/20/20 15:03 Attending Provider: Ronnell Duvall Admit Provider: Emir Gao Primary Care Provider: Howie CAREY Other Providers: Balbir Henao ; Rene Roe Other Interventions: Discharge Summary Assessment (RN) Last Done: 10/23/20 10:41 Coding Level of Care Code D/C Day Management >30 mins Diagnoses Acute on chronic systolic (congestive) heart failure I50.23 Acute respiratory failure with hypoxia J96.01 Atrial fibrillation, permanent I48.21 Cardiomyopathy I42.9 CAD (coronary artery disease) I25.10 Diabetes E11.9 Bipolar disorder F31.9 Active/Remission status: remission status unspecified
== END 2020-10-23 12:15 | DRG 291 ==
LOC: ED 11:34 → SUATTDRO 15:03 → 2E 15:03